=== PATIENT | male | born 1960 | race Caucasian/White ===

== ENCOUNTER 2016-04-16 22:03 | Inpatient (IN) | payer MEDICAID, OTHER ==
[~2016-04-16] VITALS: Ht 165.1 cm; Wt 81.6 kg
--- NOTE | 2016-04-16 22:24 | Emergency Room Report ---
History of Present Illness General Chief Complaint: Gastrointestinal Illness Source: Patient, Medical Record Present Illness HPI Is a 55-year-old male, fdc patient, with multiple medical problems. This included a craniotomy. He presents with two episodes of coffee ground emesis. Report per fdc note. Patient said he vomited yesterday. EMS said this occurred at 8 PM today. Patient has no symptoms. No diarrhea. No abdominal pain. No other complaint. Allergies: Coded Allergies: No Known Allergies (Unverified , 04/16/16) Patient History Past Medical History: see triage record, old chart reviewed Past Surgical History: other - Craniotomy Pertinent Family History: none Social History: Denies: smoking Immunizations: UTD Reviewed Nursing Documentation: PMH: Agreed, PSxH: Agreed Nursing Documentation-PMH Hx Cardiac Problems: No - Chronic back problem Hx Hypertension: Yes Hx COPD: Yes Hx Gastrointestinal Problems: Yes - gerd History Of Psychiatric Problem: Yes - schizo affective disorder Hx Neurological Problems: Yes - epilepsyanxiety Hx Cerebrovascular Accident: Yes Review of Systems Eye: Denies: blurred vision, eye pain ENT: Denies: ear pain, nose congestion, throat swelling Respiratory: Denies: cough, shortness of breath Cardiovascular: Denies: chest pain, palpitations Gastrointestinal: Reports: vomiting, Denies: abdominal pain, diarrhea, nausea Musculoskeletal: Denies: back pain, joint pain Skin: Denies: rash Neurological: Denies: headache, numbness Endocrine: Denies: increased thirst, increased urine Hematologic/Lymphatic: Denies: easy bruising All Other Systems: negative except mentioned in HPI Physical Exam Vital Signs Date Time Temp Pulse Resp B/P Pulse Ox O2 Delivery O2 Flow Rate FiO2 04/16/16 22:07 98.2 76 20 140/96 98 Room Air vitals unremarkable. [id number] EP Interpretation: reviewed, normal General Appearance: well appearing, no apparent distress, alert Head: normocephalic, atraumatic, other - craniotomy on right Eyes: bilateral eye EOMI, bilateral eye PERRL ENT: hearing grossly normal, normal pharynx Neck: full range of motion, supple, no meningismus Respiratory: chest non-tender, lungs clear, normal breath sounds Cardiovascular #1: regular rate, rhythm, no murmur Gastrointestinal: normal bowel sounds, non tender, no mass, no organomegaly, no bruit, non-distended Musculoskeletal: back normal, normal range of motion Neurologic: alert Psychiatric: mood/affect normal Skin: warm/dry Medical Decision Making Diagnostic Impression: Primary Impression: Upper GI bleeding Additional Impressions: UTI (urinary tract infection) Qualified Codes: N30.00 - Acute cystitis without hematuria Leukocytosis Qualified Codes: D72.829 - Elevated white blood cell count, unspecified Proteinuria ER Course Is a 55-year-old male presents with questionable coffee-ground emesis. Hemoglobin stable. Is a poor historian. He had a bowel movement here in his diaper and there was no blood no melena. He does have a leukocytosis. This may be secondary to Dr. gibbs/UTI. May be secondary to stress response from infection. We'll go ahead and cover with antibiotics. I discussed the case with Dr. Sheffield who will be admitting for Dr. Cash. Lab Results Impression labs with leukocytosis. Rhythm Strip Diag. Results EP Interpretation: yes Rate: 80 Rhythm: NSR, no PVC's, no ectopy Chest X-Ray Diagnostic Results EP Interpretation: Yes Findings: no consolidation, no effusion, no pneumothorax, no acute cardiopulmonary disease Number of Views: 1 Last Vital Signs Date Time Temp Pulse Resp B/P Pulse Ox O2 Delivery O2 Flow Rate FiO2 04/16/16 22:07 98.2 76 20 140/96 98 Room Air Status: improved Disposition: HOME, SELF-CARE Condition: Stable Referrals: ERNST CASH (PCP) PHIL JUSTIN M.D. Apr 16, 2016 22:24
[2016-04-16 22:30] LABS: MEAN CORPUSCULAR HEMOGLOBIN 32.8 PG (27.0-31.0); MEAN CORPUSCULAR HGB CONC 33.6 G/DL (32.0-36.0); MEAN CORPUSCULAR VOLUME 98 FL (80-99); MEAN PLATELET VOLUME 7.1 FL (6.5-10.1); PLATELET COUNT 240 K/UL (150-450); RED BLOOD COUNT 4.63 M/UL (4.70-6.10); RED CELL DISTRIBUTION WIDTH 11.8 % (11.6-14.8)
[2016-04-16] MEDS ORDERED: Pantoprazole Inj IVP ONE (22:30)
[2016-04-16] MEDS ORDERED: COZAAR50 MG ORAL (22:34)
[2016-04-16] MEDS ORDERED: CALCIUM 500 +1 EAC3 PO (22:34)
[2016-04-16] MEDS ORDERED: CALCIUM ACETAT667 MG PO (22:34)
[2016-04-16] MEDS ORDERED: DILANTIN100 MG ORAL (22:34)
[2016-04-16] MEDS ORDERED: DEPAKOTE250 MG PO ×2 (22:34)
[2016-04-16] MEDS ORDERED: CARAFATE1 G1 ORAL (22:34)
[2016-04-16] MEDS ORDERED: MILK OF MA400 MG/51 ORAL (22:34)
[2016-04-16] MEDS ORDERED: NORVASC10 MG ORAL (22:34)
[2016-04-16] MEDS ORDERED: SEROQUEL200 MG ORAL (22:34)
[2016-04-16] MEDS ORDERED: MULTIVITAMINS1 EAC2 ORAL (22:34)
[2016-04-16] MEDS ORDERED: DOCUSATE SODIU100 MG ORAL (22:34)
[2016-04-16 22:42] LABS: INR 1.2 (0.9-1.1); PROTHROMBIN TIME 12.7 SEC (9.30-11.50)
[2016-04-16 22:54] LABS: ALANINE AMINOTRANSFERASE 62 U/L (3-41); ALBUMIN/GLOBULIN RATIO 0.9 (1.0-2.7); ANION GAP 21 (5-15); ASPARTATE AMINO TRANSFERASE 61 U/L (5-40); CALCIUM 9.1 mg/dL (8.6-10.2); CARBON DIOXIDE 20 mEQ/L (20-30); CHLORIDE 95 mEQ/L (98-107); CREATININE 0.7 mg/dL (0.7-1.2); GLOMERULAR FILTRATION RATE > 60 mL/min (>60); HEMOLYSIS 146; LIPASE 29 U/L (< 60); POTASSIUM 4.7 mEQ/L (3.4-4.9); SODIUM 136 mEQ/L (135-145); TOTAL PROTEIN 7.8 g/dL (6.6-8.7)
[2016-04-16 22:56] VITALS: BP 121/77
[2016-04-16] MEDS ORDERED: Morphine Sulfate 2mg/ml Inj IVP PRN (23:30)
[2016-04-16] MEDS ORDERED: Nitroglycerin Subl 0.4mg tab (Bottle Of 25) SL PRN (23:30)
[2016-04-16] MEDS ORDERED: Mylanta II UD 30ml ORAL PRN (23:30)
[2016-04-16] MEDS ORDERED: Ketorolac 30mg Inj IV PRN (23:30)
[2016-04-16] MEDS ORDERED: Miralax 17gm pkt ORAL PRN (23:30)
[2016-04-16 23:32] LABS: APPEARANCE,URINE CLEAR; KETONES,URINE 1+ (NEGATIVE); LEUKOCYTE ESTERASE ,URINE NEGATIVE (NEGATIVE); NITRITE,URINE NEGATIVE (NEGATIVE); PH,URINE 5 (4.5-8.0); PROTEIN,URINE 2+ (NEGATIVE); UROBILINOGEN,URINE NORMAL MG/DL (0.0-1.0)
[2016-04-16 23:36] LABS: RBC,URINE 0-2 /HPF (0 - 0); WBC,URINE 0-2 /HPF (0 - 0)
[2016-04-16 23:37] LABS: BACTERIA,URINE MODERATE /HPF
[2016-04-16] MEDS ORDERED: cefTRIAXone 1 GM in NS 55 ML IVPB ONE (23:45)
[2016-04-17] VITALS (10 sets, daily range): BP systolic 100–108; BP diastolic 63–72
[2016-04-17] MEDS ORDERED: DULCOLAX10 MG RC (00:23)
[2016-04-17] MEDS ORDERED: LACTULOSE20 GM/301 ORAL (00:23)
[2016-04-17] MEDS: D5 1/2NS 1,000 ML IV SCH ×2 (00:39→14:12)
[2016-04-17 07:42] LABS: MEAN CORPUSCULAR HEMOGLOBIN 32.6 PG (27.0-31.0); MEAN CORPUSCULAR VOLUME 96 FL (80-99); MEAN PLATELET VOLUME 8.1 FL (6.5-10.1); PLATELET COUNT 216 K/UL (150-450); RED BLOOD COUNT 3.66 M/UL (4.70-6.10); RED CELL DISTRIBUTION WIDTH 11.7 % (11.6-14.8)
[2016-04-17 07:47] LABS: WHITE BLOOD COUNT 23.9 K/UL (4.8-10.8)
[2016-04-17 07:52] LABS: ALANINE AMINOTRANSFERASE 45 U/L (3-41); AMYLASE 52 U/L (10-110); ANION GAP 14 (5-15); ASPARTATE AMINO TRANSFERASE 35 U/L (5-40); CALCIUM 8.5 mg/dL (8.6-10.2); CARBON DIOXIDE 25 mEQ/L (20-30); CHLORIDE 98 mEQ/L (98-107); CREATININE 0.6 mg/dL (0.7-1.2); GLOMERULAR FILTRATION RATE > 60 mL/min (>60); HEMOLYSIS 5; LIPASE 15 U/L (< 60); POTASSIUM 3.6 mEQ/L (3.4-4.9); SODIUM 137 mEQ/L (135-145); TOTAL PROTEIN 6.5 g/dL (6.6-8.7)
[2016-04-17 08:07] LABS: INR 1.3 (0.9-1.1); PROTHROMBIN TIME 13.1 SEC (9.30-11.50)
[2016-04-17 08:36] LABS: BAND NEUTROPHILS % (MANUAL) 11 % (0-8); BASOPHILS % (MANUAL) 0 % (0-2); EOSINOPHILS % (MANUAL) 0 % (0-3); LYMPHOCYTES % (MANUAL) 12 % (20-45); NEUTROPHILS % (MANUAL) 69 % (45-75); PLATELET ESTIMATE ADEQUATE; PLATELET MORPHOLOGY NORMAL; TOTAL CELLS COUNTED 100
[2016-04-17 08:37] LABS: MACROCYTES 1+
[2016-04-17] MEDS ORDERED: QUEtiapine 200mg tab ORAL SCH (09:00)
[2016-04-17] MEDS: Sucralfate 1gm tab ORAL SCH ×3 (09:17→17:54)
[2016-04-17] MEDS: Pantoprazole Inj IV SCH (09:18)
--- NOTE | 2016-04-17 09:20 | Diagnostic Imaging Report ---
Clinical history: Acute chest pain. Technique: Portable AP chest radiograph was obtained. Comparison: None Findings: Lung volumes are low. Scattered linear and patchy densities may reflect mild changes of chronic lung disease and scarring. There is no pneumonia or significant pulmonary edema. There is no pleural effusion or pneumothorax. The cardiac and mediastinal silhouettes are normal in appearance. Degenerative changes are noted in the visualized spine and shoulders, otherwise not optimally evaluated. Atherosclerotic calcification of the aortic arch is noted. Impression: Low lung volumes with probable mild scattered changes of chronic lung disease.
[2016-04-17 10:15] LABS: BAND NEUTROPHILS % (MANUAL) 3 % (0-8); BASOPHILS % (MANUAL) 0 % (0-2); EOSINOPHILS % (MANUAL) 1 % (0-3); LYMPHOCYTES % (MANUAL) 17 % (20-45); MACROCYTES 1+; NEUTROPHILS % (MANUAL) 75 % (45-75); PLATELET ESTIMATE ADEQUATE; PLATELET MORPHOLOGY NORMAL; TOTAL CELLS COUNTED 100
--- NOTE | 2016-04-17 12:49 | History and Physical Report ---
DATE OF ADMISSION: 04/16/2016 TIME: At 7.00 a.m. CONSULTING DOCTOR: 1. Sherlyn Sheffield M.D. 2. Carlito Mcclain M.D. 3. Raymon Meyer M.D. 4. Renetta Cannon M.D. 5. Miguelangel Pino M.D. CHIEF COMPLAINT: Weakness, lethargy, upper GI bleeding, UTI, sepsis, and confusion. BRIEF HISTORY: This is a 55-year-old male from [facility] presented with above-mentioned diagnoses. Currently, confusion in bed in the ER awaiting admission. PAST MEDICAL HISTORY: Encephalopathy and hypertension. PAST SURGICAL HISTORY: Unknown. MEDICATIONS: Include Depakote, Norvasc, Dilantin, Seroquel, Carafate, Protonix, Tylenol, morphine, MiraLAX, Zofran, Restoril, Benadryl, nitroglycerin, and Toradol. ALLERGIES: Denies. SOCIAL HISTORY: The patient is unable to answer. REVIEW OF SYSTEMS: Unavailable. PHYSICAL EXAMINATION: GENERAL: Lethargic in bed, awake, and nonverbal. VITAL SIGNS: Temperature 98.0, pulse 93, respiration 19, blood pressure 104/72. CARDIOVASCULAR: No murmur. LUNGS: Poor air exchange. ABDOMEN: Positive bowel sounds. Nontender. Nondistended. EXTREMITIES: No cyanosis, clubbing, or edema. NEUROLOGIC: The patient moves all extremities and does not want follow commands. LABORATORY DATA: Show white count 19, otherwise CBC is normal. BMP shows glucose 133, chloride 95, AST is 61, and ALT 62. INR is 1.2. Urinalysis show 2+ protein, 1+ ketones, and 1+ occult blood, and moderate bacteria. ASSESSMENT: 1. Upper gastrointestinal bleed. 2. Urinary tract infection. 3. Sepsis. 4. Leukocytosis. 5. Encephalopathy. 6. Diabetes. 7. Hypertension. PLAN: Continue premedications. NPO, IV fluids, and antihypertensive disease. Blood pressure and blood sugar controlled. Dietary followup. Resume home medications. OT/PT, dietary evaluation, and CBC and BMP in the morning. Dr. Sheffield, Dr. Mcclain, Dr. Meyer, Dr. Cannon, and Dr. Pino to consult. Ady Kerr D.O. DR: BARRETT JOB#: [id number] CC:
[2016-04-17] MEDS: Phenytoin 50mg tab ORAL SCH ×2 (13:00→17:54)
--- NOTE | 2016-04-17 14:21 | Neurology Progress Note ---
Objective Physical Exam Last Vital Signs Date Time Temp Pulse Resp B/P Pulse Ox O2 Delivery O2 Flow Rate FiO2 04/17/16 12:02 98.0 91 20 103/68 95 Room Air Laboratory Tests Test 04/16/16 22:22 04/16/16 23:00 04/17/16 07:30 White Blood Count 19.0 K/UL (4.8-10.8) H 23.9 K/UL (4.8-10.8) *H Red Blood Count 4.63 M/UL (4.70-6.10) L 3.66 M/UL (4.70-6.10) L Hemoglobin 15.2 G/DL (14.2-18.0) 11.9 G/DL (14.2-18.0) L Hematocrit 45.2 % (42.0-52.0) 35.1 % (42.0-52.0) L Mean Corpuscular Volume 98 FL (80-99) 96 FL (80-99) Mean Corpuscular Hemoglobin 32.8 PG (27.0-31.0) H 32.6 PG (27.0-31.0) H Mean Corpuscular Hemoglobin Concent 33.6 G/DL (32.0-36.0) 34.0 G/DL (32.0-36.0) Red Cell Distribution Width 11.8 % (11.6-14.8) 11.7 % (11.6-14.8) Platelet Count 240 K/UL (150-450) 216 K/UL (150-450) Mean Platelet Volume 7.1 FL (6.5-10.1) 8.1 FL (6.5-10.1) Neutrophils (%) (Auto) % (45.0-75.0) % (45.0-75.0) Lymphocytes (%) (Auto) % (20.0-45.0) % (20.0-45.0) Monocytes (%) (Auto) % (1.0-10.0) % (1.0-10.0) Eosinophils (%) (Auto) % (0.0-3.0) % (0.0-3.0) Basophils (%) (Auto) % (0.0-2.0) % (0.0-2.0) Differential Total Cells Counted 100 100 Neutrophils % (Manual) 69 % (45-75) 75 % (45-75) Lymphocytes % (Manual) 12 % (20-45) L 17 % (20-45) L Monocytes % (Manual) 8 % (1-10) 4 % (1-10) Eosinophils % (Manual) 0 % (0-3) 1 % (0-3) Basophils % (Manual) 0 % (0-2) 0 % (0-2) Band Neutrophils 11 % (0-8) H 3 % (0-8) Platelet Estimate Adequate Adequate Platelet Morphology Normal Normal Macrocytosis 1+ 1+ Prothrombin Time 12.7 SEC (9.30-11.50) H 13.1 SEC (9.30-11.50) H Prothromb Time International Ratio 1.2 (0.9-1.1) H 1.3 (0.9-1.1) H Activated Partial Thromboplast Time 26 SEC (23-33) 32 SEC (23-33) Sodium Level 136 mEQ/L (135-145) 137 mEQ/L (135-145) Potassium Level 4.7 mEQ/L (3.4-4.9) 3.6 mEQ/L (3.4-4.9) Chloride Level 95 mEQ/L (98-107) L 98 mEQ/L (98-107) Carbon Dioxide Level 20 mEQ/L (20-30) 25 mEQ/L (20-30) Anion Gap 21 (5-15) H 14 (5-15) Blood Urea Nitrogen 12 mg/dL (7-23) 9 mg/dL (7-23) Creatinine 0.7 mg/dL (0.7-1.2) 0.6 mg/dL (0.7-1.2) L Estimat Glomerular Filtration Rate > 60 mL/min (>60) > 60 mL/min (>60) Glucose Level 133 mg/dL (74-106) H 114 mg/dL (74-106) H Calcium Level 9.1 mg/dL (8.6-10.2) 8.5 mg/dL (8.6-10.2) L Total Bilirubin 0.4 mg/dL (0.0-1.2) 0.4 mg/dL (0.0-1.2) Aspartate Amino Transf (AST/SGOT) 61 U/L (5-40) H 35 U/L (5-40) Alanine Aminotransferase (ALT/SGPT) 62 U/L (3-41) H 45 U/L (3-41) H Alkaline Phosphatase 117 U/L (40-129) 90 U/L (40-129) Total Protein 7.8 g/dL (6.6-8.7) 6.5 g/dL (6.6-8.7) L Albumin 3.7 g/dL (3.5-5.2) 3.3 g/dL (3.5-5.2) L Globulin 4.1 g/dL 3.2 g/dL Albumin/Globulin Ratio 0.9 (1.0-2.7) L 1.0 (1.0-2.7) Lipase 29 U/L (< 60) 15 U/L (< 60) Urine Color Yellow Urine Appearance Clear Urine pH 5 (4.5-8.0) Urine Specific [place] 1.020 (1.005-1.035) Urine Protein 2+ (NEGATIVE) H Urine Glucose (UA) Negative (NEGATIVE) Urine Ketones 1+ (NEGATIVE) H Urine Occult Blood 1+ (NEGATIVE) H Urine Nitrite Negative (NEGATIVE) Urine Bilirubin Negative (NEGATIVE) Urine Urobilinogen Normal MG/DL (0.0-1.0) Urine Leukocyte Esterase Negative (NEGATIVE) Urine RBC 0-2 /HPF (0 - 0) H Urine WBC 0-2 /HPF (0 - 0) Urine Squamous Epithelial Cells None /LPF (NONE/OCC) Urine Bacteria Moderate /HPF (NONE) H Amylase Level 52 U/L (10-110) Impression/Recommendations Problems: (1) s/p Large R Craniotomy with spastic hemiparesis (2) Seizure disorder, generalized convulsive, intractable Status: unchanged Recommendations #[id number] HARSHAL WORKMAN Apr 17, 2016 14:21
--- NOTE | 2016-04-17 15:39 | Consultation ---
History of Present Illness General Date patient seen: Apr 17, 2016 Chief Complaint: Gastrointestinal Illness Referring physician: Dr. Kerr Reason for Consultation: inpatient management Present Illness HPI 55-year-old male, with hx of CVA, bipolar, COPD, craniotomy, custodial resident presented with two episodes of coffee ground emesis. Patient can't give any history and all information is obtained from the nursing and EMs reports. Patient is admitted for evaluation of GI bleeding. Allergies: Coded Allergies: No Known Allergies (Unverified , 04/16/16) Medication History Scheduled Amlodipine Besylate (Norvasc), 10 MG ORAL DAILY, (Reported) Calcium Acetate (Calcium Acetate), 667 MG PO THREE TIMES A DAY, (Reported) Divalproex Sodium* (Depakote*), 1,000 MG PO BEDTIME, (Reported) Divalproex Sodium* (Depakote*), 500 MG PO DAILY, (Reported) Docusate Sodium* (Docusate Sodium*), 100 MG ORAL DAILY, (Reported) Lactulose (Lactulose*), 100 ML ORAL THREE TIMES A DAY, (Reported) Losartan Potassium* (Cozaar*), 50 MG ORAL TWICE A DAY, (Reported) Multivitamins* (Multivitamins*), 1 TAB ORAL DAILY, (Reported) Phenytoin Sodium Extended* (Dilantin*), 150 MG ORAL BID, (Reported) Quetiapine Fumarate* (Seroquel*), 250 MG ORAL TWICE A DAY, (Reported) Sucralfate* (Carafate*), 1 GM ORAL BID, (Reported) Scheduled PRN Bisacodyl (Dulcolax), 10 MG RC DAILY PRN for Constipation, (Reported) Magnesium Hydroxide* (Milk Of Magnesia*), 30 ML ORAL DAILY PRN for Constipation, (Reported) Miscellaneous Medications Calcium Carbonate/Vitamin D3 (Calcium 500 + D Tablet), 1 EACH PO, (Reported) Patient History Healthcare decision maker Resuscitation status Full Code Advanced Directive on File Past Medical/Surgical History Past Medical/Surgical History: (1) Seizure disorder, generalized convulsive, intractable (2) s/p Large R Craniotomy with spastic hemiparesis Review of Systems All Other Systems: negative except mentioned in HPI Physical Exam General Appearance: WD/WN Lines, tubes and drains: peripheral HEENT: normocephalic, atraumatic Neck: non-tender, normal alignment Respiratory/Chest: chest wall non-tender, lungs clear, normal breath sounds Breasts: no masses, no discharge Cardiovascular/Chest: normal peripheral pulses, normal rate, regular rhythm Abdomen: normal bowel sounds, non tender Genitourinary/Rectal: normal genital exam, normal rectal exam Extremities: normal range of motion, normal inspection Skin Exam: normal pigmentation Last 24 Hour Vital Signs Date Time Temp Pulse Resp B/P Pulse Ox O2 Delivery O2 Flow Rate FiO2 04/17/16 12:02 98.0 91 20 103/68 95 Room Air 04/17/16 10:04 98.2 89 20 102/63 95 Room Air 04/17/16 09:34 98.2 89 18 104/67 95 Room Air 04/17/16 09:15 89 18 104/67 95 Room Air 04/17/16 07:30 93 18 100/68 95 04/17/16 07:04 98.2 93 19 104/72 95 Room Air 04/17/16 06:05 98.6 94 19 106/70 94 Room Air 04/17/16 03:49 98.6 109 22 106/70 95 Room Air 04/17/16 01:29 98.6 115 19 108/65 95 Room Air 04/16/16 22:56 98.6 125 17 121/77 97 Room Air 04/16/16 22:07 98.2 76 20 140/96 98 Room Air Intake and Output 04/16/16 04/17/16 19:00 07:00 Intake Total 1430 ml Output Total 185 ml Balance 1245 ml IV Total 1430 ml Output Urine Total 185 ml Laboratory Tests Test 04/16/16 22:22 04/16/16 23:00 04/17/16 07:30 White Blood Count 19.0 K/UL (4.8-10.8) H 23.9 K/UL (4.8-10.8) *H Red Blood Count 4.63 M/UL (4.70-6.10) L 3.66 M/UL (4.70-6.10) L Hemoglobin 15.2 G/DL (14.2-18.0) 11.9 G/DL (14.2-18.0) L Hematocrit 45.2 % (42.0-52.0) 35.1 % (42.0-52.0) L Mean Corpuscular Volume 98 FL (80-99) 96 FL (80-99) Mean Corpuscular Hemoglobin 32.8 PG (27.0-31.0) H 32.6 PG (27.0-31.0) H Mean Corpuscular Hemoglobin Concent 33.6 G/DL (32.0-36.0) 34.0 G/DL (32.0-36.0) Red Cell Distribution Width 11.8 % (11.6-14.8) 11.7 % (11.6-14.8) Platelet Count 240 K/UL (150-450) 216 K/UL (150-450) Mean Platelet Volume 7.1 FL (6.5-10.1) 8.1 FL (6.5-10.1) Neutrophils (%) (Auto) % (45.0-75.0) % (45.0-75.0) Lymphocytes (%) (Auto) % (20.0-45.0) % (20.0-45.0) Monocytes (%) (Auto) % (1.0-10.0) % (1.0-10.0) Eosinophils (%) (Auto) % (0.0-3.0) % (0.0-3.0) Basophils (%) (Auto) % (0.0-2.0) % (0.0-2.0) Differential Total Cells Counted 100 100 Neutrophils % (Manual) 69 % (45-75) 75 % (45-75) Lymphocytes % (Manual) 12 % (20-45) L 17 % (20-45) L Monocytes % (Manual) 8 % (1-10) 4 % (1-10) Eosinophils % (Manual) 0 % (0-3) 1 % (0-3) Basophils % (Manual) 0 % (0-2) 0 % (0-2) Band Neutrophils 11 % (0-8) H 3 % (0-8) Platelet Estimate Adequate Adequate Platelet Morphology Normal Normal Macrocytosis 1+ 1+ Prothrombin Time 12.7 SEC (9.30-11.50) H 13.1 SEC (9.30-11.50) H Prothromb Time International Ratio 1.2 (0.9-1.1) H 1.3 (0.9-1.1) H Activated Partial Thromboplast Time 26 SEC (23-33) 32 SEC (23-33) Sodium Level 136 mEQ/L (135-145) 137 mEQ/L (135-145) Potassium Level 4.7 mEQ/L (3.4-4.9) 3.6 mEQ/L (3.4-4.9) Chloride Level 95 mEQ/L (98-107) L 98 mEQ/L (98-107) Carbon Dioxide Level 20 mEQ/L (20-30) 25 mEQ/L (20-30) Anion Gap 21 (5-15) H 14 (5-15) Blood Urea Nitrogen 12 mg/dL (7-23) 9 mg/dL (7-23) Creatinine 0.7 mg/dL (0.7-1.2) 0.6 mg/dL (0.7-1.2) L Estimat Glomerular Filtration Rate > 60 mL/min (>60) > 60 mL/min (>60) Glucose Level 133 mg/dL (74-106) H 114 mg/dL (74-106) H Calcium Level 9.1 mg/dL (8.6-10.2) 8.5 mg/dL (8.6-10.2) L Total Bilirubin 0.4 mg/dL (0.0-1.2) 0.4 mg/dL (0.0-1.2) Aspartate Amino Transf (AST/SGOT) 61 U/L (5-40) H 35 U/L (5-40) Alanine Aminotransferase (ALT/SGPT) 62 U/L (3-41) H 45 U/L (3-41) H Alkaline Phosphatase 117 U/L (40-129) 90 U/L (40-129) Total Protein 7.8 g/dL (6.6-8.7) 6.5 g/dL (6.6-8.7) L Albumin 3.7 g/dL (3.5-5.2) 3.3 g/dL (3.5-5.2) L Globulin 4.1 g/dL 3.2 g/dL Albumin/Globulin Ratio 0.9 (1.0-2.7) L 1.0 (1.0-2.7) Lipase 29 U/L (< 60) 15 U/L (< 60) Urine Color Yellow Urine Appearance Clear Urine pH 5 (4.5-8.0) Urine Specific [place] 1.020 (1.005-1.035) Urine Protein 2+ (NEGATIVE) H Urine Glucose (UA) Negative (NEGATIVE) Urine Ketones 1+ (NEGATIVE) H Urine Occult Blood 1+ (NEGATIVE) H Urine Nitrite Negative (NEGATIVE) Urine Bilirubin Negative (NEGATIVE) Urine Urobilinogen Normal MG/DL (0.0-1.0) Urine Leukocyte Esterase Negative (NEGATIVE) Urine RBC 0-2 /HPF (0 - 0) H Urine WBC 0-2 /HPF (0 - 0) Urine Squamous Epithelial Cells None /LPF (NONE/OCC) Urine Bacteria Moderate /HPF (NONE) H Amylase Level 52 U/L (10-110) Microbiology Date/Time Source Procedure Growth Status 04/16/16 23:00 Urine,Clean Catch Urine Culture - Preliminary NO GROWTH Resulted Height (Feet): 5 Height (Inches): 8.00 Weight (Pounds): 180 Medications Current Medications Medications (Trade) Dose Ordered Sig/Netta Route PRN Reason Start Time Stop Time Status Last Admin Dose Admin Acetaminophen (Tylenol) 650 mg Q4H PRN ORAL fever 04/16/16 23:30 05/16/16 23:29 Al Hydroxide/Mg Hydroxide (Mylanta II) 30 ml Q6H PRN ORAL dyspepsia 04/16/16 23:30 05/16/16 23:29 Amlodipine Besylate (Norvasc) 10 mg DAILY ORAL 04/17/16 09:00 05/17/16 08:59 Dextrose (Dextrose 50%) STAT PRN IV Hypoglycemia 04/16/16 23:30 05/16/16 23:29 Dextrose/Sodium Chloride (D5 0.45% NS) 1,000 ml @ 75 mls/hr [id number] IV 04/17/16 01:00 05/17/16 00:59 04/17/16 14:12 Diphenhydramine HCl (Benadryl) 25 mg Q6H PRN ORAL Itching/Pruritis 04/16/16 23:30 05/16/16 23:29 Divalproex Sodium (Depakote) 1,000 mg BEDTIME ORAL 04/17/16 21:00 05/17/16 20:59 Ketorolac Tromethamine (Toradol 30mg) 30 mg Q6H PRN IV moderate pian 4-6 04/16/16 23:30 04/21/16 23:29 Morphine Sulfate (Morphine Sulfate) 2 mg Q4H PRN IVP severe Pain (Pain Scale 7-10) 04/16/16 23:30 04/23/16 23:29 Nitroglycerin (Ntg) 0.4 mg Q5M X 3 DOSES PRN SL Prn Chest Pain 04/16/16 23:30 05/16/16 23:29 Ondansetron HCl (Zofran) 4 mg Q6H PRN IVP Nausea & Vomiting 04/16/16 23:30 05/16/16 23:29 Pantoprazole (Protonix) 40 mg DAILY IV 04/17/16 09:00 05/17/16 08:59 04/17/16 09:18 Phenytoin (Dilantin) 150 mg BID ORAL 04/17/16 09:00 05/17/16 08:59 04/17/16 13:00 Polyethylene Glycol (Miralax) 17 gm HSPRN PRN ORAL Constipation 04/16/16 23:30 05/16/16 23:29 Quetiapine Fumarate (SEROquel) 50 mg Q12HR ORAL 04/17/16 21:00 05/17/16 20:59 Quetiapine Fumarate (SEROquel) 50 mg TWICE A DAY PRN ORAL agitation 04/17/16 14:15 05/17/16 14:14 Sucralfate 1 gm 1 gm BID ORAL 04/17/16 09:00 05/17/16 08:59 04/17/16 09:22 Temazepam (Restoril) 15 mg HSPRN PRN ORAL Insomnia 04/16/16 23:30 04/23/16 23:29 Assessment/Plan Problem List: (1) Upper GI bleeding ICD Codes: K92.2 - Gastrointestinal hemorrhage, unspecified SNOMED: 17165303 (2) Leukocytosis ICD Codes: D72.829 - Elevated white blood cell count, unspecified SNOMED: 371002499, 193433102 Qualifiers: Qualified Codes: D72.829 - Elevated white blood cell count, unspecified (3) UTI (urinary tract infection) ICD Codes: N39.0 - Urinary tract infection, site not specified SNOMED: 00351855, 372005323 Qualifiers: Qualified Codes: N30.00 - Acute cystitis without hematuria (4) s/p Large R Craniotomy with spastic hemiparesis (5) Seizure disorder, generalized convulsive, intractable ICD Codes: 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
--- NOTE | 2016-04-17 15:58 | General Progress Note ---
Assessment/Plan Assessment/Plan GI CONSULT Dictated EGD in am Keron Yousif MD Subjective Allergies: Coded Allergies: No Known Allergies (Unverified , 04/16/16) Objective Last 24 Hour Vital Signs Date Time Temp Pulse Resp B/P Pulse Ox O2 Delivery O2 Flow Rate FiO2 04/17/16 12:02 98.0 91 20 103/68 95 Room Air 04/17/16 10:04 98.2 89 20 102/63 95 Room Air 04/17/16 09:34 98.2 89 18 104/67 95 Room Air 04/17/16 09:15 89 18 104/67 95 Room Air 04/17/16 07:30 93 18 100/68 95 04/17/16 07:04 98.2 93 19 104/72 95 Room Air 04/17/16 06:05 98.6 94 19 106/70 94 Room Air 04/17/16 03:49 98.6 109 22 106/70 95 Room Air 04/17/16 01:29 98.6 115 19 108/65 95 Room Air 04/16/16 22:56 98.6 125 17 121/77 97 Room Air 04/16/16 22:07 98.2 76 20 140/96 98 Room Air Intake and Output 04/16/16 04/17/16 19:00 07:00 Intake Total 1430 ml Output Total 185 ml Balance 1245 ml IV Total 1430 ml Output Urine Total 185 ml Laboratory Tests 04/16/16 22:22: White Blood Count 19.0H, Red Blood Count 4.63L, Hemoglobin 15.2, Hematocrit 45.2 , Mean Corpuscular Volume 98, Mean Corpuscular Hemoglobin 32.8H, Mean Corpuscular Hemoglobin Concent 33.6, Red Cell Distribution Width 11.8, Platelet Count 240, Mean Platelet Volume 7.1, Neutrophils (%) (Auto) , Lymphocytes (%) ( Auto) , Monocytes (%) (Auto) , Eosinophils (%) (Auto) , Basophils (%) (Auto) , Differential Total Cells Counted 100, Neutrophils % (Manual) 69, Lymphocytes % ( Manual) 12L, Monocytes % (Manual) 8, Eosinophils % (Manual) 0, Basophils % ( Manual) 0, Band Neutrophils 11H, Platelet Estimate Adequate, Platelet Morphology Normal, Macrocytosis 1+, Prothrombin Time 12.7H, Prothromb Time International Ratio 1.2H, Activated Partial Thromboplast Time 26, Sodium Level 136, Potassium Level 4.7, Chloride Level 95L, Carbon Dioxide Level 20, Anion Gap 21H, Blood Urea Nitrogen 12, Creatinine 0.7, Estimat Glomerular Filtration Rate > 60, Glucose Level 133H, Calcium Level 9.1, Total Bilirubin 0.4, Aspartate Amino Transf (AST/SGOT) 61H, Alanine Aminotransferase (ALT/SGPT) 62H, Alkaline Phosphatase 117, Total Protein 7.8, Albumin 3.7, Globulin 4.1, Albumin/ Globulin Ratio 0.9L, Lipase 29 04/16/16 23:00: Urine Color Yellow, Urine Appearance Clear, Urine pH 5, Urine Specific [place] 1.020, Urine Protein 2+H, Urine Glucose (UA) Negative, Urine Ketones 1+H, Urine Occult Blood 1+H, Urine Nitrite Negative, Urine Bilirubin Negative, Urine Urobilinogen Normal, Urine Leukocyte Esterase Negative, Urine RBC 0-2H, Urine WBC 0-2, Urine Squamous Epithelial Cells None, Urine Bacteria ModerateH 04/17/16 07:30: White Blood Count 23.9*H, Red Blood Count 3.66L, Hemoglobin 11.9L, Hematocrit 35.1L, Mean Corpuscular Volume 96, Mean Corpuscular Hemoglobin 32.6H, Mean Corpuscular Hemoglobin Concent 34.0, Red Cell Distribution Width 11.7, Platelet Count 216, Mean Platelet Volume 8.1, Neutrophils (%) (Auto) , Lymphocytes (%) ( Auto) , Monocytes (%) (Auto) , Eosinophils (%) (Auto) , Basophils (%) (Auto) , Differential Total Cells Counted 100, Neutrophils % (Manual) 75, Lymphocytes % ( Manual) 17L, Monocytes % (Manual) 4, Eosinophils % (Manual) 1, Basophils % ( Manual) 0, Band Neutrophils 3, Platelet Estimate Adequate, Platelet Morphology Normal, Macrocytosis 1+, Prothrombin Time 13.1H, Prothromb Time International Ratio 1.3H, Activated Partial Thromboplast Time 32, Sodium Level 137, Potassium Level 3.6, Chloride Level 98, Carbon Dioxide Level 25, Anion Gap 14, Blood Urea Nitrogen 9, Creatinine 0.6L, Estimat Glomerular Filtration Rate > 60, Glucose Level 114H, Calcium Level 8.5L, Total Bilirubin 0.4, Aspartate Amino Transf (AST /SGOT) 35, Alanine Aminotransferase (ALT/SGPT) 45H, Alkaline Phosphatase 90, Total Protein 6.5L, Albumin 3.3L, Globulin 3.2, Albumin/Globulin Ratio 1.0, Lipase 15, Amylase Level 52 Height (Feet): 5 Height (Inches): 8.00 Weight (Pounds): 180 KERON YOUSIF Apr 17, 2016 15:58
[2016-04-17 16:34] LABS: BILIRUBIN,DIRECT 0.1 mg/dL (0.1-0.3); TOTAL PROTEIN 6.5 g/dL (6.6-8.7)
[2016-04-17] MEDS: Vancomycin 1.5 GM in D5W 325 ML IVPB SCH (17:54)
[2016-04-17] MEDS ORDERED: NS 550ML IV ONE (20:34)
[2016-04-17] MEDS ORDERED: D5 1/2NS 1000ml IV ONE (20:34)
[2016-04-17] MEDS: Piperacillin/Tazobactam 3.375 GM in NS 110 ML IVPB SCH (20:42)
[2016-04-17] MEDS: Depakote 500mg tab ORAL SCH (20:43)
--- NOTE | 2016-04-17 22:19 | Consultation ---
DATE OF CONSULTATION: 04/17/2016 NEUROLOGICAL CONSULTATION CONSULTING PHYSICIAN: Miguelangel Pino M.D. REQUESTING PHYSICIAN: Ady Kerr D.O. HISTORY OF PRESENT ILLNESS: The patient is a 55 years old resident of a convalescent home, brought to this hospital for new onset of coffee-ground emesis and change in mental status. His vital signs on admission were stable, blood pressure 140/96, he was afebrile. His EKG normal sinus rhythm, no PVCs. Chest x-ray, no acute disease noted. Laboratory work was obtained revealing CBC study with WBC of 19.0, repeat study 23.9. Coagulation panel, INR 1.2 and PT of 12.7. Urinalysis, moderate bacteria and 1+ ketones. Chemistry panel revealed a glucose of 133 elevated. AST is 61, and ALT is 62, normal lipase and amylase. Following admission till present, the patient lethargic. PAST MEDICAL HISTORY: The patient is unable to provide with information, but apparently he had a history of chronic seizure disorder, history of chronic psychiatric disorder, and few years ago, he had a large right-sided craniotomy with left hemiparesis, reason for craniotomy not indicated. Chronic low back pain. MEDICATIONS: Treatment prior to admission included amlodipine, calcium, Depakote 1000 mg at bedtime and 500 mg daily, docusate, lactulose, losartan, magnesium, multivitamin, phenytoin 150 mg twice a day, Seroquel 250 mg twice a day, and Carafate. ALLERGIES: None reported. FAMILY HISTORY: Unavailable. REVIEW OF SYMPTOMS: Unable to obtain due to the patient's status. PHYSICAL EXAMINATION: GENERAL: The patient is a well-developed and well-nourished man, not in acute distress, found to be asleep. VITAL SIGNS: His vital signs are now stable. Blood pressure 103/60 and temperature 98. HEENT: Head, normocephalic, but there is a very large craniotomy defect, right temporoparietal region. NECK: Supple. No meningeal signs. MUSCULOSKELETAL: No deformities. Peripheral pulses, 1+ symmetric. MENTAL STATUS: The patient is arousable on vigorous stimulation, briefly opens eyes, mumbles quite to yes or no, but able to follow few simple commands. CRANIAL NERVE II: Pupils both responding to light and accommodation. Extraocular movements, horizontal nystagmus and lateral gaze. CRANIAL NERVE V: Normal corneal responses. CRANIAL NERVE VII: No facial asymmetry. CRANIAL NERVE VIII: Grossly normal hearing. CRANIAL NERVE IX THROUGH XII: Tongue is in midline. Symmetric palate elevation. MOTOR EXAMINATION: Spastic left upper and left lower extremity weakness 4/5. Able to move right arm and right leg spontaneously. Deep tendon reflexes depressed bilaterally. Plantar responses are flexor on the right, mute on the left. SENSORY EXAMINATION: No response to pin stimulation. IMPRESSION: 1. This is a 55 years old man with a new onset of obtundation, rule out a drug induced lethargy, rule out nonconvulsive seizure activity, rule out sepsis. 2. Status post right craniotomy with a large skull defect and spastic left hemiparesis. 3. Chronic seizure disorder. 4. Chronic psychiatric disorder. 5. Mild coagulopathy. 6. Abnormal liver enzymes. RECOMMENDATIONS: 1. Obtain EEG. 2. To rule out seizure activities. 3. In presence of abnormal liver function, use of Depakote should be very cautious with frequent measurements of liver function to detect any progression. 4. Check blood level of Depakote and Dilantin to adjust the dose appropriately. 5. Hold sedating medications and adjust antipsychotics . Thank you for allowing me to see this interesting patient in neurological consultation. Miguelangel Pino M.D. DR: MARIA DE JESUS JOB#: [id number] CC:
[2016-04-18] VITALS (10 sets, daily range): BP systolic 100–129; BP diastolic 61–79
--- NOTE | 2016-04-18 00:19 | Consultation ---
DATE OF CONSULTATION: 04/17/2016 GASTROLOGY CONSULTATION CHIEF COMPLAINT: I was asked to see this patient by Dr. Ady Kerr for evaluation of recurrent hematemesis. HISTORY OF PRESENT ILLNESS: The patient is a 55-year-old man from a assisted who comes into the hospital due to coffee-ground emesis. History of some periods of the patient's encephalopathy and poor history. The patient is noted a little weak and has also been suspected of having some degree of urinary tract infection and sepsis. The patient's other symptom is coffee-ground emesis description by paramedics. PAST MEDICAL HISTORY: Remarkable for history of encephalopathy and history of hypertension. MEDICATIONS: See chart for details. ALLERGIES: None. FAMILY HISTORY: Not available. SOCIAL HISTORY: The patient is from a assisted. Otherwise, he has no history. PHYSICAL EXAMINATION: GENERAL: Debilitated. Confused. Seen in his room. HEENT: Normocephalic and atraumatic. Sclerae anicteric. Oropharynx clear. NECK: Supple. CHEST: Clear to auscultation. CARDIOVASCULAR: Irregular rate. ABDOMEN: Soft with good bowel sounds. EXTREMITIES: Revealed no edema. LABORATORY DATA: As noted. ASSESSMENT: This patient has acute upper gastrointestinal bleeding and is admitted for the severe drop in hematocrit over 9 to 10 points. . The patient also has some degree of leukocytosis and is being evaluated for that matter. He was started on antibiotics given his infection. finding, the patient does have an elevated liver tests imaging studies tomorrow. There is no family available. endoscopy can be done with emergency physician consent protocol. RECOMMENDATIONS: Per above discussion and per orders written in the chart. Thank you for asking me to participate in the care of this patient. Keron Yousif M.D. DR: MAGGY JOB#: [id number] CC:
[2016-04-18 00:28] LABS: APPEARANCE,URINE CLEAR; KETONES,URINE NEGATIVE (NEGATIVE); LEUKOCYTE ESTERASE ,URINE 1+ (NEGATIVE); NITRITE,URINE NEGATIVE (NEGATIVE); PH,URINE 7 (4.5-8.0); PROTEIN,URINE NEGATIVE (NEGATIVE); UROBILINOGEN,URINE NORMAL MG/DL (0.0-1.0)
[2016-04-18 01:04] LABS: BACTERIA,URINE FEW /HPF; SQUAMOUS EPITHELIAL CELL,UR OCCASIONAL /LPF (NONE/OCC)
[2016-04-18] MEDS: D5 1/2NS 1,000 ML IV SCH ×2 (03:40→21:39)
[2016-04-18] MEDS: Piperacillin/Tazobactam 3.375 GM in NS 110 ML IVPB SCH ×3 (04:38→21:40)
[2016-04-18] MEDS: Vancomycin 1.5 GM in D5W 325 ML IVPB SCH ×2 (06:00→18:35)
[2016-04-18 08:12] LABS: BASOPHILS % (AUTO) 0.6 % (0.0-2.0); EOSINOPHILS % (AUTO) 4.4 % (0.0-3.0); LYMPHOCYTES % (AUTO) 32.9 % (20.0-45.0); MEAN CORPUSCULAR HGB CONC 34.3 G/DL (32.0-36.0); MEAN CORPUSCULAR VOLUME 96 FL (80-99); MEAN PLATELET VOLUME 8.5 FL (6.5-10.1); MONOCYTES % (AUTO) 8.8 % (1.0-10.0); NEUTROPHILS % (AUTO) 53.2 % (45.0-75.0); PLATELET COUNT 199 K/UL (150-450); RED BLOOD COUNT 3.83 M/UL (4.70-6.10); RED CELL DISTRIBUTION WIDTH 11.7 % (11.6-14.8); WHITE BLOOD COUNT 8.7 K/UL (4.8-10.8)
[2016-04-18 08:30] LABS: ANION GAP 15 (5-15); CALCIUM 8.7 mg/dL (8.6-10.2); CARBON DIOXIDE 26 mEQ/L (20-30); CHLORIDE 97 mEQ/L (98-107); CREATININE 0.6 mg/dL (0.7-1.2); GLOMERULAR FILTRATION RATE > 60 mL/min (>60); HEMOLYSIS 6; POTASSIUM 3.6 mEQ/L (3.4-4.9); SODIUM 138 mEQ/L (135-145)
--- NOTE | 2016-04-18 08:57 | Pre-Procedure Note/Attestation ---
Pre-Procedure Note/Attestation Complete Prior to Procedure Planned Procedure: not applicable Procedure Narrative: egd Indications for Procedure Pre-Operative Diagnosis: gib Attestation I attest that I discussed the nature of the procedure; its benefits; risks and complications; and alternatives (and the risks and benefits of such alternatives ), prior to the procedure, with the patient (or the patient's legal used equipment sales representative). I attest that, if there was a reasonable possibility of needing a blood transfusion, the patient (or the patient's legal used equipment sales representative) was given the [facility] standardized written summary, pursuant to the Remi Beverly Blood Safety Act ([place] Health and Safety Code # 1645, as amended). I attest that I re-evaluated the patient just prior to the surgery and that there has been no change in the patient's H&P, except as documented below: RESHMA CARROLL Apr 18, 2016 08:57
[2016-04-18] MEDS ORDERED: Propofol 10mg/ml 20ml IV ONE (09:00)
[2016-04-18] MEDS ORDERED: Lidocaine 1% MPF 10mg/ml 5ml ONE (09:00)
[2016-04-18] MEDS ORDERED: LR 1000ml ONE (09:00)
--- NOTE | 2016-04-18 09:01 | Anethesia Preoperative Eval ---
Anesthesia Pre-op PMH/ROS General Date of Evaluation: Apr 18, 2016 Time of Evaluation: 09:00 Anesthesiologist: tammy ASA Score: ASA 3 Mallampati Score Class I : Soft palate, uvula, fauces, pillars visible Class II: Soft palate, uvula, fauces visible Class III: Soft palate, base of uvula visible Class IV: Only hard plate visible Mallampati Classification: Class III Surgeon: kristofer Diagnosis: GI bleed Surgical Procedure: EGD Anesthesia History: none Family History: no anesthesia problems Allergies: Coded Allergies: No Known Allergies (Unverified , 04/16/16) Medications: see eMAR Past Medical History Cardiovascular: Reports: HTN Pulmonary: Denies: COPD, DAVID, asthma, other Neurologic/Psychiatric: Reports: other Endocrine: Reports: DM HEENT: Denies: WILTON (L), WILTON (R), cataract (L), cataract (R), glaucoma, other Hematology/Immune: Reports: anemia, other - GI bleed Musculoskeletal/Integumentary: Denies: DDD, DJD, OA, RA, edema, other PMH Narrative: 1. Upper gastrointestinal bleed. 2. Urinary tract infection. 3. Sepsis. 4. Leukocytosis. 5. Encephalopathy. 6. Diabetes. 7. Hypertension. Anesthesia Pre-op Phys. Exam Physician Exam Last Vital Signs Date Time Temp Pulse Resp B/P Pulse Ox O2 Delivery O2 Flow Rate FiO2 04/18/16 07:55 98.5 99 21 113/61 97 Room Air Constitutional: NAD Neurologic: CN 2-12 intact Cardiovascular: RRR Respiratory: CTA Gastrointestinal: S/NT/ND Airway Exam Mallampati Classification 3 Mallampati Score: Class III MO: limited ROM: limited Dentures: no lower, no upper Anesthesia Pre-op A/P Labs Hematology Test 04/18/16 06:50 White Blood Count 8.7 K/UL (4.8-10.8) # Red Blood Count 3.83 M/UL (4.70-6.10) L Hemoglobin 12.6 G/DL (14.2-18.0) L Hematocrit 36.9 % (42.0-52.0) L Mean Corpuscular Volume 96 FL (80-99) Mean Corpuscular Hemoglobin 33.0 PG (27.0-31.0) H Mean Corpuscular Hemoglobin Concent 34.3 G/DL (32.0-36.0) Red Cell Distribution Width 11.7 % (11.6-14.8) Platelet Count 199 K/UL (150-450) Mean Platelet Volume 8.5 FL (6.5-10.1) Neutrophils (%) (Auto) 53.2 % (45.0-75.0) Lymphocytes (%) (Auto) 32.9 % (20.0-45.0) Monocytes (%) (Auto) 8.8 % (1.0-10.0) Eosinophils (%) (Auto) 4.4 % (0.0-3.0) H Basophils (%) (Auto) 0.6 % (0.0-2.0) Chemistry Test 04/17/16 15:55 04/18/16 06:50 Total Bilirubin 0.3 mg/dL (0.0-1.2) Direct Bilirubin 0.1 mg/dL (0.1-0.3) Aspartate Amino Transf (AST/SGOT) 32 U/L (5-40) Alanine Aminotransferase (ALT/SGPT) 41 U/L (3-41) Alkaline Phosphatase 90 U/L (40-129) Ammonia 48 umol/L (16-60) Total Protein 6.5 g/dL (6.6-8.7) L Albumin 3.2 g/dL (3.5-5.2) L Sodium Level 138 mEQ/L (135-145) Potassium Level 3.6 mEQ/L (3.4-4.9) Chloride Level 97 mEQ/L (98-107) L Carbon Dioxide Level 26 mEQ/L (20-30) Anion Gap 15 (5-15) Blood Urea Nitrogen 5 mg/dL (7-23) L Creatinine 0.6 mg/dL (0.7-1.2) L Estimat Glomerular Filtration Rate > 60 mL/min (>60) Glucose Level 88 mg/dL (74-106) Calcium Level 8.7 mg/dL (8.6-10.2) Risk Assessment & Plan Plan: mac Pre-Antibiotics Drug: none TARRILLION,PRECIOUSGÓMEZ VILLATORO Apr 18, 2016 09:01
[2016-04-18] MEDS ORDERED: NS 550ML IV ONE (09:05)
--- NOTE | 2016-04-18 09:11 | Endoscopy Procedure Note ---
Endoscopy Procedure Note Indication for Procedure: gib Procedures Performed: EGD Operative Findings/Diagnosis: gastritis Specimen: yes Pt Tolerated Procedure Well: Yes Estimated Blood Loss: none Anesthesiologist: stacy Anesthesia: MAC Implant(s) used?: No 50 yrs or older w/o bx or poly: Not Applicable 10yrs. F/U not recommended: Not Applicable RESHMA CARROLL Apr 18, 2016 09:11
--- NOTE | 2016-04-18 09:32 | Immediate Post-Op Evaluation ---
Immediate Post-Op Evalulation Immediate Post-Op Evalulation Procedure: EGD Date of Evaluation: Apr 18, 2016 Time of Evaluation: 08:50 Blood Pressure Systolic: 114 Blood Pressure Diastolic: 64 Pulse Rate: 65 Respiratory Rate: 14 O2 Sat by Pulse Oximetry: 100 Temperature (Fahrenheit): 97.2 Nausea: No Vomiting: No Patient Status: awake, reacts, patent Hydration Status: adequate Drug: none PRECIOUS TEE CRNA Apr 18, 2016 09:32
--- NOTE | 2016-04-18 09:33 | 48 Hour Post Anesthesia Eval ---
Post Anesthesia Evaluation Procedure: EGD Date of Evaluation: Apr 18, 2016 Time of Evaluation: 09:33 Blood Pressure Systolic: 114 0: 65 Pulse Rate: 74 O2 Sat by Pulse Oximetry: 100 Airway: patent Nausea: No Vomiting: No Hydration Status: adequate Mental Status/LOC: patient returned to baseline Post-Anesthesia Complications: none Follow-up care needed: N/A PRECIOUS TEE CRNA Apr 18, 2016 09:33
[2016-04-18] MEDS: Sucralfate 1gm tab ORAL SCH ×2 (10:24→18:32)
[2016-04-18] MEDS: Phenytoin 50mg tab ORAL SCH ×2 (10:24→18:32)
[2016-04-18] MEDS: Pantoprazole Inj IV SCH (10:34)
--- NOTE | 2016-04-18 13:18 | General Progress Note ---
Assessment/Plan Problem List: (1) Diabetes ICD Codes: E11.9 - Type 2 diabetes mellitus without complications SNOMED: 61532933 (2) HTN (hypertension) ICD Codes: I10 - Essential (primary) hypertension SNOMED: 19037783 (3) UGIB (upper gastrointestinal bleed) ICD Codes: K92.2 - Gastrointestinal hemorrhage, unspecified SNOMED: 34959883 (4) UTI (urinary tract infection) ICD Codes: N39.0 - Urinary tract infection, site not specified SNOMED: 67603968, 351372839 Qualifiers: Qualified Codes: N30.00 - Acute cystitis without hematuria (5) Leukocytosis ICD Codes: D72.829 - Elevated white blood cell count, unspecified SNOMED: 824174751, 307554112 Qualifiers: Qualified Codes: D72.829 - Elevated white blood cell count, unspecified (6) Proteinuria ICD Codes: R80.9 - Proteinuria, unspecified SNOMED: 86289272, 083207975 Status: stable, progressing Assessment/Plan ot pt diet abx cbc bmp am Subjective Constitutional: Reports: weakness Allergies: Coded Allergies: No Known Allergies (Unverified , 04/16/16) All Systems: reviewed and negative except above Subjective lethargic in bed Objective Last 24 Hour Vital Signs Date Time Temp Pulse Resp B/P Pulse Ox O2 Delivery O2 Flow Rate FiO2 04/18/16 12:15 97.6 79 20 112/70 95 Room Air 04/18/16 10:24 71 126/78 04/18/16 09:40 97.8 78 16 129/74 98 Nasal Cannula 3.0 04/18/16 09:33 74 100 04/18/16 09:32 65 14 100 04/18/16 09:25 85 25 118/71 98 Nasal Cannula 3.0 04/18/16 09:20 82 18 127/79 98 Nasal Cannula 3.0 04/18/16 09:15 97.2 88 20 107/76 99 Nasal Cannula 3.0 04/18/16 07:55 98.5 99 21 113/61 97 Room Air 04/18/16 04:00 98.6 84 19 128/66 98 Room Air 04/18/16 00:00 98.8 81 18 123/71 95 Room Air 04/17/16 20:00 96.6 74 18 107/67 97 Room Air 04/17/16 16:00 97.5 91 16 105/64 95 Room Air Intake and Output 04/17/16 04/18/16 19:00 07:00 Intake Total 525 ml 157.5 ml Output Total 250 ml 350 ml Balance 275 ml -192.5 ml Intake Oral 0 ml IV Total 525 ml 157.5 ml Output Urine Total 250 ml 350 ml Laboratory Tests 04/17/16 15:55: Total Bilirubin 0.3, Direct Bilirubin 0.1, Aspartate Amino Transf (AST/SGOT) 32 , Alanine Aminotransferase (ALT/SGPT) 41, Alkaline Phosphatase 90, Ammonia 48, Total Protein 6.5L, Albumin 3.2L, Phenytoin (Dilantin) Level 16.5, Valproic Acid (Depakene) Level 18L 04/17/16 23:15: Urine Color Yellow, Urine Appearance Clear, Urine pH 7, Urine Specific [place] 1.005, Urine Protein Negative, Urine Glucose (UA) Negative, Urine Ketones Negative, Urine Occult Blood 5+H, Urine Nitrite Negative, Urine Bilirubin Negative, Urine Urobilinogen Normal, Urine Leukocyte Esterase 1+H, Urine RBC 2- 4H, Urine WBC 2-4, Urine Squamous Epithelial Cells Occasional, Urine Bacteria Few 04/18/16 06:50: White Blood Count 8.7#, Red Blood Count 3.83L, Hemoglobin 12.6L, Hematocrit 36.9L, Mean Corpuscular Volume 96, Mean Corpuscular Hemoglobin 33.0H, Mean Corpuscular Hemoglobin Concent 34.3, Red Cell Distribution Width 11.7, Platelet Count 199, Mean Platelet Volume 8.5, Neutrophils (%) (Auto) 53.2, Lymphocytes (% ) (Auto) 32.9, Monocytes (%) (Auto) 8.8, Eosinophils (%) (Auto) 4.4H, Basophils (%) (Auto) 0.6, Sodium Level 138, Potassium Level 3.6, Chloride Level 97L, Carbon Dioxide Level 26, Anion Gap 15, Blood Urea Nitrogen 5L, Creatinine 0.6L, Estimat Glomerular Filtration Rate > 60, Glucose Level 88, Calcium Level 8.7, Hepatitis A IgM Antibody [Pending], Hepatitis B Surface Antigen [Pending], Hepatitis B Core IgM Antibody [Pending], Hepatitis C Antibody [Pending] Height (Feet): 5 Height (Inches): 5.00 Weight (Pounds): 180 General Appearance: lethargic EENT: normal ENT inspection Neck: normal alignment Cardiovascular: normal peripheral pulses, normal rate, regular rhythm Respiratory/Chest: chest wall non-tender, lungs clear, normal breath sounds Abdomen: normal bowel sounds, non tender, soft Extremities: normal inspection Edema: no edema noted Arm (L), no edema noted Arm (R), no edema noted Leg (L), no edema noted Leg (R), no edema noted Pedal (L), no edema noted Pedal (R), no edema noted Generalized Neurologic: motor weakness Skin: normal pigmentation, warm/dry ERNST CASH Apr 18, 2016 13:18
--- NOTE | 2016-04-18 15:55 | Infectious Diseases Prog Note ---
Assessment/Plan Problems: (1) Leukocytosis Assessment & Plan: doubt sepsis, most likely stress related due to GI bleeding and dehydration , recommend to stop wide spectrum antibiotics, observe off antibiotics, await blood culture. (2) UTI (urinary tract infection) Assessment & Plan: with negative culture so far, recommend to narrow down his antibiotics regiment to ceftriaxon, pending culture, and if negative may stop antibiotics completely (3) Seizure disorder, generalized convulsive, intractable Assessment & Plan: stable, continue seizure meds, neurology is following (4) s/p Large R Craniotomy with spastic hemiparesis Assessment & Plan: stable , neurology is following (5) UGIB (upper gastrointestinal bleed) Assessment & Plan: S/P EGD, showed gastritis, continue PPI (6) Diabetes Assessment & Plan: recommend tight glycemic control to keep blood glucose between 80-120 Subjective Allergies: Coded Allergies: No Known Allergies (Unverified , 04/16/16) Objective Vital Signs Last 24 Hour Vital Signs Date Time Temp Pulse Resp B/P Pulse Ox O2 Delivery O2 Flow Rate FiO2 04/18/16 12:15 97.6 79 20 112/70 95 Room Air 04/18/16 10:24 71 126/78 04/18/16 09:40 97.8 78 16 129/74 98 Nasal Cannula 3.0 04/18/16 09:33 74 100 04/18/16 09:32 65 14 100 04/18/16 09:25 85 25 118/71 98 Nasal Cannula 3.0 04/18/16 09:20 82 18 127/79 98 Nasal Cannula 3.0 04/18/16 09:15 97.2 88 20 107/76 99 Nasal Cannula 3.0 04/18/16 07:55 98.5 99 21 113/61 97 Room Air 04/18/16 04:00 98.6 84 19 128/66 98 Room Air 04/18/16 00:00 98.8 81 18 123/71 95 Room Air 04/17/16 20:00 96.6 74 18 107/67 97 Room Air 04/17/16 16:00 97.5 91 16 105/64 95 Room Air Height (Feet): 5 Height (Inches): 5.00 Weight (Pounds): 180 Microbiology Date/Time Source Procedure Growth Status 04/16/16 23:00 Urine,Clean Catch Urine Culture - Preliminary NO GROWTH AFTER 24 HOURS Resulted Laboratory Tests Test 04/17/16 15:55 04/17/16 23:15 04/18/16 06:50 Total Bilirubin 0.3 mg/dL (0.0-1.2) Direct Bilirubin 0.1 mg/dL (0.1-0.3) Aspartate Amino Transf (AST/SGOT) 32 U/L (5-40) Alanine Aminotransferase (ALT/SGPT) 41 U/L (3-41) Alkaline Phosphatase 90 U/L (40-129) Ammonia 48 umol/L (16-60) Total Protein 6.5 g/dL (6.6-8.7) L Albumin 3.2 g/dL (3.5-5.2) L Phenytoin (Dilantin) Level 16.5 ug/mL (10-20) Valproic Acid (Depakene) Level 18 ug/mL (50-100) L Urine Color Yellow Urine Appearance Clear Urine pH 7 (4.5-8.0) Urine Specific [place] 1.005 (1.005-1.035) Urine Protein Negative (NEGATIVE) Urine Glucose (UA) Negative (NEGATIVE) Urine Ketones Negative (NEGATIVE) Urine Occult Blood 5+ (NEGATIVE) H Urine Nitrite Negative (NEGATIVE) Urine Bilirubin Negative (NEGATIVE) Urine Urobilinogen Normal MG/DL (0.0-1.0) Urine Leukocyte Esterase 1+ (NEGATIVE) H Urine RBC 2-4 /HPF (0 - 0) H Urine WBC 2-4 /HPF (0 - 0) Urine Squamous Epithelial Cells Occasional /LPF Urine Bacteria Few /HPF (NONE) White Blood Count 8.7 K/UL (4.8-10.8) # Red Blood Count 3.83 M/UL (4.70-6.10) L Hemoglobin 12.6 G/DL (14.2-18.0) L Hematocrit 36.9 % (42.0-52.0) L Mean Corpuscular Volume 96 FL (80-99) Mean Corpuscular Hemoglobin 33.0 PG (27.0-31.0) H Mean Corpuscular Hemoglobin Concent 34.3 G/DL (32.0-36.0) Red Cell Distribution Width 11.7 % (11.6-14.8) Platelet Count 199 K/UL (150-450) Mean Platelet Volume 8.5 FL (6.5-10.1) Neutrophils (%) (Auto) 53.2 % (45.0-75.0) Lymphocytes (%) (Auto) 32.9 % (20.0-45.0) Monocytes (%) (Auto) 8.8 % (1.0-10.0) Eosinophils (%) (Auto) 4.4 % (0.0-3.0) H Basophils (%) (Auto) 0.6 % (0.0-2.0) Sodium Level 138 mEQ/L (135-145) Potassium Level 3.6 mEQ/L (3.4-4.9) Chloride Level 97 mEQ/L (98-107) L Carbon Dioxide Level 26 mEQ/L (20-30) Anion Gap 15 (5-15) Blood Urea Nitrogen 5 mg/dL (7-23) L Creatinine 0.6 mg/dL (0.7-1.2) L Estimat Glomerular Filtration Rate > 60 mL/min (>60) Glucose Level 88 mg/dL (74-106) Calcium Level 8.7 mg/dL (8.6-10.2) Hepatitis A IgM Antibody Pending Hepatitis B Surface Antigen Pending Hepatitis B Core IgM Antibody Pending Hepatitis C Antibody Pending Current Medications Medications (Trade) Dose Ordered Sig/Netta Route PRN Reason Start Time Stop Time Status Last Admin Dose Admin Acetaminophen (Tylenol) 650 mg Q4H PRN ORAL fever 04/16/16 23:30 05/16/16 23:29 Al Hydroxide/Mg Hydroxide (Mylanta II) 30 ml Q6H PRN ORAL dyspepsia 04/16/16 23:30 05/16/16 23:29 Amlodipine Besylate (Norvasc) 10 mg DAILY ORAL 04/17/16 09:00 05/17/16 08:59 04/18/16 10:24 Dextrose (Dextrose 50%) STAT PRN IV Hypoglycemia 04/16/16 23:30 05/16/16 23:29 Dextrose/Sodium Chloride (D5 0.45% NS) 1,000 ml @ 75 mls/hr [id number] IV 04/17/16 01:00 05/17/16 00:59 04/17/16 14:12 Diphenhydramine HCl (Benadryl) 25 mg Q6H PRN ORAL Itching/Pruritis 04/16/16 23:30 05/16/16 23:29 Divalproex Sodium (Depakote) 1,000 mg BEDTIME ORAL 04/17/16 21:00 05/17/16 20:59 04/17/16 20:43 Ketorolac Tromethamine (Toradol 30mg) 30 mg Q6H PRN IV moderate pian 4-6 04/16/16 23:30 04/21/16 23:29 Morphine Sulfate (Morphine Sulfate) 2 mg Q4H PRN IVP severe Pain (Pain Scale 7-10) 04/16/16 23:30 04/23/16 23:29 Nitroglycerin (Ntg) 0.4 mg Q5M X 3 DOSES PRN SL Prn Chest Pain 04/16/16 23:30 05/16/16 23:29 Ondansetron HCl (Zofran) 4 mg Q6H PRN IVP Nausea & Vomiting 04/16/16 23:30 05/16/16 23:29 Pantoprazole (Protonix) 40 mg DAILY IV 04/17/16 09:00 05/17/16 08:59 04/18/16 10:34 Phenytoin (Dilantin) 150 mg BID ORAL 04/17/16 09:00 05/17/16 08:59 04/18/16 10:24 Piperacillin Sod/ Tazobactam Sod/ Sodium Chloride (Zosyn/Sodium Chloride) 110 ml @ 27.5 mls/hr Q8H IVPB 04/17/16 20:00 04/24/16 19:59 04/18/16 12:12 Polyethylene Glycol (Miralax) 17 gm HSPRN PRN ORAL Constipation 04/16/16 23:30 05/16/16 23:29 Quetiapine Fumarate (SEROquel) 50 mg TWICE A DAY PRN ORAL agitation 04/17/16 14:15 05/17/16 14:14 Quetiapine Fumarate 50 mg 50 mg Q12HR ORAL 04/17/16 21:00 05/17/16 20:59 04/18/16 10:23 Sucralfate 1 gm 1 gm BID ORAL 04/17/16 09:00 05/17/16 08:59 04/18/16 10:24 Temazepam (Restoril) 15 mg HSPRN PRN ORAL Insomnia 04/16/16 23:30 04/23/16 23:29 Vancomycin HCl 1 ea 1 ea DAILY PRN MISC Per rx protocol 04/17/16 15:45 05/17/16 15:44 Vancomycin HCl/ Dextrose (Vancomycin/D5W) 325 ml @ 162.5 mls/ hr Q12H IVPB 04/17/16 18:00 04/22/16 17:59 04/17/16 17:54 Raymon Meyer M.D. Apr 18, 2016 15:55
--- NOTE | 2016-04-18 17:22 | Pulmonology Progress Note ---
Assessment/Plan Problems: (1) Upper GI bleeding (2) Leukocytosis (3) UTI (urinary tract infection) (4) s/p Large R Craniotomy with spastic hemiparesis (5) Seizure disorder, generalized convulsive, intractable Assessment/Plan EGD done showing gastritis, biopsy deone check h/h prbc prn resume diet again check cultures Subjective ROS Limited/Unobtainable: Yes Allergies: Coded Allergies: No Known Allergies (Unverified , 04/16/16) Objective Last 24 Hour Vital Signs Date Time Temp Pulse Resp B/P Pulse Ox O2 Delivery O2 Flow Rate FiO2 04/18/16 15:56 97.3 80 20 112/73 96 Room Air 04/18/16 12:15 97.6 79 20 112/70 95 Room Air 04/18/16 10:24 71 126/78 04/18/16 09:40 97.8 78 16 129/74 98 Nasal Cannula 3.0 04/18/16 09:33 74 100 04/18/16 09:32 65 14 100 04/18/16 09:25 85 25 118/71 98 Nasal Cannula 3.0 04/18/16 09:20 82 18 127/79 98 Nasal Cannula 3.0 04/18/16 09:15 97.2 88 20 107/76 99 Nasal Cannula 3.0 04/18/16 07:55 98.5 99 21 113/61 97 Room Air 04/18/16 04:00 98.6 84 19 128/66 98 Room Air 04/18/16 00:00 98.8 81 18 123/71 95 Room Air 04/17/16 20:00 96.6 74 18 107/67 97 Room Air Intake and Output 04/17/16 04/18/16 19:00 07:00 Intake Total 525 ml 157.5 ml Output Total 250 ml 350 ml Balance 275 ml -192.5 ml Intake Oral 0 ml IV Total 525 ml 157.5 ml Output Urine Total 250 ml 350 ml Respiratory/Chest: chest wall non-tender, lungs clear Cardiovascular: normal peripheral pulses, normal rate Abdomen: normal bowel sounds, soft, non tender Genitourinary: normal external genitalia Extremities: no clubbing 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 Microbiology Date/Time Source Procedure Growth Status 04/16/16 23:00 Urine,Clean Catch Urine Culture - Preliminary NO GROWTH AFTER 24 HOURS Resulted Laboratory Tests 04/17/16 23:15: Urine Color Yellow, Urine Appearance Clear, Urine pH 7, Urine Specific [place] 1.005, Urine Protein Negative, Urine Glucose (UA) Negative, Urine Ketones Negative, Urine Occult Blood 5+H, Urine Nitrite Negative, Urine Bilirubin Negative, Urine Urobilinogen Normal, Urine Leukocyte Esterase 1+H, Urine RBC 2- 4H, Urine WBC 2-4, Urine Squamous Epithelial Cells Occasional, Urine Bacteria Few 04/18/16 06:50: White Blood Count 8.7#, Red Blood Count 3.83L, Hemoglobin 12.6L, Hematocrit 36.9L, Mean Corpuscular Volume 96, Mean Corpuscular Hemoglobin 33.0H, Mean Corpuscular Hemoglobin Concent 34.3, Red Cell Distribution Width 11.7, Platelet Count 199, Mean Platelet Volume 8.5, Neutrophils (%) (Auto) 53.2, Lymphocytes (% ) (Auto) 32.9, Monocytes (%) (Auto) 8.8, Eosinophils (%) (Auto) 4.4H, Basophils (%) (Auto) 0.6, Sodium Level 138, Potassium Level 3.6, Chloride Level 97L, Carbon Dioxide Level 26, Anion Gap 15, Blood Urea Nitrogen 5L, Creatinine 0.6L, Estimat Glomerular Filtration Rate > 60, Glucose Level 88, Calcium Level 8.7, Hepatitis A IgM Antibody [Pending], Hepatitis B Surface Antigen [Pending], Hepatitis B Core IgM Antibody [Pending], Hepatitis C Antibody [Pending] Current Medications Medications (Trade) Dose Ordered Sig/Netta Route PRN Reason Start Time Stop Time Status Last Admin Dose Admin Acetaminophen (Tylenol) 650 mg Q4H PRN ORAL fever 04/16/16 23:30 05/16/16 23:29 Al Hydroxide/Mg Hydroxide (Mylanta II) 30 ml Q6H PRN ORAL dyspepsia 04/16/16 23:30 05/16/16 23:29 Amlodipine Besylate (Norvasc) 10 mg DAILY ORAL 04/17/16 09:00 05/17/16 08:59 04/18/16 10:24 Dextrose (Dextrose 50%) STAT PRN IV Hypoglycemia 04/16/16 23:30 05/16/16 23:29 Dextrose/Sodium Chloride (D5 0.45% NS) 1,000 ml @ 75 mls/hr [id number] IV 04/17/16 01:00 05/17/16 00:59 04/17/16 14:12 Diphenhydramine HCl (Benadryl) 25 mg Q6H PRN ORAL Itching/Pruritis 04/16/16 23:30 05/16/16 23:29 Divalproex Sodium (Depakote) 1,000 mg BEDTIME ORAL 04/17/16 21:00 05/17/16 20:59 04/17/16 20:43 Ketorolac Tromethamine (Toradol 30mg) 30 mg Q6H PRN IV moderate pian 4-6 04/16/16 23:30 04/21/16 23:29 Morphine Sulfate (Morphine Sulfate) 2 mg Q4H PRN IVP severe Pain (Pain Scale 7-10) 04/16/16 23:30 04/23/16 23:29 Nitroglycerin (Ntg) 0.4 mg Q5M X 3 DOSES PRN SL Prn Chest Pain 04/16/16 23:30 05/16/16 23:29 Ondansetron HCl (Zofran) 4 mg Q6H PRN IVP Nausea & Vomiting 04/16/16 23:30 05/16/16 23:29 Pantoprazole (Protonix) 40 mg DAILY IV 04/17/16 09:00 05/17/16 08:59 04/18/16 10:34 Phenytoin (Dilantin) 150 mg BID ORAL 04/17/16 09:00 05/17/16 08:59 04/18/16 10:24 Piperacillin Sod/ Tazobactam Sod/ Sodium Chloride (Zosyn/Sodium Chloride) 110 ml @ 27.5 mls/hr Q8H IVPB 04/17/16 20:00 04/24/16 19:59 04/18/16 12:12 Polyethylene Glycol (Miralax) 17 gm HSPRN PRN ORAL Constipation 04/16/16 23:30 05/16/16 23:29 Quetiapine Fumarate (SEROquel) 50 mg TWICE A DAY PRN ORAL agitation 04/17/16 14:15 05/17/16 14:14 Quetiapine Fumarate 50 mg 50 mg Q12HR ORAL 04/17/16 21:00 3/14/17 20:59 04/18/16 10:23 Sucralfate 1 gm 1 gm BID ORAL 04/17/16 09:00 05/17/16 08:59 04/18/16 10:24 Temazepam (Restoril) 15 mg HSPRN PRN ORAL Insomnia 04/16/16 23:30 04/23/16 23:29 Vancomycin HCl 1 ea 1 ea DAILY PRN MISC Per rx protocol 04/17/16 15:45 05/17/16 15:44 Vancomycin HCl/ Dextrose (Vancomycin/D5W) 325 ml @ 162.5 mls/ hr Q12H IVPB 04/17/16 18:00 04/22/16 17:59 04/17/16 17:54 LAURA HINES Apr 18, 2016 17:22
--- NOTE | 2016-04-18 19:29 | Procedure Note ---
DATE OF PROCEDURE: 04/18/2016 SURGEON: Carlito Mcclain M.D. PROCEDURE: Upper endoscopy with biopsy. ANESTHESIA: Per Liliana KHALIL. INSTRUMENT: Olympus flexible upper endoscope. INDICATION: Upper GI bleeding. REASON FOR PROCEDURE: The procedure, risks, benefits, and possible consequences, including hemorrhage, aspiration, perforation and infection, and alternative treatments, were explained to the patient/legal guardian by Dr. Carlito Mcclain and the patient/legal guardian understood and accepted these risks. INSTRUMENT: After informed consent was obtained and the patient was adequately sedated, Olympus upper endoscope was advanced from advanced from mouth into the second portion of the duodenum and retroflexion was performed in the stomach. GE junction was found to be about 38 cm from the incisors. There was a small hiatal hernia. No evidence of any esophagitis or esophageal ulceration. No Jesusita-Begum tear. No esophageal varices. In the stomach, there was diffuse gastritis. Random biopsy from antrum of the stomach was obtained to rule out H. pylori infection. The rest of the upper endoscopic examination was within normal limits. The patient tolerated the procedure very well without complication. SUMMARY OF FINDINGS: 1. Gastritis. 2. Small hiatal hernia. RECOMMENDATIONS: Follow up biopsies and treat accordingly. Carlito Mcclain M.D. DR: Dick JOB#: [id number] CC:
[2016-04-18] MEDS: Depakote 500mg tab ORAL SCH (21:41)
[2016-04-19] VITALS: BP 107/56
[2016-04-19 04:00] VITALS: BP 111/60
[2016-04-19] MEDS: Piperacillin/Tazobactam 3.375 GM in NS 110 ML IVPB SCH ×2 (05:15→11:55)
[2016-04-19] MEDS: Vancomycin 1.5 GM in D5W 325 ML IVPB SCH ×2 (05:49→18:00)
[2016-04-19] MEDS: D5 1/2NS 1,000 ML IV SCH ×2 (06:20→22:15)
[2016-04-19 07:04] LABS: BASOPHILS % (AUTO) 1.3 % (0.0-2.0); EOSINOPHILS % (AUTO) 4.1 % (0.0-3.0); MEAN CORPUSCULAR HEMOGLOBIN 32.9 PG (27.0-31.0); MEAN CORPUSCULAR HGB CONC 33.3 G/DL (32.0-36.0); MEAN CORPUSCULAR VOLUME 99 FL (80-99); MEAN PLATELET VOLUME 8.1 FL (6.5-10.1); MONOCYTES % (AUTO) 10.8 % (1.0-10.0); NEUTROPHILS % (AUTO) 49.9 % (45.0-75.0); PLATELET COUNT 177 K/UL (150-450); RED BLOOD COUNT 3.53 M/UL (4.70-6.10); RED CELL DISTRIBUTION WIDTH 11.2 % (11.6-14.8); WHITE BLOOD COUNT 8.5 K/UL (4.8-10.8)
[2016-04-19 07:08] LABS: ANION GAP 12 (5-15); CALCIUM 8.5 mg/dL (8.6-10.2); CARBON DIOXIDE 25 mEQ/L (20-30); CHLORIDE 100 mEQ/L (98-107); CREATININE 0.6 mg/dL (0.7-1.2); GLOMERULAR FILTRATION RATE > 60 mL/min (>60); HEMOLYSIS 9; POTASSIUM 3.3 mEQ/L (3.4-4.9); SODIUM 137 mEQ/L (135-145)
[2016-04-19 08:15] VITALS: BP 116/74
[2016-04-19] MEDS: Sucralfate 1gm tab ORAL SCH ×2 (09:10→20:27)
[2016-04-19] MEDS: Pantoprazole Inj IV SCH (09:10)
[2016-04-19] MEDS: Phenytoin 50mg tab ORAL SCH ×2 (09:11→20:28)
--- NOTE | 2016-04-19 10:08 | GI Progress Note ---
Assessment/Plan Problems: (1) Gastritis ICD Codes: K29.70 - Gastritis, unspecified, without bleeding SNOMED: 6636687 (2) Upper GI bleeding ICD Codes: K92.2 - Gastrointestinal hemorrhage, unspecified SNOMED: 95937150 Status: stable Status Narrative Discussed with Dr. Mcclain. Assessment/Plan s/p EGD SUMMARY OF FINDINGS: 1. Gastritis. 2. Small hiatal hernia. ok for DC per GI standpoint cardiac diet, tolerating ppi dc carafate fu biopsies fu labs Subjective Gastrointestinal/Abdominal: Reports: no symptoms Objective Last 24 Hour Vital Signs Date Time Temp Pulse Resp B/P Pulse Ox O2 Delivery O2 Flow Rate FiO2 04/19/16 09:00 89 116/74 04/19/16 08:15 98.3 89 19 116/74 97 Room Air 04/19/16 04:00 97.9 78 20 111/60 97 Room Air 04/19/16 00:00 97.3 86 18 107/56 95 Room Air 04/18/16 19:00 97.3 86 20 100/63 96 Room Air 04/18/16 15:56 97.3 80 20 112/73 96 Room Air 04/18/16 12:15 97.6 79 20 112/70 95 Room Air 04/18/16 10:24 71 126/78 Intake and Output 04/18/16 04/19/16 19:00 07:00 Intake Total 380 ml 925.0 ml Output Total 250 ml 200 ml Balance 130 ml 725.0 ml IV Total 380 ml 925.0 ml Output Urine Total 250 ml 200 ml Laboratory Tests Test 04/19/16 06:10 White Blood Count 8.5 K/UL (4.8-10.8) Red Blood Count 3.53 M/UL (4.70-6.10) L Hemoglobin 11.6 G/DL (14.2-18.0) L Hematocrit 34.8 % (42.0-52.0) L Mean Corpuscular Volume 99 FL (80-99) Mean Corpuscular Hemoglobin 32.9 PG (27.0-31.0) H Mean Corpuscular Hemoglobin Concent 33.3 G/DL (32.0-36.0) Red Cell Distribution Width 11.2 % (11.6-14.8) L Platelet Count 177 K/UL (150-450) Mean Platelet Volume 8.1 FL (6.5-10.1) Neutrophils (%) (Auto) 49.9 % (45.0-75.0) Lymphocytes (%) (Auto) 34.0 % (20.0-45.0) Monocytes (%) (Auto) 10.8 % (1.0-10.0) H Eosinophils (%) (Auto) 4.1 % (0.0-3.0) H Basophils (%) (Auto) 1.3 % (0.0-2.0) Sodium Level 137 mEQ/L (135-145) Potassium Level 3.3 mEQ/L (3.4-4.9) L Chloride Level 100 mEQ/L (98-107) Carbon Dioxide Level 25 mEQ/L (20-30) Anion Gap 12 (5-15) Blood Urea Nitrogen 5 mg/dL (7-23) L Creatinine 0.6 mg/dL (0.7-1.2) L Estimat Glomerular Filtration Rate > 60 mL/min (>60) Glucose Level 96 mg/dL (74-106) Calcium Level 8.5 mg/dL (8.6-10.2) L Height (Feet): 5 Height (Inches): 5.00 Weight (Pounds): 180 General Appearance: no apparent distress, alert Cardiovascular: normal rate Respiratory/Chest: normal breath sounds, no respiratory distress Abdominal Exam: normal bowel sounds, non tender, soft Nicole Logan N.P. Apr 19, 2016 10:08
[2016-04-19 12:14] VITALS: BP 117/74
--- NOTE | 2016-04-19 12:57 | Diagnostic Imaging Report ---
Indication: Abdominal pain, abnormal liver function tests Technique: Florentino-scale and duplex images of the upper abdomen were obtained Comparison: Findings: . Gallbladder is contracted, contains stones. Wall thickness cannot be assessed. Sonographic Alanis's sign is negative. Common bile duct measures 5 mm in diameter. No intrahepatic biliary ductal dilatation. Liver demonstrates normal echogenicity, no focal abnormality. Portal vein and hepatic veins are patent.. Pancreas is obscured by bowel gas. Spleen is unremarkable. Left kidney measures 10.5 cm in length. Right kidney measures 11 cm length. Both kidneys demonstrate normal echogenicity. There is no hydronephrosis. No focal abnormality. . Abdominal aorta is partially obscured by bowel gas, visualized portions are non-aneurysmal. Impression: Contracted gallbladder, containing stones. Negative for dilated ducts Suboptimal visualization of the pancreas and distal aorta
--- NOTE | 2016-04-19 15:13 | General Progress Note ---
Assessment/Plan Problem List: (1) Diabetes ICD Codes: E11.9 - Type 2 diabetes mellitus without complications SNOMED: 58609030 (2) HTN (hypertension) ICD Codes: I10 - Essential (primary) hypertension SNOMED: 39797470 (3) UGIB (upper gastrointestinal bleed) ICD Codes: K92.2 - Gastrointestinal hemorrhage, unspecified SNOMED: 41219353 (4) UTI (urinary tract infection) ICD Codes: N39.0 - Urinary tract infection, site not specified SNOMED: 33406676, 610849926 Qualifiers: Qualified Codes: N30.00 - Acute cystitis without hematuria (5) Leukocytosis ICD Codes: D72.829 - Elevated white blood cell count, unspecified SNOMED: 828734167, 668788507 Qualifiers: Qualified Codes: D72.829 - Elevated white blood cell count, unspecified (6) Proteinuria ICD Codes: R80.9 - Proteinuria, unspecified SNOMED: 01056552, 371563173 Status: stable, progressing, tolerating diet Assessment/Plan ot pt diet abx cbc bmp am dc plan snf if clear by neph Subjective Constitutional: Reports: weakness Allergies: Coded Allergies: No Known Allergies (Unverified , 04/16/16) All Systems: reviewed and negative except above Subjective lethargic in bed Objective Last 24 Hour Vital Signs Date Time Temp Pulse Resp B/P Pulse Ox O2 Delivery O2 Flow Rate FiO2 04/19/16 12:14 97.9 85 19 117/74 97 Room Air 04/19/16 09:00 89 116/74 04/19/16 08:15 98.3 89 19 116/74 97 Room Air 04/19/16 04:00 97.9 78 20 111/60 97 Room Air 04/19/16 00:00 97.3 86 18 107/56 95 Room Air 04/18/16 19:00 97.3 86 20 100/63 96 Room Air 04/18/16 15:56 97.3 80 20 112/73 96 Room Air Intake and Output 04/18/16 04/19/16 19:00 07:00 Intake Total 380 ml 925.0 ml Output Total 250 ml 200 ml Balance 130 ml 725.0 ml IV Total 380 ml 925.0 ml Output Urine Total 250 ml 200 ml Laboratory Tests 04/19/16 06:10: White Blood Count 8.5, Red Blood Count 3.53L, Hemoglobin 11.6L, Hematocrit 34.8L , Mean Corpuscular Volume 99, Mean Corpuscular Hemoglobin 32.9H, Mean Corpuscular Hemoglobin Concent 33.3, Red Cell Distribution Width 11.2L, Platelet Count 177, Mean Platelet Volume 8.1, Neutrophils (%) (Auto) 49.9, Lymphocytes (%) (Auto) 34.0, Monocytes (%) (Auto) 10.8H, Eosinophils (%) (Auto) 4.1H, Basophils (%) (Auto) 1.3, Sodium Level 137, Potassium Level 3.3L, Chloride Level 100, Carbon Dioxide Level 25, Anion Gap 12, Blood Urea Nitrogen 5L, Creatinine 0.6L, Estimat Glomerular Filtration Rate > 60, Glucose Level 96, Calcium Level 8.5L Height (Feet): 5 Height (Inches): 5.00 Weight (Pounds): 180 General Appearance: lethargic EENT: normal ENT inspection Neck: normal alignment Cardiovascular: normal peripheral pulses, normal rate, regular rhythm Respiratory/Chest: chest wall non-tender, lungs clear, normal breath sounds Abdomen: normal bowel sounds, non tender, soft Extremities: normal inspection Edema: no edema noted Arm (L), no edema noted Arm (R), no edema noted Leg (L), no edema noted Leg (R), no edema noted Pedal (L), no edema noted Pedal (R), no edema noted Generalized Neurologic: motor weakness Skin: normal pigmentation, warm/dry ERNST CASH Apr 19, 2016 15:13
[2016-04-19 16:00] VITALS: BP 117/73
[2016-04-19] MEDS ORDERED: Tubing IV Secondary IV ONE ×2 (17:27)
[2016-04-19] MEDS ORDERED: D5 1/2NS 1000ml IV ONE (17:27)
[2016-04-19] MEDS ORDERED: NS 275ml ONE (17:27)
--- NOTE | 2016-04-19 17:30 | Pulmonology Progress Note ---
Assessment/Plan Problems: (1) Upper GI bleeding (2) Leukocytosis (3) UTI (urinary tract infection) (4) s/p Large R Craniotomy with spastic hemiparesis (5) Seizure disorder, generalized convulsive, intractable Assessment/Plan EGD done showing gastritis, biopsy deone check h/h prbc prn resume diet again check cultures Subjective ROS Limited/Unobtainable: Yes Constitutional: Reports: anorexia, fatigue Neurologic: Reports: confusion, seizures, syncope, weakness Allergies: Coded Allergies: No Known Allergies (Unverified , 04/16/16) Objective Last 24 Hour Vital Signs Date Time Temp Pulse Resp B/P Pulse Ox O2 Delivery O2 Flow Rate FiO2 04/19/16 16:00 97.9 95 18 117/73 Room Air 04/19/16 12:14 97.9 85 19 117/74 97 Room Air 04/19/16 09:00 89 116/74 04/19/16 08:15 98.3 89 19 116/74 97 Room Air 04/19/16 04:00 97.9 78 20 111/60 97 Room Air 04/19/16 00:00 97.3 86 18 107/56 95 Room Air 04/18/16 19:00 97.3 86 20 100/63 96 Room Air Intake and Output 04/18/16 04/19/16 19:00 07:00 Intake Total 380 ml 925.0 ml Output Total 250 ml 200 ml Balance 130 ml 725.0 ml IV Total 380 ml 925.0 ml Output Urine Total 250 ml 200 ml General Appearance: no acute distress HEENT: PERRL, other - s/p craniotomy Respiratory/Chest: chest wall non-tender, decreased breath sounds, accessory muscle use Cardiovascular: normal peripheral pulses, normal rate, regular rhythm, no JVD Abdomen: normal bowel sounds, soft, non tender, no organomegaly, non distended Genitourinary: normal external genitalia Extremities: no cyanosis Skin: rash, lesions Neurologic/Psychiatric: disoriented, unresponsiveness Microbiology Date/Time Source Procedure Growth Status 04/17/16 20:30 Blood Blood Culture - Preliminary NO GROWTH AFTER 24 HOURS Resulted 04/17/16 20:15 Blood Blood Culture - Preliminary NO GROWTH AFTER 24 HOURS Resulted 04/17/16 00:50 Nasal Nares MRSA Culture - Final NO METHICILLIN RESISTANT STAPH AUREUS... Complete 04/16/16 23:00 Urine,Clean Catch Urine Culture - Final NO GROWTH AFTER 48 HOURS Complete 04/17/16 00:50 Rectum VRE Culture - Final Enterococcus Faecium - Vre Complete Laboratory Tests 04/19/16 06:10: White Blood Count 8.5, Red Blood Count 3.53L, Hemoglobin 11.6L, Hematocrit 34.8L , Mean Corpuscular Volume 99, Mean Corpuscular Hemoglobin 32.9H, Mean Corpuscular Hemoglobin Concent 33.3, Red Cell Distribution Width 11.2L, Platelet Count 177, Mean Platelet Volume 8.1, Neutrophils (%) (Auto) 49.9, Lymphocytes (%) (Auto) 34.0, Monocytes (%) (Auto) 10.8H, Eosinophils (%) (Auto) 4.1H, Basophils (%) (Auto) 1.3, Sodium Level 137, Potassium Level 3.3L, Chloride Level 100, Carbon Dioxide Level 25, Anion Gap 12, Blood Urea Nitrogen 5L, Creatinine 0.6L, Estimat Glomerular Filtration Rate > 60, Glucose Level 96, Calcium Level 8.5L Current Medications Medications (Trade) Dose Ordered Sig/Netta Route PRN Reason Start Time Stop Time Status Last Admin Dose Admin Acetaminophen (Tylenol) 650 mg Q4H PRN ORAL fever 04/16/16 23:30 05/16/16 23:29 Al Hydroxide/Mg Hydroxide (Mylanta II) 30 ml Q6H PRN ORAL dyspepsia 04/16/16 23:30 05/16/16 23:29 Amlodipine Besylate (Norvasc) 10 mg DAILY ORAL 04/17/16 09:00 05/17/16 08:59 04/18/16 10:24 Dextrose (Dextrose 50%) STAT PRN IV Hypoglycemia 04/16/16 23:30 05/16/16 23:29 Dextrose/Sodium Chloride (D5 0.45% NS) 1,000 ml @ 75 mls/hr [id number] IV 04/17/16 01:00 05/17/16 00:59 04/18/16 21:39 Diphenhydramine HCl (Benadryl) 25 mg Q6H PRN ORAL Itching/Pruritis 04/16/16 23:30 05/16/16 23:29 Divalproex Sodium (Depakote) 1,000 mg BEDTIME ORAL 04/17/16 21:00 05/17/16 20:59 04/18/16 21:41 Ketorolac Tromethamine (Toradol 30mg) 30 mg Q6H PRN IV moderate pian 4-6 04/16/16 23:30 04/21/16 23:29 Morphine Sulfate (Morphine Sulfate) 2 mg Q4H PRN IVP severe Pain (Pain Scale 7-10) 04/16/16 23:30 04/23/16 23:29 Nitroglycerin (Ntg) 0.4 mg Q5M X 3 DOSES PRN SL Prn Chest Pain 04/16/16 23:30 05/16/16 23:29 Ondansetron HCl (Zofran) 4 mg Q6H PRN IVP Nausea & Vomiting 04/16/16 23:30 05/16/16 23:29 Pantoprazole (Protonix) 40 mg DAILY IV 04/17/16 09:00 05/17/16 08:59 04/19/16 09:10 Phenytoin 150 mg 150 mg BID ORAL 04/17/16 09:00 05/17/16 08:59 04/19/16 09:11 Piperacillin Sod/ Tazobactam Sod/ Sodium Chloride (Zosyn/Sodium Chloride) 110 ml @ 27.5 mls/hr Q8H IVPB 04/17/16 20:00 04/24/16 19:59 04/19/16 11:55 Polyethylene Glycol (Miralax) 17 gm HSPRN PRN ORAL Constipation 04/16/16 23:30 05/16/16 23:29 Quetiapine Fumarate (SEROquel) 50 mg TWICE A DAY PRN ORAL agitation 04/17/16 14:15 05/17/16 14:14 Quetiapine Fumarate 50 mg 50 mg Q12HR ORAL 04/17/16 21:00 05/17/16 20:59 04/19/16 09:10 Sucralfate (Carafate) 1 gm BID ORAL 04/19/16 18:00 05/19/16 17:59 Temazepam (Restoril) 15 mg HSPRN PRN ORAL Insomnia 04/16/16 23:30 04/23/16 23:29 Vancomycin HCl 1 ea 1 ea DAILY PRN MISC Per rx protocol 04/17/16 15:45 05/17/16 15:44 Vancomycin HCl/ Dextrose (Vancomycin/D5W) 325 ml @ 162.5 mls/ hr Q12H IVPB 04/17/16 18:00 04/22/16 17:59 04/19/16 05:49 LAURA HINES Apr 19, 2016 17:30
[2016-04-19 19:00] VITALS: BP 122/76
--- NOTE | 2016-04-19 21:33 | Infectious Diseases Prog Note ---
Assessment/Plan Problems: (1) Leukocytosis Assessment & Plan: doubt sepsis, most likely stress related due to GI bleeding and dehydration , will stop antibiotics, observe off antibiotics, await blood culture. (2) UTI (urinary tract infection) Assessment & Plan: with negative culture so far, recommend to stop his antibiotics since no growth on culture (3) Seizure disorder, generalized convulsive, intractable Assessment & Plan: stable, continue seizure meds, neurology is following (4) s/p Large R Craniotomy with spastic hemiparesis Assessment & Plan: stable , neurology is following (5) UGIB (upper gastrointestinal bleed) Assessment & Plan: S/P EGD, showed gastritis, continue PPI (6) Diabetes Assessment & Plan: recommend tight glycemic control to keep blood glucose between 80-120 Subjective Constitutional: Denies: anorexia, chills, drenching sweats, fatigue, fever, no symptoms, other HEENT: Denies: congestion, coryza, dysphagia, hearing change, no symptoms, other, visual change Respiratory: Denies: dry cough, no symptoms, other, productive cough, shortness of breath Breasts: Denies: discharge, no symptoms, other, swelling, tenderness Cardiovascular: Denies: chest pain, dyspnea on exertion, no symptoms, other, palpitations Gastrointestinal/Abdominal: Denies: bloating, blood in stool, constipation, diarrhea, nausea, no symptoms, other, vomiting Genitourinary: Denies: dysuria, frequency, hematuria, no symptoms, nocturia, other Neurologic: Denies: confusion, headache, no symptoms, numbness, other, weakness Psychiatric: Denies: anxiety, depression, no symptoms, other Skin: Denies: no symptoms, other, rash, ulcer Allergies: Coded Allergies: No Known Allergies (Unverified , 04/16/16) Objective Vital Signs Last 24 Hour Vital Signs Date Time Temp Pulse Resp B/P Pulse Ox O2 Delivery O2 Flow Rate FiO2 04/19/16 19:00 98.3 96 18 122/76 97 Room Air 04/19/16 16:00 97.9 95 18 117/73 Room Air 04/19/16 12:14 97.9 85 19 117/74 97 Room Air 04/19/16 09:00 89 116/74 04/19/16 08:15 98.3 89 19 116/74 97 Room Air 04/19/16 04:00 97.9 78 20 111/60 97 Room Air 04/19/16 00:00 97.3 86 18 107/56 95 Room Air Height (Feet): 5 Height (Inches): 5.00 Weight (Pounds): 180 General Appearance: WD/WN, no acute distress HEENT: normocephalic, atraumatic, anicteric, mucous membranes moist, PERRL Respiratory/Chest: chest wall non-tender, lungs clear, normal breath sounds, no respiratory distress, no accessory muscle use Cardiovascular: normal peripheral pulses, normal rate, regular rhythm, no gallop/murmur, no JVD Abdomen: normal bowel sounds, soft, non tender, no organomegaly, non distended , no mass, no scars Extremities: no cyanosis, no clubbing Skin: no rash Microbiology Date/Time Source Procedure Growth Status 04/17/16 20:30 Blood Blood Culture - Preliminary NO GROWTH AFTER 24 HOURS Resulted 04/17/16 20:15 Blood Blood Culture - Preliminary NO GROWTH AFTER 24 HOURS Resulted 04/17/16 00:50 Nasal Nares MRSA Culture - Final NO METHICILLIN RESISTANT STAPH AUREUS... Complete 04/16/16 23:00 Urine,Clean Catch Urine Culture - Final NO GROWTH AFTER 48 HOURS Complete 04/17/16 00:50 Rectum VRE Culture - Final Enterococcus Faecium - Vre Complete Laboratory Tests Test 04/19/16 06:10 04/19/16 17:25 White Blood Count 8.5 K/UL (4.8-10.8) Red Blood Count 3.53 M/UL (4.70-6.10) L Hemoglobin 11.6 G/DL (14.2-18.0) L Hematocrit 34.8 % (42.0-52.0) L Mean Corpuscular Volume 99 FL (80-99) Mean Corpuscular Hemoglobin 32.9 PG (27.0-31.0) H Mean Corpuscular Hemoglobin Concent 33.3 G/DL (32.0-36.0) Red Cell Distribution Width 11.2 % (11.6-14.8) L Platelet Count 177 K/UL (150-450) Mean Platelet Volume 8.1 FL (6.5-10.1) Neutrophils (%) (Auto) 49.9 % (45.0-75.0) Lymphocytes (%) (Auto) 34.0 % (20.0-45.0) Monocytes (%) (Auto) 10.8 % (1.0-10.0) H Eosinophils (%) (Auto) 4.1 % (0.0-3.0) H Basophils (%) (Auto) 1.3 % (0.0-2.0) Sodium Level 137 mEQ/L (135-145) Potassium Level 3.3 mEQ/L (3.4-4.9) L Chloride Level 100 mEQ/L (98-107) Carbon Dioxide Level 25 mEQ/L (20-30) Anion Gap 12 (5-15) Blood Urea Nitrogen 5 mg/dL (7-23) L Creatinine 0.6 mg/dL (0.7-1.2) L Estimat Glomerular Filtration Rate > 60 mL/min (>60) Glucose Level 96 mg/dL (74-106) Calcium Level 8.5 mg/dL (8.6-10.2) L Vancomycin Level Trough 17.8 ug/mL (5.0-12.0) H Current Medications Medications (Trade) Dose Ordered Sig/Netta Route PRN Reason Start Time Stop Time Status Last Admin Dose Admin Acetaminophen (Tylenol) 650 mg Q4H PRN ORAL fever 04/16/16 23:30 05/16/16 23:29 Al Hydroxide/Mg Hydroxide (Mylanta II) 30 ml Q6H PRN ORAL dyspepsia 04/16/16 23:30 05/16/16 23:29 Amlodipine Besylate (Norvasc) 10 mg DAILY ORAL 04/17/16 09:00 05/17/16 08:59 04/18/16 10:24 Dextrose (Dextrose 50%) STAT PRN IV Hypoglycemia 04/16/16 23:30 05/16/16 23:29 Dextrose/Sodium Chloride (D5 0.45% NS) 1,000 ml @ 75 mls/hr [id number] IV 04/17/16 01:00 05/17/16 00:59 04/18/16 21:39 Diphenhydramine HCl (Benadryl) 25 mg Q6H PRN ORAL Itching/Pruritis 04/16/16 23:30 05/16/16 23:29 Divalproex Sodium (Depakote) 1,000 mg BEDTIME ORAL 04/17/16 21:00 05/17/16 20:59 04/18/16 21:41 Ketorolac Tromethamine (Toradol 30mg) 30 mg Q6H PRN IV moderate pian 4-6 04/16/16 23:30 04/21/16 23:29 Morphine Sulfate (Morphine Sulfate) 2 mg Q4H PRN IVP severe Pain (Pain Scale 7-10) 04/16/16 23:30 04/23/16 23:29 Nitroglycerin (Ntg) 0.4 mg Q5M X 3 DOSES PRN SL Prn Chest Pain 04/16/16 23:30 05/16/16 23:29 Ondansetron HCl (Zofran) 4 mg Q6H PRN IVP Nausea & Vomiting 04/16/16 23:30 05/16/16 23:29 Pantoprazole (Protonix) 40 mg DAILY IV 04/17/16 09:00 05/17/16 08:59 04/19/16 09:10 Phenytoin 150 mg 150 mg BID ORAL 04/17/16 09:00 05/17/16 08:59 04/19/16 20:28 Piperacillin Sod/ Tazobactam Sod/ Sodium Chloride (Zosyn/Sodium Chloride) 110 ml @ 27.5 mls/hr Q8H IVPB 04/17/16 20:00 04/24/16 19:59 04/19/16 11:55 Polyethylene Glycol (Miralax) 17 gm HSPRN PRN ORAL Constipation 04/16/16 23:30 05/16/16 23:29 Quetiapine Fumarate (SEROquel) 50 mg TWICE A DAY PRN ORAL agitation 04/17/16 14:15 05/17/16 14:14 Quetiapine Fumarate 50 mg 50 mg Q12HR ORAL 04/17/16 21:00 05/17/16 20:59 04/19/16 09:10 Sucralfate 1 gm 1 gm BID ORAL 04/19/16 18:00 05/19/16 17:59 04/19/16 20:27 Temazepam (Restoril) 15 mg HSPRN PRN ORAL Insomnia 04/16/16 23:30 04/23/16 23:29 Vancomycin HCl 1 ea 1 ea DAILY PRN MISC Per rx protocol 04/17/16 15:45 05/17/16 15:44 Vancomycin HCl/ Dextrose (Vancomycin/D5W) 275 ml @ 183.708 mls/hr Q12HR@0600,1800 IVPB 04/20/16 06:00 04/25/16 05:59 Vancomycin HCl/ Dextrose (Vancomycin/D5W) 325 ml @ 162.5 mls/ hr Q12H IVPB 04/17/16 18:00 04/19/16 23:59 04/19/16 18:00 Raymon Meyer M.D. Apr 19, 2016 21:33
[2016-04-19] MEDS: Depakote 500mg tab ORAL SCH (22:16)
--- NOTE | 2016-04-19 22:47 | Nephrology Progress Note ---
Assessment/Plan Problem List: (1) Hypokalemia (2) UGIB (upper gastrointestinal bleed) (3) HTN (hypertension) (4) Diabetes (5) UTI (urinary tract infection) (6) Leukocytosis Plan replete k. monitor labs. renal function stable. will follow. thanks. Subjective Subjective 55 y/o m admitted with GIB and UTI. Objective Objective Last 24 Hour Vital Signs Date Time Temp Pulse Resp B/P Pulse Ox O2 Delivery O2 Flow Rate FiO2 04/19/16 19:00 98.3 96 18 122/76 97 Room Air 04/19/16 16:00 97.9 95 18 117/73 Room Air 04/19/16 12:14 97.9 85 19 117/74 97 Room Air 04/19/16 09:00 89 116/74 04/19/16 08:15 98.3 89 19 116/74 97 Room Air 04/19/16 04:00 97.9 78 20 111/60 97 Room Air 04/19/16 00:00 97.3 86 18 107/56 95 Room Air Intake and Output 04/18/16 04/19/16 19:00 07:00 Intake Total 380 ml 925.0 ml Output Total 250 ml 200 ml Balance 130 ml 725.0 ml IV Total 380 ml 925.0 ml Output Urine Total 250 ml 200 ml Laboratory Tests 04/19/16 06:10: White Blood Count 8.5, Red Blood Count 3.53L, Hemoglobin 11.6L, Hematocrit 34.8L , Mean Corpuscular Volume 99, Mean Corpuscular Hemoglobin 32.9H, Mean Corpuscular Hemoglobin Concent 33.3, Red Cell Distribution Width 11.2L, Platelet Count 177, Mean Platelet Volume 8.1, Neutrophils (%) (Auto) 49.9, Lymphocytes (%) (Auto) 34.0, Monocytes (%) (Auto) 10.8H, Eosinophils (%) (Auto) 4.1H, Basophils (%) (Auto) 1.3, Sodium Level 137, Potassium Level 3.3L, Chloride Level 100, Carbon Dioxide Level 25, Anion Gap 12, Blood Urea Nitrogen 5L, Creatinine 0.6L, Estimat Glomerular Filtration Rate > 60, Glucose Level 96, Calcium Level 8.5L 04/19/16 17:25: Vancomycin Level Trough 17.8H Height (Feet): 5 Height (Inches): 5.00 Weight (Pounds): 180 General Appearance: no apparent distress Cardiovascular: normal rate, regular rhythm Respiratory/Chest: lungs clear Abdomen: non tender, soft Extremities: non-pitting Neurologic: alert GALDINO DEVRIES Apr 19, 2016 22:47
[2016-04-20] VITALS: BP 139/82
[2016-04-20 04:00] VITALS: BP 114/79
[2016-04-20] MEDS ORDERED: Vancomycin 1250mg in D5W 275ml IVPB SCH (06:00)
[2016-04-20 07:45] LABS: BASOPHILS % (AUTO) 0.8 % (0.0-2.0); LYMPHOCYTES % (AUTO) 27.6 % (20.0-45.0); MEAN CORPUSCULAR HEMOGLOBIN 33.1 PG (27.0-31.0); MEAN CORPUSCULAR HGB CONC 33.8 G/DL (32.0-36.0); MEAN CORPUSCULAR VOLUME 98 FL (80-99); MEAN PLATELET VOLUME 7.4 FL (6.5-10.1); NEUTROPHILS % (AUTO) 57.7 % (45.0-75.0); PLATELET COUNT 224 K/UL (150-450); RED BLOOD COUNT 3.85 M/UL (4.70-6.10); RED CELL DISTRIBUTION WIDTH 11.4 % (11.6-14.8); WHITE BLOOD COUNT 12.6 K/UL (4.8-10.8)
[2016-04-20 07:59] LABS: ANION GAP 16 (5-15); CALCIUM 8.9 mg/dL (8.6-10.2); CARBON DIOXIDE 24 mEQ/L (20-30); CHLORIDE 100 mEQ/L (98-107); CREATININE 0.6 mg/dL (0.7-1.2); GLOMERULAR FILTRATION RATE > 60 mL/min (>60); HEMOLYSIS 5; POTASSIUM 3.3 mEQ/L (3.4-4.9); SODIUM 140 mEQ/L (135-145)
[2016-04-20 08:13] VITALS: BP 111/76
[2016-04-20] MEDS: D5 1/2NS 1,000 ML IV SCH (09:32)
[2016-04-20] MEDS: Sucralfate 1gm tab ORAL SCH ×2 (09:32→17:52)
[2016-04-20] MEDS: Phenytoin 50mg tab ORAL SCH ×2 (09:33→17:55)
[2016-04-20] MEDS: Pantoprazole Inj IV SCH (09:34)
--- NOTE | 2016-04-20 10:47 | Nephrology Progress Note ---
Assessment/Plan Problem List: (1) Leukocytosis (2) HTN (hypertension) (3) Diabetes (4) UGIB (upper gastrointestinal bleed) (5) Gastritis (6) Hypokalemia (7) UTI (urinary tract infection) Plan Replete K Monitor Lytes Monitor H/H GI f/u AM labs Subjective ROS Limited/Unobtainable: Yes Subjective In bed, watching TV Objective Objective Last 24 Hour Vital Signs Date Time Temp Pulse Resp B/P Pulse Ox O2 Delivery O2 Flow Rate FiO2 04/20/16 09:33 109 111/76 04/20/16 08:13 98.1 109 21 111/76 95 Room Air 04/20/16 04:00 97.9 108 16 114/79 97 Room Air 04/20/16 00:00 98.2 90 16 139/82 94 Room Air 04/19/16 19:00 98.3 96 18 122/76 97 Room Air 04/19/16 16:00 97.9 95 18 117/73 Room Air 04/19/16 12:14 97.9 85 19 117/74 97 Room Air Intake and Output 04/19/16 04/20/16 19:00 07:00 Intake Total 1690.0 ml 1172.5 ml Output Total 850 ml 2750 ml Balance 840.0 ml -1577.5 ml Intake Oral 960 ml 240 ml IV Total 730.0 ml 932.5 ml Output Urine Total 850 ml 2750 ml Laboratory Tests 04/19/16 17:25: Vancomycin Level Trough 17.8H 04/20/16 06:20: White Blood Count 12.6H, Red Blood Count 3.85L, Hemoglobin 12.8L, Hematocrit 37.8L, Mean Corpuscular Volume 98, Mean Corpuscular Hemoglobin 33.1H, Mean Corpuscular Hemoglobin Concent 33.8, Red Cell Distribution Width 11.4L, Platelet Count 224, Mean Platelet Volume 7.4, Neutrophils (%) (Auto) 57.7, Lymphocytes (%) (Auto) 27.6, Monocytes (%) (Auto) 11.0H, Eosinophils (%) (Auto) 3.0, Basophils (%) (Auto) 0.8, Sodium Level 140, Potassium Level 3.3L, Chloride Level 100, Carbon Dioxide Level 24, Anion Gap 16H, Blood Urea Nitrogen 6L, Creatinine 0.6L, Estimat Glomerular Filtration Rate > 60, Glucose Level 103, Calcium Level 8.9 Height (Feet): 5 Height (Inches): 5.00 Weight (Pounds): 180 General Appearance: no apparent distress, alert EENT: normal ENT inspection, TMs normal Neck: normal alignment, supple Cardiovascular: normal rate, regular rhythm, no JVD Respiratory/Chest: normal breath sounds, no respiratory distress Abdomen: soft, no organomegaly, no mass Extremities: non-tender, normal inspection Neurologic: alert, disoriented Diamond Naqvi N.P. Apr 20, 2016 10:46
--- NOTE | 2016-04-20 11:19 | GI Progress Note ---
Assessment/Plan Problems: (1) Gastritis ICD Codes: K29.70 - Gastritis, unspecified, without bleeding SNOMED: 3406259 (2) Upper GI bleeding ICD Codes: K92.2 - Gastrointestinal hemorrhage, unspecified SNOMED: 35760381 (3) Hepatitis C ICD Codes: B19.20 - Unspecified viral hepatitis C without hepatic coma SNOMED: 67800746 Status: stable Status Narrative Discussed with Dr. Mcclain. Assessment/Plan s/p EGD SUMMARY OF FINDINGS: 1. Gastritis. 2. Small hiatal hernia. ok for DC per GI standpoint cardiac diet, tolerating ppi fu biopsies fu labs Subjective Gastrointestinal/Abdominal: Reports: no symptoms Objective Last 24 Hour Vital Signs Date Time Temp Pulse Resp B/P Pulse Ox O2 Delivery O2 Flow Rate FiO2 04/20/16 09:33 109 111/76 04/20/16 08:13 98.1 109 21 111/76 95 Room Air 04/20/16 04:00 97.9 108 16 114/79 97 Room Air 04/20/16 00:00 98.2 90 16 139/82 94 Room Air 04/19/16 19:00 98.3 96 18 122/76 97 Room Air 04/19/16 16:00 97.9 95 18 117/73 Room Air 04/19/16 12:14 97.9 85 19 117/74 97 Room Air Intake and Output 04/19/16 04/20/16 19:00 07:00 Intake Total 1690.0 ml 1172.5 ml Output Total 850 ml 2750 ml Balance 840.0 ml -1577.5 ml Intake Oral 960 ml 240 ml IV Total 730.0 ml 932.5 ml Output Urine Total 850 ml 2750 ml Laboratory Tests Test 04/19/16 17:25 04/20/16 06:20 Vancomycin Level Trough 17.8 ug/mL (5.0-12.0) H White Blood Count 12.6 K/UL (4.8-10.8) H Red Blood Count 3.85 M/UL (4.70-6.10) L Hemoglobin 12.8 G/DL (14.2-18.0) L Hematocrit 37.8 % (42.0-52.0) L Mean Corpuscular Volume 98 FL (80-99) Mean Corpuscular Hemoglobin 33.1 PG (27.0-31.0) H Mean Corpuscular Hemoglobin Concent 33.8 G/DL (32.0-36.0) Red Cell Distribution Width 11.4 % (11.6-14.8) L Platelet Count 224 K/UL (150-450) Mean Platelet Volume 7.4 FL (6.5-10.1) Neutrophils (%) (Auto) 57.7 % (45.0-75.0) Lymphocytes (%) (Auto) 27.6 % (20.0-45.0) Monocytes (%) (Auto) 11.0 % (1.0-10.0) H Eosinophils (%) (Auto) 3.0 % (0.0-3.0) Basophils (%) (Auto) 0.8 % (0.0-2.0) Sodium Level 140 mEQ/L (135-145) Potassium Level 3.3 mEQ/L (3.4-4.9) L Chloride Level 100 mEQ/L (98-107) Carbon Dioxide Level 24 mEQ/L (20-30) Anion Gap 16 (5-15) H Blood Urea Nitrogen 6 mg/dL (7-23) L Creatinine 0.6 mg/dL (0.7-1.2) L Estimat Glomerular Filtration Rate > 60 mL/min (>60) Glucose Level 103 mg/dL (74-106) Calcium Level 8.9 mg/dL (8.6-10.2) Height (Feet): 5 Height (Inches): 5.00 Weight (Pounds): 180 General Appearance: no apparent distress, alert Cardiovascular: normal rate Respiratory/Chest: normal breath sounds, no respiratory distress Abdominal Exam: normal bowel sounds, non tender, soft Nicole Logan N.PSamir Apr 20, 2016 11:19
[2016-04-20 11:49] VITALS: BP 105/72
[2016-04-20 12:23] LABS: ANION GAP 16 (5-15); CALCIUM 8.6 mg/dL (8.6-10.2); CARBON DIOXIDE 24 mEQ/L (20-30); CHLORIDE 98 mEQ/L (98-107); CREATININE 0.5 mg/dL (0.7-1.2); GLOMERULAR FILTRATION RATE > 60 mL/min (>60); HEMOLYSIS 5; POTASSIUM 3.5 mEQ/L (3.4-4.9); SODIUM 138 mEQ/L (135-145)
--- NOTE | 2016-04-20 14:14 | General Progress Note ---
Assessment/Plan Problem List: (1) Diabetes ICD Codes: E11.9 - Type 2 diabetes mellitus without complications SNOMED: 79383357 (2) HTN (hypertension) ICD Codes: I10 - Essential (primary) hypertension SNOMED: 21979797 (3) UGIB (upper gastrointestinal bleed) ICD Codes: K92.2 - Gastrointestinal hemorrhage, unspecified SNOMED: 79082398 (4) UTI (urinary tract infection) ICD Codes: N39.0 - Urinary tract infection, site not specified SNOMED: 27617593, 326204905 Qualifiers: Qualified Codes: N30.00 - Acute cystitis without hematuria (5) Leukocytosis ICD Codes: D72.829 - Elevated white blood cell count, unspecified SNOMED: 248561326, 864968831 Qualifiers: Qualified Codes: D72.829 - Elevated white blood cell count, unspecified (6) Proteinuria ICD Codes: R80.9 - Proteinuria, unspecified SNOMED: 31288285, 314676977 Status: stable, progressing, tolerating diet Assessment/Plan ot pt diet abx cbc bmp am dc plan snf if clear by id Subjective Constitutional: Reports: weakness Allergies: Coded Allergies: No Known Allergies (Unverified , 04/16/16) All Systems: reviewed and negative except above Subjective lethargic in bed Objective Last 24 Hour Vital Signs Date Time Temp Pulse Resp B/P Pulse Ox O2 Delivery O2 Flow Rate FiO2 04/20/16 11:49 97.8 104 21 105/72 96 Room Air 04/20/16 09:33 109 111/76 04/20/16 08:13 98.1 109 21 111/76 95 Room Air 04/20/16 04:00 97.9 108 16 114/79 97 Room Air 04/20/16 00:00 98.2 90 16 139/82 94 Room Air 04/19/16 19:00 98.3 96 18 122/76 97 Room Air 04/19/16 16:00 97.9 95 18 117/73 Room Air Intake and Output 04/19/16 04/20/16 19:00 07:00 Intake Total 1690.0 ml 1172.5 ml Output Total 850 ml 2750 ml Balance 840.0 ml -1577.5 ml Intake Oral 960 ml 240 ml IV Total 730.0 ml 932.5 ml Output Urine Total 850 ml 2750 ml Laboratory Tests 04/19/16 17:25: Vancomycin Level Trough 17.8H 04/20/16 06:20: White Blood Count 12.6H, Red Blood Count 3.85L, Hemoglobin 12.8L, Hematocrit 37.8L, Mean Corpuscular Volume 98, Mean Corpuscular Hemoglobin 33.1H, Mean Corpuscular Hemoglobin Concent 33.8, Red Cell Distribution Width 11.4L, Platelet Count 224, Mean Platelet Volume 7.4, Neutrophils (%) (Auto) 57.7, Lymphocytes (%) (Auto) 27.6, Monocytes (%) (Auto) 11.0H, Eosinophils (%) (Auto) 3.0, Basophils (%) (Auto) 0.8, Sodium Level 140, Potassium Level 3.3L, Chloride Level 100, Carbon Dioxide Level 24, Anion Gap 16H, Blood Urea Nitrogen 6L, Creatinine 0.6L, Estimat Glomerular Filtration Rate > 60, Glucose Level 103, Calcium Level 8.9 04/20/16 11:50: Sodium Level 138, Potassium Level 3.5, Chloride Level 98, Carbon Dioxide Level 24, Anion Gap 16H, Blood Urea Nitrogen 4L, Creatinine 0.5L, Estimat Glomerular Filtration Rate > 60, Glucose Level 106, Calcium Level 8.6 Height (Feet): 5 Height (Inches): 5.00 Weight (Pounds): 180 General Appearance: lethargic EENT: normal ENT inspection Neck: normal alignment Cardiovascular: normal peripheral pulses, normal rate, regular rhythm Respiratory/Chest: chest wall non-tender, lungs clear Abdomen: normal bowel sounds, non tender, soft Extremities: normal inspection Edema: no edema noted Arm (L), no edema noted Arm (R), no edema noted Leg (L), no edema noted Leg (R), no edema noted Pedal (L), no edema noted Pedal (R), no edema noted Generalized Neurologic: motor weakness Skin: normal pigmentation, warm/dry ERNST CASH Apr 20, 2016 14:14
[2016-04-20 16:00] VITALS: BP 109/71
--- NOTE | 2016-04-20 16:55 | Infectious Diseases Prog Note ---
Assessment/Plan Problems: (1) Leukocytosis Assessment & Plan: doubt sepsis, most likely stress related due to GI bleeding and dehydration , observe off antibiotics, await blood culture. (2) UTI (urinary tract infection) Assessment & Plan: with negative culture so far, off antibiotics since no growth on culture (3) Seizure disorder, generalized convulsive, intractable Assessment & Plan: stable, continue seizure meds, neurology is following (4) s/p Large R Craniotomy with spastic hemiparesis Assessment & Plan: stable , neurology is following (5) UGIB (upper gastrointestinal bleed) Assessment & Plan: S/P EGD, showed gastritis, continue PPI (6) Diabetes Assessment & Plan: recommend tight glycemic control to keep blood glucose between 80-120 Subjective Constitutional: Denies: anorexia, chills, drenching sweats, fatigue, fever, no symptoms, other HEENT: Denies: congestion, coryza, dysphagia, hearing change, no symptoms, other, visual change Respiratory: Denies: dry cough, no symptoms, other, productive cough, shortness of breath Breasts: Denies: discharge, no symptoms, other, swelling, tenderness Cardiovascular: Denies: chest pain, dyspnea on exertion, no symptoms, other, palpitations Gastrointestinal/Abdominal: Denies: bloating, blood in stool, constipation, diarrhea, nausea, no symptoms, other, vomiting Genitourinary: Denies: dysuria, frequency, hematuria, no symptoms, nocturia, other Neurologic: Denies: confusion, headache, no symptoms, numbness, other, weakness Psychiatric: Denies: anxiety, depression, no symptoms, other Skin: Denies: no symptoms, other, rash, ulcer Endocrine: Denies: feels cold, feels warm, no symptoms, other Allergies: Coded Allergies: No Known Allergies (Unverified , 04/16/16) Objective Vital Signs Last 24 Hour Vital Signs Date Time Temp Pulse Resp B/P Pulse Ox O2 Delivery O2 Flow Rate FiO2 04/20/16 11:49 97.8 104 21 105/72 96 Room Air 04/20/16 09:33 109 111/76 04/20/16 08:13 98.1 109 21 111/76 95 Room Air 04/20/16 04:00 97.9 108 16 114/79 97 Room Air 04/20/16 00:00 98.2 90 16 139/82 94 Room Air 04/19/16 19:00 98.3 96 18 122/76 97 Room Air Height (Feet): 5 Height (Inches): 5.00 Weight (Pounds): 180 General Appearance: WD/WN, no acute distress HEENT: normocephalic, atraumatic, anicteric, mucous membranes moist Respiratory/Chest: chest wall non-tender, lungs clear, normal breath sounds, no respiratory distress, no accessory muscle use Cardiovascular: normal peripheral pulses, normal rate, regular rhythm, no gallop/murmur Abdomen: normal bowel sounds, soft, non tender, no organomegaly, non distended , no mass Extremities: no cyanosis, no clubbing Skin: no rash, no lesions Microbiology Date/Time Source Procedure Growth Status 04/17/16 20:30 Blood Blood Culture - Preliminary NO GROWTH AFTER 48 HOURS Resulted 04/17/16 20:15 Blood Blood Culture - Preliminary NO GROWTH AFTER 48 HOURS Resulted Laboratory Tests Test 04/19/16 17:25 04/20/16 06:20 04/20/16 11:50 Vancomycin Level Trough 17.8 ug/mL (5.0-12.0) H White Blood Count 12.6 K/UL (4.8-10.8) H Red Blood Count 3.85 M/UL (4.70-6.10) L Hemoglobin 12.8 G/DL (14.2-18.0) L Hematocrit 37.8 % (42.0-52.0) L Mean Corpuscular Volume 98 FL (80-99) Mean Corpuscular Hemoglobin 33.1 PG (27.0-31.0) H Mean Corpuscular Hemoglobin Concent 33.8 G/DL (32.0-36.0) Red Cell Distribution Width 11.4 % (11.6-14.8) L Platelet Count 224 K/UL (150-450) Mean Platelet Volume 7.4 FL (6.5-10.1) Neutrophils (%) (Auto) 57.7 % (45.0-75.0) Lymphocytes (%) (Auto) 27.6 % (20.0-45.0) Monocytes (%) (Auto) 11.0 % (1.0-10.0) H Eosinophils (%) (Auto) 3.0 % (0.0-3.0) Basophils (%) (Auto) 0.8 % (0.0-2.0) Sodium Level 140 mEQ/L (135-145) 138 mEQ/L (135-145) Potassium Level 3.3 mEQ/L (3.4-4.9) L 3.5 mEQ/L (3.4-4.9) Chloride Level 100 mEQ/L (98-107) 98 mEQ/L (98-107) Carbon Dioxide Level 24 mEQ/L (20-30) 24 mEQ/L (20-30) Anion Gap 16 (5-15) H 16 (5-15) H Blood Urea Nitrogen 6 mg/dL (7-23) L 4 mg/dL (7-23) L Creatinine 0.6 mg/dL (0.7-1.2) L 0.5 mg/dL (0.7-1.2) L Estimat Glomerular Filtration Rate > 60 mL/min (>60) > 60 mL/min (>60) Glucose Level 103 mg/dL (74-106) 106 mg/dL (74-106) Calcium Level 8.9 mg/dL (8.6-10.2) 8.6 mg/dL (8.6-10.2) Current Medications Medications (Trade) Dose Ordered Sig/Netta Route PRN Reason Start Time Stop Time Status Last Admin Dose Admin Acetaminophen (Tylenol) 650 mg Q4H PRN ORAL fever 04/16/16 23:30 05/16/16 23:29 Al Hydroxide/Mg Hydroxide (Mylanta II) 30 ml Q6H PRN ORAL dyspepsia 04/16/16 23:30 05/16/16 23:29 Amlodipine Besylate (Norvasc) 10 mg DAILY ORAL 04/17/16 09:00 05/17/16 08:59 04/20/16 09:33 Dextrose (Dextrose 50%) STAT PRN IV Hypoglycemia 04/16/16 23:30 05/16/16 23:29 Dextrose/Sodium Chloride (D5 0.45% NS) 1,000 ml @ 75 mls/hr [id number] IV 04/17/16 01:00 05/17/16 00:59 04/20/16 09:32 Diphenhydramine HCl (Benadryl) 25 mg Q6H PRN ORAL Itching/Pruritis 04/16/16 23:30 05/16/16 23:29 Divalproex Sodium (Depakote) 1,000 mg BEDTIME ORAL 04/17/16 21:00 05/17/16 20:59 04/19/16 22:16 Ketorolac Tromethamine (Toradol 30mg) 30 mg Q6H PRN IV moderate pian 4-6 04/16/16 23:30 04/21/16 23:29 Morphine Sulfate (Morphine Sulfate) 2 mg Q4H PRN IVP severe Pain (Pain Scale 7-10) 04/16/16 23:30 04/23/16 23:29 Nitroglycerin (Ntg) 0.4 mg Q5M X 3 DOSES PRN SL Prn Chest Pain 04/16/16 23:30 05/16/16 23:29 Ondansetron HCl (Zofran) 4 mg Q6H PRN IVP Nausea & Vomiting 04/16/16 23:30 05/16/16 23:29 Pantoprazole (Protonix) 40 mg DAILY IV 04/17/16 09:00 05/17/16 08:59 04/20/16 09:34 Phenytoin 150 mg 150 mg BID ORAL 04/17/16 09:00 05/17/16 08:59 04/20/16 09:33 Polyethylene Glycol (Miralax) 17 gm HSPRN PRN ORAL Constipation 04/16/16 23:30 05/16/16 23:29 Quetiapine Fumarate (SEROquel) 50 mg Q12HR ORAL 04/17/16 21:00 05/17/16 20:59 04/20/16 09:33 Quetiapine Fumarate (SEROquel) 50 mg TWICE A DAY PRN ORAL agitation 04/17/16 14:15 05/17/16 14:14 Sucralfate (Carafate) 1 gm BID ORAL 04/19/16 18:00 05/19/16 17:59 04/20/16 09:32 Temazepam (Restoril) 15 mg HSPRN PRN ORAL Insomnia 04/16/16 23:30 04/23/16 23:29 Raymon Meyer M.D. Apr 20, 2016 16:55
--- NOTE | 2016-04-20 17:55 | Pulmonology Progress Note ---
Assessment/Plan Problems: (1) Upper GI bleeding (2) Leukocytosis (3) UTI (urinary tract infection) (4) s/p Large R Craniotomy with spastic hemiparesis (5) Seizure disorder, generalized convulsive, intractable Assessment/Plan EGD done showing gastritis, biopsy deone check h/h prbc prn resume diet again check cultures Subjective ROS Limited/Unobtainable: Yes Constitutional: Reports: anorexia, fatigue Neurologic: Reports: confusion, seizures, syncope, weakness Allergies: Coded Allergies: No Known Allergies (Unverified , 04/16/16) Objective Last 24 Hour Vital Signs Date Time Temp Pulse Resp B/P Pulse Ox O2 Delivery O2 Flow Rate FiO2 04/20/16 11:49 97.8 104 21 105/72 96 Room Air 04/20/16 09:33 109 111/76 04/20/16 08:13 98.1 109 21 111/76 95 Room Air 04/20/16 04:00 97.9 108 16 114/79 97 Room Air 04/20/16 00:00 98.2 90 16 139/82 94 Room Air 04/19/16 19:00 98.3 96 18 122/76 97 Room Air Intake and Output 04/19/16 04/20/16 19:00 07:00 Intake Total 1690.0 ml 1247.5 ml Output Total 850 ml 2750 ml Balance 840.0 ml -1502.5 ml Intake Oral 960 ml 240 ml IV Total 730.0 ml 1007.5 ml Output Urine Total 850 ml 2750 ml General Appearance: no acute distress HEENT: PERRL, other - s/p craniotomy Respiratory/Chest: chest wall non-tender, decreased breath sounds, accessory muscle use Cardiovascular: normal peripheral pulses, normal rate, regular rhythm, no JVD Abdomen: normal bowel sounds, soft, non tender, no organomegaly, non distended Genitourinary: normal external genitalia Extremities: no cyanosis Neurologic/Psychiatric: disoriented, unresponsiveness Microbiology Date/Time Source Procedure Growth Status 04/17/16 20:30 Blood Blood Culture - Preliminary NO GROWTH AFTER 48 HOURS Resulted 04/17/16 20:15 Blood Blood Culture - Preliminary NO GROWTH AFTER 48 HOURS Resulted Laboratory Tests 04/20/16 06:20: White Blood Count 12.6H, Red Blood Count 3.85L, Hemoglobin 12.8L, Hematocrit 37.8L, Mean Corpuscular Volume 98, Mean Corpuscular Hemoglobin 33.1H, Mean Corpuscular Hemoglobin Concent 33.8, Red Cell Distribution Width 11.4L, Platelet Count 224, Mean Platelet Volume 7.4, Neutrophils (%) (Auto) 57.7, Lymphocytes (%) (Auto) 27.6, Monocytes (%) (Auto) 11.0H, Eosinophils (%) (Auto) 3.0, Basophils (%) (Auto) 0.8, Sodium Level 140, Potassium Level 3.3L, Chloride Level 100, Carbon Dioxide Level 24, Anion Gap 16H, Blood Urea Nitrogen 6L, Creatinine 0.6L, Estimat Glomerular Filtration Rate > 60, Glucose Level 103, Calcium Level 8.9 04/20/16 11:50: Sodium Level 138, Potassium Level 3.5, Chloride Level 98, Carbon Dioxide Level 24, Anion Gap 16H, Blood Urea Nitrogen 4L, Creatinine 0.5L, Estimat Glomerular Filtration Rate > 60, Glucose Level 106, Calcium Level 8.6 Current Medications Medications (Trade) Dose Ordered Sig/Netta Route PRN Reason Start Time Stop Time Status Last Admin Dose Admin Acetaminophen (Tylenol) 650 mg Q4H PRN ORAL fever 04/16/16 23:30 05/16/16 23:29 Al Hydroxide/Mg Hydroxide (Mylanta II) 30 ml Q6H PRN ORAL dyspepsia 04/16/16 23:30 05/16/16 23:29 Amlodipine Besylate (Norvasc) 10 mg DAILY ORAL 04/17/16 09:00 05/17/16 08:59 04/20/16 09:33 Dextrose (Dextrose 50%) STAT PRN IV Hypoglycemia 04/16/16 23:30 05/16/16 23:29 Dextrose/Sodium Chloride (D5 0.45% NS) 1,000 ml @ 75 mls/hr [id number] IV 04/17/16 01:00 05/17/16 00:59 04/20/16 09:32 Diphenhydramine HCl (Benadryl) 25 mg Q6H PRN ORAL Itching/Pruritis 04/16/16 23:30 05/16/16 23:29 Divalproex Sodium (Depakote) 1,000 mg BEDTIME ORAL 04/17/16 21:00 05/17/16 20:59 04/19/16 22:16 Ketorolac Tromethamine (Toradol 30mg) 30 mg Q6H PRN IV moderate pian 4-6 04/16/16 23:30 04/21/16 23:29 Morphine Sulfate (Morphine Sulfate) 2 mg Q4H PRN IVP severe Pain (Pain Scale 7-10) 04/16/16 23:30 04/23/16 23:29 Nitroglycerin (Ntg) 0.4 mg Q5M X 3 DOSES PRN SL Prn Chest Pain 04/16/16 23:30 05/16/16 23:29 Ondansetron HCl (Zofran) 4 mg Q6H PRN IVP Nausea & Vomiting 04/16/16 23:30 05/16/16 23:29 Pantoprazole (Protonix) 40 mg DAILY IV 04/17/16 09:00 05/17/16 08:59 04/20/16 09:34 Phenytoin 150 mg 150 mg BID ORAL 04/17/16 09:00 05/17/16 08:59 04/20/16 09:33 Polyethylene Glycol (Miralax) 17 gm HSPRN PRN ORAL Constipation 04/16/16 23:30 05/16/16 23:29 Quetiapine Fumarate (SEROquel) 50 mg Q12HR ORAL 04/17/16 21:00 05/17/16 20:59 04/20/16 09:33 Quetiapine Fumarate (SEROquel) 50 mg TWICE A DAY PRN ORAL agitation 04/17/16 14:15 05/17/16 14:14 Sucralfate (Carafate) 1 gm BID ORAL 04/19/16 18:00 05/19/16 17:59 04/20/16 09:32 Temazepam (Restoril) 15 mg HSPRN PRN ORAL Insomnia 04/16/16 23:30 04/23/16 23:29 LAURA HINES Apr 20, 2016 17:55
[2016-04-20] MEDS ORDERED: D5 1/2NS 1000ml IV ONE (18:31)
--- NOTE | 2016-04-21 19:14 | Discharge Summary ---
Discharge Summary Hospital Course Date of Admission Apr 16, 2016 at 23:47 Date of Discharge Apr 20, 2016 at 18:32 Admitting Diagnosis GI BLEED HPI Adam Khan is a 56 year old male who was admitted on Apr 16, 2016 at 23:47 for Gastrointestinal Bleed Hospital Course [id number] Discharge Discharge Disposition Patient was discharged to SNF/Subacute Facility(03) Discharge Diagnoses: Kiana Mckoy NP Apr 21, 2016 19:14
--- NOTE | 2016-04-22 03:00 | Discharge Summary 2 SIG ---
DATE OF ADMISSION: 04/16/2016 DATE OF DISCHARGE: 04/20/2016 CONSULTANTS: 1. Sherlyn Sheffield M.D. 2. Miguelangel Pino M.D. 3. Carlito Mcclain M.D. 4. Raymon Meyer M.D. 5. Gonzalez Guadalupe M.D. BRIEF HOSPITAL COURSE: The patient is a 56-year-old male from [facility], presented to ED due to weakness, lethargy, and coffee-ground emesis. On evaluation, WBC was elevated. CBC was normal. He was placed on NPO with IV fluids. Dr. Pino was consulted for new onset of obtundation. The patient has history of chronic seizure disorder and history of chronic psychiatric disorder and had a large right-sided craniotomy with left hemiparesis. He was given Depakote and phenytoin. On 04/18/2016, he underwent EGD with findings of gastritis and small hiatal hernia. Carafate was discontinued and the patient was given proton pump inhibitors. He was initially started on empiric antibiotics. Pending culture results. Urine culture did not isolate any growth. Blood culture did not isolate any growth. He was taken off antibiotic therapy and was eventually discharged back to longterm. FINAL DIAGNOSES: 1. Upper gastrointestinal bleed. 2. Acute metabolic encephalopathy. 3. Hypertension. 4. Urinary tract infection. 5. Proteinuria. 6. Seizure disorder. 7. Status post large right craniotomy with hemiparesis. 8. Gastritis. 9. Hiatal hernia. 10. Hypokalemia. Ady Kerr D.O. I have been assigned to dictate discharge summary on this account and I was not involved in the patient's management. Kiana Mckoy N.P. DR: Mary JOB#: [id number] CC:
--- NOTE | 2016-04-22 21:49 | Diagnostic Imaging Report ---
APPROVED REPORT CPT Code: 73208 Present Symptoms Comments: R/O DVT BILATERAL: Imaging reveals a patent deep venous system bilaterally. There is no evidence of thrombus within the femoral, popliteal or tibial segments. The greater saphenous veins are also within normal limits. Doppler indicates normal spontaneous flow within these segments.
--- NOTE | 2016-05-06 09:20 | Consultation ---
DATE OF CONSULTATION: 04/17/2016 CONSULTING PHYSICIAN: Nora Duggan M.D. TREATING ATTENDING PHYSICIAN: Ady Kerr D.O. HISTORY OF PRESENT ILLNESS: The patient is a 55-year-old male. The patient has a history of confusion and encephalopathy. The patient is from [facility], presents to the hospital for confusion. The patient has GI bleed, UTI, and sepsis. According to staff, patient . The patient is very confused and disorganized, does not know why he was brought to the hospital, is unable to recall his nursing facility name. He has poor insight, poor judgment, and poor impulse control and requires continuous hospitalization for stabilization of symptoms. PAST MEDICAL HISTORY: Includes a history of hypertension and encephalopathy. ALLERGIES: The patient has no known drug allergies. SUBSTANCE ABUSE HISTORY: The patient has no history of alcohol use or illicit substance use. PSYCHIATRIC HISTORY: The patient has a history of confusion and altered mental status. SOCIAL HISTORY: The patient is a 55-year-old male from [facility], financially sustained through Medicare. DIAGNOSES: AXIS I: Paranoid schizophrenia. AXIS II: Deferred. AXIS III: Per History and Physical. AXIS IV: Problem with social environment. MENTAL STATUS EXAMINATION: The patient is alert and oriented x2, person and place. Mood is depressed. Affect is blunted. Thought process is linear. The patient has poor attention and concentration, poor insight, judgment, and impulse control. This clinician assessed the patient. Provided the patient with reality orientation and supportive psychotherapy. Continue with medication management and behavioral management. This clinician has reviewed the patient's chart and discussed the treatment with nursing staff. Nora Duggan PsyD. : Katie JOB#: [id number] CC:
== END 2016-04-20 18:32 | DRG 253 ==
LOC: EDBD 22:03 → EMR 22:13 → 4E 23:47 → EDBD 23:47 → EDBEDREQ 04-17 08:59 → 4E 04-17 09:35
PROC: 0DB68ZX Excision of Stomach, Via Natural or Artificial Opening Endoscopic, Diagnostic (ICD-10-PCS; principal; 2016-04-18 09:07)
DX: K92.2 Gastrointestinal hemorrhage, unspecified (principal); G93.41 Metabolic encephalopathy; G40.419 Other generalized epilepsy and epileptic syndromes, intractable, without status epilepticus; I10 Essential (primary) hypertension; K29.70 Gastritis, unspecified, without bleeding; K44.9 Diaphragmatic hernia without obstruction or gangrene; N39.0 Urinary tract infection, site not specified; E11.9 Type 2 diabetes mellitus without complications; E87.6 Hypokalemia; G40.909 Epilepsy, unspecified, not intractable, without status epilepticus; F31.9 Bipolar disorder, unspecified; J44.9 Chronic obstructive pulmonary disease, unspecified; G81.14 Spastic hemiplegia affecting left nondominant side
CPT/HCPCS: 36415; 71010; 76700; 80048; 80053; 80076; 80164; 80185; 80202; 81001; 81003; 82140; 82150; 83690; 85007; 85025; 85610; 85730; 86705; 86709; 86803; 87040; 87081; 87086; 87340; 93970; 94003; 94150; 97803; J2405; J8499

== ENCOUNTER 2016-07-28 08:39 | Inpatient (IN) | payer OTHER ==
[~2016-07-28] VITALS: Ht 167.6 cm; Wt 71.7 kg
[~2016-07-28 08:39] MED LIST: CALCIUM 500 +1 EAC3 PO; CALCIUM ACETAT667 MG PO; CARAFATE1 G1 ORAL; COZAAR50 MG ORAL; DEPAKOTE250 MG PO; DILANTIN100 MG ORAL; DOCUSATE SODIU100 MG ORAL; DULCOLAX10 MG RC; LACTULOSE20 GM/301 ORAL; MILK OF MA400 MG/51 ORAL; MULTIVITAMINS1 EAC2 ORAL; NORVASC10 MG ORAL; SEROQUEL200 MG ORAL
[2016-07-28] MEDS ORDERED: CARAFATE1 G1 ORAL (08:48)
[2016-07-28] MEDS ORDERED: CALCIUM ACETAT667 M1 PO (08:48)
[2016-07-28] MEDS ORDERED: TYLENOL EXTRA500 MG ORAL (08:48)
[2016-07-28] MEDS ORDERED: ACETAMINOPHEN120 MG RECTAL (08:48)
[2016-07-28 09:29] VITALS: BP 105/68
[2016-07-28 09:35] LABS: APPEARANCE,URINE CLEAR; KETONES,URINE 1+ (NEGATIVE); LEUKOCYTE ESTERASE ,URINE 1+ (NEGATIVE); NITRITE,URINE NEGATIVE (NEGATIVE); PH,URINE 6 (4.5-8.0); PROTEIN,URINE 2+ (NEGATIVE); UROBILINOGEN,URINE 1 MG/DL (0.0-1.0)
[2016-07-28 09:37] LABS: MEAN CORPUSCULAR HEMOGLOBIN 31.8 PG (27.0-31.0); MEAN CORPUSCULAR VOLUME 96 FL (80-99); MEAN PLATELET VOLUME 8.7 FL (6.5-10.1); PLATELET COUNT 218 K/UL (150-450); RED BLOOD COUNT 4.39 M/UL (4.70-6.10); RED CELL DISTRIBUTION WIDTH 13.1 % (11.6-14.8)
[2016-07-28 09:38] LABS: WHITE BLOOD COUNT 23.3 K/UL (4.8-10.8)
--- NOTE | 2016-07-28 09:41 | Diagnostic Imaging Report ---
Indications: Cough Technique: Portable AP chest Findings: Comparison: 04/16/16 Hazy and patchy consolidative opacities have developed in the right lung base. Left lung remains clear. Heart size, pulmonary vasculature remain within normal limits. Suggestion of minimal right costophrenic angle blunting; left remains sharp. Aortic arch calcification again noted. IMPRESSION: Findings compatible with but nonspecific for developing right lower lobe pneumonia Questionable small right pleural effusion Aortosclerosis
[2016-07-28 09:46] LABS: BACTERIA,URINE FEW /HPF; MUCUS,URINE FEW /LPF (NONE/OCC); RBC,URINE 0-2 /HPF (0 - 0); SQUAMOUS EPITHELIAL CELL,UR OCCASIONAL /LPF (NONE/OCC)
[2016-07-28 09:47] LABS: ICTOTEST NEGATIVE; TROPONIN I < 0.30 ng/mL (<=0.30)
[2016-07-28 09:48] LABS: ALANINE AMINOTRANSFERASE 39 U/L (3-41); ALBUMIN/GLOBULIN RATIO 0.9 (1.0-2.7); ANION GAP 13 (5-15); ASPARTATE AMINO TRANSFERASE 42 U/L (5-40); CALCIUM 9.3 mg/dL (8.6-10.2); CARBON DIOXIDE 27 mEQ/L (20-30); CHLORIDE 99 mEQ/L (98-107); CREATININE 0.7 mg/dL (0.7-1.2); GLOMERULAR FILTRATION RATE > 60 mL/min (>60); HEMOLYSIS 78; POTASSIUM 4.2 mEQ/L (3.4-4.9); SODIUM 139 mEQ/L (135-145)
[2016-07-28] MEDS ORDERED: Cefepime 1gm vial ONE (09:56)
[2016-07-28 09:58] LABS: CKMB < 1.5 ng/mL (< 6.7)
[2016-07-28] MEDS ORDERED: Cefepime HCl 1 GM in NS 55 ML IV ONE (10:00)
[2016-07-28] MEDS ORDERED: Azithromycin 500 MG in NS 275 ML IV ONE (10:00)
[2016-07-28] MEDS ORDERED: NS 275 ML ONE (10:10)
[2016-07-28] MEDS ORDERED: Azithromycin Inj IV ONE (10:10)
[2016-07-28 11:08] LABS: BAND NEUTROPHILS % (MANUAL) 6 % (0-8); BASOPHILS % (MANUAL) 0 % (0-2); EOSINOPHILS % (MANUAL) 0 % (0-3); LYMPHOCYTES % (MANUAL) 21 % (20-45); NEUTROPHILS % (MANUAL) 66 % (45-75); PLATELET ESTIMATE ADEQUATE; PLATELET MORPHOLOGY NORMAL; TOTAL CELLS COUNTED 100
[2016-07-28 11:09] LABS: MACROCYTES 1+
--- NOTE | 2016-07-28 11:09 | Emergency Room Report ---
History of Present Illness General Chief Complaint: Vomiting Source: Medical Record, EMS Present Illness HPI 56-year-old male presents ED for evaluation of fever and vomiting. Started today. Patient resides in [facility]. Patient had fever a [facility]. Patient is afebrile here. Patient has extensive medical problems and is nonverbal at baseline. No signs of distress upon arrival. No chest pain or shortness of breath. No nausea or vomiting. No other aggravating relieving factors. 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 Review of Systems All Other Systems: negative except mentioned in HPI Physical Exam Vital Signs Date Time Temp Pulse Resp B/P Pulse Ox O2 Delivery O2 Flow Rate FiO2 07/28/16 08:22 98.4 97 16 105/70 96 Nasal Cannula 3.0 Sp02 EP Interpretation: reviewed, normal General Appearance: other - nonverbal Head: atraumatic Eyes: bilateral eye PERRL, bilateral eye normal inspection ENT: normal ENT inspection Neck: full range of motion Respiratory: crackles Cardiovascular #1: regular rate, rhythm, no edema Gastrointestinal: normal bowel sounds, non tender, soft, non-distended, no guarding, no rebound Rectal: deferred Genitourinary: no CVA tenderness Musculoskeletal: normal inspection Neurologic: other - nonverbal Psychiatric: other - nonverbal Skin: normal inspection Lymphatic: normal inspection Medical Decision Making Diagnostic Impression: Primary Impression: Pneumonia Qualified Codes: J18.1 - Lobar pneumonia, unspecified organism ER Course Hospital Course 56-year-old M presenting to ED with fever, vomiting, crackles on exam Differential diagnoses include: Pneumonia, CHF exacerbation, pneumothorax, fluid overload Clinical course Patient placed on stretcher. On cardiac rn. After initial history and physical, I ordered labs, IV fluids, EKG, chest x-ray, blood cultures, UA. Labs -leukocytosis noted, hemoglobin/hematocrit stable, electrolytes okay, lactate okay troponins negative CXR - RLL infiltrate EKG - NSR, no acute changes abx given. IVFs given. Case discussed with Dr. Kerr and he agreed to the patient to his service for further care and support I feel this is a highly complex case requiring extensive working including EKG/ Rhythm strip, Xray/CT/US, Blood/urine lab work, repeat exams while in ED, and administration of strong opiates/narcotics for pain control, admission to hospital or close patient follow up. Diagnosis - pneumonia Patient admitted to floor in serious condition Labs Test 07/28/16 09:05 White Blood Count 23.3 K/UL (4.8-10.8) Red Blood Count 4.39 M/UL (4.70-6.10) Hemoglobin 14.0 G/DL (14.2-18.0) Hematocrit 42.3 % (42.0-52.0) Mean Corpuscular Volume 96 FL (80-99) Mean Corpuscular Hemoglobin 31.8 PG (27.0-31.0) Mean Corpuscular Hemoglobin Concent 33.0 G/DL (32.0-36.0) Red Cell Distribution Width 13.1 % (11.6-14.8) Platelet Count 218 K/UL (150-450) Mean Platelet Volume 8.7 FL (6.5-10.1) Neutrophils (%) (Auto) % (45.0-75.0) Lymphocytes (%) (Auto) % (20.0-45.0) Monocytes (%) (Auto) % (1.0-10.0) Eosinophils (%) (Auto) % (0.0-3.0) Basophils (%) (Auto) % (0.0-2.0) Urine Color Yellow Urine Appearance Clear Urine pH 6 (4.5-8.0) Urine Specific [place] 1.015 (1.005-1.035) Urine Protein 2+ (NEGATIVE) Urine Glucose (UA) Negative (NEGATIVE) Urine Ketones 1+ (NEGATIVE) Urine Occult Blood Negative (NEGATIVE) Urine Nitrite Negative (NEGATIVE) Urine Bilirubin 1+ (NEGATIVE) Urine Ictotest Negative Urine Urobilinogen 1 MG/DL (0.0-1.0) Urine Leukocyte Esterase 1+ (NEGATIVE) Urine RBC 0-2 /HPF (0 - 0) Urine WBC 2-4 /HPF (0 - 0) Urine Squamous Epithelial Cells Occasional /LPF Urine Bacteria Few /HPF (NONE) Urine Mucus Few /LPF (NONE/OCC) Sodium Level 139 mEQ/L (135-145) Potassium Level 4.2 mEQ/L (3.4-4.9) Chloride Level 99 mEQ/L (98-107) Carbon Dioxide Level 27 mEQ/L (20-30) Anion Gap 13 (5-15) Blood Urea Nitrogen 19 mg/dL (7-23) Creatinine 0.7 mg/dL (0.7-1.2) Estimat Glomerular Filtration Rate > 60 mL/min (>60) Glucose Level 109 mg/dL (74-106) Lactic Acid Level 1.60 mmol/L (0.66-2.22) Calcium Level 9.3 mg/dL (8.6-10.2) Total Bilirubin 0.5 mg/dL (0.0-1.2) Aspartate Amino Transf (AST/SGOT) 42 U/L (5-40) Alanine Aminotransferase (ALT/SGPT) 39 U/L (3-41) Alkaline Phosphatase 83 U/L (40-129) Total Creatine Kinase 72 U/L (38-174) Creatine Kinase MB < 1.5 ng/mL (< 6.7) Creatine Kinase MB Relative Index Troponin I < 0.30 ng/mL (<=0.30) Pro-B-Type Natriuretic Peptide 931 pg/mL (0-125) Total Protein 8.0 g/dL (6.6-8.7) Albumin 3.8 g/dL (3.5-5.2) Globulin 4.2 g/dL Albumin/Globulin Ratio 0.9 (1.0-2.7) EKG Diagnostic Results Rate: normal Rhythm: NSR ST Segments: no acute changes ASA given to the pt in ED: No Rhythm Strip Diag. Results EP Interpretation: yes Rhythm: NSR, no PVC's, no ectopy Chest X-Ray Diagnostic Results EP Interpretation: No Findings: no pneumothorax, no acute cardiopulmonary disease, other - RLL pneumonia Number of Views: 1 Last Vital Signs Date Time Temp Pulse Resp B/P Pulse Ox O2 Delivery O2 Flow Rate FiO2 07/28/16 09:29 98.4 88 16 105/68 96 Nasal Cannula 3.0 Status: improved Disposition: ADMITTED INPATIENT Condition: Serious Referrals: [facility],REFERRING (PCP) ALEXYS ALONSO M.D. July 28, 2016 11:09
[2016-07-28] MEDS ORDERED: DuoNeb 0.5-3(2.5)mg/3ml neb HHN PRN (11:15)
[2016-07-28] MEDS ORDERED: Miralax 17gm pkt ORAL PRN (11:15)
[2016-07-28] MEDS ORDERED: Milk of Magnesia 30ml Ud ORAL PRN (11:15)
[2016-07-28] MEDS ORDERED: Promethazine/Codeine 5ml UD ORAL PRN (11:15)
[2016-07-28] MEDS ORDERED: Mylanta II UD 30ml ORAL PRN (11:15)
[2016-07-28] MEDS ORDERED: Nitroglycerin Subl 0.4mg tab (Bottle Of 25) SL PRN (11:15)
[2016-07-28 11:45] VITALS: BP 91/64
[2016-07-28 12:06] VITALS: BP 106/73
[2016-07-28 13:12] VITALS: BP 106/68
--- NOTE | 2016-07-28 13:56 | Infectious Diseases Prog Note ---
Assessment/Plan Problems: (1) HCAP (healthcare-associated pneumonia) Assessment & Plan: will send sputum culture and continue vancomycin , and cefepime, will add flagyl (2) Sepsis Assessment & Plan: due to pneumonia, will send blood culture and continue cefepime with vancomycin , with close monitor of trough level (3) Cough with sputum Assessment & Plan: due to pneumonia, rule out aspiration, recommend speech eval (4) Diabetes Assessment & Plan: recommend tight glycemic control to keep blood glucose between 80-120 Subjective Allergies: Coded Allergies: No Known Allergies (Unverified , 04/16/16) Objective Vital Signs Last 24 Hour Vital Signs Date Time Temp Pulse Resp B/P Pulse Ox O2 Delivery O2 Flow Rate FiO2 07/28/16 13:12 96.1 82 20 106/68 100 Nasal Cannula 2.0 07/28/16 12:19 98.4 87 16 106/73 96 Room Air 07/28/16 12:06 87 16 106/73 96 Nasal Cannula 3.0 07/28/16 11:45 98.4 83 16 91/64 96 Nasal Cannula 3.0 07/28/16 09:29 98.4 88 16 105/68 96 Nasal Cannula 3.0 07/28/16 08:22 98.4 97 16 105/70 96 Nasal Cannula 3.0 Height (Feet): 5 Height (Inches): 6.00 Weight (Pounds): 158 Laboratory Tests Test 07/28/16 09:05 White Blood Count 23.3 K/UL (4.8-10.8) *H Red Blood Count 4.39 M/UL (4.70-6.10) L Hemoglobin 14.0 G/DL (14.2-18.0) L Hematocrit 42.3 % (42.0-52.0) Mean Corpuscular Volume 96 FL (80-99) Mean Corpuscular Hemoglobin 31.8 PG (27.0-31.0) H Mean Corpuscular Hemoglobin Concent 33.0 G/DL (32.0-36.0) Red Cell Distribution Width 13.1 % (11.6-14.8) Platelet Count 218 K/UL (150-450) Mean Platelet Volume 8.7 FL (6.5-10.1) Neutrophils (%) (Auto) % (45.0-75.0) Lymphocytes (%) (Auto) % (20.0-45.0) Monocytes (%) (Auto) % (1.0-10.0) Eosinophils (%) (Auto) % (0.0-3.0) Basophils (%) (Auto) % (0.0-2.0) Differential Total Cells Counted 100 Neutrophils % (Manual) 66 % (45-75) Lymphocytes % (Manual) 21 % (20-45) Monocytes % (Manual) 7 % (1-10) Eosinophils % (Manual) 0 % (0-3) Basophils % (Manual) 0 % (0-2) Band Neutrophils 6 % (0-8) Platelet Estimate Adequate Platelet Morphology Normal Macrocytosis 1+ Urine Color Yellow Urine Appearance Clear Urine pH 6 (4.5-8.0) Urine Specific [place] 1.015 (1.005-1.035) Urine Protein 2+ (NEGATIVE) H Urine Glucose (UA) Negative (NEGATIVE) Urine Ketones 1+ (NEGATIVE) H Urine Occult Blood Negative (NEGATIVE) Urine Nitrite Negative (NEGATIVE) Urine Bilirubin 1+ (NEGATIVE) H Urine Ictotest Negative Urine Urobilinogen 1 MG/DL (0.0-1.0) H Urine Leukocyte Esterase 1+ (NEGATIVE) H Urine RBC 0-2 /HPF (0 - 0) H Urine WBC 2-4 /HPF (0 - 0) Urine Squamous Epithelial Cells Occasional /LPF Urine Bacteria Few /HPF (NONE) Urine Mucus Few /LPF (NONE/OCC) H Sodium Level 139 mEQ/L (135-145) Potassium Level 4.2 mEQ/L (3.4-4.9) Chloride Level 99 mEQ/L (98-107) Carbon Dioxide Level 27 mEQ/L (20-30) Anion Gap 13 (5-15) Blood Urea Nitrogen 19 mg/dL (7-23) Creatinine 0.7 mg/dL (0.7-1.2) Estimat Glomerular Filtration Rate > 60 mL/min (>60) Glucose Level 109 mg/dL (74-106) H Lactic Acid Level 1.60 mmol/L (0.66-2.22) Calcium Level 9.3 mg/dL (8.6-10.2) Total Bilirubin 0.5 mg/dL (0.0-1.2) Aspartate Amino Transf (AST/SGOT) 42 U/L (5-40) H Alanine Aminotransferase (ALT/SGPT) 39 U/L (3-41) Alkaline Phosphatase 83 U/L (40-129) Total Creatine Kinase 72 U/L (38-174) Creatine Kinase MB < 1.5 ng/mL (< 6.7) Creatine Kinase MB Relative Index Troponin I < 0.30 ng/mL (<=0.30) Pro-B-Type Natriuretic Peptide 931 pg/mL (0-125) H Total Protein 8.0 g/dL (6.6-8.7) Albumin 3.8 g/dL (3.5-5.2) Globulin 4.2 g/dL Albumin/Globulin Ratio 0.9 (1.0-2.7) L Current Medications Medications (Trade) Dose Ordered Sig/Netta Route PRN Reason Start Time Stop Time Status Last Admin Dose Admin Acetaminophen (Tylenol) 650 mg Q4H PRN ORAL fever 07/28/16 11:15 08/27/16 11:14 Al Hydroxide/Mg Hydroxide (Mylanta II) 30 ml Q6H PRN ORAL dyspepsia 07/28/16 11:15 08/27/16 11:14 Albuterol/ Ipratropium 3 ml 3 ml EVERY 4 HOURS PRN HHN Shortness of Breath 07/28/16 11:15 08/02/16 11:14 Amlodipine Besylate (Norvasc) 10 mg DAILY ORAL 07/29/16 09:00 08/28/16 08:59 Cefepime HCl/ Dextrose (Maxipime/D5W) 55 ml @ 110 mls/hr EVERY 12 HOURS IV 07/28/16 21:00 08/04/16 20:59 Divalproex Sodium (Depakote) 1,000 mg BEDTIME ORAL 07/28/16 21:00 08/27/16 20:59 Heparin Sodium (Porcine) (Heparin 5000 units/ml) 5,000 units EVERY 12 HOURS SUBQ 07/28/16 21:00 08/27/16 20:59 Magnesium Hydroxide (Mom) 30 ml DAILY PRN ORAL Constipation 07/28/16 11:15 08/27/16 11:14 Nitroglycerin (Ntg) 0.4 mg Q5M PRN SL Prn Chest Pain 07/28/16 11:15 08/27/16 11:14 Ondansetron HCl (Zofran) 4 mg Q6H PRN IVP Nausea & Vomiting 07/28/16 11:15 08/27/16 11:14 Phenytoin (Dilantin) 200 mg BID ORAL 07/28/16 18:00 08/27/16 17:59 Polyethylene Glycol (Miralax) 17 gm DAILYPRN PRN ORAL Constipation 07/28/16 11:15 08/27/16 11:14 Promethazine HCl/ Codeine (Phenergan with Codeine) 5 ml Q4H PRN ORAL For Cough 07/28/16 11:15 08/27/16 11:14 Quetiapine Fumarate (SEROquel) 250 mg TWICE A DAY ORAL 07/28/16 18:00 08/27/16 17:59 Sucralfate (Carafate) 1 gm BID ORAL 07/28/16 18:00 08/27/16 17:59 Temazepam (Restoril) 15 mg HSPRN PRN ORAL Insomnia 07/28/16 11:15 08/04/16 11:14 Vancomycin HCl 1.5 gm/Dextrose 325 ml @ 162.5 mls/ hr ONCE ONCE IVPB 07/28/16 14:30 07/28/16 16:29 Vancomycin HCl 1 ea 1 ea DAILY PRN MISC Per rx protocol 07/28/16 11:15 08/27/16 11:14 Vancomycin HCl/ Dextrose (Vancomycin/D5W) 275 ml @ 183.708 mls/hr Q12H IVPB 07/29/16 02:00 08/03/16 01:59 Raymon Meyer M.D. July 28, 2016 13:56
[2016-07-28] MEDS ORDERED: Vancomycin 1.5 GM in D5W 325 ML IVPB ONE (14:30)
[2016-07-28 16:42] VITALS: BP 106/71
--- NOTE | 2016-07-28 17:03 | GI Initial Consult Note ---
History of Present Illness General Date patient seen: July 28, 2016 Time patient seen: 16:48 Reason for Hospitalization: Vomiting Referring physician: ERNST CASH Reason for Consultation: VOMITING Present Illness HPI 56-year-old male presents ED for evaluation of fever and vomiting. Started today. Patient resides in halfway. Patient had fever a halfway. Patient is afebrile here. Patient has extensive medical problems and is nonverbal at baseline. No signs of distress upon arrival. No chest pain or shortness of breath. No nausea or vomiting. No other aggravating relieving factors. No other associated symptoms GI CONSULT: HPI as noted above. GI consulted for vomiting. Pt readmission to [facility] [place] s/p EGD 04/18/16 dx of gastritis with unremarkable biopsy presents today with leukocytosis and transaminitis. ROS limited, patient seen on floor NAD nonverbal with no active s/sx of N/V. Home Meds Reported Medications Acetaminophen* (TYLENOL*) 120 Mg Supp.rect, 120 MG RECTAL Q4H Y for Mild Pain/ Temp > 100.5, SUPP 07/28/16 Acetaminophen* (TYLENOL EXTRA STRENGTH*) 500 Mg Tablet, 325 MG ORAL Q6H Y for Mild Pain/Temp > 100.5, TAB 0 Refills 07/28/16 Calcium Acetate (CALCIUM ACETATE) 667 Mg Capsule, 667 MG PO THREE TIMES A DAY, CAP 07/28/16 Sucralfate* (CARAFATE*) 1 Gm Tablet, 1 GM ORAL BID, TAB 07/28/16 Bisacodyl (DULCOLAX) 10 Mg Supp.rect, 10 MG RC DAILY Y for Constipation, SUPP 04/17/16 Lactulose (LACTULOSE*) 20 Gm/30 Ml Solution, 100 ML ORAL THREE TIMES A DAY, ML 0 Refills 04/17/16 Quetiapine Fumarate* (SEROQUEL*) 200 Mg Tablet, 250 MG ORAL TWICE A DAY, TAB 04/16/16 Calcium Acetate (CALCIUM ACETATE) 667 Mg Tablet, 667 MG PO THREE TIMES A DAY, TAB 04/16/16 Amlodipine Besylate (Norvasc) 10 Mg Tablet, 10 MG ORAL DAILY, TAB Hold for systolic blood pressure below3 100 or heart rate below 60 04/16/16 Multivitamins* (MULTIVITAMINS*) 1 Each Tablet, 1 TAB ORAL DAILY, TAB 0 Refills 04/16/16 Magnesium Hydroxide* (MILK OF MAGNESIA*) 400 Mg/5 Ml Oral.susp, 30 ML ORAL DAILY Y for Constipation, ML 04/16/16 Docusate Sodium* (DOCUSATE SODIUM*) 100 Mg Capsule, 100 MG ORAL DAILY, CAP 04/16/16 Divalproex Sodium* (DEPAKOTE*) 250 Mg Tablet.dr, 500 MG PO DAILY, TAB 04/16/16 Phenytoin Sodium Extended* (DILANTIN*) 100 Mg Capsule, 200 MG ORAL BID, CAP 0 Refills 04/16/16 Divalproex Sodium* (DEPAKOTE*) 250 Mg Tablet.dr, 1000 MG PO BEDTIME, TAB 04/16/16 Losartan Potassium* (COZAAR*) 50 Mg Tablet, 50 MG ORAL TWICE A DAY, TAB 04/16/16 Sucralfate* (CARAFATE*) 1 Gm Tablet, 1 GM ORAL BID, TAB 04/16/16 Calcium Carbonate/Vitamin D3 (CALCIUM 500 + D TABLET) 1 Each Tablet, 1 EACH PO, TAB 04/16/16 Med list reviewed/reconciled: Yes Allergies: Coded Allergies: No Known Allergies (Unverified , 04/16/16) Patient History Limited by: medical condition History Provided By: Medical Record PMH Narrative Past Medical History: HTN, COPD, CVA/TIA, seizures Social History: Denies: alcohol use, drug use, smoking Immunizations: UTD Reviewed Nursing Documentation: PMH: Agreed, PSxH: Agreed Nursing Documentation-PMH Hx Cardiac Problems: No - Chronic back problem Hx Hypertension: Yes Hx COPD: Yes Hx Cancer: No Hx Neurological Problems: Yes - epilepsyanxiety Hx Cerebrovascular Accident: Yes Hx Epilepsy: Yes 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 Social History: Denies: alcohol use, drug use, other, smoking Review of Systems All Other Systems: limited Physical Exam Vital Signs Date Time Temp Pulse Resp B/P Pulse Ox O2 Delivery O2 Flow Rate FiO2 07/28/16 08:22 98.4 97 16 105/70 96 Nasal Cannula 3.0 Sp02 EP Interpretation: reviewed Labs Laboratory Tests Test 07/28/16 09:05 White Blood Count 23.3 K/UL (4.8-10.8) *H Red Blood Count 4.39 M/UL (4.70-6.10) L Hemoglobin 14.0 G/DL (14.2-18.0) L Hematocrit 42.3 % (42.0-52.0) Mean Corpuscular Volume 96 FL (80-99) Mean Corpuscular Hemoglobin 31.8 PG (27.0-31.0) H Mean Corpuscular Hemoglobin Concent 33.0 G/DL (32.0-36.0) Red Cell Distribution Width 13.1 % (11.6-14.8) Platelet Count 218 K/UL (150-450) Mean Platelet Volume 8.7 FL (6.5-10.1) Neutrophils (%) (Auto) % (45.0-75.0) Lymphocytes (%) (Auto) % (20.0-45.0) Monocytes (%) (Auto) % (1.0-10.0) Eosinophils (%) (Auto) % (0.0-3.0) Basophils (%) (Auto) % (0.0-2.0) Differential Total Cells Counted 100 Neutrophils % (Manual) 66 % (45-75) Lymphocytes % (Manual) 21 % (20-45) Monocytes % (Manual) 7 % (1-10) Eosinophils % (Manual) 0 % (0-3) Basophils % (Manual) 0 % (0-2) Band Neutrophils 6 % (0-8) Platelet Estimate Adequate Platelet Morphology Normal Macrocytosis 1+ Urine Color Yellow Urine Appearance Clear Urine pH 6 (4.5-8.0) Urine Specific [place] 1.015 (1.005-1.035) Urine Protein 2+ (NEGATIVE) H Urine Glucose (UA) Negative (NEGATIVE) Urine Ketones 1+ (NEGATIVE) H Urine Occult Blood Negative (NEGATIVE) Urine Nitrite Negative (NEGATIVE) Urine Bilirubin 1+ (NEGATIVE) H Urine Ictotest Negative Urine Urobilinogen 1 MG/DL (0.0-1.0) H Urine Leukocyte Esterase 1+ (NEGATIVE) H Urine RBC 0-2 /HPF (0 - 0) H Urine WBC 2-4 /HPF (0 - 0) Urine Squamous Epithelial Cells Occasional /LPF Urine Bacteria Few /HPF (NONE) Urine Mucus Few /LPF (NONE/OCC) H Sodium Level 139 mEQ/L (135-145) Potassium Level 4.2 mEQ/L (3.4-4.9) Chloride Level 99 mEQ/L (98-107) Carbon Dioxide Level 27 mEQ/L (20-30) Anion Gap 13 (5-15) Blood Urea Nitrogen 19 mg/dL (7-23) Creatinine 0.7 mg/dL (0.7-1.2) Estimat Glomerular Filtration Rate > 60 mL/min (>60) Glucose Level 109 mg/dL (74-106) H Lactic Acid Level 1.60 mmol/L (0.66-2.22) Calcium Level 9.3 mg/dL (8.6-10.2) Total Bilirubin 0.5 mg/dL (0.0-1.2) Aspartate Amino Transf (AST/SGOT) 42 U/L (5-40) H Alanine Aminotransferase (ALT/SGPT) 39 U/L (3-41) Alkaline Phosphatase 83 U/L (40-129) Total Creatine Kinase 72 U/L (38-174) Creatine Kinase MB < 1.5 ng/mL (< 6.7) Creatine Kinase MB Relative Index Troponin I < 0.30 ng/mL (<=0.30) Pro-B-Type Natriuretic Peptide 931 pg/mL (0-125) H Total Protein 8.0 g/dL (6.6-8.7) Albumin 3.8 g/dL (3.5-5.2) Globulin 4.2 g/dL Albumin/Globulin Ratio 0.9 (1.0-2.7) L General Appearance: no apparent distress, alert Head: other - sunken head 2/2 craniotomy EENT: normal ENT inspection Neck: supple Respiratory: normal breath sounds, no respiratory distress Cardiovascular: normal rate Gastrointestinal: normal inspection, non tender, soft Rectal: deferred Neurologic: alert, oriented x3, responsive Skin: normal color, no rash, warm/dry Lymphatic: normal inspection, no adenopathy Current Medications Current Medications Medications (Trade) Dose Ordered Sig/Netta Route PRN Reason Start Time Stop Time Status Last Admin Dose Admin Acetaminophen (Tylenol) 650 mg Q4H PRN ORAL fever 07/28/16 11:15 08/27/16 11:14 Al Hydroxide/Mg Hydroxide (Mylanta II) 30 ml Q6H PRN ORAL dyspepsia 07/28/16 11:15 08/27/16 11:14 Albuterol/ Ipratropium 3 ml 3 ml EVERY 4 HOURS PRN HHN Shortness of Breath 07/28/16 11:15 08/02/16 11:14 Amlodipine Besylate (Norvasc) 10 mg DAILY ORAL 07/29/16 09:00 08/28/16 08:59 Cefepime HCl/ Dextrose (Maxipime/D5W) 55 ml @ 110 mls/hr EVERY 12 HOURS IV 07/28/16 21:00 08/04/16 20:59 Dextrose/Sodium Chloride (D5 0.45% NS) 1,000 ml @ 75 mls/hr [id number] IV 07/28/16 16:15 08/27/16 16:14 Divalproex Sodium (Depakote) 1,000 mg BEDTIME ORAL 07/28/16 21:00 08/27/16 20:59 Heparin Sodium (Porcine) (Heparin 5000 units/ml) 5,000 units EVERY 12 HOURS SUBQ 07/28/16 21:00 08/27/16 20:59 Magnesium Hydroxide (Mom) 30 ml DAILY PRN ORAL Constipation 07/28/16 11:15 08/27/16 11:14 Metronidazole 100 ml @ 100 mls/hr Q8H IVPB 07/28/16 16:00 08/04/16 15:59 Nitroglycerin (Ntg) 0.4 mg Q5M PRN SL Prn Chest Pain 07/28/16 11:15 08/27/16 11:14 Ondansetron HCl (Zofran) 4 mg Q6H PRN IVP Nausea & Vomiting 07/28/16 11:15 08/27/16 11:14 Phenytoin (Dilantin) 200 mg BID ORAL 07/28/16 18:00 08/27/16 17:59 Polyethylene Glycol (Miralax) 17 gm DAILYPRN PRN ORAL Constipation 07/28/16 11:15 08/27/16 11:14 Promethazine HCl/ Codeine (Phenergan with Codeine) 5 ml Q4H PRN ORAL For Cough 07/28/16 11:15 08/27/16 11:14 Quetiapine Fumarate (SEROquel) 250 mg TWICE A DAY ORAL 07/28/16 18:00 08/27/16 17:59 Sucralfate (Carafate) 1 gm BID ORAL 07/28/16 18:00 08/27/16 17:59 Temazepam (Restoril) 15 mg HSPRN PRN ORAL Insomnia 07/28/16 11:15 08/04/16 11:14 Vancomycin HCl 1 ea 1 ea DAILY PRN MISC Per rx protocol 07/28/16 11:15 08/27/16 11:14 Vancomycin HCl 1 gm/Dextrose 275 ml @ 183.708 mls/hr Q12H IVPB 07/29/16 02:00 08/03/16 01:59 GI: Plan Problems: (1) Vomiting (2) Diabetes (3) Hepatitis C (4) Gastritis Plan s/p EGD 04/2016 SUMMARY OF FINDINGS: 1. Gastritis. 2. Small hiatal hernia. 3. Gastric biopsy unremarkable symptomatic treatment zofran prn dc carafate, start ppi CLD, adv as tolerated to [no salt mech chop soft] repeat LFTs abx fu labs Discussed with Dr. Mcclain. Thank you for referring this patient, we will follow. Nicole Logan N.P. July 28, 2016 17:03
[2016-07-28] MEDS: QUEtiapine 200mg tab ORAL SCH (17:37)
[2016-07-28] MEDS: Phenytoin 100mg cap ORAL SCH (17:38)
[2016-07-28] MEDS: D5 1/2NS 1,000 ML IV SCH (17:38)
[2016-07-28] MEDS ORDERED: Sucralfate 1gm tab ORAL SCH (18:00)
[2016-07-28] MEDS: metroNIDAZOLE 500mg 100 ML IVPB SCH ×2 (18:05→23:00)
[2016-07-28] MEDS: Pantoprazole Inj IVP SCH (18:06)
--- NOTE | 2016-07-28 19:46 | Consultation ---
DATE OF CONSULTATION: 07/28/2016 INFECTIOUS DISEASE CONSULTATION CONSULTING PHYSICIAN: Raymon eMyer M.D. REFERRING PHYSICIAN: Ady Kerr D.O. REASON FOR CONSULTATION: Fever, nausea, vomiting, and cough with pneumonia, recommendation for antibiotic treatment. HISTORY OF PRESENT ILLNESS: The patient is a 56-year-old male with past medical history of seizure, CVA, COPD, and hypertension who was sent from longterm for fever and vomiting. The patient had no sign of respiratory distress. In the emergency room, chest x-ray showed right lower lobe infiltrates compatible with pneumonia. His white count was elevated around 23,000. So, the patient was given antibiotics in the emergency room and I was consulted by the primary provider for antibiotic choice and further guidance. As of note, he is a poor historian with inability to provide good medical history. History was mainly obtained from the medical record. PAST MEDICAL HISTORY: Significant for hypertension, COPD, CVA, and seizures. SOCIAL HISTORY: The patient is a longterm resident. No recent drugs, tobacco, or alcohol. FAMILY HISTORY: Not contributory. MEDICATIONS: The patient received cefepime and azithromycin in the emergency room. For the rest of his medications, please refer to MAR. ALLERGIES: He has no known drug allergy. LABORATORY DATA: Labs showed white count of 23.3, hemoglobin of 14, and platelet count of 218,000. BUN of 19 and creatinine of 0.7. AST of 42, ALT of 39, and alkaline phosphatase of 83. Urinalysis showed +1 leukocyte esterase, WBC 2 to 4, and few mucus. IMAGING: Chest x-ray showed right lower lobe pneumonia with small right pleural effusion. PHYSICAL EXAMINATION: VITAL SIGNS: Temperature 96.1, pulse 82, respirations 20, blood pressure 106/68, and pulse oximetry 100% on 2 liters nasal cannula. GENERAL: A middle-aged male, up in bed, alert, demented, not in distress, does not follow commands. HEENT: He had right craniectomy. Pupils are reactive to light. Pale sclerae. Dry oral mucosa. No exudate. NECK: Supple. No lymphadenopathy. CARDIOVASCULAR: Regular rate and rhythm. No murmur. LUNGS: He had diminished breathing sounds on the right side with crackles at the bases. ABDOMEN: Soft, nontender, and nondistended. Positive bowel sounds. No hepatosplenomegaly. EXTREMITIES: No edema. No cyanosis. ASSESSMENT AND RECOMMENDATION: 1. Healthcare-acquired pneumonia. We will send sputum culture. Continue vancomycin and cefepime for now, and add Flagyl for possible aspiration to cover anaerobes. 2. Sepsis due to pneumonia. We will send blood culture. Continue cefepime with vancomycin with close monitor of trough level. 3. Cough with sputum due to pneumonia, rule out aspiration. Recommend speech evaluation. 4. Diabetes. Recommend tight glycemic control to keep blood glucose between 80 to 120. Raymon Meyer M.D. DR: GORDON JOB#: [id number] CC:
[2016-07-28] MEDS: Cefepime HCl 1 GM in D5W 55 ML IV SCH (20:25)
--- NOTE | 2016-07-28 20:47 | History and Physical Report ---
DATE OF ADMISSION: 07/28/2016 TIME: At 1 p.m. CONSULTANTS: 1. Dr. Garcia. 2. Sherlyn Sheffield M.D. 3. Carlito Mcclain M.D. 4. Renetta Cannon M.D. 5. Miguelangel Pino M.D. CHIEF COMPLAINT: Feer, nausea, vomiting, pneumonia, sepsis, and altered mental status. BRIEF HISTORY: This is a 56-year-old male from [facility] presented with above-mentioned diagnoses and being admitted to medical floor for further treatment. Currently, confused in bed, O2 NC, not talking much. PAST MEDICAL HISTORY: Hypertension, encephalopathy, and seizure. PAST SURGICAL HISTORY: Craniotomy. MEDICATIONS: Norvasc, Depakote, heparin, cefepime, Dilantin, Seroquel, Carafate, Tylenol, MiraLAX, Mylanta, nitroglycerin, Duo-Neb, Zofran, and . ALLERGIES: Denies. SOCIAL HISTORY: No smoking. No alcohol. No intravenous drug abuse. FAMILY HISTORY: Noncontributory. REVIEW OF SYSTEMS: Unavailable. The patient is lethargic in bed, nonverbal. PHYSICAL EXAMINATION: VITAL SIGNS: Temperature 98 degrees, pulse 87, respiratory rate 16, and blood pressure 106/73. CARDIOVASCULAR: No murmurs. LUNGS: Poor air exchange. ABDOMEN: Bowel sounds positive. Nontender and nondistended. EXTREMITIES: No cyanosis, clubbing, or edema. NEUROLOGIC: The patient moves all extremities, but slightly weak. LABORATORY DATA: White count 23, hemoglobin and hematocrit 14/42, and platelets 218,000. BMP shows glucose 109. AST 42. BNP is 931, otherwise normal. Urinalysis shows 1+ ketones, 2+ protein, and 1+ leukocyte esterase. ASSESSMENT: Fever, nausea, vomiting, urinary tract infection, pneumonia, sepsis, altered mental status, hypertension, encephalopathy, seizure, and status post craniotomy. PLAN: Continue pre-medications. O2 and pulmonary treatment. Blood pressure control. Seizure control. OT/PT. Dietary evaluation. CBC and BMP in the morning. Antibiotics per Infectious Diseases. Dr. Garcia, Dr. Sheffield, Dr. Mcclain, Dr. Cannon, and Dr. Pino to consult. Ady Kerr D.O. DR: ASHA JOB#: [id number] CC:
[2016-07-28] MEDS: Heparin 5000 units/ml inj SUBQ SCH (20:48)
--- NOTE | 2016-07-28 21:22 | Consultation ---
History of Present Illness General Date patient seen: July 28, 2016 Chief Complaint: Vomiting Referring physician: ERNST CASH Reason for Consultation: INpatinet management Present Illness HPI 56-year-old male with hx of CVA, COPD, Seizures presented to ED for evaluation of fever and vomiting for one today. Patient has extensive medical problems and is nonverbal at baseline. No signs of distress upon arrival. No chest pain or shortness of breath. No nausea or vomiting. Initial evaluation showed that pt has very high WBC. Allergies: Coded Allergies: No Known Allergies (Unverified , 04/16/16) Medication History Scheduled Amlodipine Besylate (Norvasc), 10 MG ORAL DAILY, (Reported) Calcium Acetate (Calcium Acetate), 667 MG PO THREE TIMES A DAY, (Reported) Calcium Acetate (Calcium Acetate), 667 MG PO THREE TIMES A DAY, (Reported) Divalproex Sodium* (Depakote*), 1,000 MG PO BEDTIME, (Reported) Divalproex Sodium* (Depakote*), 500 MG PO DAILY, (Reported) Docusate Sodium* (Docusate Sodium*), 100 MG ORAL DAILY, (Reported) Lactulose (Lactulose*), 100 ML ORAL THREE TIMES A DAY, (Reported) Losartan Potassium* (Cozaar*), 50 MG ORAL TWICE A DAY, (Reported) Multivitamins* (Multivitamins*), 1 TAB ORAL DAILY, (Reported) Phenytoin Sodium Extended* (Dilantin*), 200 MG ORAL BID, (Reported) Quetiapine Fumarate* (Seroquel*), 250 MG ORAL TWICE A DAY, (Reported) Sucralfate* (Carafate*), 1 GM ORAL BID, (Reported) Sucralfate* (Carafate*), 1 GM ORAL BID, (Reported) Scheduled PRN Acetaminophen* (Tylenol Extra Strength*), 325 MG ORAL Q6H PRN for Mild Pain/ Temp > 100.5, (Reported) Acetaminophen* (Tylenol*), 120 MG RECTAL Q4H PRN for Mild Pain/Temp > 100.5, ( Reported) Bisacodyl (Dulcolax), 10 MG RC DAILY PRN for Constipation, (Reported) Magnesium Hydroxide* (Milk Of Magnesia*), 30 ML ORAL DAILY PRN for Constipation, (Reported) Miscellaneous Medications Calcium Carbonate/Vitamin D3 (Calcium 500 + D Tablet), 1 EACH PO, (Reported) Patient History Healthcare decision maker Resuscitation status Full Code Advanced Directive on File Past Medical/Surgical History Past Medical/Surgical History: (1) Seizure (2) Hepatitis C (3) Diabetes (4) HTN (hypertension) Review of Systems Constitutional: Reports: no symptoms Eye: Reports: no symptoms All Other Systems: negative except mentioned in HPI Physical Exam General Appearance: WD/WN Lines, tubes and drains: peripheral HEENT: normocephalic, atraumatic Neck: non-tender, normal alignment Respiratory/Chest: chest wall non-tender, lungs clear Cardiovascular/Chest: normal peripheral pulses, normal rate Last 24 Hour Vital Signs Date Time Temp Pulse Resp B/P Pulse Ox O2 Delivery O2 Flow Rate FiO2 07/28/16 20:39 97.2 105 19 93 Room Air 07/28/16 16:42 98.4 80 20 106/71 95 Nasal Cannula 2.0 07/28/16 13:12 96.1 82 20 106/68 100 Nasal Cannula 2.0 07/28/16 12:19 98.4 87 16 106/73 96 Room Air 07/28/16 12:06 87 16 106/73 96 Nasal Cannula 3.0 07/28/16 11:45 98.4 83 16 91/64 96 Nasal Cannula 3.0 07/28/16 09:29 98.4 88 16 105/68 96 Nasal Cannula 3.0 07/28/16 08:22 98.4 97 16 105/70 96 Nasal Cannula 3.0 Laboratory Tests Test 07/28/16 09:05 White Blood Count 23.3 K/UL (4.8-10.8) *H Red Blood Count 4.39 M/UL (4.70-6.10) L Hemoglobin 14.0 G/DL (14.2-18.0) L Hematocrit 42.3 % (42.0-52.0) Mean Corpuscular Volume 96 FL (80-99) Mean Corpuscular Hemoglobin 31.8 PG (27.0-31.0) H Mean Corpuscular Hemoglobin Concent 33.0 G/DL (32.0-36.0) Red Cell Distribution Width 13.1 % (11.6-14.8) Platelet Count 218 K/UL (150-450) Mean Platelet Volume 8.7 FL (6.5-10.1) Neutrophils (%) (Auto) % (45.0-75.0) Lymphocytes (%) (Auto) % (20.0-45.0) Monocytes (%) (Auto) % (1.0-10.0) Eosinophils (%) (Auto) % (0.0-3.0) Basophils (%) (Auto) % (0.0-2.0) Differential Total Cells Counted 100 Neutrophils % (Manual) 66 % (45-75) Lymphocytes % (Manual) 21 % (20-45) Monocytes % (Manual) 7 % (1-10) Eosinophils % (Manual) 0 % (0-3) Basophils % (Manual) 0 % (0-2) Band Neutrophils 6 % (0-8) Platelet Estimate Adequate Platelet Morphology Normal Macrocytosis 1+ Urine Color Yellow Urine Appearance Clear Urine pH 6 (4.5-8.0) Urine Specific [place] 1.015 (1.005-1.035) Urine Protein 2+ (NEGATIVE) H Urine Glucose (UA) Negative (NEGATIVE) Urine Ketones 1+ (NEGATIVE) H Urine Occult Blood Negative (NEGATIVE) Urine Nitrite Negative (NEGATIVE) Urine Bilirubin 1+ (NEGATIVE) H Urine Ictotest Negative Urine Urobilinogen 1 MG/DL (0.0-1.0) H Urine Leukocyte Esterase 1+ (NEGATIVE) H Urine RBC 0-2 /HPF (0 - 0) H Urine WBC 2-4 /HPF (0 - 0) Urine Squamous Epithelial Cells Occasional /LPF Urine Bacteria Few /HPF (NONE) Urine Mucus Few /LPF (NONE/OCC) H Sodium Level 139 mEQ/L (135-145) Potassium Level 4.2 mEQ/L (3.4-4.9) Chloride Level 99 mEQ/L (98-107) Carbon Dioxide Level 27 mEQ/L (20-30) Anion Gap 13 (5-15) Blood Urea Nitrogen 19 mg/dL (7-23) Creatinine 0.7 mg/dL (0.7-1.2) Estimat Glomerular Filtration Rate > 60 mL/min (>60) Glucose Level 109 mg/dL (74-106) H Lactic Acid Level 1.60 mmol/L (0.66-2.22) Calcium Level 9.3 mg/dL (8.6-10.2) Total Bilirubin 0.5 mg/dL (0.0-1.2) Aspartate Amino Transf (AST/SGOT) 42 U/L (5-40) H Alanine Aminotransferase (ALT/SGPT) 39 U/L (3-41) Alkaline Phosphatase 83 U/L (40-129) Total Creatine Kinase 72 U/L (38-174) Creatine Kinase MB < 1.5 ng/mL (< 6.7) Creatine Kinase MB Relative Index Troponin I < 0.30 ng/mL (<=0.30) Pro-B-Type Natriuretic Peptide 931 pg/mL (0-125) H Total Protein 8.0 g/dL (6.6-8.7) Albumin 3.8 g/dL (3.5-5.2) Globulin 4.2 g/dL Albumin/Globulin Ratio 0.9 (1.0-2.7) L Height (Feet): 5 Height (Inches): 6.00 Weight (Pounds): 158 Medications Current Medications Medications (Trade) Dose Ordered Sig/Netta Route PRN Reason Start Time Stop Time Status Last Admin Dose Admin Acetaminophen (Tylenol) 650 mg Q4H PRN ORAL fever 07/28/16 11:15 08/27/16 11:14 Al Hydroxide/Mg Hydroxide (Mylanta II) 30 ml Q6H PRN ORAL dyspepsia 07/28/16 11:15 08/27/16 11:14 Albuterol/ Ipratropium 3 ml 3 ml EVERY 4 HOURS PRN HHN Shortness of Breath 07/28/16 11:15 08/02/16 11:14 Amlodipine Besylate (Norvasc) 10 mg DAILY ORAL 07/29/16 09:00 08/28/16 08:59 Cefepime HCl/ Dextrose (Maxipime/D5W) 55 ml @ 110 mls/hr EVERY 12 HOURS IV 07/28/16 21:00 08/04/16 20:59 07/28/16 20:25 Dextrose/Sodium Chloride (D5 0.45% NS) 1,000 ml @ 75 mls/hr [id number] IV 07/28/16 16:15 08/27/16 16:14 07/28/16 17:38 Divalproex Sodium (Depakote) 1,000 mg BEDTIME ORAL 07/28/16 21:00 08/27/16 20:59 07/28/16 20:47 Heparin Sodium (Porcine) (Heparin 5000 units/ml) 5,000 units EVERY 12 HOURS SUBQ 07/28/16 21:00 08/27/16 20:59 07/28/16 20:48 Magnesium Hydroxide (Mom) 30 ml DAILY PRN ORAL Constipation 07/28/16 11:15 08/27/16 11:14 Metronidazole 100 ml @ 100 mls/hr Q8H IVPB 07/28/16 16:00 08/04/16 15:59 07/28/16 18:05 Nitroglycerin (Ntg) 0.4 mg Q5M PRN SL Prn Chest Pain 07/28/16 11:15 08/27/16 11:14 Ondansetron HCl (Zofran) 4 mg Q6H PRN IVP Nausea & Vomiting 07/28/16 11:15 08/27/16 11:14 Pantoprazole (Protonix) 40 mg DAILY IVP 07/28/16 18:00 08/27/16 17:59 07/28/16 18:06 Phenytoin (Dilantin) 200 mg BID ORAL 07/28/16 18:00 08/27/16 17:59 07/28/16 17:38 Polyethylene Glycol (Miralax) 17 gm DAILYPRN PRN ORAL Constipation 07/28/16 11:15 08/27/16 11:14 Promethazine HCl/ Codeine (Phenergan with Codeine) 5 ml Q4H PRN ORAL For Cough 07/28/16 11:15 08/27/16 11:14 Quetiapine Fumarate (SEROquel) 250 mg TWICE A DAY ORAL 07/28/16 18:00 08/27/16 17:59 07/28/16 17:37 Temazepam (Restoril) 15 mg HSPRN PRN ORAL Insomnia 07/28/16 11:15 08/04/16 11:14 Vancomycin HCl 1 ea 1 ea DAILY PRN MISC Per rx protocol 07/28/16 11:15 08/27/16 11:14 Vancomycin HCl 1 gm/Dextrose 275 ml @ 183.708 mls/hr Q12H IVPB 07/29/16 02:00 08/03/16 01:59 Assessment/Plan Problem List: (1) Sepsis ICD Codes: A41.9 - Sepsis, unspecified organism SNOMED: 69906462 (2) Nausea & vomiting ICD Codes: R11.2 - Nausea with vomiting, unspecified SNOMED: 82990628 (3) Seizure ICD Codes: R56.9 - Unspecified convulsions SNOMED: 20560830 (4) HTN (hypertension) ICD Codes: I10 - Essential (primary) hypertension SNOMED: 63349854 Assessment/Plan panculture IV antibiotics IV fluids check cultures GI evaluation symptomatic treatment LAURA HINES July 28, 2016 21:22
[2016-07-29 00:15] VITALS: BP 109/64
[2016-07-29] MEDS: Vancomycin 1gm/D5W 275ml IVPB SCH ×4 (00:59→13:43)
[2016-07-29 04:00] VITALS: BP 101/71
[2016-07-29] MEDS: D5 1/2NS 1,000 ML IV SCH ×2 (04:21→18:55)
[2016-07-29 07:07] LABS: ANION GAP 11 (5-15); CALCIUM 8.5 mg/dL (8.6-10.2); CARBON DIOXIDE 26 mEQ/L (20-30); CHLORIDE 100 mEQ/L (98-107); CREATININE 0.5 mg/dL (0.7-1.2); GLOMERULAR FILTRATION RATE > 60 mL/min (>60); HEMOLYSIS 3; POTASSIUM 3.5 mEQ/L (3.4-4.9); SODIUM 137 mEQ/L (135-145)
[2016-07-29 07:15] LABS: BASOPHILS % (AUTO) 0.6 % (0.0-2.0); EOSINOPHILS % (AUTO) 2.4 % (0.0-3.0); LYMPHOCYTES % (AUTO) 32.3 % (20.0-45.0); MEAN CORPUSCULAR HEMOGLOBIN 32.1 PG (27.0-31.0); MEAN CORPUSCULAR HGB CONC 33.3 G/DL (32.0-36.0); MEAN CORPUSCULAR VOLUME 97 FL (80-99); MEAN PLATELET VOLUME 8.3 FL (6.5-10.1); MONOCYTES % (AUTO) 10.1 % (1.0-10.0); NEUTROPHILS % (AUTO) 54.5 % (45.0-75.0); PLATELET COUNT 161 K/UL (150-450); RED CELL DISTRIBUTION WIDTH 12.9 % (11.6-14.8); WHITE BLOOD COUNT 10.7 K/UL (4.8-10.8)
[2016-07-29 07:22] LABS: ANION GAP 14 (5-15); CALCIUM 8.3 mg/dL (8.6-10.2); CARBON DIOXIDE 25 mEQ/L (20-30); CHLORIDE 99 mEQ/L (98-107); CREATININE 0.4 mg/dL (0.7-1.2); GLOMERULAR FILTRATION RATE > 60 mL/min (>60); HEMOLYSIS 5; PHOSPHORUS 2.2 mg/dL (2.5-4.8); POTASSIUM 3.6 mEQ/L (3.4-4.9); SODIUM 138 mEQ/L (135-145)
[2016-07-29 08:00] VITALS: BP 99/68
[2016-07-29] MEDS: metroNIDAZOLE 500mg 100 ML IVPB SCH ×3 (08:03→22:59)
[2016-07-29] MEDS: Pantoprazole Inj IVP SCH (08:03)
[2016-07-29] MEDS: Phenytoin 100mg cap ORAL SCH ×2 (08:04→17:35)
[2016-07-29] MEDS: QUEtiapine 200mg tab ORAL SCH ×2 (08:04→17:34)
[2016-07-29] MEDS: Heparin 5000 units/ml inj SUBQ SCH ×2 (08:07→20:49)
[2016-07-29] MEDS: Cefepime HCl 1 GM in D5W 55 ML IV SCH ×2 (09:42→20:47)
[2016-07-29 12:00] VITALS: BP 105/68
--- NOTE | 2016-07-29 13:30 | GI Progress Note ---
Assessment/Plan Problems: (1) Hepatitis C ICD Codes: B19.20 - Unspecified viral hepatitis C without hepatic coma SNOMED: 85936540 (2) Vomiting ICD Codes: R11.10 - Vomiting, unspecified SNOMED: 178132293 (3) Gastritis ICD Codes: K29.70 - Gastritis, unspecified, without bleeding SNOMED: 1433444 (4) Diabetes ICD Codes: E11.9 - Type 2 diabetes mellitus without complications SNOMED: 13933139 (5) UGIB (upper gastrointestinal bleed) ICD Codes: K92.2 - Gastrointestinal hemorrhage, unspecified SNOMED: 04322273 Status: stable Status Narrative Discussed with Dr. Mcclain. Assessment/Plan s/p EGD 04/2016 SUMMARY OF FINDINGS: 1. Gastritis. 2. Small hiatal hernia. 3. Gastric biopsy unremarkable symptomatic treatment zofran prn cont ppi no salt diet repeat LFTs abx fu labs Subjective Gastrointestinal/Abdominal: Reports: no symptoms Objective Last 24 Hour Vital Signs Date Time Temp Pulse Resp B/P Pulse Ox O2 Delivery O2 Flow Rate FiO2 07/29/16 12:00 97.2 84 19 105/68 94 Room Air 07/29/16 08:00 97.7 95 20 99/68 96 Room Air 07/29/16 04:00 97.5 79 19 101/71 94 Room Air 07/29/16 00:15 97.8 93 19 109/64 94 Room Air 07/28/16 20:39 97.2 105 19 93 Room Air 07/28/16 16:42 98.4 80 20 106/71 95 Nasal Cannula 2.0 Intake and Output 07/28/16 07/29/16 19:00 07:00 Intake Total 360 ml 450 ml Output Total 160 ml Balance 360 ml 290 ml Intake Oral 360 ml IV Total 450 ml Output Urine Total 160 ml # Voids 1 Laboratory Tests Test 07/29/16 05:40 White Blood Count 10.7 K/UL (4.8-10.8) # Red Blood Count 3.50 M/UL (4.70-6.10) L Hemoglobin 11.2 G/DL (14.2-18.0) L Hematocrit 33.8 % (42.0-52.0) L Mean Corpuscular Volume 97 FL (80-99) Mean Corpuscular Hemoglobin 32.1 PG (27.0-31.0) H Mean Corpuscular Hemoglobin Concent 33.3 G/DL (32.0-36.0) Red Cell Distribution Width 12.9 % (11.6-14.8) Platelet Count 161 K/UL (150-450) Mean Platelet Volume 8.3 FL (6.5-10.1) Neutrophils (%) (Auto) 54.5 % (45.0-75.0) Lymphocytes (%) (Auto) 32.3 % (20.0-45.0) Monocytes (%) (Auto) 10.1 % (1.0-10.0) H Eosinophils (%) (Auto) 2.4 % (0.0-3.0) Basophils (%) (Auto) 0.6 % (0.0-2.0) Sodium Level 137 mEQ/L (135-145) Potassium Level 3.5 mEQ/L (3.4-4.9) Chloride Level 100 mEQ/L (98-107) Carbon Dioxide Level 26 mEQ/L (20-30) Anion Gap 11 (5-15) Blood Urea Nitrogen 10 mg/dL (7-23) Creatinine 0.5 mg/dL (0.7-1.2) L Estimat Glomerular Filtration Rate > 60 mL/min (>60) Glucose Level 100 mg/dL (74-106) Calcium Level 8.5 mg/dL (8.6-10.2) L Phosphorus Level 2.2 mg/dL (2.5-4.8) L Albumin 3.3 g/dL (3.5-5.2) L Height (Feet): 5 Height (Inches): 6.00 Weight (Pounds): 158 General Appearance: no apparent distress, alert, other - craniotomy Cardiovascular: normal rate Respiratory/Chest: normal breath sounds, no respiratory distress Abdominal Exam: normal bowel sounds, non tender, soft Nicole Logan NHedy July 29, 2016 13:29
--- NOTE | 2016-07-29 13:59 | General Progress Note ---
Assessment/Plan Problem List: (1) UTI (urinary tract infection) ICD Codes: N39.0 - Urinary tract infection, site not specified SNOMED: 32015899 (2) Fever ICD Codes: R50.9 - Fever, unspecified SNOMED: 217494517 (3) Nausea & vomiting ICD Codes: R11.2 - Nausea with vomiting, unspecified SNOMED: 28959867 (4) Seizure ICD Codes: R56.9 - Unspecified convulsions SNOMED: 38730616 (5) Sepsis ICD Codes: A41.9 - Sepsis, unspecified organism SNOMED: 39762835 (6) Pneumonia ICD Codes: J18.9 - Pneumonia, unspecified organism SNOMED: 024874724 Qualifiers: Qualified Codes: J18.1 - Lobar pneumonia, unspecified organism Status: stable, progressing, tolerating diet Assessment/Plan ot pt diet o2 pulm tx abx cbc bmp am Subjective Allergies: Coded Allergies: No Known Allergies (Unverified , 04/16/16) All Systems: reviewed and negative except above Subjective sleepy in bed Objective Last 24 Hour Vital Signs Date Time Temp Pulse Resp B/P Pulse Ox O2 Delivery O2 Flow Rate FiO2 07/29/16 12:00 97.2 84 19 105/68 94 Room Air 07/29/16 08:00 97.7 95 20 99/68 96 Room Air 07/29/16 04:00 97.5 79 19 101/71 94 Room Air 07/29/16 00:15 97.8 93 19 109/64 94 Room Air 07/28/16 20:39 97.2 105 19 93 Room Air 07/28/16 16:42 98.4 80 20 106/71 95 Nasal Cannula 2.0 Intake and Output 07/28/16 07/29/16 19:00 07:00 Intake Total 360 ml 450 ml Output Total 160 ml Balance 360 ml 290 ml Intake Oral 360 ml IV Total 450 ml Output Urine Total 160 ml # Voids 1 Laboratory Tests 07/29/16 05:40: White Blood Count 10.7#, Red Blood Count 3.50L, Hemoglobin 11.2L, Hematocrit 33.8L, Mean Corpuscular Volume 97, Mean Corpuscular Hemoglobin 32.1H, Mean Corpuscular Hemoglobin Concent 33.3, Red Cell Distribution Width 12.9, Platelet Count 161, Mean Platelet Volume 8.3, Neutrophils (%) (Auto) 54.5, Lymphocytes (% ) (Auto) 32.3, Monocytes (%) (Auto) 10.1H, Eosinophils (%) (Auto) 2.4, Basophils (%) (Auto) 0.6, Sodium Level 137, Potassium Level 3.5, Chloride Level 100, Carbon Dioxide Level 26, Anion Gap 11, Blood Urea Nitrogen 10, Creatinine 0.5L, Estimat Glomerular Filtration Rate > 60, Glucose Level 100, Calcium Level 8.5L, Phosphorus Level 2.2L, Albumin 3.3L Height (Feet): 5 Height (Inches): 6.00 Weight (Pounds): 158 General Appearance: lethargic EENT: normal ENT inspection Neck: normal alignment Cardiovascular: normal peripheral pulses, normal rate, regular rhythm Respiratory/Chest: chest wall non-tender, lungs clear, normal breath sounds Abdomen: normal bowel sounds, non tender, soft Extremities: normal inspection Edema: no edema noted Arm (L), no edema noted Arm (R), no edema noted Leg (L), no edema noted Leg (R), no edema noted Pedal (L), no edema noted Pedal (R), no edema noted Generalized Neurologic: motor weakness Skin: normal pigmentation, warm/dry ERNST CASH July 29, 2016 13:59
[2016-07-29] MEDS ORDERED: Sodium Phosphate 30 MM in NS 275 ML IVPB ONE (15:00)
[2016-07-29 16:00] VITALS: BP 102/67
--- NOTE | 2016-07-29 16:02 | Infectious Diseases Prog Note ---
Assessment/Plan Problems: (1) HCAP (healthcare-associated pneumonia) Assessment & Plan: await sputum culture and continue vancomycin , cefepime, and flagyl (2) Sepsis Assessment & Plan: due to pneumonia, await blood culture and continue cefepime with vancomycin , with close monitor of trough level (3) Cough with sputum Assessment & Plan: due to pneumonia, rule out aspiration, recommend speech eval (4) Diabetes Assessment & Plan: recommend tight glycemic control to keep blood glucose between 80-120 Subjective ROS Limited/Unobtainable: Yes Allergies: Coded Allergies: No Known Allergies (Unverified , 04/16/16) Subjective he was up in bed, comfortable, not in distress.afebrile. Objective Vital Signs Last 24 Hour Vital Signs Date Time Temp Pulse Resp B/P Pulse Ox O2 Delivery O2 Flow Rate FiO2 07/29/16 12:00 97.2 84 19 105/68 94 Room Air 07/29/16 08:00 97.7 95 20 99/68 96 Room Air 07/29/16 04:00 97.5 79 19 101/71 94 Room Air 07/29/16 00:15 97.8 93 19 109/64 94 Room Air 07/28/16 20:39 97.2 105 19 93 Room Air 07/28/16 16:42 98.4 80 20 106/71 95 Nasal Cannula 2.0 Height (Feet): 5 Height (Inches): 6.00 Weight (Pounds): 158 General Appearance: WD/WN, no acute distress HEENT: normocephalic, atraumatic, anicteric, mucous membranes moist Respiratory/Chest: chest wall non-tender, lungs clear, normal breath sounds, no respiratory distress, no accessory muscle use Cardiovascular: normal peripheral pulses, normal rate, regular rhythm, no gallop/murmur Abdomen: normal bowel sounds, soft, non tender, no organomegaly, non distended Extremities: no cyanosis, no clubbing Skin: no rash, no lesions Laboratory Tests Test 07/29/16 05:40 White Blood Count 10.7 K/UL (4.8-10.8) # Red Blood Count 3.50 M/UL (4.70-6.10) L Hemoglobin 11.2 G/DL (14.2-18.0) L Hematocrit 33.8 % (42.0-52.0) L Mean Corpuscular Volume 97 FL (80-99) Mean Corpuscular Hemoglobin 32.1 PG (27.0-31.0) H Mean Corpuscular Hemoglobin Concent 33.3 G/DL (32.0-36.0) Red Cell Distribution Width 12.9 % (11.6-14.8) Platelet Count 161 K/UL (150-450) Mean Platelet Volume 8.3 FL (6.5-10.1) Neutrophils (%) (Auto) 54.5 % (45.0-75.0) Lymphocytes (%) (Auto) 32.3 % (20.0-45.0) Monocytes (%) (Auto) 10.1 % (1.0-10.0) H Eosinophils (%) (Auto) 2.4 % (0.0-3.0) Basophils (%) (Auto) 0.6 % (0.0-2.0) Sodium Level 137 mEQ/L (135-145) Potassium Level 3.5 mEQ/L (3.4-4.9) Chloride Level 100 mEQ/L (98-107) Carbon Dioxide Level 26 mEQ/L (20-30) Anion Gap 11 (5-15) Blood Urea Nitrogen 10 mg/dL (7-23) Creatinine 0.5 mg/dL (0.7-1.2) L Estimat Glomerular Filtration Rate > 60 mL/min (>60) Glucose Level 100 mg/dL (74-106) Calcium Level 8.5 mg/dL (8.6-10.2) L Phosphorus Level 2.2 mg/dL (2.5-4.8) L Albumin 3.3 g/dL (3.5-5.2) L Current Medications Medications (Trade) Dose Ordered Sig/Netta Route PRN Reason Start Time Stop Time Status Last Admin Dose Admin Acetaminophen (Tylenol) 650 mg Q4H PRN ORAL fever 07/28/16 11:15 08/27/16 11:14 Al Hydroxide/Mg Hydroxide (Mylanta II) 30 ml Q6H PRN ORAL dyspepsia 07/28/16 11:15 08/27/16 11:14 Albuterol/ Ipratropium 3 ml 3 ml EVERY 4 HOURS PRN HHN Shortness of Breath 07/28/16 11:15 08/02/16 11:14 Amlodipine Besylate (Norvasc) 10 mg DAILY ORAL 07/29/16 09:00 08/28/16 08:59 Cefepime HCl/ Dextrose (Maxipime/D5W) 55 ml @ 110 mls/hr EVERY 12 HOURS IV 07/28/16 21:00 08/04/16 20:59 07/29/16 09:42 Dextrose/Sodium Chloride (D5 0.45% NS) 1,000 ml @ 75 mls/hr [id number] IV 07/28/16 16:15 08/27/16 16:14 07/29/16 04:21 Divalproex Sodium (Depakote) 1,000 mg BEDTIME ORAL 07/28/16 21:00 08/27/16 20:59 07/28/16 20:47 Heparin Sodium (Porcine) (Heparin 5000 units/ml) 5,000 units EVERY 12 HOURS SUBQ 07/28/16 21:00 08/27/16 20:59 07/29/16 08:07 Magnesium Hydroxide (Mom) 30 ml DAILY PRN ORAL Constipation 07/28/16 11:15 08/27/16 11:14 Metronidazole 100 ml @ 100 mls/hr Q8H IVPB 07/28/16 16:00 08/04/16 15:59 07/29/16 08:03 Nitroglycerin (Ntg) 0.4 mg Q5M PRN SL Prn Chest Pain 07/28/16 11:15 08/27/16 11:14 Ondansetron HCl (Zofran) 4 mg Q6H PRN IVP Nausea & Vomiting 07/28/16 11:15 08/27/16 11:14 Pantoprazole 40 mg 40 mg DAILY IVP 07/28/16 18:00 08/27/16 17:59 07/29/16 08:03 Phenytoin (Dilantin) 200 mg BID ORAL 07/28/16 18:00 08/27/16 17:59 07/29/16 08:04 Polyethylene Glycol (Miralax) 17 gm DAILYPRN PRN ORAL Constipation 07/28/16 11:15 08/27/16 11:14 Promethazine HCl/ Codeine (Phenergan with Codeine) 5 ml Q4H PRN ORAL For Cough 07/28/16 11:15 08/27/16 11:14 Quetiapine Fumarate (SEROquel) 250 mg TWICE A DAY ORAL 07/28/16 18:00 08/27/16 17:59 07/29/16 08:04 Sodium Phosphate/ Sodium Chloride (NaPO4/Sodium Chloride) 285 ml @ 47.5 mls/hr ONCE ONCE IVPB 07/29/16 15:00 07/29/16 20:59 07/29/16 15:04 Temazepam (Restoril) 15 mg HSPRN PRN ORAL Insomnia 07/28/16 11:15 08/04/16 11:14 Vancomycin HCl 1 ea 1 ea DAILY PRN MISC Per rx protocol 07/28/16 11:15 08/27/16 11:14 Vancomycin HCl 1 gm/Dextrose 275 ml @ 183.708 mls/hr Q12H IVPB 07/29/16 02:00 08/03/16 01:59 07/29/16 13:43 Raymon Meyer M.D. July 29, 2016 16:01
[2016-07-29] MEDS ORDERED: D5 1/2NS 1000ml IV ONE (17:37)
--- NOTE | 2016-07-29 19:02 | Cardiology Report ---
APPROVED REPORT EKG Measurement Heart [id number] CO [id number] [id number] Normal sinus rhythm Normal ECG
--- NOTE | 2016-07-29 19:24 | Pulmonology Progress Note ---
Assessment/Plan Problems: (1) HCAP (healthcare-associated pneumonia) (2) Sepsis (3) Nausea & vomiting (4) Seizure (5) HTN (hypertension) Assessment/Plan respiratory treatment chest pt check sputum check cultures wbc decreasing monitor BP Subjective ROS Limited/Unobtainable: No Constitutional: Reports: no symptoms Allergies: Coded Allergies: No Known Allergies (Unverified , 04/16/16) Objective Last 24 Hour Vital Signs Date Time Temp Pulse Resp B/P Pulse Ox O2 Delivery O2 Flow Rate FiO2 07/29/16 16:00 97.5 87 20 102/67 97 Room Air 07/29/16 12:00 97.2 84 19 105/68 94 Room Air 07/29/16 08:00 97.7 95 20 99/68 96 Room Air 07/29/16 04:00 97.5 79 19 101/71 94 Room Air 07/29/16 00:15 97.8 93 19 109/64 94 Room Air 07/28/16 20:39 97.2 105 19 93 Room Air Intake and Output 07/28/16 07/29/16 19:00 07:00 Intake Total 360 ml 450 ml Output Total 160 ml Balance 360 ml 290 ml Intake Oral 360 ml IV Total 450 ml Output Urine Total 160 ml # Voids 1 General Appearance: WD/WN HEENT: normocephalic Respiratory/Chest: chest wall non-tender, lungs clear Cardiovascular: normal peripheral pulses, normal rate Abdomen: soft, non tender Extremities: no cyanosis Laboratory Tests 07/29/16 05:40: White Blood Count 10.7#, Red Blood Count 3.50L, Hemoglobin 11.2L, Hematocrit 33.8L, Mean Corpuscular Volume 97, Mean Corpuscular Hemoglobin 32.1H, Mean Corpuscular Hemoglobin Concent 33.3, Red Cell Distribution Width 12.9, Platelet Count 161, Mean Platelet Volume 8.3, Neutrophils (%) (Auto) 54.5, Lymphocytes (% ) (Auto) 32.3, Monocytes (%) (Auto) 10.1H, Eosinophils (%) (Auto) 2.4, Basophils (%) (Auto) 0.6, Sodium Level 137, Potassium Level 3.5, Chloride Level 100, Carbon Dioxide Level 26, Anion Gap 11, Blood Urea Nitrogen 10, Creatinine 0.5L, Estimat Glomerular Filtration Rate > 60, Glucose Level 100, Calcium Level 8.5L, Phosphorus Level 2.2L, Albumin 3.3L Current Medications Medications (Trade) Dose Ordered Sig/Netta Route PRN Reason Start Time Stop Time Status Last Admin Dose Admin Acetaminophen (Tylenol) 650 mg Q4H PRN ORAL fever 07/28/16 11:15 08/27/16 11:14 Al Hydroxide/Mg Hydroxide (Mylanta II) 30 ml Q6H PRN ORAL dyspepsia 07/28/16 11:15 08/27/16 11:14 Albuterol/ Ipratropium 3 ml 3 ml EVERY 4 HOURS PRN HHN Shortness of Breath 07/28/16 11:15 08/02/16 11:14 Amlodipine Besylate (Norvasc) 10 mg DAILY ORAL 07/29/16 09:00 08/28/16 08:59 Cefepime HCl/ Dextrose (Maxipime/D5W) 55 ml @ 110 mls/hr EVERY 12 HOURS IV 07/28/16 21:00 08/04/16 20:59 07/29/16 09:42 Dextrose/Sodium Chloride (D5 0.45% NS) 1,000 ml @ 75 mls/hr [id number] IV 07/28/16 16:15 08/27/16 16:14 07/29/16 04:21 Divalproex Sodium (Depakote) 1,000 mg BEDTIME ORAL 07/28/16 21:00 08/27/16 20:59 07/28/16 20:47 Heparin Sodium (Porcine) (Heparin 5000 units/ml) 5,000 units EVERY 12 HOURS SUBQ 07/28/16 21:00 08/27/16 20:59 07/29/16 08:07 Magnesium Hydroxide (Mom) 30 ml DAILY PRN ORAL Constipation 07/28/16 11:15 08/27/16 11:14 Metronidazole 100 ml @ 100 mls/hr Q8H IVPB 07/28/16 16:00 08/04/16 15:59 07/29/16 16:31 Nitroglycerin (Ntg) 0.4 mg Q5M PRN SL Prn Chest Pain 07/28/16 11:15 08/27/16 11:14 Ondansetron HCl (Zofran) 4 mg Q6H PRN IVP Nausea & Vomiting 07/28/16 11:15 08/27/16 11:14 Pantoprazole 40 mg 40 mg DAILY IVP 07/28/16 18:00 08/27/16 17:59 07/29/16 08:03 Phenytoin (Dilantin) 200 mg BID ORAL 07/28/16 18:00 08/27/16 17:59 07/29/16 17:35 Polyethylene Glycol (Miralax) 17 gm DAILYPRN PRN ORAL Constipation 07/28/16 11:15 08/27/16 11:14 Promethazine HCl/ Codeine (Phenergan with Codeine) 5 ml Q4H PRN ORAL For Cough 07/28/16 11:15 08/27/16 11:14 Quetiapine Fumarate (SEROquel) 250 mg TWICE A DAY ORAL 07/28/16 18:00 08/27/16 17:59 07/29/16 17:34 Sodium Phosphate/ Sodium Chloride (NaPO4/Sodium Chloride) 285 ml @ 47.5 mls/hr ONCE ONCE IVPB 07/29/16 15:00 07/29/16 20:59 07/29/16 15:04 Temazepam (Restoril) 15 mg HSPRN PRN ORAL Insomnia 07/28/16 11:15 08/04/16 11:14 Vancomycin HCl 1 ea 1 ea DAILY PRN MISC Per rx protocol 07/28/16 11:15 08/27/16 11:14 Vancomycin HCl 1 gm/Dextrose 275 ml @ 183.708 mls/hr Q12H IVPB 07/29/16 02:00 08/03/16 01:59 07/29/16 13:43 LAURA HINES July 29, 2016 19:24
[2016-07-29 20:00] VITALS: BP 127/80
[2016-07-30] VITALS: BP 131/78
[2016-07-30] MEDS: Vancomycin 1gm/D5W 275ml IVPB SCH ×2 (01:07)
[2016-07-30 04:00] VITALS: BP 136/82
[2016-07-30] MEDS: D5 1/2NS 1,000 ML IV SCH (06:30)
[2016-07-30 07:17] LABS: BASOPHILS % (AUTO) 0.8 % (0.0-2.0); EOSINOPHILS % (AUTO) 5.5 % (0.0-3.0); LYMPHOCYTES % (AUTO) 32.7 % (20.0-45.0); MEAN CORPUSCULAR HEMOGLOBIN 32.1 PG (27.0-31.0); MEAN CORPUSCULAR HGB CONC 33.5 G/DL (32.0-36.0); MEAN CORPUSCULAR VOLUME 96 FL (80-99); MONOCYTES % (AUTO) 13.5 % (1.0-10.0); NEUTROPHILS % (AUTO) 47.6 % (45.0-75.0); PLATELET COUNT 171 K/UL (150-450); RED BLOOD COUNT 4.19 M/UL (4.70-6.10); WHITE BLOOD COUNT 5.7 K/UL (4.8-10.8)
[2016-07-30] MEDS: metroNIDAZOLE 500mg 100 ML IVPB SCH (07:28)
[2016-07-30 07:29] LABS: ANION GAP 12 (5-15); CALCIUM 8.8 mg/dL (8.6-10.2); CARBON DIOXIDE 29 mEQ/L (20-30); CHLORIDE 97 mEQ/L (98-107); CREATININE 0.5 mg/dL (0.7-1.2); GLOMERULAR FILTRATION RATE > 60 mL/min (>60); HEMOLYSIS 9; POTASSIUM 2.9 mEQ/L (3.4-4.9); SODIUM 138 mEQ/L (135-145)
--- NOTE | 2016-07-30 07:45 | General Progress Note ---
Assessment/Plan Problem List: (1) UTI (urinary tract infection) ICD Codes: N39.0 - Urinary tract infection, site not specified SNOMED: 39534714 (2) Fever ICD Codes: R50.9 - Fever, unspecified SNOMED: 137860596 (3) Nausea & vomiting ICD Codes: R11.2 - Nausea with vomiting, unspecified SNOMED: 89629528 (4) Seizure ICD Codes: R56.9 - Unspecified convulsions SNOMED: 00006057 (5) Sepsis ICD Codes: A41.9 - Sepsis, unspecified organism SNOMED: 33998545 (6) Pneumonia ICD Codes: J18.9 - Pneumonia, unspecified organism SNOMED: 090882606 Qualifiers: Qualified Codes: J18.1 - Lobar pneumonia, unspecified organism Status: stable, progressing, tolerating diet Assessment/Plan ot pt diet o2 pulm tx abx cbc bmp am dc plan Subjective Constitutional: Reports: weakness Allergies: Coded Allergies: No Known Allergies (Unverified , 04/16/16) All Systems: reviewed and negative except above Subjective sleepy in bed Objective Last 24 Hour Vital Signs Date Time Temp Pulse Resp B/P Pulse Ox O2 Delivery O2 Flow Rate FiO2 07/30/16 04:00 97.5 90 20 136/82 96 Room Air 2.0 07/30/16 00:00 97.5 88 16 131/78 96 Room Air 2.0 07/29/16 20:00 97.5 88 18 127/80 96 Room Air 2.0 07/29/16 16:00 97.5 87 20 102/67 97 Room Air 07/29/16 12:00 97.2 84 19 105/68 94 Room Air 07/29/16 08:00 97.7 95 20 99/68 96 Room Air Intake and Output 07/29/16 07/30/16 19:00 07:00 Intake Total 1237.500 ml 525 ml Output Total 800 ml Balance 437.500 ml 525 ml Intake Oral 340 ml IV Total 897.500 ml 525 ml Output Urine Total 800 ml # Voids 4 2 # Bowel Movements 1 Laboratory Tests 07/30/16 06:00: White Blood Count 5.7, Red Blood Count 4.19L, Hemoglobin 13.5L, Hematocrit 40.2L , Mean Corpuscular Volume 96, Mean Corpuscular Hemoglobin 32.1H, Mean Corpuscular Hemoglobin Concent 33.5, Red Cell Distribution Width 13.0, Platelet Count 171, Mean Platelet Volume 8.0, Neutrophils (%) (Auto) 47.6, Lymphocytes (% ) (Auto) 32.7, Monocytes (%) (Auto) 13.5H, Eosinophils (%) (Auto) 5.5H, Basophils (%) (Auto) 0.8, Sodium Level 138, Potassium Level 2.9L, Chloride Level 97L, Carbon Dioxide Level 29, Anion Gap 12, Blood Urea Nitrogen 3L, Creatinine 0.5L, Estimat Glomerular Filtration Rate > 60, Glucose Level 102, Calcium Level 8.8 Height (Feet): 5 Height (Inches): 6.00 Weight (Pounds): 158 General Appearance: lethargic, confused EENT: normal ENT inspection Neck: normal alignment Cardiovascular: normal peripheral pulses, normal rate, regular rhythm Respiratory/Chest: chest wall non-tender, lungs clear, normal breath sounds Abdomen: normal bowel sounds, non tender, soft Extremities: normal inspection Edema: no edema noted Arm (L), no edema noted Arm (R), no edema noted Leg (L), no edema noted Leg (R), no edema noted Pedal (L), no edema noted Pedal (R), no edema noted Generalized Neurologic: motor weakness Skin: normal pigmentation, warm/dry ERNST CASH July 30, 2016 07:45
[2016-07-30 08:19] VITALS: BP 139/86
[2016-07-30] MEDS: Cefepime HCl 1 GM in D5W 55 ML IV SCH (08:41)
[2016-07-30] MEDS: QUEtiapine 200mg tab ORAL SCH ×2 (08:42→17:13)
[2016-07-30] MEDS: Phenytoin 100mg cap ORAL SCH ×2 (08:42→17:14)
[2016-07-30] MEDS: Pantoprazole Inj IVP SCH (08:43)
[2016-07-30] MEDS: Heparin 5000 units/ml inj SUBQ SCH ×2 (08:43→21:10)
--- NOTE | 2016-07-30 11:45 | Consultation ---
DATE OF CONSULTATION: 07/28/2016 NOTE: "VERY POOR AUDIO QUALITY" PSYCHOTHERAPY CONSULTATION PROGRESS NOTE CONSULTING PHYSICIAN: Nora Duggan M.D. TREATING ATTENDING PHYSICIAN: Ady Kerr M.D HISTORY OF PRESENT ILLNESS: The patient is a 56-year-old male patient from [facility]. The patient has a history of paranoid schizophrenia and has been treated with psychotropic medications in the past with the patient for seizure disorder, generalized weakness, fever, nausea, vomiting, urinary tract infection, and altered mental status. The patient has depression altered mental status. The patient . Denies suicidal or homicidal thoughts of ideation. . PAST MEDICAL HISTORY: History of hypertension, encephalopathy, and seizures. ALLERGIES: No known drug allergies. SUBSTANCE ABUSE HISTORY: There is no indication of alcohol use, illicit substance use, or smoking cigarette. PSYCHIATRIC HISTORY: The patient has a history of paranoid schizophrenia. The patient has had multiple psychiatric hospitalizations and psychotropic medications. SOCIAL HISTORY: The patient is a 56-year-old male resident of [facility]. Financially sustained through Medicare and [employer]. MENTAL STATUS EXAMINATION: The patient is alert and oriented x1, to person and place. Mood is depressed. Affect is congruent. Thought process is disorganized. Thought content confused. The patient has poor attention and concentration. Poor insight, judgment, and impulse control. DIAGNOSES: [place] I Paranoid schizophrenia. [place] II Deferred. [place] III Per History and Physical. [place] IV Problems with social environment. PLAN: Continue medication management and behavioral management. This clinician has reviewed the patient's chart. Discussed the treatment with nursing staff. Nora Duggan PsyD. DR: Claudy JOB#: [id number] CC:
[2016-07-30 12:12] VITALS: BP 121/74
--- NOTE | 2016-07-30 14:25 | Infectious Diseases Prog Note ---
Assessment/Plan Problems: (1) HCAP (healthcare-associated pneumonia) Assessment & Plan: sputum culture was sent today, will stop vancomycin , and cefepime, switch to oral augmantin and doxycycline (2) Sepsis Assessment & Plan: due to pneumonia, await blood culture , continue antibiotics (3) Cough with sputum Assessment & Plan: due to pneumonia, rule out aspiration, recommend speech eval (4) Diabetes Assessment & Plan: recommend tight glycemic control to keep blood glucose between 80-120 Subjective ROS Limited/Unobtainable: Yes Allergies: Coded Allergies: No Known Allergies (Unverified , 04/16/16) Subjective he was comfortable, awake and alert, not in distress.afebrile. Objective Vital Signs Last 24 Hour Vital Signs Date Time Temp Pulse Resp B/P Pulse Ox O2 Delivery O2 Flow Rate FiO2 07/30/16 12:12 98.1 91 18 121/74 95 Room Air 07/30/16 08:42 89 139/86 07/30/16 08:19 98.0 89 20 139/86 95 Room Air 07/30/16 04:00 97.5 90 20 136/82 96 Room Air 2.0 07/30/16 00:00 97.5 88 16 131/78 96 Room Air 2.0 07/29/16 20:00 97.5 88 18 127/80 96 Room Air 2.0 07/29/16 16:00 97.5 87 20 102/67 97 Room Air Height (Feet): 5 Height (Inches): 6.00 Weight (Pounds): 158 General Appearance: WD/WN, no acute distress HEENT: normocephalic, atraumatic, anicteric, mucous membranes moist Respiratory/Chest: chest wall non-tender, lungs clear, normal breath sounds, no respiratory distress, no accessory muscle use Cardiovascular: normal peripheral pulses, normal rate, regular rhythm, no gallop/murmur Abdomen: normal bowel sounds, soft, non tender, no organomegaly, non distended , no mass Extremities: no cyanosis, no clubbing Skin: no rash, no lesions Microbiology Date/Time Source Procedure Growth Status 07/28/16 09:15 Blood Blood Culture - Preliminary NO GROWTH AFTER 48 HOURS Resulted 07/28/16 09:05 Blood Blood Culture - Preliminary NO GROWTH AFTER 48 HOURS Resulted 07/28/16 09:30 Nasal Nares MRSA Culture - Final NO METHICILLIN RESISTANT STAPH AUREUS... Complete Laboratory Tests Test 07/30/16 06:00 07/30/16 13:03 White Blood Count 5.7 K/UL (4.8-10.8) Red Blood Count 4.19 M/UL (4.70-6.10) L Hemoglobin 13.5 G/DL (14.2-18.0) L Hematocrit 40.2 % (42.0-52.0) L Mean Corpuscular Volume 96 FL (80-99) Mean Corpuscular Hemoglobin 32.1 PG (27.0-31.0) H Mean Corpuscular Hemoglobin Concent 33.5 G/DL (32.0-36.0) Red Cell Distribution Width 13.0 % (11.6-14.8) Platelet Count 171 K/UL (150-450) Mean Platelet Volume 8.0 FL (6.5-10.1) Neutrophils (%) (Auto) 47.6 % (45.0-75.0) Lymphocytes (%) (Auto) 32.7 % (20.0-45.0) Monocytes (%) (Auto) 13.5 % (1.0-10.0) H Eosinophils (%) (Auto) 5.5 % (0.0-3.0) H Basophils (%) (Auto) 0.8 % (0.0-2.0) Sodium Level 138 mEQ/L (135-145) Potassium Level 2.9 mEQ/L (3.4-4.9) L Chloride Level 97 mEQ/L (98-107) L Carbon Dioxide Level 29 mEQ/L (20-30) Anion Gap 12 (5-15) Blood Urea Nitrogen 3 mg/dL (7-23) L Creatinine 0.5 mg/dL (0.7-1.2) L Estimat Glomerular Filtration Rate > 60 mL/min (>60) Glucose Level 102 mg/dL (74-106) Calcium Level 8.8 mg/dL (8.6-10.2) Vancomycin Level Trough 12.2 ug/mL (5.0-12.0) H Current Medications Medications (Trade) Dose Ordered Sig/Netta Route PRN Reason Start Time Stop Time Status Last Admin Dose Admin Acetaminophen (Tylenol) 650 mg Q4H PRN ORAL fever 07/28/16 11:15 08/27/16 11:14 Al Hydroxide/Mg Hydroxide (Mylanta II) 30 ml Q6H PRN ORAL dyspepsia 07/28/16 11:15 08/27/16 11:14 Albuterol/ Ipratropium (DuoNeb 0.5-3(2.5)mg/3ml) 3 ml EVERY 4 HOURS PRN HHN Shortness of Breath 07/28/16 11:15 08/02/16 11:14 Amlodipine Besylate (Norvasc) 10 mg DAILY ORAL 07/29/16 09:00 08/28/16 08:59 07/30/16 08:42 Amoxicillin/ Clavulanate Potassium (Augmentin) 875 mg Q12H ORAL 07/30/16 14:00 08/06/16 13:59 Divalproex Sodium (Depakote) 1,000 mg BEDTIME ORAL 07/28/16 21:00 08/27/16 20:59 07/29/16 20:47 Doxycycline Monohydrate (Vibramycin) 100 mg Q12H ORAL 07/30/16 14:30 08/06/16 14:29 Heparin Sodium (Porcine) (Heparin 5000 units/ml) 5,000 units EVERY 12 HOURS SUBQ 07/28/16 21:00 08/27/16 20:59 07/30/16 08:43 Magnesium Hydroxide (Mom) 30 ml DAILY PRN ORAL Constipation 07/28/16 11:15 08/27/16 11:14 Nitroglycerin (Ntg) 0.4 mg Q5M PRN SL Prn Chest Pain 07/28/16 11:15 08/27/16 11:14 Ondansetron HCl (Zofran) 4 mg Q6H PRN IVP Nausea & Vomiting 07/28/16 11:15 08/27/16 11:14 Pantoprazole (Protonix) 40 mg DAILY IVP 07/28/16 18:00 08/27/16 17:59 07/30/16 08:43 Phenytoin (Dilantin) 200 mg BID ORAL 07/28/16 18:00 08/27/16 17:59 07/30/16 08:42 Polyethylene Glycol (Miralax) 17 gm DAILYPRN PRN ORAL Constipation 07/28/16 11:15 08/27/16 11:14 Promethazine HCl/ Codeine (Phenergan with Codeine) 5 ml Q4H PRN ORAL For Cough 07/28/16 11:15 08/27/16 11:14 Quetiapine Fumarate (SEROquel) 250 mg TWICE A DAY ORAL 07/28/16 18:00 08/27/16 17:59 07/30/16 08:42 Temazepam (Restoril) 15 mg HSPRN PRN ORAL Insomnia 07/28/16 11:15 08/04/16 11:14 Raymon Meyer M.D. July 30, 2016 14:25
--- NOTE | 2016-07-30 14:37 | Consultation ---
History of Present Illness General Date patient seen: July 30, 2016 Chief Complaint: Vomiting Referring physician: ERNST CASH Reason for Consultation: Hypokalemia Present Illness HPI CHIEF COMPLAINT: Feer, nausea, vomiting, pneumonia, sepsis, and altered mental status. The patient is a 56-year-old male with a PMHx significant for HTN, encephalopathy and seizure disorder, resident of [facility] who presented to the ED with fever, nausea, vomiting, altered mental status and sepsis, was then admitted for further evaluation. Consult was requested due to severe hypokalemia. k=2.9 Allergies: Coded Allergies: No Known Allergies (Unverified , 04/16/16) Medication History Scheduled Amlodipine Besylate (Norvasc), 10 MG ORAL DAILY, (Reported) Calcium Acetate (Calcium Acetate), 667 MG PO THREE TIMES A DAY, (Reported) Calcium Acetate (Calcium Acetate), 667 MG PO THREE TIMES A DAY, (Reported) Divalproex Sodium* (Depakote*), 1,000 MG PO BEDTIME, (Reported) Divalproex Sodium* (Depakote*), 500 MG PO DAILY, (Reported) Docusate Sodium* (Docusate Sodium*), 100 MG ORAL DAILY, (Reported) Lactulose (Lactulose*), 100 ML ORAL THREE TIMES A DAY, (Reported) Losartan Potassium* (Cozaar*), 50 MG ORAL TWICE A DAY, (Reported) Multivitamins* (Multivitamins*), 1 TAB ORAL DAILY, (Reported) Phenytoin Sodium Extended* (Dilantin*), 200 MG ORAL BID, (Reported) Quetiapine Fumarate* (Seroquel*), 250 MG ORAL TWICE A DAY, (Reported) Sucralfate* (Carafate*), 1 GM ORAL BID, (Reported) Sucralfate* (Carafate*), 1 GM ORAL BID, (Reported) Scheduled PRN Acetaminophen* (Tylenol Extra Strength*), 325 MG ORAL Q6H PRN for Mild Pain/ Temp > 100.5, (Reported) Acetaminophen* (Tylenol*), 120 MG RECTAL Q4H PRN for Mild Pain/Temp > 100.5, ( Reported) Bisacodyl (Dulcolax), 10 MG RC DAILY PRN for Constipation, (Reported) Magnesium Hydroxide* (Milk Of Magnesia*), 30 ML ORAL DAILY PRN for Constipation, (Reported) Miscellaneous Medications Calcium Carbonate/Vitamin D3 (Calcium 500 + D Tablet), 1 EACH PO, (Reported) Patient History Limited by: medical condition History Provided By: Medical Record Healthcare decision maker Resuscitation status Full Code Advanced Directive on File Past Medical/Surgical History Past Medical/Surgical History: (1) Seizure disorder, generalized convulsive, intractable (2) Diabetes (3) Hepatitis C (4) HTN (hypertension) (5) s/p Large R Craniotomy with spastic hemiparesis Social History Social History: (1) Non-smoker (2) No illicit drug use (3) Does not drink alcohol Review of Systems ROS Narrative Unobtainable Physical Exam General Appearance: no apparent distress Lines, tubes and drains: peripheral HEENT: atraumatic Neck: supple, normal inspection Respiratory/Chest: lungs clear, normal breath sounds, no respiratory distress Cardiovascular/Chest: normal rate, regular rhythm Abdomen: non tender, soft, no organomegaly Extremities: non-tender, no calf tenderness Last 24 Hour Vital Signs Date Time Temp Pulse Resp B/P Pulse Ox O2 Delivery O2 Flow Rate FiO2 07/30/16 12:12 98.1 91 18 121/74 95 Room Air 07/30/16 08:42 89 139/86 07/30/16 08:19 98.0 89 20 139/86 95 Room Air 07/30/16 04:00 97.5 90 20 136/82 96 Room Air 2.0 07/30/16 00:00 97.5 88 16 131/78 96 Room Air 2.0 07/29/16 20:00 97.5 88 18 127/80 96 Room Air 2.0 07/29/16 16:00 97.5 87 20 102/67 97 Room Air Intake and Output 07/29/16 07/30/16 19:00 07:00 Intake Total 1237.500 ml 525 ml Output Total 800 ml Balance 437.500 ml 525 ml Intake Oral 340 ml IV Total 897.500 ml 525 ml Output Urine Total 800 ml # Voids 4 2 # Bowel Movements 1 Laboratory Tests Test 07/30/16 06:00 07/30/16 13:03 White Blood Count 5.7 K/UL (4.8-10.8) Red Blood Count 4.19 M/UL (4.70-6.10) L Hemoglobin 13.5 G/DL (14.2-18.0) L Hematocrit 40.2 % (42.0-52.0) L Mean Corpuscular Volume 96 FL (80-99) Mean Corpuscular Hemoglobin 32.1 PG (27.0-31.0) H Mean Corpuscular Hemoglobin Concent 33.5 G/DL (32.0-36.0) Red Cell Distribution Width 13.0 % (11.6-14.8) Platelet Count 171 K/UL (150-450) Mean Platelet Volume 8.0 FL (6.5-10.1) Neutrophils (%) (Auto) 47.6 % (45.0-75.0) Lymphocytes (%) (Auto) 32.7 % (20.0-45.0) Monocytes (%) (Auto) 13.5 % (1.0-10.0) H Eosinophils (%) (Auto) 5.5 % (0.0-3.0) H Basophils (%) (Auto) 0.8 % (0.0-2.0) Sodium Level 138 mEQ/L (135-145) Potassium Level 2.9 mEQ/L (3.4-4.9) L Chloride Level 97 mEQ/L (98-107) L Carbon Dioxide Level 29 mEQ/L (20-30) Anion Gap 12 (5-15) Blood Urea Nitrogen 3 mg/dL (7-23) L Creatinine 0.5 mg/dL (0.7-1.2) L Estimat Glomerular Filtration Rate > 60 mL/min (>60) Glucose Level 102 mg/dL (74-106) Calcium Level 8.8 mg/dL (8.6-10.2) Vancomycin Level Trough 12.2 ug/mL (5.0-12.0) H Height (Feet): 5 Height (Inches): 6.00 Weight (Pounds): 158 Medications Current Medications Medications (Trade) Dose Ordered Sig/Netta Route PRN Reason Start Time Stop Time Status Last Admin Dose Admin Acetaminophen (Tylenol) 650 mg Q4H PRN ORAL fever 07/28/16 11:15 08/27/16 11:14 Al Hydroxide/Mg Hydroxide (Mylanta II) 30 ml Q6H PRN ORAL dyspepsia 07/28/16 11:15 08/27/16 11:14 Albuterol/ Ipratropium (DuoNeb 0.5-3(2.5)mg/3ml) 3 ml EVERY 4 HOURS PRN HHN Shortness of Breath 07/28/16 11:15 08/02/16 11:14 Amlodipine Besylate (Norvasc) 10 mg DAILY ORAL 07/29/16 09:00 08/28/16 08:59 07/30/16 08:42 Amoxicillin/ Clavulanate Potassium (Augmentin) 875 mg Q12H ORAL 07/30/16 14:00 08/06/16 13:59 Divalproex Sodium (Depakote) 1,000 mg BEDTIME ORAL 07/28/16 21:00 08/27/16 20:59 07/29/16 20:47 Doxycycline Monohydrate (Vibramycin) 100 mg Q12H ORAL 07/30/16 14:30 08/06/16 14:29 Heparin Sodium (Porcine) (Heparin 5000 units/ml) 5,000 units EVERY 12 HOURS SUBQ 07/28/16 21:00 08/27/16 20:59 07/30/16 08:43 Magnesium Hydroxide (Mom) 30 ml DAILY PRN ORAL Constipation 07/28/16 11:15 08/27/16 11:14 Nitroglycerin (Ntg) 0.4 mg Q5M PRN SL Prn Chest Pain 07/28/16 11:15 08/27/16 11:14 Ondansetron HCl (Zofran) 4 mg Q6H PRN IVP Nausea & Vomiting 07/28/16 11:15 08/27/16 11:14 Pantoprazole (Protonix) 40 mg DAILY IVP 07/28/16 18:00 08/27/16 17:59 07/30/16 08:43 Phenytoin (Dilantin) 200 mg BID ORAL 07/28/16 18:00 08/27/16 17:59 07/30/16 08:42 Polyethylene Glycol (Miralax) 17 gm DAILYPRN PRN ORAL Constipation 07/28/16 11:15 08/27/16 11:14 Promethazine HCl/ Codeine (Phenergan with Codeine) 5 ml Q4H PRN ORAL For Cough 07/28/16 11:15 08/27/16 11:14 Quetiapine Fumarate (SEROquel) 250 mg TWICE A DAY ORAL 07/28/16 18:00 08/27/16 17:59 07/30/16 08:42 Temazepam (Restoril) 15 mg HSPRN PRN ORAL Insomnia 07/28/16 11:15 08/04/16 11:14 Assessment/Plan Problem List: (1) Hypokalemia ICD Codes: E87.6 - Hypokalemia SNOMED: 10144129 (2) Sepsis ICD Codes: A41.9 - Sepsis, unspecified organism SNOMED: 28996167 (3) Gastritis ICD Codes: K29.70 - Gastritis, unspecified, without bleeding SNOMED: 8776438 (4) Fever ICD Codes: R50.9 - Fever, unspecified SNOMED: 741677805 (5) Nausea & vomiting ICD Codes: R11.2 - Nausea with vomiting, unspecified SNOMED: 95570584 (6) HTN (hypertension) ICD Codes: I10 - Essential (primary) hypertension SNOMED: 67264030 (7) Seizure disorder, generalized convulsive, intractable ICD Codes: G40.319 - Generalized idiopathic epilepsy and epileptic syndromes, intractable, without status epilepticus SNOMED: 48399938 (8) s/p Large R Craniotomy with spastic hemiparesis Assessment/Plan Replace K Monitor lytes, correct PRN GI following Psych following ABX per ID Monitor Temp - VSS DVT prophylaxis with heparin Continue PT/OT AM labs GALDINO DEVRIES July 30, 2016 14:37
[2016-07-30] MEDS: Augmentin 875mg Tab ORAL SCH (15:06)
[2016-07-30 16:27] VITALS: BP 126/76
--- NOTE | 2016-07-30 19:07 | Pulmonology Progress Note ---
Assessment/Plan Problems: (1) HCAP (healthcare-associated pneumonia) (2) Sepsis (3) Nausea & vomiting (4) Seizure (5) HTN (hypertension) Assessment/Plan respiratory treatment chest pt check sputum check cultures wbc decreasing, normal now monitor BP Subjective ROS Limited/Unobtainable: No Constitutional: Reports: no symptoms Allergies: Coded Allergies: No Known Allergies (Unverified , 04/16/16) Objective Last 24 Hour Vital Signs Date Time Temp Pulse Resp B/P Pulse Ox O2 Delivery O2 Flow Rate FiO2 07/30/16 16:27 97.5 90 18 126/76 99 Room Air 07/30/16 12:12 98.1 91 18 121/74 95 Room Air 07/30/16 08:42 89 139/86 07/30/16 08:19 98.0 89 20 139/86 95 Room Air 07/30/16 04:00 97.5 90 20 136/82 96 Room Air 2.0 07/30/16 00:00 97.5 88 16 131/78 96 Room Air 2.0 07/29/16 20:00 97.5 88 18 127/80 96 Room Air 2.0 Intake and Output 07/29/16 07/30/16 19:00 07:00 Intake Total 1237.500 ml 525 ml Output Total 800 ml Balance 437.500 ml 525 ml Intake Oral 340 ml IV Total 897.500 ml 525 ml Output Urine Total 800 ml # Voids 4 2 # Bowel Movements 1 General Appearance: WD/WN HEENT: normocephalic, atraumatic Respiratory/Chest: chest wall non-tender, lungs clear Cardiovascular: normal peripheral pulses, normal rate, regular rhythm Abdomen: normal bowel sounds Genitourinary: normal external genitalia Extremities: no cyanosis Microbiology Date/Time Source Procedure Growth Status 07/28/16 09:15 Blood Blood Culture - Preliminary NO GROWTH AFTER 48 HOURS Resulted 07/28/16 09:05 Blood Blood Culture - Preliminary NO GROWTH AFTER 48 HOURS Resulted 07/28/16 09:30 Nasal Nares MRSA Culture - Final NO METHICILLIN RESISTANT STAPH AUREUS... Complete Laboratory Tests 07/30/16 06:00: White Blood Count 5.7, Red Blood Count 4.19L, Hemoglobin 13.5L, Hematocrit 40.2L , Mean Corpuscular Volume 96, Mean Corpuscular Hemoglobin 32.1H, Mean Corpuscular Hemoglobin Concent 33.5, Red Cell Distribution Width 13.0, Platelet Count 171, Mean Platelet Volume 8.0, Neutrophils (%) (Auto) 47.6, Lymphocytes (% ) (Auto) 32.7, Monocytes (%) (Auto) 13.5H, Eosinophils (%) (Auto) 5.5H, Basophils (%) (Auto) 0.8, Sodium Level 138, Potassium Level 2.9L, Chloride Level 97L, Carbon Dioxide Level 29, Anion Gap 12, Blood Urea Nitrogen 3L, Creatinine 0.5L, Estimat Glomerular Filtration Rate > 60, Glucose Level 102, Calcium Level 8.8 07/30/16 13:03: Vancomycin Level Trough 12.2H Current Medications Medications (Trade) Dose Ordered Sig/Netta Route PRN Reason Start Time Stop Time Status Last Admin Dose Admin Acetaminophen (Tylenol) 650 mg Q4H PRN ORAL fever 07/28/16 11:15 08/27/16 11:14 Al Hydroxide/Mg Hydroxide (Mylanta II) 30 ml Q6H PRN ORAL dyspepsia 07/28/16 11:15 08/27/16 11:14 Albuterol/ Ipratropium (DuoNeb 0.5-3(2.5)mg/3ml) 3 ml EVERY 4 HOURS PRN HHN Shortness of Breath 07/28/16 11:15 08/02/16 11:14 Amlodipine Besylate (Norvasc) 10 mg DAILY ORAL 07/29/16 09:00 08/28/16 08:59 07/30/16 08:42 Amoxicillin/ Clavulanate Potassium (Augmentin) 875 mg Q12H ORAL 07/30/16 14:00 08/06/16 13:59 07/30/16 15:06 Divalproex Sodium (Depakote) 1,000 mg BEDTIME ORAL 07/28/16 21:00 08/27/16 20:59 07/29/16 20:47 Doxycycline Monohydrate (Vibramycin) 100 mg Q12H ORAL 07/30/16 14:30 08/06/16 14:29 07/30/16 15:06 Heparin Sodium (Porcine) (Heparin 5000 units/ml) 5,000 units EVERY 12 HOURS SUBQ 07/28/16 21:00 08/27/16 20:59 07/30/16 08:43 Magnesium Hydroxide (Mom) 30 ml DAILY PRN ORAL Constipation 07/28/16 11:15 08/27/16 11:14 Nitroglycerin (Ntg) 0.4 mg Q5M PRN SL Prn Chest Pain 07/28/16 11:15 08/27/16 11:14 Ondansetron HCl (Zofran) 4 mg Q6H PRN IVP Nausea & Vomiting 07/28/16 11:15 08/27/16 11:14 Pantoprazole (Protonix) 40 mg DAILY IVP 07/28/16 18:00 08/27/16 17:59 07/30/16 08:43 Phenytoin (Dilantin) 200 mg BID ORAL 07/28/16 18:00 08/27/16 17:59 07/30/16 17:14 Polyethylene Glycol (Miralax) 17 gm DAILYPRN PRN ORAL Constipation 07/28/16 11:15 08/27/16 11:14 Potassium Chloride (K-Dur) 40 meq Q12H ORAL 07/30/16 21:00 07/31/16 09:01 Promethazine HCl/ Codeine (Phenergan with Codeine) 5 ml Q4H PRN ORAL For Cough 07/28/16 11:15 08/27/16 11:14 Quetiapine Fumarate (SEROquel) 250 mg TWICE A DAY ORAL 07/28/16 18:00 08/27/16 17:59 07/30/16 17:13 Temazepam (Restoril) 15 mg HSPRN PRN ORAL Insomnia 07/28/16 11:15 08/04/16 11:14 LAURA HINES July 30, 2016 19:07
[2016-07-30 20:00] VITALS: BP 134/83
--- NOTE | 2016-07-30 22:26 | General Progress Note ---
Assessment/Plan Assessment/Plan Assessment (1) Hepatitis C ICD Codes: B19.20 - Unspecified viral hepatitis C without hepatic coma SNOMED: 90188122 (2) Vomiting ICD Codes: R11.10 - Vomiting, unspecified SNOMED: 959647972 (3) Gastritis ICD Codes: K29.70 - Gastritis, unspecified, without bleeding SNOMED: 4732119 (4) Diabetes ICD Codes: E11.9 - Type 2 diabetes mellitus without complications SNOMED: 08319965 (5) UGIB (upper gastrointestinal bleed) ICD Codes: K92.2 - Gastrointestinal hemorrhage, unspecified SNOMED: 85047986 Status: stable Assessment/Plan s/p EGD 04/2016 SUMMARY OF FINDINGS: 1. Gastritis. 2. Small hiatal hernia. 3. Gastric biopsy unremarkable symptomatic treatment zofran prn cont ppi no salt diet repeat LFTs abx fu labs Subjective Allergies: Coded Allergies: No Known Allergies (Unverified , 04/16/16) Subjective minimally interactive no complaints Objective Last 24 Hour Vital Signs Date Time Temp Pulse Resp B/P Pulse Ox O2 Delivery O2 Flow Rate FiO2 07/30/16 20:00 98.1 92 18 134/83 Room Air 07/30/16 16:27 97.5 90 18 126/76 99 Room Air 07/30/16 12:12 98.1 91 18 121/74 95 Room Air 07/30/16 08:42 89 139/86 07/30/16 08:19 98.0 89 20 139/86 95 Room Air 07/30/16 04:00 97.5 90 20 136/82 96 Room Air 2.0 07/30/16 00:00 97.5 88 16 131/78 96 Room Air 2.0 Intake and Output 07/29/16 07/30/16 19:00 07:00 Intake Total 1237.500 ml 525 ml Output Total 800 ml Balance 437.500 ml 525 ml Intake Oral 340 ml IV Total 897.500 ml 525 ml Output Urine Total 800 ml # Voids 4 2 # Bowel Movements 1 Laboratory Tests 07/30/16 06:00: White Blood Count 5.7, Red Blood Count 4.19L, Hemoglobin 13.5L, Hematocrit 40.2L , Mean Corpuscular Volume 96, Mean Corpuscular Hemoglobin 32.1H, Mean Corpuscular Hemoglobin Concent 33.5, Red Cell Distribution Width 13.0, Platelet Count 171, Mean Platelet Volume 8.0, Neutrophils (%) (Auto) 47.6, Lymphocytes (% ) (Auto) 32.7, Monocytes (%) (Auto) 13.5H, Eosinophils (%) (Auto) 5.5H, Basophils (%) (Auto) 0.8, Sodium Level 138, Potassium Level 2.9L, Chloride Level 97L, Carbon Dioxide Level 29, Anion Gap 12, Blood Urea Nitrogen 3L, Creatinine 0.5L, Estimat Glomerular Filtration Rate > 60, Glucose Level 102, Calcium Level 8.8 07/30/16 13:03: Vancomycin Level Trough 12.2H Height (Feet): 5 Height (Inches): 6.00 Weight (Pounds): 158 Objective (R) crainial deformity supple CTA RRR THIEN Comer July 30, 2016 22:26
[2016-07-31] VITALS: BP 130/88
[2016-07-31] MEDS: Augmentin 875mg Tab ORAL SCH ×2 (03:07→12:57)
[2016-07-31 04:00] VITALS: BP 143/96
[2016-07-31 07:40] LABS: BASOPHILS % (AUTO) 0.8 % (0.0-2.0); EOSINOPHILS % (AUTO) 3.2 % (0.0-3.0); LYMPHOCYTES % (AUTO) 33.2 % (20.0-45.0); MEAN CORPUSCULAR HEMOGLOBIN 33.2 PG (27.0-31.0); MEAN CORPUSCULAR HGB CONC 34.6 G/DL (32.0-36.0); MEAN CORPUSCULAR VOLUME 96 FL (80-99); MONOCYTES % (AUTO) 12.5 % (1.0-10.0); NEUTROPHILS % (AUTO) 50.4 % (45.0-75.0); PLATELET COUNT 193 K/UL (150-450); RED BLOOD COUNT 4.18 M/UL (4.70-6.10); WHITE BLOOD COUNT 7.4 K/UL (4.8-10.8)
[2016-07-31 07:46] LABS: ANION GAP 15 (5-15); CALCIUM 9.3 mg/dL (8.6-10.2); CARBON DIOXIDE 26 mEQ/L (20-30); CHLORIDE 101 mEQ/L (98-107); CREATININE 0.5 mg/dL (0.7-1.2); GLOMERULAR FILTRATION RATE > 60 mL/min (>60); HEMOLYSIS 2; POTASSIUM 4.1 mEQ/L (3.4-4.9); SODIUM 142 mEQ/L (135-145)
--- NOTE | 2016-07-31 08:00 | General Progress Note ---
Assessment/Plan Problem List: (1) UTI (urinary tract infection) ICD Codes: N39.0 - Urinary tract infection, site not specified SNOMED: 08669590 (2) Fever ICD Codes: R50.9 - Fever, unspecified SNOMED: 681437661 (3) Nausea & vomiting ICD Codes: R11.2 - Nausea with vomiting, unspecified SNOMED: 22961325 (4) Seizure ICD Codes: R56.9 - Unspecified convulsions SNOMED: 37881619 (5) Sepsis ICD Codes: A41.9 - Sepsis, unspecified organism SNOMED: 04407475 (6) Pneumonia ICD Codes: J18.9 - Pneumonia, unspecified organism SNOMED: 436392444 Qualifiers: Qualified Codes: J18.1 - Lobar pneumonia, unspecified organism Status: stable, progressing, tolerating diet Assessment/Plan ot pt diet o2 pulm tx abx dc plan Subjective Constitutional: Reports: weakness Allergies: Coded Allergies: No Known Allergies (Unverified , 04/16/16) All Systems: reviewed and negative except above Subjective sleepy in bed Objective Last 24 Hour Vital Signs Date Time Temp Pulse Resp B/P Pulse Ox O2 Delivery O2 Flow Rate FiO2 07/31/16 04:00 97.3 93 20 143/96 93 Room Air 07/31/16 00:00 97.2 98 18 130/88 94 Room Air 07/30/16 20:00 98.1 92 18 134/83 Room Air 07/30/16 16:27 97.5 90 18 126/76 99 Room Air 07/30/16 12:12 98.1 91 18 121/74 95 Room Air 07/30/16 08:42 89 139/86 07/30/16 08:19 98.0 89 20 139/86 95 Room Air Intake and Output 07/30/16 07/31/16 19:00 07:00 Intake Total 1080 ml Output Total 400 ml Balance 680 ml Intake Oral 720 ml IV Total 360 ml Output Urine Total 400 ml # Voids 3 3 # Bowel Movements 2 2 Laboratory Tests 07/30/16 13:03: Vancomycin Level Trough 12.2H 07/31/16 05:50: White Blood Count 7.4, Red Blood Count 4.18L, Hemoglobin 13.9L, Hematocrit 40.2L , Mean Corpuscular Volume 96, Mean Corpuscular Hemoglobin 33.2H, Mean Corpuscular Hemoglobin Concent 34.6, Red Cell Distribution Width 13.0, Platelet Count 193, Mean Platelet Volume 8.0, Neutrophils (%) (Auto) 50.4, Lymphocytes (% ) (Auto) 33.2, Monocytes (%) (Auto) 12.5H, Eosinophils (%) (Auto) 3.2H, Basophils (%) (Auto) 0.8, Sodium Level 142, Potassium Level 4.1, Chloride Level 101, Carbon Dioxide Level 26, Anion Gap 15, Blood Urea Nitrogen 3L, Creatinine 0.5L, Estimat Glomerular Filtration Rate > 60, Glucose Level 106, Calcium Level 9.3 Height (Feet): 5 Height (Inches): 6.00 Weight (Pounds): 158 General Appearance: lethargic, confused EENT: normal ENT inspection Neck: normal alignment Cardiovascular: normal peripheral pulses, normal rate, regular rhythm Respiratory/Chest: chest wall non-tender, lungs clear, normal breath sounds Abdomen: normal bowel sounds, non tender, soft Extremities: normal inspection Edema: no edema noted Arm (L), no edema noted Arm (R), no edema noted Leg (L), no edema noted Leg (R), no edema noted Pedal (L), no edema noted Pedal (R), no edema noted Generalized Neurologic: motor weakness Skin: normal pigmentation, warm/dry ERNST CASH July 31, 2016 08:00
[2016-07-31 08:10] VITALS: BP 130/78
[2016-07-31] MEDS: QUEtiapine 200mg tab ORAL SCH (08:26)
[2016-07-31] MEDS: Pantoprazole Inj IVP SCH ×2 (08:27→08:36)
[2016-07-31] MEDS: Phenytoin 100mg cap ORAL SCH (08:27)
[2016-07-31] MEDS: Heparin 5000 units/ml inj SUBQ SCH (08:30)
[2016-07-31] MEDS ORDERED: MYLANTA30 M1 PO (09:41)
[2016-07-31] MEDS ORDERED: AUGMENTIN 875-1 EAC1 ORAL (09:41)
[2016-07-31] MEDS ORDERED: VIBRAMYCIN100 MG ORAL (09:42)
[2016-07-31] MEDS ORDERED: DUONEB 0.5-3(2.53 ML HHN (09:44)
[2016-07-31] MEDS ORDERED: NITROGLYCERIN0.4 MG SL (09:48)
[2016-07-31] MEDS ORDERED: ZOFRAN ODT4 MG ORAL (09:49)
[2016-07-31] MEDS ORDERED: PROTONIX40 MG ORAL (09:49)
[2016-07-31] MEDS ORDERED: MIRALAX17 G2 ORAL (09:50)
[2016-07-31] MEDS ORDERED: RESTORIL15 MG ORAL (09:52)
[2016-07-31] MEDS ORDERED: PROMETH-CODEIN 65 ML PO (09:52)
[2016-07-31] MEDS ORDERED: HEPARIN SO5000 UNIT2 SUBQ (10:16)
[2016-07-31 12:11] VITALS: BP 128/72
[2016-07-31 13:12] VITALS: BP 107/61
--- NOTE | 2016-07-31 14:48 | General Progress Note ---
Assessment/Plan Assessment/Plan Assessment (1) Hepatitis C ICD Codes: B19.20 - Unspecified viral hepatitis C without hepatic coma SNOMED: 10566618 (2) Vomiting ICD Codes: R11.10 - Vomiting, unspecified SNOMED: 295542458 (3) Gastritis ICD Codes: K29.70 - Gastritis, unspecified, without bleeding SNOMED: 4216906 (4) Diabetes ICD Codes: E11.9 - Type 2 diabetes mellitus without complications SNOMED: 73732081 (5) UGIB (upper gastrointestinal bleed) ICD Codes: K92.2 - Gastrointestinal hemorrhage, unspecified SNOMED: 76016817 Status: stable Assessment/Plan s/p EGD 04/2016 SUMMARY OF FINDINGS: 1. Gastritis. 2. Small hiatal hernia. 3. Gastric biopsy unremarkable symptomatic treatment zofran prn cont ppi no salt diet repeat LFTs abx fu labs Subjective Allergies: Coded Allergies: No Known Allergies (Unverified , 04/16/16) Subjective minimally interactive no complaints Objective Last 24 Hour Vital Signs Date Time Temp Pulse Resp B/P Pulse Ox O2 Delivery O2 Flow Rate FiO2 07/31/16 13:12 98.1 91 18 107/61 98 Room Air 07/31/16 12:11 98.4 96 20 128/72 98 Room Air 07/31/16 08:26 93 130/78 07/31/16 08:10 98.4 93 20 130/78 97 Room Air 07/31/16 04:00 97.3 93 20 143/96 93 Room Air 07/31/16 00:00 97.2 98 18 130/88 94 Room Air 07/30/16 20:00 98.1 92 18 134/83 Room Air 07/30/16 16:27 97.5 90 18 126/76 99 Room Air Intake and Output 07/30/16 07/31/16 19:00 07:00 Intake Total 1080 ml Output Total 400 ml Balance 680 ml Intake Oral 720 ml IV Total 360 ml Output Urine Total 400 ml # Voids 3 3 # Bowel Movements 2 2 Laboratory Tests 07/31/16 05:50: White Blood Count 7.4, Red Blood Count 4.18L, Hemoglobin 13.9L, Hematocrit 40.2L , Mean Corpuscular Volume 96, Mean Corpuscular Hemoglobin 33.2H, Mean Corpuscular Hemoglobin Concent 34.6, Red Cell Distribution Width 13.0, Platelet Count 193, Mean Platelet Volume 8.0, Neutrophils (%) (Auto) 50.4, Lymphocytes (% ) (Auto) 33.2, Monocytes (%) (Auto) 12.5H, Eosinophils (%) (Auto) 3.2H, Basophils (%) (Auto) 0.8, Sodium Level 142, Potassium Level 4.1, Chloride Level 101, Carbon Dioxide Level 26, Anion Gap 15, Blood Urea Nitrogen 3L, Creatinine 0.5L, Estimat Glomerular Filtration Rate > 60, Glucose Level 106, Calcium Level 9.3 Height (Feet): 5 Height (Inches): 6.00 Weight (Pounds): 158 Objective (R) crainial deformity supple CTA DENEENR THIEN Comer July 31, 2016 14:48
--- NOTE | 2016-07-31 18:56 | Pulmonology Progress Note ---
Assessment/Plan Problems: (1) HCAP (healthcare-associated pneumonia) (2) Sepsis (3) Nausea & vomiting (4) Seizure (5) HTN (hypertension) Assessment/Plan respiratory treatment chest pt check sputum check cultures wbc decreasing, normal now monitor BP Subjective Allergies: Coded Allergies: No Known Allergies (Unverified , 04/16/16) Objective Last 24 Hour Vital Signs Date Time Temp Pulse Resp B/P Pulse Ox O2 Delivery O2 Flow Rate FiO2 07/31/16 13:12 98.1 91 18 107/61 98 Room Air 07/31/16 12:11 98.4 96 20 128/72 98 Room Air 07/31/16 08:26 93 130/78 07/31/16 08:10 98.4 93 20 130/78 97 Room Air 07/31/16 04:00 97.3 93 20 143/96 93 Room Air 07/31/16 00:00 97.2 98 18 130/88 94 Room Air 07/30/16 20:00 98.1 92 18 134/83 Room Air Intake and Output 07/30/16 07/31/16 18:59 06:59 Intake Total 1080 ml Output Total 400 ml Balance 680 ml Intake Oral 720 ml IV Total 360 ml Output Urine Total 400 ml # Voids 3 3 # Bowel Movements 2 2 Microbiology Date/Time Source Procedure Growth Status 07/30/16 11:00 Sputum Gram Stain - Final Resulted 07/30/16 11:00 Sputum Sputum Culture - Preliminary NORMAL UPPER RESPIRATORY ALVIN PRESENT Resulted Laboratory Tests 07/31/16 05:50: White Blood Count 7.4, Red Blood Count 4.18L, Hemoglobin 13.9L, Hematocrit 40.2L , Mean Corpuscular Volume 96, Mean Corpuscular Hemoglobin 33.2H, Mean Corpuscular Hemoglobin Concent 34.6, Red Cell Distribution Width 13.0, Platelet Count 193, Mean Platelet Volume 8.0, Neutrophils (%) (Auto) 50.4, Lymphocytes (% ) (Auto) 33.2, Monocytes (%) (Auto) 12.5H, Eosinophils (%) (Auto) 3.2H, Basophils (%) (Auto) 0.8, Sodium Level 142, Potassium Level 4.1, Chloride Level 101, Carbon Dioxide Level 26, Anion Gap 15, Blood Urea Nitrogen 3L, Creatinine 0.5L, Estimat Glomerular Filtration Rate > 60, Glucose Level 106, Calcium Level 9.3 LAURA HINES July 31, 2016 18:56
== END 2016-07-31 15:40 | DRG 720 ==
LOC: EDBD 08:39 → EMR 09:52 → 4W 10:18 → EDBEDREQ 11:10
DX: A41.9 Sepsis, unspecified organism (principal); G40.319 Generalized idiopathic epilepsy and epileptic syndromes, intractable, without status epilepticus; J90 Pleural effusion, not elsewhere classified; G81.10 Spastic hemiplegia affecting unspecified side; E87.6 Hypokalemia; K29.70 Gastritis, unspecified, without bleeding; I10 Essential (primary) hypertension; K44.9 Diaphragmatic hernia without obstruction or gangrene; J44.9 Chronic obstructive pulmonary disease, unspecified; J18.9 Pneumonia, unspecified organism; F20.0 Paranoid schizophrenia; F32.89 Other specified depressive episodes; E11.9 Type 2 diabetes mellitus without complications; N39.0 Urinary tract infection, site not specified; B19.20 Unspecified viral hepatitis C without hepatic coma
CPT/HCPCS: 36415; 71010; 80048; 80053; 80069; 80202; 81003; 82550; 82553; 83605; 83880; 84484; 85007; 85025; 87040; 87070; 87081; 87205; 93005; 97803; J2405; J8499

== ENCOUNTER 2018-07-07 20:05 | Inpatient (IN) | payer OTHER ==
[~2018-07-07] VITALS: Ht 167.6 cm; Wt 83.5 kg
[~2018-07-07 20:05] MED LIST changes: +ACETAMINOPHEN120 MG RECTAL; +AUGMENTIN 875-1 EAC1 ORAL; +CALCIUM ACETAT667 M1 PO; +DUONEB 0.5-3(2.53 ML HHN; +HEPARIN SO5000 UNIT2 SUBQ; +MIRALAX17 G2 ORAL; +MYLANTA30 M1 PO; +NITROGLYCERIN0.4 MG SL; +PROMETH-CODEIN 65 ML PO; +PROTONIX40 MG ORAL; +RESTORIL15 MG ORAL; +TYLENOL EXTRA500 MG ORAL; +VIBRAMYCIN100 MG ORAL; +ZOFRAN ODT4 MG ORAL
[2018-07-07] MEDS ORDERED: DiphenhydrAMINE 50mg/ml Inj IVP ONE (20:15)
[2018-07-07] MEDS ORDERED: Metoclopramide 10mg/2ml Inj IVP ONE (20:15)
--- NOTE | 2018-07-07 20:18 | Emergency Room Report ---
History of Present Illness General Chief Complaint: Vomiting Source: Patient Present Illness HPI Patient is sent in for 3 days of vomiting. The patient's denies any abdominal pain at this time. He's had a stroke and therefore his comprehension is might be somewhat limited. Apparently he has a fever. No further history available except from old chart. H/O seizures H/O CVA with L hemiparesis Last admitted 07/2016 - d/c dx: 1. Sepsis. 2. Pneumonia. 3. Healthcare-associated pneumonia. 4. Intractable nausea and vomiting, resolved. 5. Hypertension. 6. Seizure disorder. 7. Hepatitis C. 8. Gastritis. Allergies: Coded Allergies: No Known Allergies (Unverified , 04/16/16) Patient History Limited by: medical condition Past Medical History: see triage record, old chart reviewed Past Surgical History: other - Craniotomy right Social History: Denies: smoking [facility] Nursing Documentation: PMH: Agreed; PSxH: Agreed Nursing Documentation-PMH Past Medical History: No History, Except For Hx Cardiac Problems: Yes - CVA- LEFT SIDED Hx Hypertension: Yes Hx COPD: Yes Hx Cancer: No Hx Gastrointestinal Problems: Yes - GASTRITIS Hx Neurological Problems: Yes Hx Cerebrovascular Accident: Yes Hx Epilepsy: Yes 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 Review of Systems All Other Systems: limited Physical Exam Vital Signs Date Time Temp Pulse Resp B/P (MAP) Pulse Ox O2 Delivery O2 Flow Rate FiO2 07/07/18 20:04 103.1 126 22 93 Room Air Sp02 EP Interpretation: reviewed, abnormal - Interpreted as low by me General Appearance: no apparent distress, Chronically Ill Head: other - r skull deformity Eyes: bilateral eye normal inspection, bilateral eye PERRL, bilateral eye other - Left visual field cut ENT: moist mucus membranes Neck: supple Respiratory: decreased breath sounds, rhonchi Cardiovascular #1: tachycardia, edema - L hand leg Cardiovascular #2: 2+ radial (R), 2+ femoral (R), 2+ femoral (L) Gastrointestinal: normal inspection, non tender, no mass, non-distended, decreased bowel sounds, overweight Musculoskeletal: back normal, other - Atrophy and placidity left Neurologic: alert, motor weakness - L hemiparesis, sensory deficit - L sided, other - L field cut Psychiatric: depressed affect - Perseveration Skin: normal inspection, warm/dry Procedures Central Line Central Line : Consent: Emergent Central Line Lumen: triple Maximal Sterile Barrier Tech: yes cap, yes mask, yes sterile gown, yes sterile gloves, yes large sterile sheet, yes hand hygiene, yes chlorhexidine prep Central Line Postion: internal jugular (R) Anesthesia: Lidocaine cc's of anesthesia: 1 Complications: none Central Line Post Position: sutured, good blood return Attempts: One Patient Tolerated: Well Complications: None Progress Estimated blood loss 6 cc. CVP inserted under ultrasound guidance. Medical Decision Making Diagnostic Impression: Primary Impression: Sepsis Qualified Codes: A41.9 - Sepsis, unspecified organism Additional Impressions: Vomiting Qualified Codes: R11.10 - Vomiting, unspecified s/p Large R Craniotomy with spastic hemiparesis ER Course Patient presents with abdominal pain vomiting and fever. Differential includes sepsis, pneumonia, bowel obstruction, urinary tract infection. aspiration amongst others. Evaluation will be with EKG, chest x-ray abdominal film and labs. Patient is febrile. The patient will be treated with IV hydration and Tylenol. Most likely he will need antibiotics however we need to try to ascertain the source. EKG with ST. CXR no infiltrate, abd regionalized gas. Elevated WBC. Elevated initial lactic acid. UA clear. Dilantin and valproic acid low. Antibiotics ordered to cover: lungs and abdomen. Patient with ronchi. CXR repeat for CVP as no IV access. Sats 96%. Consider aspiration pneumonia not evident on first x-ray. As giving fluids, concern over possible respiratory deterioration, however stable at this point. Sepsis re-evaluation: good capillary fill, antibiotics ordered, BP stable, still tachycardia (prior to fluid bolus). Needs tele or higher. Signed out to Dr. Nunn for review of CT abdomen. Laboratory Tests Test 07/07/18 21:20 07/07/18 23:05 07/07/18 23:50 White Blood Count 14.6 K/UL (4.8-10.8) H Red Blood Count 4.91 M/UL (4.70-6.10) Hemoglobin 15.3 G/DL (14.2-18.0) Hematocrit 44.1 % (42.0-52.0) Mean Corpuscular Volume 90 FL (80-99) Mean Corpuscular Hemoglobin 31.1 PG (27.0-31.0) H Mean Corpuscular Hemoglobin Concent 34.6 G/DL (32.0-36.0) Red Cell Distribution Width 12.4 % (11.6-14.8) Platelet Count 273 K/UL (150-450) Mean Platelet Volume 6.7 FL (6.5-10.1) Neutrophils (%) (Auto) 80.3 % (45.0-75.0) H Lymphocytes (%) (Auto) 15.7 % (20.0-45.0) L Monocytes (%) (Auto) 3.5 % (1.0-10.0) Eosinophils (%) (Auto) 0.1 % (0.0-3.0) Basophils (%) (Auto) 0.4 % (0.0-2.0) Prothrombin Time 11.3 SEC (9.30-11.50) Prothrombin Time INR 1.1 (0.9-1.1) PTT 25 SEC (23-33) Sodium Level 138 MMOL/L (136-145) Potassium Level 4.1 MMOL/L (3.5-5.1) Chloride Level 101 MMOL/L (98-107) Carbon Dioxide Level 26 MMOL/L (21-32) Anion Gap 11 mmol/L (5-15) Blood Urea Nitrogen 12 mg/dL (7-18) Creatinine 0.8 MG/DL (0.55-1.30) Estimate Glomerular Filtration Rate > 60 mL/min (>60) Glucose Level 144 MG/DL (74-106) H Lactic Acid Level 2.60 mmol/L (0.4-2.0) H 2.20 mmol/L (0.66-2.22) Calcium Level 9.3 MG/DL (8.5-10.1) Total Bilirubin 0.2 MG/DL (0.2-1.0) Aspartate Amino Transferase (AST) 33 U/L (15-37) Alanine Aminotransferase (ALT) 58 U/L (12-78) Alkaline Phosphatase 119 U/L (46-116) H Total Creatine Kinase 49 U/L (26-308) Troponin I 0.010 ng/mL (0.000-0.056) Total Protein 9.0 G/DL (6.4-8.2) H Albumin 3.9 G/DL (3.4-5.0) Globulin 5.1 g/dL Albumin/Globulin Ratio 0.8 (1.0-2.7) L Lipase 196 U/L (73-393) Phenytoin (Dilantin) Level 1.4 ug/mL (10-20) L Valproic Acid Level 22 MCG/ML (50-100) L Urine Color Pale yellow Urine Appearance Clear Urine pH 7 (4.5-8.0) Urine Specific [place] 1.010 (1.005-1.035) Urine Protein 1+ (NEGATIVE) H Urine Glucose (UA) Negative (NEGATIVE) Urine Ketones Negative (NEGATIVE) Urine Blood 1+ (NEGATIVE) H Urine Nitrite Negative (NEGATIVE) Urine Bilirubin Negative (NEGATIVE) Urine Urobilinogen Normal MG/DL (0.0-1.0) Urine Leukocyte Esterase Negative (NEGATIVE) Urine RBC 2-4 /HPF (0 - 0) H Urine WBC 0-2 /HPF (0 - 0) Urine Squamous Epithelial Cells Occasional /LPF Urine Bacteria None /HPF (NONE) EKG Diagnostic Results Rate: tachycardiac Rhythm: NSR ST Segments: no acute changes Rhythm Strip Diag. Results EP Interpretation: yes Rhythm: no PVC's, no ectopy, other - ST Chest X-Ray Diagnostic Results Chest X-Ray Diagnostic Results #1: Chest X-Ray Ordered: Yes # of Views/Limited/Complete: 1 View Indication: Other EP Interpretation: Yes Interpretation: no consolidation, no effusion, no pneumothorax Impression: Other Electronically Signed by: Electronically signed by Rod Srevin MD Chest X-Ray Diagnostic Results #2: Chest X-Ray Ordered: Yes # of Views/Limited/Complete: 1 View Indication: Other EP Interpretation: Yes Interpretation: no consolidation, no effusion, no pneumothorax, other - CVP in SVC Impression: Other Electronically Signed by: Electronically signed by Rod Servin MD Other X-Ray Diagnostic Results Other X-Ray Diagnostic Results : X-Ray ordered: Abdomen # of Views/Limited Vs Complete: 2 View Indication: Other Interpretation: nonspecific bowel gas, other - regionalized gas, stabilized fx pelvis, no free air Impression: Other Electronically Signed by: Electronically signed by Rod Servin MD CT/MRI/US Diagnostic Results CT/MRI/US Diagnostic Results : Imaging Test Ordered: CT abd/pelvis Impression no inflammatory process. Gall stones Last Vital Signs Date Time Temp Pulse Resp B/P (MAP) Pulse Ox O2 Delivery O2 Flow Rate FiO2 5/5/19 01:09 Room Air 07/08/18 00:01 99.4 121 24 132/89 95 Status: improved Disposition: ADMITTED INPATIENT Condition: Serious Rod Servin MD July 07, 2018 20:18
[2018-07-07] MEDS ORDERED: CATAPRES0.1 MG ORAL (20:19)
[2018-07-07 20:20] VITALS: BP 177/101
--- NOTE | 2018-07-07 20:20 | NUR ---
ED Nurse Note: Patient Arrives BIBA from [facility] with complaints of vomitting x 3 days. Patient is also febrile.
[2018-07-07] MEDS: Sodium Chloride 550 ML IV SCH ×2 (20:29→23:59)
[2018-07-07] MEDS ORDERED: Acetaminophen 650 MG SUPP RECTAL ONE (20:30)
[2018-07-07] MEDS ORDERED: Isovue-300 100ml vial INJ PRN (21:00)
--- NOTE | 2018-07-07 21:00 | NUR ---
ED Nurse Note: Patient had no palpable veins, verified by charge nurse as well. ERMD informed and decided toplace central line.
[2018-07-07] MEDS ORDERED: Piperacillin/Tazobactam 3.375 GM in NS 110 ML IVPB ONE (21:15)
[2018-07-07 21:37] LABS: BASOPHILS % (AUTO) 0.4 % (0.0-2.0); EOSINOPHILS % (AUTO) 0.1 % (0.0-3.0); HEMATOCRIT 44.1 % (42.0-52.0); HEMOGLOBIN 15.3 G/DL (14.2-18.0); LYMPHOCYTES % (AUTO) 15.7 % (20.0-45.0); MEAN CORPUSCULAR VOLUME 90 FL (80-99); MONOCYTES % (AUTO) 3.5 % (1.0-10.0); NEUTROPHILS % (AUTO) 80.3 % (45.0-75.0); PLATELET COUNT 273 K/UL (150-450); RED BLOOD COUNT 4.91 M/UL (4.70-6.10); RED CELL DISTRIBUTION WIDTH 12.4 % (11.6-14.8); WHITE BLOOD COUNT 14.6 K/UL (4.8-10.8)
[2018-07-07 21:49] LABS: INR 1.1 (0.9-1.1)
[2018-07-07 21:52] LABS: ANION GAP 11 mmol/L (5-15); BLOOD UREA NITROGEN 12 mg/dL (7-18); CALCIUM 9.3 MG/DL (8.5-10.1); CARBON DIOXIDE 26 MMOL/L (21-32); CHLORIDE 101 MMOL/L (98-107); CREATININE 0.8 MG/DL (0.55-1.30); POTASSIUM 4.1 MMOL/L (3.5-5.1); SODIUM 138 MMOL/L (136-145)
[2018-07-07 21:56] LABS: ALANINE AMINOTRANSFERASE 58 U/L (12-78); ALBUMIN 3.9 G/DL (3.4-5.0); ALBUMIN/GLOBULIN RATIO 0.8 (1.0-2.7); ALKALINE PHOSPHATASE 119 U/L (46-116); ASPARTATE AMINO TRANSFERASE 33 U/L (15-37); BILIRUBIN,TOTAL 0.2 MG/DL (0.2-1.0); CREATINE KINASE 49 U/L (26-308)
--- NOTE | 2018-07-07 22:00 | NUR ---
ED Nurse Note: Patient had central line placed at right jugular by VALDEMAR. INsertion procedure practives document filled out to completion. ERMd ok'd fluids prior xray confirmation of placement.
[2018-07-07 22:20] VITALS: BP 144/103
--- NOTE | 2018-07-07 23:50 | NUR ---
ED Nurse Note: PEr ERMD patient will go up once CT result has been read. CAlled and gave Teo IKM report. Swabs done, rinary catheter inserted. belongings sheet signed off by two nurses.
[2018-07-08] VITALS (7 sets, daily range): BP systolic 111–152; BP diastolic 55–94
--- NOTE | 2018-07-08 00:02 | NUR ---
ED Nurse Note: Patient transported to floor without incident by RN and skin care technician.
[2018-07-08 00:20] LABS: APPEARANCE,URINE CLEAR; BILIRUBIN, URINE NEGATIVE (NEGATIVE); COLOR,URINE PALE YELLOW; GLUCOSE, URINE (UA) NEGATIVE (NEGATIVE); KETONES,URINE NEGATIVE (NEGATIVE); LEUKOCYTE ESTERASE ,URINE NEGATIVE (NEGATIVE); NITRITE,URINE NEGATIVE (NEGATIVE); PH,URINE 7 (4.5-8.0); PROTEIN,URINE 1+ (NEGATIVE); UROBILINOGEN,URINE NORMAL MG/DL (0.0-1.0)
--- NOTE | 2018-07-08 00:30 | NUR ---
NURSE NOTES: Pt transferred to the unit via gurney. A/O x2. ST with HR of 120s noted. On room air with no signs of sob, ronchi on exhale noted. F/C intact and draining well. Skin intact. Belonging checked with ER nurse. informaticist applied. V/S BP 127/94, HR of 122, R 20, SaO2 93%, T 98.2. Bed in the lowest position. Side rails padded and up x3. Call light within reach. Will continue to monitor.
--- NOTE | 2018-07-08 00:45 | NUR ---
NURSE NOTES: Left a message to regarding admitting orders. Awaiting for call back.
--- NOTE | 2018-07-08 01:00 | NUR ---
NURSE NOTES: Observed pt sleeping on the bed. No signs of distress noted. ST with HR of 110s on media monitor. will continue to monitor.
--- NOTE | 2018-07-08 01:30 | NUR ---
NURSE NOTES: Paged again and still awaiting for call back.
--- NOTE | 2018-07-08 02:00 | NUR ---
NURSE NOTES: Left a message to Dr. Evangelista's cell phone and awaiting for call back.
--- NOTE | 2018-07-08 02:30 | NUR ---
NURSE NOTES: Left a message to regarding admitting orders and awaiting for call back.
--- NOTE | 2018-07-08 03:00 | NUR ---
NURSE NOTES: Left a message to 's cell phone again and still waiting for call back.
--- NOTE | 2018-07-08 03:14 | NUR ---
NURSE NOTES: Observed pt sleeping on the bed. Pt appears to be calm and comfortable. Will continue to monitor.
[2018-07-08] MEDS: Sodium Chloride 550 ML IV SCH (03:35)
--- NOTE | 2018-07-08 04:00 | NUR ---
NURSE NOTES: Notified regarding admitting orders and new order received.
--- NOTE | 2018-07-08 04:10 | NUR ---
NURSE NOTES: called back and new order received and carried out.
--- NOTE | 2018-07-08 04:11 | NUR ---
NURSE NOTES: IV fluid order from MIRANDA Bermudez at 70c/hr, changed to D5 1/2NS at 60cc/hr per 's order.
[2018-07-08] MEDS ORDERED: Acetaminophen 500mg (ES) tab ORAL PRN (04:30)
[2018-07-08] MEDS ORDERED: Milk of Magnesia 30ml Ud ORAL PRN (04:30)
[2018-07-08] MEDS ORDERED: Miralax 17gm pkt ORAL PRN (04:30)
[2018-07-08] MEDS ORDERED: Albuterol/Ipratropium 3ml neb HHN PRN (04:30)
[2018-07-08] MEDS: D5 1/2NS 1,000 ML IV SCH ×2 (04:53→20:30)
[2018-07-08 05:29] LABS: BASOPHILS % (AUTO) 0.5 % (0.0-2.0); HEMATOCRIT 39.4 % (42.0-52.0); HEMOGLOBIN 13.6 G/DL (14.2-18.0); LYMPHOCYTES % (AUTO) 30.2 % (20.0-45.0); MEAN CORPUSCULAR VOLUME 93 FL (80-99); MONOCYTES % (AUTO) 10.2 % (1.0-10.0); PLATELET COUNT 239 K/UL (150-450); RED BLOOD COUNT 4.24 M/UL (4.70-6.10)
[2018-07-08 06:26] LABS: ANION GAP 11 mmol/L (5-15); BLOOD UREA NITROGEN 12 mg/dL (7-18); CALCIUM 8.6 MG/DL (8.5-10.1); CARBON DIOXIDE 25 MMOL/L (21-32); CHLORIDE 103 MMOL/L (98-107); CREATININE 0.7 MG/DL (0.55-1.30); POTASSIUM 3.8 MMOL/L (3.5-5.1); SODIUM 139 MMOL/L (136-145)
--- NOTE | 2018-07-08 07:29 | NUR ---
HAND-OFF: Report given to JULIO Ma.
--- NOTE | 2018-07-08 07:30 | NUR ---
NURSE NOTES: received patient report from sherrie rn. patient is on bed awake. comfortable. not in acute distress. sr on th emonitor. no reports of acute events last night. will follow plan of care.
[2018-07-08] MEDS: QUEtiapine 200mg tab ORAL SCH ×2 (08:33→17:24)
[2018-07-08] MEDS: Phenytoin 100mg cap ORAL SCH ×2 (08:34→17:24)
[2018-07-08] MEDS: Heparin 5000 units/ml inj SUBQ SCH ×2 (08:41→20:27)
--- NOTE | 2018-07-08 11:37 | NUR ---
NURSE NOTES: attempted to call anisha bonilla [phone] regarding patient flu & PNA shot and last BM but unable to speak with the nurse.
--- NOTE | 2018-07-08 15:18 | NUR ---
CASE MANAGEMENT: REVIEW 58Y/M BIBA FROM [facility] CC: VOMITING X3 DAYS SI: SEPSIS . VOMITING . SEPSIS T 103.1 HR 126 RR 22 BP 177/101 SAT 93% ROOM AIR WBC 14.6 IS: NS IVF BOLUS X1 BENADRYL IV X1 REGLAN IV X1 PEPCID IV X1 TYLENOL RECTAL X1 PATIENT ADMITTED TO STEP DOWN UNIT 07/07/2018 DCP: PATIENT IS FROM [facility]
--- NOTE | 2018-07-08 16:00 | Consultation ---
DATE OF CONSULTATION: 07/08/2018 GASTROENTEROLOGY CONSULTATION CHIEF COMPLAINT: Abdominal pain, nausea, and vomiting. HISTORY OF PRESENT ILLNESS: The patient is a 58 years old male with multiple medical problems. He is a very poor historian. He has history of chronic seizure disorder, admitted to the hospital with complaint of nausea, vomiting, and abdominal pain. The patient had a CT of the abdomen and pelvis done in the ER, which showed no evidence of acute process, gallstones no obvious cholecystitis. PAST MEDICAL HISTORY: 1. History of seizure disorder. 2. Gallstones. 3. Gastritis. 4. Hiatal hernia. 5. Hypertension. 6. Diabetes. 7. Positive hepatitis C serologies. ALLERGIES: No known drug allergies. MEDICATIONS: Please see medication reconciliation list. SOCIAL HISTORY: Currently lives in a snf. No recent history of tobacco, alcohol, or illicit drug abuse. FAMILY HISTORY: Noncontributory. REVIEW OF SYSTEMS: Limited. PHYSICAL EXAMINATION: VITAL SIGNS: Temperature 98.1 degrees, pulse 99, respirations 21, and blood pressure is 152/91. HEENT: Normocephalic and atraumatic. Sclerae anicteric. NECK: Supple. No evidence of lymphadenopathy. CARDIOVASCULAR: Regular rhythm. Plus S1 and S2. No obvious murmur. LUNGS: Clear to auscultation bilaterally. ABDOMEN: Bowel sounds are present. Abdomen is soft and nontender. No rebound. No guarding. No peritoneal sign. EXTREMITIES: No cyanosis. No clubbing. No edema. LABORATORY DATA: White count is 14, hemoglobin 13, and platelet count is 239,000. Chem-7 grossly normal. ASSESSMENT AND PLAN: This is a 58 years old male with abdominal pain, nausea, and vomiting. Differential diagnosis would be cholecystitis given the patient had elevated white count, gallstones, and abdominal pain. Although, CT did not show pericholecystic fluid or any obvious abnormal liver function tests on the blood test. Plan to start him on some diet, order abdominal ultrasound. Antibiotics has been ordered by the primary team. The patient also still needs to be seen by surgeon. We are going to add PPI daily. We will repeat the labs for tomorrow including amylase, lipase, and liver function test. I want to thank, Dr. Ady Kerr for this kind referral. Carlitomitali Mcclain M.D. DR: Makenna JOB#: [id number] CC:
--- NOTE | 2018-07-08 16:04 | NUR ---
NURSE NOTES: left a message to dr adams regarding patients HR of 141 in the morning, that patients HR right now on the 100s but asymptomatic. awaits callback and new order as of this time.
--- NOTE | 2018-07-08 16:15 | History and Physical Report ---
DATE OF ADMISSION: 07/07/2018 TIME SEEN: On 07/08/2018, at 8 a.m. CONSULTANTS: 1. Carlito Mcclain M.D. 2. Sherlyn Sheffield M.D. 3. Edgardo Tatum M.D. 4. Wild Butler M.D. CHIEF COMPLAINT: Abdominal pain, nausea, vomiting, and cholelithiasis. BRIEF HISTORY: This is a 58-year-old male from [facility], who presented with two days of increased abdominal pain, nausea, vomiting. He came to [place] [facility] and diagnosed with cholelithiasis, abdominal pain, nausea, vomiting, and admitted to [facility] for further care. Currently, calm in bed, slight general pain, no complaint. REVIEW OF SYSTEMS: No chest pain. Slight shortness of breath. Slight nausea, vomiting. No diarrhea. PAST MEDICAL HISTORY: Includes asthma, diabetes, hypertension, seizure. PAST SURGICAL HISTORY: None. MEDICATIONS: Include , chlorhexidine, amlodipine, Vibramycin, Protonix, Dilantin, Seroquel, Catapres, albuterol, and temazepam. ALLERGIES: Denies. SOCIAL HISTORY: Positive smoking. Positive alcohol. No intravenous drug abuse. FAMILY HISTORY: Noncontributory. PHYSICAL EXAMINATION: GENERAL: Calm in bed, oriented x2, in no acute distress. VITAL SIGNS: Temperature is 98 degrees, pulse 99, respirations 21, and blood pressure 152/91. CARDIOVASCULAR: No murmur. LUNGS: Poor air exchange. ABDOMEN: Bowel sounds distant. Soft. No guarding. No rigidity. Slightly tender. No rebound. EXTREMITIES: Show no cyanosis or edema. NEUROLOGIC: The patient moves all extremities, slightly weak. LABORATORY AND DIAGNOSTIC DATA: Labs at this time show white count is 14, hemoglobin and hematocrit 13/39, otherwise CBC . BMP shows glucose 117. Lactic acid 2.6 and now 2.2. Troponin 0.01. INR is 1.1, PTT is 25. Urine-tox, phenytoin 1.4, valproic 22. Urinalysis, 1+ blood. ASSESSMENT: 1. Abdominal pain, nausea, vomiting. 2. Cholelithiasis. 3. Lactic acidosis, which has improved. 4. Asthma. 5. Diabetes. 6. Hypertension. 7. Seizure. 8. Psych history. PLAN: 1. Continue previous medications. 2. Pain control. 3. NPO and IV fluids. 4. Antibiotics per Infectious Disease. 5. Blood pressure, blood sugar, and seizure control. 6. PT and dietary evaluation. 7. CBC and BMP in the morning. 8. Psych evaluation, Dr. Ledbetter to continue. Ady Kerr D.O. DR: ALETHEA JOB#: [id number] CC:
--- NOTE | 2018-07-08 17:23 | Cardiac Electrophysiology PN ---
Subjective Subjective [id number] Objective Last 24 Hour Vital Signs Date Time Temp Pulse Resp B/P (MAP) Pulse Ox O2 Delivery O2 Flow Rate FiO2 07/08/18 16:00 Room Air 07/08/18 16:00 97.7 98 21 111/68 (82) 94 07/08/18 15:26 99 07/08/18 12:00 110 07/08/18 12:00 Room Air 07/08/18 12:00 98.1 100 20 116/55 (75) 93 07/08/18 08:39 99 152/91 07/08/18 08:00 Room Air 07/08/18 08:00 98.1 99 21 152/91 (111) 93 07/08/18 07:58 101 07/08/18 04:00 109 07/08/18 04:00 99.0 107 22 130/89 (103) 94 07/08/18 04:00 Room Air 07/08/18 01:09 Room Air 07/08/18 01:04 115 07/08/18 00:30 98.2 122 22 127/94 (105) 94 07/08/18 00:01 99.4 121 24 132/89 95 Room Air 07/08/18 00:00 99.4 121 24 132/89 95 Room Air 07/07/18 22:20 99.4 130 22 144/103 96 Room Air 07/07/18 22:00 99.4 07/07/18 20:20 101.6 129 20 177/101 93 Room Air 07/07/18 20:20 129 20 Room Air 07/07/18 20:04 103.1 126 22 93 Room Air Intake and Output 07/07/18 07/08/18 19:00 07:00 Intake Total 0 ml Output Total 350 ml Balance -350 ml Intake Oral 0 ml Output Urine Total 350 ml Laboratory Tests Test 07/07/18 21:20 07/07/18 23:05 07/07/18 23:50 07/08/18 04:50 White Blood Count 14.6 K/UL (4.8-10.8) H 14.0 K/UL (4.8-10.8) H Red Blood Count 4.91 M/UL (4.70-6.10) 4.24 M/UL (4.70-6.10) L Hemoglobin 15.3 G/DL (14.2-18.0) 13.6 G/DL (14.2-18.0) L Hematocrit 44.1 % (42.0-52.0) 39.4 % (42.0-52.0) L Mean Corpuscular Volume 90 FL (80-99) 93 FL (80-99) Mean Corpuscular Hemoglobin 31.1 PG (27.0-31.0) H 32.0 PG (27.0-31.0) H Mean Corpuscular Hemoglobin Concent 34.6 G/DL (32.0-36.0) 34.5 G/DL (32.0-36.0) Red Cell Distribution Width 12.4 % (11.6-14.8) 13.0 % (11.6-14.8) Platelet Count 273 K/UL (150-450) 239 K/UL (150-450) Mean Platelet Volume 6.7 FL (6.5-10.1) 7.9 FL (6.5-10.1) Neutrophils (%) (Auto) 80.3 % (45.0-75.0) H 59.0 % (45.0-75.0) Lymphocytes (%) (Auto) 15.7 % (20.0-45.0) L 30.2 % (20.0-45.0) Monocytes (%) (Auto) 3.5 % (1.0-10.0) 10.2 % (1.0-10.0) H Eosinophils (%) (Auto) 0.1 % (0.0-3.0) 0.0 % (0.0-3.0) Basophils (%) (Auto) 0.4 % (0.0-2.0) 0.5 % (0.0-2.0) Prothrombin Time 11.3 SEC (9.30-11.50) Prothromb Time International Ratio 1.1 (0.9-1.1) Activated Partial Thromboplast Time 25 SEC (23-33) Sodium Level 138 MMOL/L (136-145) 139 MMOL/L (136-145) Potassium Level 4.1 MMOL/L (3.5-5.1) 3.8 MMOL/L (3.5-5.1) Chloride Level 101 MMOL/L (98-107) 103 MMOL/L (98-107) Carbon Dioxide Level 26 MMOL/L (21-32) 25 MMOL/L (21-32) Anion Gap 11 mmol/L (5-15) 11 mmol/L (5-15) Blood Urea Nitrogen 12 mg/dL (7-18) 12 mg/dL (7-18) Creatinine 0.8 MG/DL (0.55-1.30) 0.7 MG/DL (0.55-1.30) Estimat Glomerular Filtration Rate > 60 mL/min (>60) > 60 mL/min (>60) Glucose Level 144 MG/DL (74-106) H 117 MG/DL (74-106) H Lactic Acid Level 2.60 mmol/L (0.4-2.0) H 2.20 mmol/L (0.66-2.22) Calcium Level 9.3 MG/DL (8.5-10.1) 8.6 MG/DL (8.5-10.1) Total Bilirubin 0.2 MG/DL (0.2-1.0) Aspartate Amino Transf (AST/SGOT) 33 U/L (15-37) Alanine Aminotransferase (ALT/SGPT) 58 U/L (12-78) Alkaline Phosphatase 119 U/L (46-116) H Total Creatine Kinase 49 U/L (26-308) Troponin I 0.010 ng/mL (0.000-0.056) Total Protein 9.0 G/DL (6.4-8.2) H Albumin 3.9 G/DL (3.4-5.0) Globulin 5.1 g/dL Albumin/Globulin Ratio 0.8 (1.0-2.7) L Lipase 196 U/L (73-393) Phenytoin (Dilantin) Level 1.4 ug/mL (10-20) L Valproic Acid (Depakene) Level 22 MCG/ML (50-100) L Urine Color Pale yellow Urine Appearance Clear Urine pH 7 (4.5-8.0) Urine Specific [place] 1.010 (1.005-1.035) Urine Protein 1+ (NEGATIVE) H Urine Glucose (UA) Negative (NEGATIVE) Urine Ketones Negative (NEGATIVE) Urine Blood 1+ (NEGATIVE) H Urine Nitrite Negative (NEGATIVE) Urine Bilirubin Negative (NEGATIVE) Urine Urobilinogen Normal MG/DL (0.0-1.0) Urine Leukocyte Esterase Negative (NEGATIVE) Urine RBC 2-4 /HPF (0 - 0) H Urine WBC 0-2 /HPF (0 - 0) Urine Squamous Epithelial Cells Occasional /LPF Urine Bacteria None /HPF (NONE) Karel Honeycutt MD July 08, 2018 17:23
--- NOTE | 2018-07-08 19:05 | NUR ---
HAND-OFF: Report given to sherrie lópez.
--- NOTE | 2018-07-08 19:09 | NUR ---
NURSE NOTES: Report received from JULIO Ma. Observed pt sleeping on the bed, arousable by voice, denies any pain at this time. ST with HR of 102 noted. On room air with no signs of distress. Abdomen round, soft, and non-tender. Central line at R IJ central line, running D5 1/2NS at 60cc/hr. Bed in the lowest position. Side rails padded and up x3. Call light within reach. Will continue to monitor.
[2018-07-08] MEDS ORDERED: DEPAKOTE500 MG PO (20:23)
[2018-07-08] MEDS: Dyna-Hex 2% Top Sol 2oz TOPIC SCH (20:25)
[2018-07-08] MEDS ORDERED: SEROQUEL100 MG ORAL (20:26)
[2018-07-08] MEDS: Metoprolol 25mg tab ORAL SCH (20:27)
[2018-07-08] MEDS ORDERED: SENNA8.6 M2 PO (20:32)
[2018-07-08] MEDS ORDERED: LACTULOSE20 GM/301 ORAL (20:32)
[2018-07-08] MEDS ORDERED: COLACE100 MG ORAL (20:32)
[2018-07-08] MEDS ORDERED: MULTIVITAMINS1 EAC2 ORAL (20:32)
[2018-07-08] MEDS ORDERED: FLEET ENEMA133 ML RECTAL (20:42)
[2018-07-08] MEDS ORDERED: ACETAMINOPHEN325 M1 ORAL (20:42)
[2018-07-08] MEDS ORDERED: DULCOLAX10 MG RC (20:42)
--- NOTE | 2018-07-08 22:31 | NUR ---
NURSE NOTES: Pt appears to be anxious, trying to spit, and refused to have bed bath. SR with lunchroom monitor. No acute distress noted at this time.
--- NOTE | 2018-07-08 23:53 | Diagnostic Imaging Report ---
EXAM: XR Chest, 1 View CLINICAL HISTORY: ABD PAIN TECHNIQUE: Frontal view of the chest. COMPARISON: No relevant prior studies available. FINDINGS: Lungs: Reduced lung volumes and accentuation of markings. No confluent consolidation or confluent edema. Pleural space: Unremarkable. No pneumothorax. Heart: Large cardiomediastinal silhouette. Mediastinum: See above. Bones/joints: No acute fracture. Other findings: Patient is rotated. IMPRESSION: Reduced lung volumes and accentuation of markings. No confluent consolidation or confluent edema.
--- NOTE | 2018-07-08 23:53 | Diagnostic Imaging Report ---
EXAM: XR Abdomen, 1 View CLINICAL HISTORY: ABD PAIN TECHNIQUE: Frontal supine view of the abdomen/pelvis. COMPARISON: No relevant prior studies available. FINDINGS: Gastrointestinal tract: Nonspecific bowel gas pattern. Organs: Radiodensities in the right upper quadrant, query cholelithiasis Bones/joints: Fixation hardware related to the left pelvis. Old pelvic fractures. IMPRESSION: Nonspecific bowel gas pattern.
--- NOTE | 2018-07-08 23:53 | Diagnostic Imaging Report ---
EXAM: XR Chest, 1 View CLINICAL HISTORY: LINE TECHNIQUE: Frontal view of the chest. COMPARISON: No relevant prior studies available. FINDINGS: Lungs: Accentuation of the pulmonary markings. Presumed area of scar or atelectasis in the right lung base rather than air under the diaphragm. Pleural space: No pneumothorax Heart: Large cardiac mediastinal silhouette. Mediastinum: See above. Bones/joints: No acute fracture. Tubes, lines and devices: Right IJ central line in the SVC. IMPRESSION: Right IJ central line in the SVC. No pneumothorax. Presumed area of scar or atelectasis in the right lung base rather than air under the diaphragm. Recommend further evaluation with CT is there is clinical concern for pneumoperitoneum.
--- NOTE | 2018-07-08 23:54 | Diagnostic Imaging Report ---
EXAM: CT Abdomen and Pelvis With Intravenous Contrast CLINICAL HISTORY: ABD PAIN TECHNIQUE: Axial computed tomography images of the abdomen and pelvis with intravenous contrast. CTDI 17.49 DLP 877.14 One or more of the following dose reduction techniques were used: automated exposure control, adjustment of the mA and/or kV according to patient size, use of iterative reconstruction technique. COMPARISON: No relevant prior studies available. FINDINGS: Lung bases: Unremarkable. No mass. No consolidation. ABDOMEN: Liver: Unremarkable. No mass. Gallbladder and bile ducts: Cholelithiasis. No ductal dilation. Pancreas: Unremarkable. No mass. No ductal dilation. Spleen: Unremarkable. No splenomegaly. Adrenals: Unremarkable. No mass. Kidneys and ureters: Small parenchymal cyst at the posterior aspect of the left kidney. No obstructive uropathy. Stomach and bowel: Unremarkable. No obstruction. No mucosal thickening. PELVIS: Appendix: No findings to suggest acute appendicitis. Bladder: Unremarkable. No mass. Reproductive: Unremarkable as visualized. ABDOMEN and PELVIS: Intraperitoneal space: Unremarkable. No free air. No significant fluid collection. Bones/joints: Old fractures involving the right and left pubic rami. Status post remote open reduction and internal fixation of a prior left ileum fracture also. No suspicious lytic or sclerotic lesions of bone. Degenerative spine changes. No dislocation. Soft tissues: Small fat-containing left inguinal hernia. Vasculature: Unremarkable. No abdominal aortic aneurysm. Lymph nodes: Unremarkable. No enlarged lymph nodes. IMPRESSION: No acute or inflammatory disease or bowel obstruction. Cholelithiasis.
--- NOTE | 2018-07-09 | NUR ---
NURSE NOTES: Pt refused to take V/S, explained about risks and still refused. SR with desk monitor noted. No acute distress noted at this time. Pt appears to be agitated and anxious. Will continue to monitor.
--- NOTE | 2018-07-09 03:43 | NUR ---
NURSE NOTES: Pt refused to take v/s and cleaned. Pt appears to be agitated and tried to punch and spit on RN.
--- NOTE | 2018-07-09 03:50 | NUR ---
NURSE NOTES: Pt refused to draw blood, explained risks and benefits, and still refused. Will continue to monitor.
--- NOTE | 2018-07-09 04:10 | NUR ---
NURSE NOTES: Pt refused to do EKG said, "I do not like you. You are an idiot. I want you to get out of that door right now. GO!." Pt tried to spit on RN. Will continue to monitor.
--- NOTE | 2018-07-09 05:00 | Consultation ---
DATE OF CONSULTATION: 07/08/2018 CARDIOLOGY CONSULTATION CONSULTING PHYSICIAN: Karel Honeycutt M.D. REFERRING PHYSICIAN: Ady Kerr D.O. REASON FOR CONSULTATION: Tachycardia. HISTORY OF PRESENT ILLNESS: The patient is a 58-year-old gentleman with history of seizure disorder, diabetes, hepatitis C, gastritis, and gallstones who is a very poor historian, was admitted to the hospital for nausea, vomiting, abdominal pain. CT of the abdomen and pelvis in the ER showed no evidence of acute process. No evidence of cholecystitis. The patient, however became tachycardic heart rate going up to 140s and a Cardiology consultation was obtained for further evaluation. Based on the patient in sinus rhythm in the 80s, however, during that time the patient with sinus tachycardia rate of 140s. REVIEW OF SYSTEMS: Negative other than what was mentioned in history of present illness. PAST MEDICAL HISTORY: As mentioned above. FAMILY HISTORY: Noncontributory. SOCIAL HISTORY: He is a custodial resident. Does not smoke or drink alcohol. PHYSICAL EXAMINATION: VITAL SIGNS: Blood pressure of , pulse 98, respiratory rate 21, temperature 97.1. HEAD AND NECK: Shows no JVD. LUNGS: Coarse rhonchi. CARDIOVASCULAR: Regular S1 and S2 with no gallop or murmur. ABDOMEN: Soft EXTREMITIES: A 1+ pitting edema. LABORATORY AND DIAGNOSTIC DATA: His labs show white count of 14, hematocrit 13.7, hematocrit 39.5, and platelet count 239. Sodium 139, potassium 3.8, BUN of 12, creatinine 0.7, and glucose of 117. Troponin is negative. ASSESSMENT AND PLAN: 1. Tachycardia due to sinus tachycardia secondary to anxiety and sepsis. I will discontinue amlodipine and put the patient on metoprolol 25 mg b.i.d. I will follow the patient clinically. We will also get an EKG and echocardiogram. 2. Abdominal pain and vomiting. CT did not show any acute abdominal process. Abdominal ultrasound is pending. Further evaluation by Dr. Mcclain and the patient is on antibiotic per ID. 3. Hepatitis C. 4. Diabetes. 5. Hiatal hernia. 6. Seizure disorder. Thank you very much, Dr. Kerr, for allowing me to participate in the care of this patient. Please do not hesitate to contact me for any questions regarding my evaluation. Sincerely, Karel Honeycutt M.D. DR: Leatha JOB#: [id number] CC:
--- NOTE | 2018-07-09 05:01 | NUR ---
NURSE NOTES: Left a message to regarding pt's non-compliance and gram positive cocci from blood culture. Awaiting call back.
--- NOTE | 2018-07-09 06:32 | NUR ---
NURSE NOTES: Notified regarding pt non-compliance and no new order received. Will continue to monitor. Addendum: 07/09/18 at 0634 by Fran Shelley RN per 's request.
--- NOTE | 2018-07-09 06:41 | NUR ---
NURSE NOTES: Notified regarding Gram positive cocci from blood culture and Vancomycin IV pharm dose ordered and will be carried out.
--- NOTE | 2018-07-09 07:20 | NUR ---
HAND-OFF: Report given to JULIO Shelton.
--- NOTE | 2018-07-09 07:21 | NUR ---
NURSE NOTES: Received patient from JULIO Bond. Patient VS stable at this time with no sign of acute distress. Patient refused blood draw, ECG, and vital signs this morning. Will follow up to see if the patient will consent to labs and ECG this morning. Patient also has an order for ultrasound of the abdomen for which he is NPO at this time. Will follow up with fire management technician. Patient denies pain at this time. Patient is alert and oriented to place, person, and time. Patient confused and combative at times. Patient pleasant and friendly at this time. Patient on room air with stable saturation on the oxygen monitor. Patient skin intact. Patient has a right internal jugular triple lumen catheter that is asymptomatic, patent, and running D5 1/2 NS at 60mL/hr at this time. Patient bed in low position with bed alarm on and call light in reach at this time.
[2018-07-09 08:00] VITALS: BP 130/74
[2018-07-09] MEDS: QUEtiapine 200mg tab ORAL SCH ×2 (08:34→18:20)
[2018-07-09] MEDS: Metoprolol 25mg tab ORAL SCH ×2 (08:34→20:57)
[2018-07-09] MEDS: Phenytoin 100mg cap ORAL SCH ×2 (08:34→18:20)
[2018-07-09] MEDS: Heparin 5000 units/ml inj SUBQ SCH ×2 (08:35→20:58)
--- NOTE | 2018-07-09 09:01 | General Progress Note ---
Assessment/Plan Assessment/Plan: 1. History of seizure disorder. 2. Gallstones. 3. Gastritis. 4. Hiatal hernia. 5. Hypertension. 6. Diabetes. 7. Positive hepatitis C serologies fu abd US fu surg Hep C RNA ordered, >>> needs out patient fu repeat labs in am CT reviewed Subjective ROS Limited/Unobtainable: Yes Allergies: Coded Allergies: No Known Allergies (Unverified , 04/16/16) Subjective Right sided abd pain Objective Last 24 Hour Vital Signs Date Time Temp Pulse Resp B/P (MAP) Pulse Ox O2 Delivery O2 Flow Rate FiO2 07/09/18 08:34 86 130/74 07/09/18 08:00 87 07/09/18 08:00 Room Air 07/09/18 04:00 Room Air 07/09/18 04:00 88 07/09/18 04:00 79 07/09/18 01:54 83 16 Room Air 21 07/09/18 00:00 Room Air 07/09/18 00:00 88 07/09/18 00:00 80 07/08/18 20:27 95 140/89 07/08/18 20:00 98.4 95 16 140/89 (106) 94 07/08/18 20:00 91 07/08/18 20:00 Room Air 07/08/18 16:00 Room Air 07/08/18 16:00 97.7 98 21 111/68 (82) 94 07/08/18 15:26 99 07/08/18 12:00 110 07/08/18 12:00 Room Air 07/08/18 12:00 98.1 100 20 116/55 (75) 93 Intake and Output 07/08/18 07/09/18 19:00 07:00 Intake Total 850 ml 660 ml Output Total 400 ml 550 ml Balance 450 ml 110 ml Intake Oral 250 ml IV Total 600 ml 660 ml Output Urine Total 400 ml 550 ml Height (Feet): 5 Height (Inches): 6.00 Weight (Pounds): 179 General Appearance: alert EENT: normal ENT inspection Neck: supple Cardiovascular: normal rate Respiratory/Chest: decreased breath sounds Abdomen: normal bowel sounds, soft, tender Extremities: non-tender Carlito Mcclain MD July 09, 2018 09:01
[2018-07-09] MEDS: Vancomycin 750mg/NS 275ml IVPB SCH ×4 (09:09→21:47)
[2018-07-09] MEDS ORDERED: NS 275ml ONE (09:45)
[2018-07-09] MEDS ORDERED: D5 1/2NS 1000ml IV ONE (09:45)
--- NOTE | 2018-07-09 10:12 | NUR ---
SOFTWARE SUPPORT ENGINEERDYE WEIGHER SI:SEPSIS . ABDOMINAL PAIN W/ VOMITING VS: BP 13/74,P 86, RR 16 PATIENT IS REFUSING TO HAVE VITALS TAKEN IS:VANCOMYCIN 275ml IVPB HEPARIN SUBQ PROTONIX 40mg VIBRAMYCIN 100mg DILANTIN 200mg SEROQUEL 250mg LOPRESSOR 25mg SDU STATUS
--- NOTE | 2018-07-09 10:26 | NUR ---
NURSE NOTES: Patient refused vital signs at 0800. Patient refused to cooperate for 2D echocardiogram, stating that the gel was too cold. Patient then attempted to remove central line. Patient was then told that he must not remove central line because he will hurt himself if he does so. He expressed understanding. He agreed to leave the central internal jugular triple lumen catheter alone at this time, but the IV insertion site was already exposed. Dressing has been replaced using aseptic technique at this time. Patient's vital signs taken at this time. ECG also done at this time. Patient seems to be compliant at this time but is known to be combative and uncooperative. Will monitor. Dr Cannon and Dr Honeycutt and Dr Kerr are all aware that the patient is uncooperative.
--- NOTE | 2018-07-09 11:06 | NUR ---
*-* NO INSURANCE INFORMATION IN THE BAR UNABLE TO SEND CLINICALS *-*
--- NOTE | 2018-07-09 11:33 | Consultation ---
History of Present Illness General Date patient seen: July 09, 2018 Chief Complaint: Vomiting Present Illness HPI 58 year old male with hx of seizures, CVA with L hemiparesis, Hypertension. Hepatitis C. Gastritis [facility] resident brought in for CC of 3 days of vomiting. The patient's denies any abdominal pain at this time. Apparently he has a fever. He was tachycardic and admitted to [facility]. Currently, the tachycardia has resolved and pt looks very comfortable. Allergies: Coded Allergies: No Known Allergies (Unverified , 04/16/16) Medication History Scheduled Amlodipine Besylate (Norvasc), 10 MG ORAL DAILY, (Reported) Divalproex Sodium (Depakote), 500 MG PO QHS, (Reported) Docusate Sodium* (Colace*), 100 MG ORAL DAILY, (Reported) Lactulose (Lactulose*), 30 ML ORAL BID, (Reported) Multivitamins* (Multivitamins*), 1 TAB ORAL DAILY, (Reported) Phenytoin Sodium Extended* (Dilantin*), 100 MG ORAL QHS, (Reported) Quetiapine Fumarate* (Seroquel*), 100 MG ORAL TWICE A DAY, (Reported) Sennosides (Senna), 17.2 MG PO QHS, (Reported) Scheduled PRN Acetaminophen* (Tylenol Extra Strength*), 325 MG ORAL Q6H PRN for Mild Pain/ Temp > 100.5, (Reported) Acetaminophen* (Acetaminophen 325MG Tablet*), 650 MG ORAL Q4H PRN for Mild Pain/ Temp > 100.5, (Reported) Al Hydroxide/mg Hydroxide (Mag-Al Liquid), 30 ML PO Q6HR PRN for gastric discomfort, (Reported) Bisacodyl (Dulcolax), 10 MG RC DAILY PRN for Constipation, (Reported) Clonidine Hcl* (Catapres*), 0.1 MG ORAL EVERY 6 HOURS PRN for SBP >160, ( Reported) Ipratropium/Albuterol Sulfate (DuoNeb 0.5-3(2.5)mg/3ml), 3 ML HHN Q4HR PRN for Shortness of Breath, (Reported) Magnesium Hydroxide* (Milk Of Magnesia*), 30 ML ORAL DAILY PRN for Constipation, (Reported) Na Phos,M-B/Na Phos,Di-Ba* (Fleet Enema*), 133 ML RECTAL QOD PRN for Constipation, (Reported) Nitroglycerin (Nitroglycerin), 0.4 MG SL [id number] x 3 doses PRN for chest pain, (Reported) Discontinued Medications Amoxicillin/Potassium Clav 875-125* (Augmentin 875-125 Tablet*), 1 TAB ORAL Q12HR, (Reported) Discontinued Reason: Therapy completed Divalproex Sodium* (Depakote*), 1,000 MG PO BEDTIME, (Reported) Discontinued Reason: Medication dose changed Doxycycline Hyclate* (Vibramycin*), 100 MG ORAL EVERY 12 HOURS, (Reported) Discontinued Reason: Therapy completed Heparin Sod (Porcine) (Heparin Sodium*), 5,000 UNITS SUBQ EVERY 12 HOURS, ( Reported) Discontinued Reason: Pt stopped taking med Ondansetron Odt* (Zofran Odt*), 4 MG ORAL Q6H PRN for Nausea & Vomiting, ( Reported) Discontinued Reason: Pt stopped taking med Pantoprazole* (Protonix*), 40 MG ORAL DAILY, (Reported) Discontinued Reason: Pt stopped taking med Polyethylene Glycol 3350* (Miralax*), 17 GM ORAL DAILY PRN for Constipation, ( Reported) Discontinued Reason: Pt stopped taking med Promethazine HCl/Codeine (Prometh-Codein 6.25-10 mg/5 ml), 5 ML PO Q4HR PRN for For Cough, (Reported) Discontinued Reason: Pt stopped taking med Quetiapine Fumarate* (Seroquel*), 250 MG ORAL TWICE A DAY, (Reported) Discontinued Reason: Medication dose changed Temazepam* (Restoril*), 15 MG ORAL BEDTIME PRN for Insomnia, (Reported) Discontinued Reason: Pt stopped taking med Patient History Healthcare decision maker Resuscitation status Advanced Directive on File No Past Medical/Surgical History Past Medical/Surgical History: (1) s/p Large R Craniotomy with spastic hemiparesis (2) HTN (hypertension) (3) Seizure (4) Hepatitis C Review of Systems All Other Systems: negative except mentioned in HPI Physical Exam General Appearance: WD/WN Lines, tubes and drains: peripheral HEENT: normocephalic, atraumatic, anicteric Neck: non-tender, normal alignment Respiratory/Chest: chest wall non-tender, lungs clear Breasts: no masses Cardiovascular/Chest: normal peripheral pulses Abdomen: normal bowel sounds, soft Genitourinary/Rectal: normal genital exam Extremities: normal range of motion Skin Exam: normal pigmentation Neurologic: casing tester II-XII grossly normal Last 24 Hour Vital Signs Date Time Temp Pulse Resp B/P (MAP) Pulse Ox O2 Delivery O2 Flow Rate FiO2 07/09/18 08:34 86 130/74 07/09/18 08:28 86 16 Room Air 21 07/09/18 08:00 97.9 87 20 130/74 (92) 93 07/09/18 08:00 90 07/09/18 08:00 Room Air 07/09/18 04:00 Room Air 07/09/18 04:00 88 07/09/18 04:00 79 07/09/18 01:54 83 16 Room Air 21 07/09/18 00:00 Room Air 07/09/18 00:00 88 07/09/18 00:00 80 07/08/18 20:27 95 140/89 07/08/18 20:00 98.4 95 16 140/89 (106) 94 07/08/18 20:00 91 07/08/18 20:00 Room Air 07/08/18 16:00 Room Air 07/08/18 16:00 97.7 98 21 111/68 (82) 94 07/08/18 15:26 99 07/08/18 12:00 110 07/08/18 12:00 Room Air 07/08/18 12:00 98.1 100 20 116/55 (75) 93 Intake and Output 07/08/18 07/09/18 19:00 07:00 Intake Total 850 ml 720 ml Output Total 400 ml 550 ml Balance 450 ml 170 ml Intake Oral 250 ml IV Total 600 ml 720 ml Output Urine Total 400 ml 550 ml Height (Feet): 5 Height (Inches): 6.00 Weight (Pounds): 179 Medications Current Medications Medications (Trade) Dose Ordered Sig/Netta Route PRN Reason Start Time Stop Time Status Last Admin Dose Admin Acetaminophen (Tylenol) 325 mg Q6H PRN ORAL Mild Pain/Temp > 100.5 07/08/18 04:30 08/07/18 04:29 Al Hydroxide/Mg Hydroxide (Mylanta) 30 ml Q6HR PRN ORAL gastric discomfort 07/08/18 04:30 08/07/18 04:29 Albuterol/ Ipratropium (Albuterol/ Ipratropium) 3 ml Q4HR PRN HHN For Cough 07/08/18 04:30 07/13/18 04:29 Chlorhexidine Gluconate (Shaniqua-Hex 2%) 1 applic DAILY@2000 TOPIC 07/08/18 20:00 08/07/18 19:59 07/08/18 20:25 Clonidine HCl (Catapres Tab) 0.1 mg PRN PRN ORAL For High Blood Pressure 07/08/18 06:30 08/07/18 05:59 Dextrose/Sodium Chloride 1,000 ml @ 60 mls/hr [id number] IV 07/08/18 04:30 08/07/18 04:29 07/08/18 20:30 Divalproex Sodium (Depakote) 1,000 mg BEDTIME ORAL 07/08/18 21:00 08/07/18 20:59 07/08/18 20:26 Doxycycline Monohydrate (Vibramycin) 100 mg EVERY 12 HOURS ORAL 07/08/18 09:00 07/15/18 08:59 07/09/18 08:34 Heparin Sodium (Porcine) (Heparin 5000 units/ml) 5,000 units EVERY 12 HOURS SUBQ 07/08/18 09:00 08/07/18 08:59 07/09/18 08:35 Iopamidol (Isovue-300 100ml) 100 ml NOW PRN INJ Radiology Procedure 07/07/18 21:00 Magnesium Hydroxide (Mom) 30 ml DAILY PRN ORAL Constipation 07/08/18 04:30 08/07/18 04:29 Metoprolol Tartrate (Lopressor) 25 mg Q12HR ORAL 07/08/18 21:00 08/07/18 20:59 07/09/18 08:34 Ondansetron HCl (Zofran ODT) 4 mg Q6H PRN ORAL Nausea & Vomiting 07/08/18 04:15 08/07/18 04:14 Pantoprazole (Protonix) 40 mg DAILY ORAL 07/09/18 09:00 08/08/18 08:59 07/09/18 08:35 Phenytoin (Dilantin) 200 mg BID ORAL 07/08/18 09:00 08/07/18 08:59 07/09/18 08:34 Polyethylene Glycol (Miralax) 17 gm DAILY PRN ORAL Constipation 07/08/18 04:30 08/07/18 04:29 Quetiapine Fumarate (SEROquel) 250 mg TWICE A DAY ORAL 07/08/18 09:00 08/07/18 08:59 07/09/18 08:34 Temazepam (Restoril) 15 mg BEDTIME PRN ORAL Insomnia 07/08/18 04:30 07/15/18 04:29 Vancomycin HCl (Vanco rx to dose) 1 ea DAILY PRN MISC Per rx protocol 07/09/18 06:45 08/08/18 06:44 Vancomycin HCl 750 mg/Sodium Chloride 275 ml @ 183.333 mls/hr Q12HR IVPB 07/09/18 09:00 07/14/18 08:59 07/09/18 09:09 Assessment/Plan Problem List: (1) Intractable nausea and vomiting ICD Codes: R11.2 - Nausea with vomiting, unspecified SNOMED: 940583217 (2) HTN (hypertension) ICD Codes: I10 - Essential (primary) hypertension SNOMED: 26835294 (3) Seizure ICD Codes: R56.9 - Unspecified convulsions SNOMED: 54714515 (4) Hepatitis C ICD Codes: B19.20 - Unspecified viral hepatitis C without hepatic coma SNOMED: 54094619 (5) Gastritis ICD Codes: K29.70 - Gastritis, unspecified, without bleeding SNOMED: 6666263 (6) s/p Large R Craniotomy with spastic hemiparesis Assessment/Plan: NPO IV fluids GI evaluation ID evaluation for BC positive dvt prophylaxis. Sherlyn Sheffield MD July 09, 2018 11:33
--- NOTE | 2018-07-09 11:45 | Cardiac Electrophysiology PN ---
Assessment/Plan Assessment/Plan 1. Tachycardia due to sinus tachycardia secondary to anxiety and sepsis. Now on metoprolol 25 mg bid. Reorder echocardiogram. 2. Abdominal pain and vomiting. CT did not show any acute abdominal process. Abdominal ultrasound is being done per Dr. Mcclain . 3. Hepatitis C. 4. Diabetes. 5. Hiatal hernia. 6. Seizure disorder. JACOB RN Subjective Subjective Refused 2D Echo. NPO for Abd US.No CP or SOB Objective Last 24 Hour Vital Signs Date Time Temp Pulse Resp B/P (MAP) Pulse Ox O2 Delivery O2 Flow Rate FiO2 07/09/18 08:34 86 130/74 07/09/18 08:28 86 16 Room Air 21 07/09/18 08:00 97.9 87 20 130/74 (92) 93 07/09/18 08:00 90 07/09/18 08:00 Room Air 07/09/18 04:00 Room Air 07/09/18 04:00 88 07/09/18 04:00 79 07/09/18 01:54 83 16 Room Air 07/09/18 00:00 Room Air 07/09/18 00:00 88 07/09/18 00:00 80 07/08/18 20:27 95 140/89 07/08/18 20:00 98.4 95 16 140/89 (106) 94 07/08/18 20:00 91 07/08/18 20:00 Room Air 07/08/18 16:00 Room Air 07/08/18 16:00 97.7 98 21 111/68 (82) 94 07/08/18 15:26 99 07/08/18 12:00 110 07/08/18 12:00 Room Air 07/08/18 12:00 98.1 100 20 116/55 (75) 93 Intake and Output 07/08/18 07/09/18 19:00 07:00 Intake Total 850 ml 720 ml Output Total 400 ml 550 ml Balance 450 ml 170 ml Intake Oral 250 ml IV Total 600 ml 720 ml Output Urine Total 400 ml 550 ml Laboratory Tests Test 07/09/18 10:40 White Blood Count Pending Red Blood Count Pending Hemoglobin Pending Hematocrit Pending Mean Corpuscular Volume Pending Mean Corpuscular Hemoglobin Pending Mean Corpuscular Hemoglobin Concent Pending Red Cell Distribution Width Pending Platelet Count Pending Mean Platelet Volume Pending Neutrophils (%) (Auto) Pending Lymphocytes (%) (Auto) Pending Monocytes (%) (Auto) Pending Eosinophils (%) (Auto) Pending Basophils (%) (Auto) Pending Sodium Level Pending Potassium Level Pending Chloride Level Pending Carbon Dioxide Level Pending Blood Urea Nitrogen Pending Creatinine Pending Estimat Glomerular Filtration Rate Pending Glucose Level Pending Hemoglobin A1c Pending Calcium Level Pending Magnesium Level Pending Total Bilirubin Pending Aspartate Amino Transf (AST/SGOT) Pending Alanine Aminotransferase (ALT/SGPT) Pending Alkaline Phosphatase Pending Total Protein Pending Albumin Pending Globulin Pending Triglycerides Level Pending Cholesterol Level Pending LDL Cholesterol Pending HDL Cholesterol Pending Cholesterol/HDL Ratio Pending Amylase Level Pending Lipase Pending Microbiology Date/Time Source Procedure Growth Status 07/07/18 21:20 Blood Blood Culture - Preliminary NO GROWTH AFTER 24 HOURS Resulted 07/07/18 20:25 Blood Blood Culture - Preliminary Gram Positive Cocci Resulted Objective HEAD AND NECK: No JVD. LUNGS: Coarse rhonchi. CARDIOVASCULAR: Regular S1 and S2 with no gallop or murmur. ABDOMEN: Soft EXTREMITIES: 1+ pitting edema. Karel Honeycutt MD July 09, 2018 11:45
[2018-07-09 11:48] LABS: BASOPHILS % (AUTO) 0.9 % (0.0-2.0); EOSINOPHILS % (AUTO) 3.7 % (0.0-3.0); HEMATOCRIT 36.3 % (42.0-52.0); HEMOGLOBIN 12.3 G/DL (14.2-18.0); LYMPHOCYTES % (AUTO) 46.7 % (20.0-45.0); MEAN CORPUSCULAR VOLUME 91 FL (80-99); MONOCYTES % (AUTO) 8.1 % (1.0-10.0); NEUTROPHILS % (AUTO) 40.6 % (45.0-75.0); PLATELET COUNT 153 K/UL (150-450); RED BLOOD COUNT 3.98 M/UL (4.70-6.10); RED CELL DISTRIBUTION WIDTH 12.1 % (11.6-14.8); WHITE BLOOD COUNT 6.8 K/UL (4.8-10.8)
[2018-07-09 12:00] VITALS: BP 125/72
[2018-07-09 12:28] LABS: ALANINE AMINOTRANSFERASE 39 U/L (12-78); ALBUMIN 3.1 G/DL (3.4-5.0); ALBUMIN/GLOBULIN RATIO 0.8 (1.0-2.7); ALKALINE PHOSPHATASE 85 U/L (46-116); ANION GAP 8 mmol/L (5-15); ASPARTATE AMINO TRANSFERASE 26 U/L (15-37); BILIRUBIN,TOTAL 0.3 MG/DL (0.2-1.0); BLOOD UREA NITROGEN 8 mg/dL (7-18); CALCIUM 8.5 MG/DL (8.5-10.1); CARBON DIOXIDE 28 MMOL/L (21-32); CHLORIDE 103 MMOL/L (98-107); CHOLESTEROL 149 MG/DL (< 200); CREATININE 0.7 MG/DL (0.55-1.30); HDL CHOLESTEROL 32 MG/DL (40-60); POTASSIUM 3.5 MMOL/L (3.5-5.1); SODIUM 139 MMOL/L (136-145); TRIGLYCERIDES 132 MG/DL (30-150)
--- NOTE | 2018-07-09 12:51 | Diagnostic Imaging Report ---
Indication:Abdominal pain Technique: Grayscale and duplex Doppler imaging of the abdomen performed. Comparison: None Findings: The liver is echogenic. Multiple gallstones demonstrated.. The demonstrated part of the pancreas, aorta and IVC show no abnormalities. Questionable cyst in the left kidney demonstrated. The spleen is normal in size. There is no biliary ductal dilatation identified. Doppler evaluation of the main portal vein shows patency. There is no ascites. No hydronephrosis seen. Impression: Cholelithiasis Fatty liver
--- NOTE | 2018-07-09 13:25 | NUR ---
PT Note Attempted to see patient for eval/tx but patient adamantly refused. "I don't want any physical therapy. I don't want to see you ever." Charge nurse was notified. Will attempt again in AM.
--- NOTE | 2018-07-09 13:46 | General Progress Note ---
Assessment/Plan Problem List: (1) Cholelithiases ICD Codes: K80.20 - Calculus of gallbladder without cholecystitis without obstruction SNOMED: 805649592 (2) Asthma ICD Codes: J45.909 - Unspecified asthma, uncomplicated SNOMED: 755319816 (3) Seizure ICD Codes: R56.9 - Unspecified convulsions SNOMED: 82741291 (4) Diabetes ICD Codes: E11.9 - Type 2 diabetes mellitus without complications SNOMED: 39142606 (5) Intractable nausea and vomiting ICD Codes: R11.2 - Nausea with vomiting, unspecified SNOMED: 831645312 (6) HTN (hypertension) ICD Codes: I10 - Essential (primary) hypertension SNOMED: 27223870 Status: stable, progressing Assessment/Plan: pt diet bp bs seizure pain control cbc bmp am Subjective Constitutional: Reports: weakness Allergies: Coded Allergies: No Known Allergies (Unverified , 04/16/16) All Systems: reviewed and negative except above Subjective sl weak Objective Last 24 Hour Vital Signs Date Time Temp Pulse Resp B/P (MAP) Pulse Ox O2 Delivery O2 Flow Rate FiO2 07/09/18 12:00 97.5 80 18 125/72 (89) 95 07/09/18 12:00 Room Air 07/09/18 08:34 86 130/74 07/09/18 08:28 86 16 Room Air 07/09/18 08:00 97.9 87 20 130/74 (92) 93 07/09/18 08:00 90 07/09/18 08:00 Room Air 07/09/18 04:00 Room Air 07/09/18 04:00 88 07/09/18 04:00 79 07/09/18 01:54 83 16 Room Air 21 07/09/18 00:00 Room Air 07/09/18 00:00 88 07/09/18 00:00 80 07/08/18 20:27 95 140/89 07/08/18 20:00 98.4 95 16 140/89 (106) 94 07/08/18 20:00 91 07/08/18 20:00 Room Air 07/08/18 16:00 Room Air 07/08/18 16:00 97.7 98 21 111/68 (82) 94 07/08/18 15:26 99 Intake and Output 07/08/18 07/09/18 19:00 07:00 Intake Total 850 ml 720 ml Output Total 400 ml 550 ml Balance 450 ml 170 ml Intake Oral 250 ml IV Total 600 ml 720 ml Output Urine Total 400 ml 550 ml Laboratory Tests 07/09/18 10:40: White Blood Count 6.8#, Red Blood Count 3.98L, Hemoglobin 12.3L, Hematocrit 36.3L, Mean Corpuscular Volume 91, Mean Corpuscular Hemoglobin 30.9, Mean Corpuscular Hemoglobin Concent 34.0, Red Cell Distribution Width 12.1, Platelet Count 153, Mean Platelet Volume 6.6, Neutrophils (%) (Auto) 40.6L, Lymphocytes ( %) (Auto) 46.7H, Monocytes (%) (Auto) 8.1, Eosinophils (%) (Auto) 3.7H, Basophils (%) (Auto) 0.9, Sodium Level 139, Potassium Level 3.5, Chloride Level 103, Carbon Dioxide Level 28, Anion Gap 8, Blood Urea Nitrogen 8, Creatinine 0.7 , Estimat Glomerular Filtration Rate > 60, Glucose Level 100, Hemoglobin A1c 6.2H, Calcium Level 8.5, Magnesium Level 1.7L, Total Bilirubin 0.3, Aspartate Amino Transf (AST/SGOT) 26, Alanine Aminotransferase (ALT/SGPT) 39, Alkaline Phosphatase 85, Total Protein 7.2, Albumin 3.1L, Globulin 4.1, Albumin/Globulin Ratio 0.8L, Triglycerides Level 132, Cholesterol Level 149, LDL Cholesterol 95, HDL Cholesterol 32L, Cholesterol/HDL Ratio 4.7H, Amylase Level 58, Lipase 145 Height (Feet): 5 Height (Inches): 6.00 Weight (Pounds): 179 General Appearance: lethargic EENT: normal ENT inspection Neck: normal alignment Cardiovascular: normal peripheral pulses, normal rate, regular rhythm Respiratory/Chest: chest wall non-tender, lungs clear, normal breath sounds Abdomen: normal bowel sounds, non tender, soft Extremities: normal inspection Edema: no edema noted Arm (L), no edema noted Arm (R), no edema noted Leg (L), no edema noted Leg (R), no edema noted Pedal (L), no edema noted Pedal (R), no edema noted Generalized Neurologic: motor weakness Skin: normal pigmentation, warm/dry Ady KerrLola DO July 09, 2018 13:46
[2018-07-09] MEDS: D5 1/2NS 1,000 ML IV SCH (14:08)
--- NOTE | 2018-07-09 14:16 | NUR ---
SWALLOW/SPEECH THERAPY NOTE: REFERRED FOR SWALLOW EVAL BY DR CASH WHO IS THE PRIMARY MD, SEE SWALLOW EVAL REPORT. DYSPHAGIA RISK FACTORS FOR THIS 58 Y.O. RIGHT HANDED MALE: ACUTE ABDOMINAL PAIN (RELATED TO CHOLELITHIASIS GALL STONES) AND VOMITTING 3 DAYS NOT NOW, POOR INTAKE PRIOR TO ADMIT, LUNGS ARE CLEAR FROM INFILTRATES BUT SCAR OR ATELECTASIS RIGHT LOWER BASE. H/O MILD-MODERATE OROPHARYNGEAL DYSPHAGIA, GERD ON MEDS, R CVA WITH AUDIO VIDEO REPAIRER AND DYSARTHRIA/DYSPHONIA, CRANIOTOMY (PER PT 1986? RELIABLE),SZ D/O, HEPATIC ENCEPHALOPATHY,PSYCH ISSUES (SEROQUEL FOR AFFECTIVE SCHIZOPHRENIA, BIPOLAR, ANXIETY), HEP C,PROTEIN-CALORIE MALNUTRITION, R LL PNA 07/2016, HTN, COPD,H/O TRACH AND PEG ? WHEN. SMOKING 1 PPD ? ALCHOL, POSSIBLE DIABETES IN CHART. POLST NOT IN CHART BUT SEEN BY ST AT [facility] [place] HAD MILD-MOD OROPHARYNGEAL DYSPHAGIA AND REQUIRED MOD BARIUM SWALLOW STUDY (NOT COMPLETED PRIOR TO D/C WAS TO HAVE OP F/UP ? IF THIS HAPPENED). PLACED ON PUREED AND NECTAR THICK LIQUIDS WITH POSTED ASP/REFLUX PREC FOR QUALITY OF LIFE AT THAT TIME. AT SNF ON A [facility] SOFT CHOPPED DIET AND THIN LIQUIDS. NO RD ASSESSMENT NOW BUT LEFT MESSAGE WITH RD HORACE ABOUT HIGH SHLOMO SUP, SHLOMO COUNT, AND DIET TYPE. PER RN, WANTS PT OFF CURRENT CCHO-LOW DIET AND CHANGED TO [facility] LIKE AT SNF. PER RN NO PROBLEMS WITH CRUSHED MEDS (HE SAID IT WAS DIFFICULT FOR HIM.HE DID TAKE A SMALL PILL W/O DIFFICULTY SINCE THAT ONE COULD NOT BE CRUSHED). ALERT BUT DYSARTHRIC/DYSPHONIC (IMPRECISE ARTICULATION AND VOICE IS SOFT), NEEDS REPETITION TO BE UNDERSTOOD MOST OF THE TIME AT SHORT PHRASE LEVEL. EXPRESSES BASIC NEEDS. ORIENTD TO YEAR. INITIAL IMPRESSIONS: S/S OF AT LEAST A MILD-MODERATE OROPHARYNGEAL DYSPHAGIA WITH MILD/MOD INCREASED IN ORAL PREP AND OROPHARYNGEAL TRANSIT TIMES. SLOWER MILD 12 SECONDS) WITH CHEWING (MASTICATED SOLIDS 1/2 CRACKER) BUT NO ORAL RESIDUE GROSSLY FUNCTIONAL SWALLOW (FAIR HYOLARYNGEAL EXCURSION) AND NO OVERT ASP AND HAS ADEQUATE DENTITION MISSING SOME LOWER MOLARS MOSTLY. CHEWS UNNECESSARILY (MILD INCRASE IN ORAL PREP) FOR THE PUREED TSP BUT NO ORAL RESIDUE/OVERT ASPIRATION. THIN LIQUID SEQUENTIAL SIPS VIA STRAW (3 OZ [place] SWALLOW PROTOCOL) WAS WITHIN FUNCTIONAL LIMITS W/O OVERT ASPIRATION. HAS SILENT ASP RISK GIVEN CVA HISTORY. RECOMMENDATIONS: COMPLETED MOD BARIUM SWALLOW STUDY TO FURTHER ASSESS SWALLOW, DETERMINE SILENT ASP RISK AND ATTEMPT TRIAL TX TECHNIQUES. CONTINUE WITH PO FOR QUALITY OF LIFE PURPOSES AND PER PT REQUEST. UPGRADE TO [facility] SOFT GROUND AND THIN LIQUIDS (DISLIKES NECTAR THICK LIQUIDS) WITH POSTED ASP/REFLUX PREC AND 1 TO 1 FEEDING OR ASSIST. DYSPHAGIA MANAGEMENT AND TX AND COG-COM EVAL/TX EDUCATED/TRAINED STAFF IN POST ASP/REFLUX PREC LEFT MESSAGE WITH RD REGARDING HIGH SHLOMO SUP, SHLOMO COUNT, AND DIET TYPE. D/W MD WHO AGREES WITH RECOMMENDATIONS.
--- NOTE | 2018-07-09 15:10 | Consultation ---
History of Present Illness General Date patient seen: July 09, 2018 Chief Complaint: Vomiting Present Illness HPI 58 y/o M with hx of seizure disorder, asthma, HTN, CVA with L hemiparesis, MDD , cholelithiasis, hiatal hernia, Hypertension. Hepatitis C, Gastritis intermediate resident presented to ED on 07/07 with 3 days of nausea, vomiting, fever and abd pain . CT abd/p did not showed any acute proecss. Upon admission he was found to be tachycardic. Denied chest pain, SOB, diarrhea upon admission Allergies: Coded Allergies: No Known Allergies (Unverified , 04/16/16) Medication History Scheduled Amlodipine Besylate (Norvasc), 10 MG ORAL DAILY, (Reported) Divalproex Sodium (Depakote), 500 MG PO QHS, (Reported) Docusate Sodium* (Colace*), 100 MG ORAL DAILY, (Reported) Lactulose (Lactulose*), 30 ML ORAL BID, (Reported) Multivitamins* (Multivitamins*), 1 TAB ORAL DAILY, (Reported) Phenytoin Sodium Extended* (Dilantin*), 100 MG ORAL QHS, (Reported) Quetiapine Fumarate* (Seroquel*), 100 MG ORAL TWICE A DAY, (Reported) Sennosides (Senna), 17.2 MG PO QHS, (Reported) Scheduled PRN Acetaminophen* (Tylenol Extra Strength*), 325 MG ORAL Q6H PRN for Mild Pain/ Temp > 100.5, (Reported) Acetaminophen* (Acetaminophen 325MG Tablet*), 650 MG ORAL Q4H PRN for Mild Pain/ Temp > 100.5, (Reported) Al Hydroxide/mg Hydroxide (Mag-Al Liquid), 30 ML PO Q6HR PRN for gastric discomfort, (Reported) Bisacodyl (Dulcolax), 10 MG RC DAILY PRN for Constipation, (Reported) Clonidine Hcl* (Catapres*), 0.1 MG ORAL EVERY 6 HOURS PRN for SBP >160, ( Reported) Ipratropium/Albuterol Sulfate (DuoNeb 0.5-3(2.5)mg/3ml), 3 ML HHN Q4HR PRN for Shortness of Breath, (Reported) Magnesium Hydroxide* (Milk Of Magnesia*), 30 ML ORAL DAILY PRN for Constipation, (Reported) Na Phos,M-B/Na Phos,Di-Ba* (Fleet Enema*), 133 ML RECTAL QOD PRN for Constipation, (Reported) Nitroglycerin (Nitroglycerin), 0.4 MG SL [id number] x 3 doses PRN for chest pain, (Reported) Discontinued Medications Amoxicillin/Potassium Clav 875-125* (Augmentin 875-125 Tablet*), 1 TAB ORAL Q12HR, (Reported) Discontinued Reason: Therapy completed Divalproex Sodium* (Depakote*), 1,000 MG PO BEDTIME, (Reported) Discontinued Reason: Medication dose changed Doxycycline Hyclate* (Vibramycin*), 100 MG ORAL EVERY 12 HOURS, (Reported) Discontinued Reason: Therapy completed Heparin Sod (Porcine) (Heparin Sodium*), 5,000 UNITS SUBQ EVERY 12 HOURS, ( Reported) Discontinued Reason: Pt stopped taking med Ondansetron Odt* (Zofran Odt*), 4 MG ORAL Q6H PRN for Nausea & Vomiting, ( Reported) Discontinued Reason: Pt stopped taking med Pantoprazole* (Protonix*), 40 MG ORAL DAILY, (Reported) Discontinued Reason: Pt stopped taking med Polyethylene Glycol 3350* (Miralax*), 17 GM ORAL DAILY PRN for Constipation, ( Reported) Discontinued Reason: Pt stopped taking med Promethazine HCl/Codeine (Prometh-Codein 6.25-10 mg/5 ml), 5 ML PO Q4HR PRN for For Cough, (Reported) Discontinued Reason: Pt stopped taking med Quetiapine Fumarate* (Seroquel*), 250 MG ORAL TWICE A DAY, (Reported) Discontinued Reason: Medication dose changed Temazepam* (Restoril*), 15 MG ORAL BEDTIME PRN for Insomnia, (Reported) Discontinued Reason: Pt stopped taking med Patient History Healthcare decision maker Resuscitation status Advanced Directive on File No Patient History Narrative Pmhx: as above Shx: He is a intermediate resident. Positive smoking. Positive alcohol. No intravenous drug abuse. Fhx: non contributory Review of Systems All Other Systems: negative except mentioned in HPI Physical Exam Physical Exam Narrative GENERAL: Calm in bed, oriented x2, in no acute distress. CARDIOVASCULAR: No murmur. LUNGS: Poor air exchange. ABDOMEN: Bowel sounds distant. Soft. No guarding. No rigidity. Slightly tender. No rebound. EXTREMITIES: Show no cyanosis or edema. NEUROLOGIC: The patient moves all extremities, slightly weak. Last 24 Hour Vital Signs Date Time Temp Pulse Resp B/P (MAP) Pulse Ox O2 Delivery O2 Flow Rate FiO2 07/09/18 12:00 97.5 80 18 125/72 (89) 95 07/09/18 12:00 73 07/09/18 12:00 Room Air 07/09/18 08:34 86 130/74 07/09/18 08:28 86 16 Room Air 21 07/09/18 08:00 97.9 87 20 130/74 (92) 93 07/09/18 08:00 90 07/09/18 08:00 Room Air 07/09/18 04:00 Room Air 07/09/18 04:00 88 07/09/18 04:00 79 07/09/18 01:54 83 16 Room Air 07/09/18 00:00 Room Air 07/09/18 00:00 88 07/09/18 00:00 80 07/08/18 20:27 95 140/89 07/08/18 20:00 98.4 95 16 140/89 (106) 94 07/08/18 20:00 91 07/08/18 20:00 Room Air 07/08/18 16:00 Room Air 07/08/18 16:00 97.7 98 21 111/68 (82) 94 07/08/18 15:26 99 Intake and Output 07/08/18 07/09/18 19:00 07:00 Intake Total 850 ml 720 ml Output Total 400 ml 550 ml Balance 450 ml 170 ml Intake Oral 250 ml IV Total 600 ml 720 ml Output Urine Total 400 ml 550 ml Laboratory Tests Test 07/09/18 10:40 White Blood Count 6.8 K/UL (4.8-10.8) # Red Blood Count 3.98 M/UL (4.70-6.10) L Hemoglobin 12.3 G/DL (14.2-18.0) L Hematocrit 36.3 % (42.0-52.0) L Mean Corpuscular Volume 91 FL (80-99) Mean Corpuscular Hemoglobin 30.9 PG (27.0-31.0) Mean Corpuscular Hemoglobin Concent 34.0 G/DL (32.0-36.0) Red Cell Distribution Width 12.1 % (11.6-14.8) Platelet Count 153 K/UL (150-450) Mean Platelet Volume 6.6 FL (6.5-10.1) Neutrophils (%) (Auto) 40.6 % (45.0-75.0) L Lymphocytes (%) (Auto) 46.7 % (20.0-45.0) H Monocytes (%) (Auto) 8.1 % (1.0-10.0) Eosinophils (%) (Auto) 3.7 % (0.0-3.0) H Basophils (%) (Auto) 0.9 % (0.0-2.0) Sodium Level 139 MMOL/L (136-145) Potassium Level 3.5 MMOL/L (3.5-5.1) Chloride Level 103 MMOL/L (98-107) Carbon Dioxide Level 28 MMOL/L (21-32) Anion Gap 8 mmol/L (5-15) Blood Urea Nitrogen 8 mg/dL (7-18) Creatinine 0.7 MG/DL (0.55-1.30) Estimat Glomerular Filtration Rate > 60 mL/min (>60) Glucose Level 100 MG/DL (74-106) Hemoglobin A1c 6.2 % (4.3-6.0) H Calcium Level 8.5 MG/DL (8.5-10.1) Magnesium Level 1.7 MG/DL (1.8-2.4) L Total Bilirubin 0.3 MG/DL (0.2-1.0) Aspartate Amino Transf (AST/SGOT) 26 U/L (15-37) Alanine Aminotransferase (ALT/SGPT) 39 U/L (12-78) Alkaline Phosphatase 85 U/L (46-116) Total Protein 7.2 G/DL (6.4-8.2) Albumin 3.1 G/DL (3.4-5.0) L Globulin 4.1 g/dL Albumin/Globulin Ratio 0.8 (1.0-2.7) L Triglycerides Level 132 MG/DL (30-150) Cholesterol Level 149 MG/DL (< 200) LDL Cholesterol 95 mg/dL (<100) HDL Cholesterol 32 MG/DL (40-60) L Cholesterol/HDL Ratio 4.7 (3.3-4.4) H Amylase Level 58 U/L (25-115) Lipase 145 U/L (73-393) Height (Feet): 5 Height (Inches): 6.00 Weight (Pounds): 179 Medications Current Medications Medications (Trade) Dose Ordered Sig/Netta Route PRN Reason Start Time Stop Time Status Last Admin Dose Admin Acetaminophen (Tylenol) 325 mg Q6H PRN ORAL Mild Pain/Temp > 100.5 07/08/18 04:30 08/07/18 04:29 Al Hydroxide/Mg Hydroxide (Mylanta) 30 ml Q6HR PRN ORAL gastric discomfort 07/08/18 04:30 08/07/18 04:29 Albuterol/ Ipratropium (Albuterol/ Ipratropium) 3 ml Q4HR PRN HHN For Cough 07/08/18 04:30 07/13/18 04:29 Chlorhexidine Gluconate (Shaniqua-Hex 2%) 1 applic DAILY@2000 TOPIC 07/08/18 20:00 08/07/18 19:59 07/08/18 20:25 Clonidine HCl (Catapres Tab) 0.1 mg PRN PRN ORAL For High Blood Pressure 07/08/18 06:30 08/07/18 05:59 Dextrose/Sodium Chloride 1,000 ml @ 60 mls/hr [id number] IV 07/08/18 04:30 08/07/18 04:29 07/09/18 14:08 Divalproex Sodium (Depakote) 1,000 mg BEDTIME ORAL 07/08/18 21:00 08/07/18 20:59 07/08/18 20:26 Doxycycline Monohydrate (Vibramycin) 100 mg EVERY 12 HOURS ORAL 07/08/18 09:00 07/15/18 08:59 07/09/18 08:34 Heparin Sodium (Porcine) (Heparin 5000 units/ml) 5,000 units EVERY 12 HOURS SUBQ 07/08/18 09:00 08/07/18 08:59 07/09/18 08:35 Iopamidol (Isovue-300 100ml) 100 ml NOW PRN INJ Radiology Procedure 07/07/18 21:00 Magnesium Hydroxide (Mom) 30 ml DAILY PRN ORAL Constipation 07/08/18 04:30 08/07/18 04:29 Metoprolol Tartrate (Lopressor) 25 mg Q12HR ORAL 07/08/18 21:00 08/07/18 20:59 07/09/18 08:34 Ondansetron HCl (Zofran ODT) 4 mg Q6H PRN ORAL Nausea & Vomiting 07/08/18 04:15 08/07/18 04:14 Pantoprazole (Protonix) 40 mg DAILY ORAL 07/09/18 09:00 08/08/18 08:59 07/09/18 08:35 Phenytoin (Dilantin) 200 mg BID ORAL 07/08/18 09:00 08/07/18 08:59 07/09/18 08:34 Polyethylene Glycol (Miralax) 17 gm DAILY PRN ORAL Constipation 07/08/18 04:30 08/07/18 04:29 Quetiapine Fumarate (SEROquel) 250 mg TWICE A DAY ORAL 07/08/18 09:00 08/07/18 08:59 07/09/18 08:34 Temazepam (Restoril) 15 mg BEDTIME PRN ORAL Insomnia 07/08/18 04:30 07/15/18 04:29 Vancomycin HCl (Vanco rx to dose) 1 ea DAILY PRN MISC Per rx protocol 07/09/18 06:45 08/08/18 06:44 Vancomycin HCl 750 mg/Sodium Chloride 275 ml @ 183.333 mls/hr Q12HR IVPB 07/09/18 09:00 07/14/18 08:59 07/09/18 09:09 Assessment/Plan Assessment/Plan: Abx: Doxycycline 07/08- IV Vancomycin 07/09- Levaquin x 1 07/07 Zosyn x1 07/07 Assessment: Sepsis -07/09 CXR: Accentuation of the pulmonary markings. Presumed area of scar or atelectasis in the right lung base rather than air under the diaphragm. -07/07 CXR: Reduced lung volumes and accentuation of markings. No confluent consolidation or confluent edema. u.a neg Gram positive bacteremia- r/o endocarditis (R IJ placed around the same time Bcx were collected) -07/07 05/07 GPC clusters Nausea/vomiting/Abd pain -Abd US: Cholelithiasis. Fatty liver -CT abd/p w/ No acute or inflammatory disease or bowel obstruction. Cholelithiasis. Fever, improving Leukocytosis, SP Lactic acidosis, SP seizure disorder asthma HTN CVA with L hemiparesis MDD cholelithiasis hiatal hernia Hypertension Hepatitis C Gastritis intermediate resident Plan: -Continue empiric IV Vancomycin #1 for Gram positive bacteremia -D/c empiric Doxycycline #2 -Bcx x2 -f/u echo -f/u cx -Monitor CBC/CMP, temperatures -GI, cards f/u -aspiration precautions Thank you for this consultation. Will continue to follow along with you. Discussed with JULIO. Santa Treviño M.D. July 09, 2018 15:10
[2018-07-09 16:00] VITALS: BP 118/74
--- NOTE | 2018-07-09 18:44 | Cardiology Report ---
APPROVED REPORT EXAM: Two-dimensional and M-mode echocardiogram with Doppler and color Doppler. INDICATION Supraventricular Tachycardia M-Mode DIMENSIONS IVSd1.2 (0.7-1.1cm)Left Atrium (MM)4.0 (1.6-4.0cm) LVDd3.1 (3.5-5.6cm)Aortic Root3.6 (2.0-3.7cm) PWd1.2 (0.7-1.1cm)Aortic Cusp Exc.1.7 (1.5-2.0cm) LVDs1.8 (2.5-4.0cm) PWs1.1 cm Technically difficult and limited study due to poor acoustic windows and combative patient. Study quality precludes accurate assessment of regional wall motion. Normal left ventricular chamber size, systolic function and wall motion to extent visualized. Left ventricular ejection fraction estimated to be 55 %. Mild left ventricular hypertrophy. Anterior Echo-free space, may be due to pericardial fat or effusion. All other cardiac chamber sizes are within normal limits. Focal aortic valve sclerosis with adequate cusp excursion. Thickened mitral valve leaflets with normal excursion. Mild mitral annulus and aortic root calcification. Pulmonic valve not visualized. Normal tricuspid valve structure. IVC is normal in size with physiological collapse. A color flow and spectral Doppler study was performed and revealed: No aortic insufficiency. Peak aortic valve gradient of 14 mmHg and a mean of 7 mmHg. Aortic valve area 1.5 cm2 calculated by continuity equation. Trace mitral regurgitation. Mitral diastolic velocities suggest mild left ventricular diastolic dysfunction (Grade I). Trace tricuspid regurgitation. Tricuspid systolic velocities suggests peak right ventricular systolic pressure of 15 mmHg.
--- NOTE | 2018-07-09 19:30 | NUR ---
HAND-OFF: Report given to JULIO Neves. Patient VS stable at this time with no sign of acute distress. Patient has order for med-surg transfer. Endorsed to follow up.
--- NOTE | 2018-07-09 19:40 | NUR ---
NURSE NOTES: Received Pt from JULIO Shelton. Pt is resting on the bed and awake and confused. Still noted resisting care. Rt. IJ TLC area dressing is clean and dry and patent. On Tele monitor with SR and HR: 93's. Denied pain at this time. On Amaya cath and patent and drainage well. Noted Mg level is 1.[address] Sheffield and new order received. Changed position. Placed fall and seizure precaution. Pt will transfer to MED-SURG and awaiting room. Will continue to care plan.
[2018-07-09] MEDS: Dyna-Hex 2% Top Sol 2oz TOPIC SCH (19:54)
[2018-07-09 20:00] VITALS: BP 120/75
--- NOTE | 2018-07-09 21:39 | Consultation ---
History of Present Illness General Chief Complaint: Vomiting Reason for Consultation: abdominal pain Present Illness HPI This is a 58 year old male with past history of seizure disorder, asthma, HTN, CVA with L hemiparesis, MDD, cholelithiasis, hiatal hernia, hypertension, hepatitis C, and gastritis who is a alf resident presented to [facility] ED with complaints of 3 days of nausea, vomiting, fever and abdominal pain. On admission leukocytosis and CT with cholelithiasis. surgery called to evaluate. Allergies: Coded Allergies: No Known Allergies (Unverified , 04/16/16) Medication History Scheduled Amlodipine Besylate (Norvasc), 10 MG ORAL DAILY, (Reported) Divalproex Sodium (Depakote), 500 MG PO QHS, (Reported) Docusate Sodium* (Colace*), 100 MG ORAL DAILY, (Reported) Lactulose (Lactulose*), 30 ML ORAL BID, (Reported) Multivitamins* (Multivitamins*), 1 TAB ORAL DAILY, (Reported) Phenytoin Sodium Extended* (Dilantin*), 100 MG ORAL QHS, (Reported) Quetiapine Fumarate* (Seroquel*), 100 MG ORAL TWICE A DAY, (Reported) Sennosides (Senna), 17.2 MG PO QHS, (Reported) Scheduled PRN Acetaminophen* (Tylenol Extra Strength*), 325 MG ORAL Q6H PRN for Mild Pain/ Temp > 100.5, (Reported) Acetaminophen* (Acetaminophen 325MG Tablet*), 650 MG ORAL Q4H PRN for Mild Pain/ Temp > 100.5, (Reported) Al Hydroxide/mg Hydroxide (Mag-Al Liquid), 30 ML PO Q6HR PRN for gastric discomfort, (Reported) Bisacodyl (Dulcolax), 10 MG RC DAILY PRN for Constipation, (Reported) Clonidine Hcl* (Catapres*), 0.1 MG ORAL EVERY 6 HOURS PRN for SBP >160, ( Reported) Ipratropium/Albuterol Sulfate (DuoNeb 0.5-3(2.5)mg/3ml), 3 ML HHN Q4HR PRN for Shortness of Breath, (Reported) Magnesium Hydroxide* (Milk Of Magnesia*), 30 ML ORAL DAILY PRN for Constipation, (Reported) Na Phos,M-B/Na Phos,Di-Ba* (Fleet Enema*), 133 ML RECTAL QOD PRN for Constipation, (Reported) Nitroglycerin (Nitroglycerin), 0.4 MG SL [id number] x 3 doses PRN for chest pain, (Reported) Discontinued Medications Amoxicillin/Potassium Clav 875-125* (Augmentin 875-125 Tablet*), 1 TAB ORAL Q12HR, (Reported) Discontinued Reason: Therapy completed Divalproex Sodium* (Depakote*), 1,000 MG PO BEDTIME, (Reported) Discontinued Reason: Medication dose changed Doxycycline Hyclate* (Vibramycin*), 100 MG ORAL EVERY 12 HOURS, (Reported) Discontinued Reason: Therapy completed Heparin Sod (Porcine) (Heparin Sodium*), 5,000 UNITS SUBQ EVERY 12 HOURS, ( Reported) Discontinued Reason: Pt stopped taking med Ondansetron Odt* (Zofran Odt*), 4 MG ORAL Q6H PRN for Nausea & Vomiting, ( Reported) Discontinued Reason: Pt stopped taking med Pantoprazole* (Protonix*), 40 MG ORAL DAILY, (Reported) Discontinued Reason: Pt stopped taking med Polyethylene Glycol 3350* (Miralax*), 17 GM ORAL DAILY PRN for Constipation, ( Reported) Discontinued Reason: Pt stopped taking med Promethazine HCl/Codeine (Prometh-Codein 6.25-10 mg/5 ml), 5 ML PO Q4HR PRN for For Cough, (Reported) Discontinued Reason: Pt stopped taking med Quetiapine Fumarate* (Seroquel*), 250 MG ORAL TWICE A DAY, (Reported) Discontinued Reason: Medication dose changed Temazepam* (Restoril*), 15 MG ORAL BEDTIME PRN for Insomnia, (Reported) Discontinued Reason: Pt stopped taking med Patient History History Provided By: Patient, Medical Record, PMD Healthcare decision maker Resuscitation status Advanced Directive on File No Past Medical/Surgical History Past Medical/Surgical History: (1) Intractable nausea and vomiting (2) Cholelithiases (3) Diabetes (4) Seizure (5) Asthma (6) [id number] (7) Upper GI bleeding (8) Nosocomial pneumonia (9) Diabetes (10) HCAP (healthcare-associated pneumonia) (11) Gastritis (12) Hepatitis C (13) Seizure (14) UTI (urinary tract infection) (15) HTN (hypertension) (16) s/p Large R Craniotomy with spastic hemiparesis (17) Hypokalemia (18) Sepsis (19) Tachycardia Review of Systems All Other Systems: negative except mentioned in HPI Physical Exam General Appearance: no apparent distress Lines, tubes and drains: central line HEENT: mucous membranes moist Neck: normal inspection Respiratory/Chest: no respiratory distress, no accessory muscle use Cardiovascular/Chest: regular rhythm, tachycardia Abdomen: normal bowel sounds, soft, no organomegaly, no mass, tender Extremities: normal inspection Skin Exam: warm/dry Neurologic: alert Last 24 Hour Vital Signs Date Time Temp Pulse Resp B/P (MAP) Pulse Ox O2 Delivery O2 Flow Rate FiO2 07/09/18 20:57 92 120/75 07/09/18 20:00 97.0 93 20 120/75 (90) 95 07/09/18 20:00 93 07/09/18 19:45 95 16 Room Air 21 07/09/18 16:00 86 07/09/18 16:00 Room Air 07/09/18 16:00 97.9 86 20 118/74 (89) 93 07/09/18 12:00 97.5 80 18 125/72 (89) 95 07/09/18 12:00 73 07/09/18 12:00 Room Air 07/09/18 08:34 86 130/74 07/09/18 08:28 86 16 Room Air 21 07/09/18 08:00 97.9 87 20 130/74 (92) 93 07/09/18 08:00 90 07/09/18 08:00 Room Air 07/09/18 04:00 Room Air 07/09/18 04:00 88 07/09/18 04:00 79 07/09/18 01:54 83 16 Room Air 21 07/09/18 00:00 Room Air 07/09/18 00:00 88 07/09/18 00:00 80 Intake and Output 07/08/18 07/09/18 19:00 07:00 Intake Total 850 ml 720 ml Output Total 400 ml 550 ml Balance 450 ml 170 ml Intake Oral 250 ml IV Total 600 ml 720 ml Output Urine Total 400 ml 550 ml Laboratory Tests Test 07/09/18 10:40 White Blood Count 6.8 K/UL (4.8-10.8) # Red Blood Count 3.98 M/UL (4.70-6.10) L Hemoglobin 12.3 G/DL (14.2-18.0) L Hematocrit 36.3 % (42.0-52.0) L Mean Corpuscular Volume 91 FL (80-99) Mean Corpuscular Hemoglobin 30.9 PG (27.0-31.0) Mean Corpuscular Hemoglobin Concent 34.0 G/DL (32.0-36.0) Red Cell Distribution Width 12.1 % (11.6-14.8) Platelet Count 153 K/UL (150-450) Mean Platelet Volume 6.6 FL (6.5-10.1) Neutrophils (%) (Auto) 40.6 % (45.0-75.0) L Lymphocytes (%) (Auto) 46.7 % (20.0-45.0) H Monocytes (%) (Auto) 8.1 % (1.0-10.0) Eosinophils (%) (Auto) 3.7 % (0.0-3.0) H Basophils (%) (Auto) 0.9 % (0.0-2.0) Sodium Level 139 MMOL/L (136-145) Potassium Level 3.5 MMOL/L (3.5-5.1) Chloride Level 103 MMOL/L (98-107) Carbon Dioxide Level 28 MMOL/L (21-32) Anion Gap 8 mmol/L (5-15) Blood Urea Nitrogen 8 mg/dL (7-18) Creatinine 0.7 MG/DL (0.55-1.30) Estimat Glomerular Filtration Rate > 60 mL/min (>60) Glucose Level 100 MG/DL (74-106) Hemoglobin A1c 6.2 % (4.3-6.0) H Calcium Level 8.5 MG/DL (8.5-10.1) Magnesium Level 1.7 MG/DL (1.8-2.4) L Total Bilirubin 0.3 MG/DL (0.2-1.0) Aspartate Amino Transf (AST/SGOT) 26 U/L (15-37) Alanine Aminotransferase (ALT/SGPT) 39 U/L (12-78) Alkaline Phosphatase 85 U/L (46-116) Total Protein 7.2 G/DL (6.4-8.2) Albumin 3.1 G/DL (3.4-5.0) L Globulin 4.1 g/dL Albumin/Globulin Ratio 0.8 (1.0-2.7) L Triglycerides Level 132 MG/DL (30-150) Cholesterol Level 149 MG/DL (< 200) LDL Cholesterol 95 mg/dL (<100) HDL Cholesterol 32 MG/DL (40-60) L Cholesterol/HDL Ratio 4.7 (3.3-4.4) H Amylase Level 58 U/L (25-115) Lipase 145 U/L (73-393) Height (Feet): 5 Height (Inches): 6.00 Weight (Pounds): 179 Medications Current Medications Medications (Trade) Dose Ordered Sig/Netta Route PRN Reason Start Time Stop Time Status Last Admin Dose Admin Acetaminophen (Tylenol) 325 mg Q6H PRN ORAL Mild Pain/Temp > 100.5 07/08/18 04:30 08/07/18 04:29 Al Hydroxide/Mg Hydroxide (Mylanta) 30 ml Q6HR PRN ORAL gastric discomfort 07/08/18 04:30 08/07/18 04:29 Albuterol/ Ipratropium (Albuterol/ Ipratropium) 3 ml Q4HR PRN HHN For Cough 07/08/18 04:30 07/13/18 04:29 Chlorhexidine Gluconate (Shaniqua-Hex 2%) 1 applic DAILY@2000 TOPIC 07/08/18 20:00 08/07/18 19:59 07/09/18 19:54 Clonidine HCl (Catapres Tab) 0.1 mg PRN PRN ORAL For High Blood Pressure 07/08/18 06:30 08/07/18 05:59 Dextrose/Sodium Chloride 1,000 ml @ 60 mls/hr [id number] IV 07/08/18 04:30 08/07/18 04:29 07/09/18 14:08 Divalproex Sodium (Depakote) 1,000 mg BEDTIME ORAL 07/08/18 21:00 08/07/18 20:59 07/09/18 20:57 Heparin Sodium (Porcine) (Heparin 5000 units/ml) 5,000 units EVERY 12 HOURS SUBQ 07/08/18 09:00 08/07/18 08:59 07/09/18 20:58 Iopamidol (Isovue-300 100ml) 100 ml NOW PRN INJ Radiology Procedure 07/07/18 21:00 Magnesium Hydroxide (Mom) 30 ml DAILY PRN ORAL Constipation 07/08/18 04:30 08/07/18 04:29 Magnesium Sulfate 100 ml @ 100 mls/hr Q1H IVPB 07/09/18 19:45 07/09/18 21:44 07/09/18 20:56 Metoprolol Tartrate (Lopressor) 25 mg Q12HR ORAL 07/08/18 21:00 08/07/18 20:59 07/09/18 20:57 Ondansetron HCl (Zofran ODT) 4 mg Q6H PRN ORAL Nausea & Vomiting 07/08/18 04:15 08/07/18 04:14 Pantoprazole (Protonix) 40 mg DAILY ORAL 07/09/18 09:00 08/08/18 08:59 07/09/18 08:35 Phenytoin (Dilantin) 200 mg BID ORAL 07/08/18 09:00 08/07/18 08:59 07/09/18 18:20 Polyethylene Glycol (Miralax) 17 gm DAILY PRN ORAL Constipation 07/08/18 04:30 08/07/18 04:29 Quetiapine Fumarate (SEROquel) 250 mg TWICE A DAY ORAL 07/08/18 09:00 08/07/18 08:59 07/09/18 18:20 Temazepam (Restoril) 15 mg BEDTIME PRN ORAL Insomnia 07/08/18 04:30 07/15/18 04:29 Vancomycin HCl (Vanco rx to dose) 1 ea DAILY PRN MISC Per rx protocol 07/09/18 06:45 08/08/18 06:44 Vancomycin HCl 750 mg/Sodium Chloride 275 ml @ 183.333 mls/hr Q12HR IVPB 07/09/18 09:00 07/14/18 08:59 07/09/18 09:09 Assessment/Plan Problem List: (1) Intractable nausea and vomiting ICD Codes: R11.2 - Nausea with vomiting, unspecified SNOMED: 477945706 (2) Cholelithiases ICD Codes: K80.20 - Calculus of gallbladder without cholecystitis without obstruction SNOMED: 629289422 (3) Diabetes ICD Codes: E11.9 - Type 2 diabetes mellitus without complications SNOMED: 74573520 (4) Seizure ICD Codes: R56.9 - Unspecified convulsions SNOMED: 78867828 (5) Asthma ICD Codes: J45.909 - Unspecified asthma, uncomplicated SNOMED: 167355019 (6) [id number] (7) Upper GI bleeding ICD Codes: K92.2 - Gastrointestinal hemorrhage, unspecified SNOMED: 81550088 (8) Nosocomial pneumonia ICD Codes: J18.9 - Pneumonia, unspecified organism SNOMED: 159951334 (9) Diabetes ICD Codes: E11.9 - Type 2 diabetes mellitus without complications SNOMED: 46638611 (10) HCAP (healthcare-associated pneumonia) ICD Codes: J18.9 - Pneumonia, unspecified organism SNOMED: 902446100 (11) Gastritis ICD Codes: K29.70 - Gastritis, unspecified, without bleeding SNOMED: 9644230 (12) Hepatitis C ICD Codes: B19.20 - Unspecified viral hepatitis C without hepatic coma SNOMED: 35954112 (13) Seizure ICD Codes: R56.9 - Unspecified convulsions SNOMED: 26443010 (14) UTI (urinary tract infection) ICD Codes: N39.0 - Urinary tract infection, site not specified SNOMED: 89402978 (15) HTN (hypertension) ICD Codes: I10 - Essential (primary) hypertension SNOMED: 09172349 (16) s/p Large R Craniotomy with spastic hemiparesis (17) Hypokalemia ICD Codes: E87.6 - Hypokalemia SNOMED: 65854873 (18) Sepsis ICD Codes: A41.9 - Sepsis, unspecified organism SNOMED: 54783018 Qualifiers: Qualified Codes: A41.9 - Sepsis, unspecified organism (19) Tachycardia ICD Codes: R00.0 - Tachycardia, unspecified SNOMED: 9378223 (20) Abdominal pain Assessment & Plan: 58 year old male with abdominal pain, nausea, emesis. afebrile, HD stable, leukocytosis resolving, labs okay lft's okay, t bili okay, amylase/lipase okay CT with no acute process and cholelithiasis US with cholelithiasis -Abd US: Cholelithiasis. Fatty liver -CT a/p: No acute or inflammatory disease or bowel obstruction. Cholelithiasis. -no acute surgical intervention planned -okay for diet -PPI -abx as per ID -appreciate GI input -will follow with recs thank you ICD Codes: R10.9 - Unspecified abdominal pain SNOMED: 44985171 Edgardo Tatum July 09, 2018 21:39
[2018-07-10] VITALS: BP 120/72
[2018-07-10 04:00] VITALS: BP 124/74
[2018-07-10 05:38] LABS: BASOPHILS % (AUTO) 0.9 % (0.0-2.0); EOSINOPHILS % (AUTO) 6.6 % (0.0-3.0); HEMATOCRIT 37.1 % (42.0-52.0); HEMOGLOBIN 12.6 G/DL (14.2-18.0); LYMPHOCYTES % (AUTO) 46.3 % (20.0-45.0); MEAN CORPUSCULAR VOLUME 92 FL (80-99); MONOCYTES % (AUTO) 11.7 % (1.0-10.0); NEUTROPHILS % (AUTO) 34.5 % (45.0-75.0); PLATELET COUNT 172 K/UL (150-450); RED BLOOD COUNT 4.04 M/UL (4.70-6.10); RED CELL DISTRIBUTION WIDTH 12.3 % (11.6-14.8); WHITE BLOOD COUNT 6.5 K/UL (4.8-10.8)
[2018-07-10] MEDS: D5 1/2NS 1,000 ML IV SCH ×2 (05:39→06:39)
[2018-07-10 05:48] LABS: PHOSPHORUS 3.1 MG/DL (2.5-4.9)
[2018-07-10 05:59] LABS: ALANINE AMINOTRANSFERASE 36 U/L (12-78); ALBUMIN/GLOBULIN RATIO 0.8 (1.0-2.7); ALKALINE PHOSPHATASE 81 U/L (46-116); ANION GAP 7 mmol/L (5-15); ASPARTATE AMINO TRANSFERASE 23 U/L (15-37); BILIRUBIN,TOTAL 0.3 MG/DL (0.2-1.0); BLOOD UREA NITROGEN 5 mg/dL (7-18); CARBON DIOXIDE 28 MMOL/L (21-32); CHLORIDE 106 MMOL/L (98-107); CREATININE 0.6 MG/DL (0.55-1.30); POTASSIUM 3.4 MMOL/L (3.5-5.1); SODIUM 141 MMOL/L (136-145)
--- NOTE | 2018-07-10 06:10 | NUR ---
TRANSFER TO FLOOR: Patient transferred to [facility]UR[facility] room 418-2. Report given to JULIO Werner. Belongings and medications given to JULIO Werner. Pt is awake and alert and confused. No sign of acute distress noted.
--- NOTE | 2018-07-10 06:33 | NUR ---
NURSE NOTES: RECEIVED PATIENT FROM KYARA, GOT REPORT FROM JULIO AYALA. PATIENT IN BED, AWAKE. TRIPLE LINE CENTRAL LINE IN PLACE. NO S/S DISTRESS OR COMPLAINT OF PAIN AT THIS TIME. REVIEWED PATIENT BELONGINGS, HAT ONLY. BED IN LOWEST POSITION, CALL LIGHT WITHIN REACH, BED ALARM ON. WILL CONTINUE TO MONITOR. RECEIVED CALL FROM GALDINO WATKINS, PATIENT IS POSITIVE FOR MRSA NARES. CALLED AND LEFT MESSAGE FOR DR. BARBA, AWAITING RESPONSE. CHARGE NURSE AWARE.
--- NOTE | 2018-07-10 07:24 | NUR ---
HAND-OFF: Report given to KOSTA Muñoz RN.
--- NOTE | 2018-07-10 07:30 | NUR ---
NURSE NOTES: RN received pt in stable condition, sleeping in bed. Bed in low, locked position, call light within reach. Will continue plan of care.
[2018-07-10 08:00] VITALS: BP 137/72
[2018-07-10] MEDS: QUEtiapine 200mg tab ORAL SCH ×2 (08:42→17:39)
[2018-07-10] MEDS: Metoprolol 25mg tab ORAL SCH ×2 (08:43→20:42)
[2018-07-10] MEDS: Heparin 5000 units/ml inj SUBQ SCH ×3 (08:47→20:58)
[2018-07-10] MEDS ORDERED: Milk of Magnesia 30ml Ud ORAL PRN ×2 (09:00→12:00)
[2018-07-10] MEDS ORDERED: Phenytoin 100mg cap ORAL SCH (09:00)
[2018-07-10] MEDS ORDERED: Miralax 17gm pkt ORAL PRN ×2 (09:00→12:00)
[2018-07-10] MEDS ORDERED: Albuterol/Ipratropium 3ml neb HHN PRN (09:00)
[2018-07-10] MEDS: Vancomycin 750 MG in NS 275 ML IVPB SCH ×2 (09:03→20:56)
--- NOTE | 2018-07-10 09:40 | NUR ---
PT EVALUATION NOTE Patient seen for PT evaluation. Per nursing staff at SNF patient was wheelchair bound, transferred to wheelchair with boogie lift. Patient currently requires dependent assist of 2 people for bed mobility. Skilled inpatient PT intervention not indicated as patient is at baseline level of function. Patient discharged from PT, Salma KIM notified.
--- NOTE | 2018-07-10 10:14 | GI Progress Note ---
Assessment/Plan Problems: (1) Hepatitis C ICD Codes: B19.20 - Unspecified viral hepatitis C without hepatic coma SNOMED: 13652556 (2) Gastritis ICD Codes: K29.70 - Gastritis, unspecified, without bleeding SNOMED: 8626582 (3) Diabetes ICD Codes: E11.9 - Type 2 diabetes mellitus without complications SNOMED: 95175896 (4) Intractable nausea and vomiting ICD Codes: R11.2 - Nausea with vomiting, unspecified SNOMED: 989860937 (5) Abdominal pain ICD Codes: R10.9 - Unspecified abdominal pain SNOMED: 30635850 Status: stable Status Narrative Discussed with Dr. Mcclain Assessment/Plan 1. History of seizure disorder. 2. Gallstones. 3. Gastritis. 4. Hiatal hernia. 5. Hypertension. 6. Diabetes. 7. Positive hepatitis C serologies Abdominal ultrasound reviewed, noted with fatty liver and presence of cholelithiasis. ADA/Cardiac diet Hep C RNA ordered, >>> needs out patient fu for treatment repeat labs in am CT reviewed The patient was seen and examined at bedside and all new and available data was reviewed in the patients chart. I agree with the above findings, impression and plan. (Patient seen earlier today. Signature stamp does not reflect patient encounter time.). - Carlito Mcclain MD Subjective Gastrointestinal/Abdominal: Reports: no symptoms Objective Last 24 Hour Vital Signs Date Time Temp Pulse Resp B/P (MAP) Pulse Ox O2 Delivery O2 Flow Rate FiO2 07/10/18 08:43 89 137/72 07/10/18 08:28 91 16 Room Air 21 07/10/18 08:00 97.5 89 16 137/72 (93) 95 07/10/18 04:00 Room Air 07/10/18 04:00 97.5 75 20 124/74 (91) 96 07/10/18 04:00 77 07/10/18 00:00 97.3 81 20 120/72 (88) 95 07/10/18 00:00 74 07/10/18 00:00 Room Air 07/09/18 20:57 92 120/75 07/09/18 20:00 97.0 93 20 120/75 (90) 95 07/09/18 20:00 93 07/09/18 20:00 Room Air 5/6/19 19:45 95 16 Room Air 21 07/09/18 16:00 86 07/09/18 16:00 Room Air 07/09/18 16:00 97.9 86 20 118/74 (89) 93 07/09/18 12:00 97.5 80 18 125/72 (89) 95 07/09/18 12:00 73 07/09/18 12:00 Room Air Intake and Output 07/09/18 07/10/18 19:00 07:00 Intake Total 995.000 ml 1475.000 ml Output Total 1900 ml 1850 ml Balance -905.000 ml -375.000 ml Intake Oral 400 ml IV Total 995.000 ml 1075.000 ml Output Urine Total 1900 ml 1850 ml Laboratory Tests Test 07/09/18 10:40 07/10/18 03:45 White Blood Count 6.8 K/UL (4.8-10.8) # 6.5 K/UL (4.8-10.8) Red Blood Count 3.98 M/UL (4.70-6.10) L 4.04 M/UL (4.70-6.10) L Hemoglobin 12.3 G/DL (14.2-18.0) L 12.6 G/DL (14.2-18.0) L Hematocrit 36.3 % (42.0-52.0) L 37.1 % (42.0-52.0) L Mean Corpuscular Volume 91 FL (80-99) 92 FL (80-99) Mean Corpuscular Hemoglobin 30.9 PG (27.0-31.0) 31.3 PG (27.0-31.0) H Mean Corpuscular Hemoglobin Concent 34.0 G/DL (32.0-36.0) 34.1 G/DL (32.0-36.0) Red Cell Distribution Width 12.1 % (11.6-14.8) 12.3 % (11.6-14.8) Platelet Count 153 K/UL (150-450) 172 K/UL (150-450) Mean Platelet Volume 6.6 FL (6.5-10.1) 8.1 FL (6.5-10.1) Neutrophils (%) (Auto) 40.6 % (45.0-75.0) L 34.5 % (45.0-75.0) L Lymphocytes (%) (Auto) 46.7 % (20.0-45.0) H 46.3 % (20.0-45.0) H Monocytes (%) (Auto) 8.1 % (1.0-10.0) 11.7 % (1.0-10.0) H Eosinophils (%) (Auto) 3.7 % (0.0-3.0) H 6.6 % (0.0-3.0) H Basophils (%) (Auto) 0.9 % (0.0-2.0) 0.9 % (0.0-2.0) Sodium Level 139 MMOL/L (136-145) 141 MMOL/L (136-145) Potassium Level 3.5 MMOL/L (3.5-5.1) 3.4 MMOL/L (3.5-5.1) L Chloride Level 103 MMOL/L (98-107) 106 MMOL/L (98-107) Carbon Dioxide Level 28 MMOL/L (21-32) 28 MMOL/L (21-32) Anion Gap 8 mmol/L (5-15) 7 mmol/L (5-15) Blood Urea Nitrogen 8 mg/dL (7-18) 5 mg/dL (7-18) L Creatinine 0.7 MG/DL (0.55-1.30) 0.6 MG/DL (0.55-1.30) Estimat Glomerular Filtration Rate > 60 mL/min (>60) > 60 mL/min (>60) Glucose Level 100 MG/DL (74-106) 98 MG/DL (74-106) Hemoglobin A1c 6.2 % (4.3-6.0) H Calcium Level 8.5 MG/DL (8.5-10.1) 8.0 MG/DL (8.5-10.1) L Magnesium Level 1.7 MG/DL (1.8-2.4) L 2.2 MG/DL (1.8-2.4) Total Bilirubin 0.3 MG/DL (0.2-1.0) 0.3 MG/DL (0.2-1.0) Aspartate Amino Transf (AST/SGOT) 26 U/L (15-37) 23 U/L (15-37) Alanine Aminotransferase (ALT/SGPT) 39 U/L (12-78) 36 U/L (12-78) Alkaline Phosphatase 85 U/L (46-116) 81 U/L (46-116) Total Protein 7.2 G/DL (6.4-8.2) 6.9 G/DL (6.4-8.2) Albumin 3.1 G/DL (3.4-5.0) L 3.0 G/DL (3.4-5.0) L Globulin 4.1 g/dL 3.9 g/dL Albumin/Globulin Ratio 0.8 (1.0-2.7) L 0.8 (1.0-2.7) L Triglycerides Level 132 MG/DL (30-150) Cholesterol Level 149 MG/DL (< 200) LDL Cholesterol 95 mg/dL (<100) HDL Cholesterol 32 MG/DL (40-60) L Cholesterol/HDL Ratio 4.7 (3.3-4.4) H Amylase Level 58 U/L (25-115) Lipase 145 U/L (73-393) Erythrocyte Sedimentation Rate 19 MM/HR (0-20) Phosphorus Level 3.1 MG/DL (2.5-4.9) C-Reactive Protein, Quantitative 2.2 mg/dL (0.00-0.90) H Hepatitis C Antibody Pending Hepatitis C RNA (PCR) IUs/ml Pending Hepatitis C RNA (PCR) log IUs/ml Pending Height (Feet): 5 Height (Inches): 6.00 Weight (Pounds): 179 General Appearance: WD/WN, no apparent distress, alert Cardiovascular: normal rate Respiratory/Chest: normal breath sounds, no respiratory distress Abdominal Exam: normal bowel sounds, non tender, soft Extremities: normal range of motion, non-tender Jevon Logan NP July 10, 2018 10:14
--- NOTE | 2018-07-10 10:31 | Cardiac Electrophysiology PN ---
Assessment/Plan Assessment/Plan 1. Sinus tachycardia secondary to anxiety and sepsis. Better on metoprolol 25 mg bid. Echo Nl EF 2. Abdominal pain and vomiting. CT did not show any acute abdominal process. Abdominal ultrasound is being done per Dr. Mcclain. 3. Hepatitis C. 4. Diabetes. 5. Hiatal hernia. 6. Seizure disorder. DW RN Subjective Subjective Had 2D Echo EF 55%.No CP or SOB Objective Last 24 Hour Vital Signs Date Time Temp Pulse Resp B/P (MAP) Pulse Ox O2 Delivery O2 Flow Rate FiO2 07/10/18 08:43 89 137/72 07/10/18 08:28 91 16 Room Air 21 07/10/18 08:00 97.5 89 16 137/72 (93) 95 07/10/18 04:00 Room Air 07/10/18 04:00 97.5 75 20 124/74 (91) 96 07/10/18 04:00 77 07/10/18 00:00 97.3 81 20 120/72 (88) 95 07/10/18 00:00 74 07/10/18 00:00 Room Air 07/09/18 20:57 92 120/75 07/09/18 20:00 97.0 93 20 120/75 (90) 95 07/09/18 20:00 93 07/09/18 20:00 Room Air 07/09/18 19:45 95 16 Room Air 21 07/09/18 16:00 86 07/09/18 16:00 Room Air 07/09/18 16:00 97.9 86 20 118/74 (89) 93 07/09/18 12:00 97.5 80 18 125/72 (89) 95 07/09/18 12:00 73 07/09/18 12:00 Room Air Intake and Output 07/09/18 07/10/18 19:00 07:00 Intake Total 995.000 ml 1475.000 ml Output Total 1900 ml 1850 ml Balance -905.000 ml -375.000 ml Intake Oral 400 ml IV Total 995.000 ml 1075.000 ml Output Urine Total 1900 ml 1850 ml Laboratory Tests Test 07/09/18 10:40 07/10/18 03:45 White Blood Count 6.8 K/UL (4.8-10.8) # 6.5 K/UL (4.8-10.8) Red Blood Count 3.98 M/UL (4.70-6.10) L 4.04 M/UL (4.70-6.10) L Hemoglobin 12.3 G/DL (14.2-18.0) L 12.6 G/DL (14.2-18.0) L Hematocrit 36.3 % (42.0-52.0) L 37.1 % (42.0-52.0) L Mean Corpuscular Volume 91 FL (80-99) 92 FL (80-99) Mean Corpuscular Hemoglobin 30.9 PG (27.0-31.0) 31.3 PG (27.0-31.0) H Mean Corpuscular Hemoglobin Concent 34.0 G/DL (32.0-36.0) 34.1 G/DL (32.0-36.0) Red Cell Distribution Width 12.1 % (11.6-14.8) 12.3 % (11.6-14.8) Platelet Count 153 K/UL (150-450) 172 K/UL (150-450) Mean Platelet Volume 6.6 FL (6.5-10.1) 8.1 FL (6.5-10.1) Neutrophils (%) (Auto) 40.6 % (45.0-75.0) L 34.5 % (45.0-75.0) L Lymphocytes (%) (Auto) 46.7 % (20.0-45.0) H 46.3 % (20.0-45.0) H Monocytes (%) (Auto) 8.1 % (1.0-10.0) 11.7 % (1.0-10.0) H Eosinophils (%) (Auto) 3.7 % (0.0-3.0) H 6.6 % (0.0-3.0) H Basophils (%) (Auto) 0.9 % (0.0-2.0) 0.9 % (0.0-2.0) Sodium Level 139 MMOL/L (136-145) 141 MMOL/L (136-145) Potassium Level 3.5 MMOL/L (3.5-5.1) 3.4 MMOL/L (3.5-5.1) L Chloride Level 103 MMOL/L (98-107) 106 MMOL/L (98-107) Carbon Dioxide Level 28 MMOL/L (21-32) 28 MMOL/L (21-32) Anion Gap 8 mmol/L (5-15) 7 mmol/L (5-15) Blood Urea Nitrogen 8 mg/dL (7-18) 5 mg/dL (7-18) L Creatinine 0.7 MG/DL (0.55-1.30) 0.6 MG/DL (0.55-1.30) Estimat Glomerular Filtration Rate > 60 mL/min (>60) > 60 mL/min (>60) Glucose Level 100 MG/DL (74-106) 98 MG/DL (74-106) Hemoglobin A1c 6.2 % (4.3-6.0) H Calcium Level 8.5 MG/DL (8.5-10.1) 8.0 MG/DL (8.5-10.1) L Magnesium Level 1.7 MG/DL (1.8-2.4) L 2.2 MG/DL (1.8-2.4) Total Bilirubin 0.3 MG/DL (0.2-1.0) 0.3 MG/DL (0.2-1.0) Aspartate Amino Transf (AST/SGOT) 26 U/L (15-37) 23 U/L (15-37) Alanine Aminotransferase (ALT/SGPT) 39 U/L (12-78) 36 U/L (12-78) Alkaline Phosphatase 85 U/L (46-116) 81 U/L (46-116) Total Protein 7.2 G/DL (6.4-8.2) 6.9 G/DL (6.4-8.2) Albumin 3.1 G/DL (3.4-5.0) L 3.0 G/DL (3.4-5.0) L Globulin 4.1 g/dL 3.9 g/dL Albumin/Globulin Ratio 0.8 (1.0-2.7) L 0.8 (1.0-2.7) L Triglycerides Level 132 MG/DL (30-150) Cholesterol Level 149 MG/DL (< 200) LDL Cholesterol 95 mg/dL (<100) HDL Cholesterol 32 MG/DL (40-60) L Cholesterol/HDL Ratio 4.7 (3.3-4.4) H Amylase Level 58 U/L (25-115) Lipase 145 U/L (73-393) Erythrocyte Sedimentation Rate 19 MM/HR (0-20) Phosphorus Level 3.1 MG/DL (2.5-4.9) C-Reactive Protein, Quantitative 2.2 mg/dL (0.00-0.90) H Hepatitis C Antibody Pending Hepatitis C RNA (PCR) IUs/ml Pending Hepatitis C RNA (PCR) log IUs/ml Pending Microbiology Date/Time Source Procedure Growth Status 07/07/18 21:20 Blood Blood Culture - Preliminary Staphylococcus Sp Coag Neg Resulted 07/07/18 20:25 Blood Blood Culture - Preliminary Staphylococcus Sp Coag Neg Resulted 07/07/18 23:20 Nasal Nares MRSA Culture - Final Staphylococcus Aureus - Mrsa Complete Objective HEAD AND NECK: No JVD. LUNGS: Coarse rhonchi. CARDIOVASCULAR: Regular S1 and S2 with no gallop or murmur. ABDOMEN: Soft EXTREMITIES: 1+ pitting edema. Karel Honeycutt MD July 10, 2018 10:31
--- NOTE | 2018-07-10 11:03 | NUR ---
NURSE NOTES: Pt cleaned and repositioned. Medications administered as ordered. Pt was combative, attempted to hit RN said the words "slut" and "bitch", attempted to spit on charge nurse. No wounds noted on pt. Amaya draining to gravity, bag off the floor and secured. Pt now resting comfortably in bed. Will continue to monitor.
--- NOTE | 2018-07-10 11:13 | Cardiology Report ---
APPROVED REPORT EKG Measurement Heart [id number] Normal sinus rhythm Increased R/S ratio in V1, consider early transition or posterior infarct Abnormal ECG
--- NOTE | 2018-07-10 11:38 | Surgery Progress Note ---
Surgery Progress Note Subjective Additional Comments labs improved. comfortable. no complaints. abd exam benign Objective Last 24 Hour Vital Signs Date Time Temp Pulse Resp B/P (MAP) Pulse Ox O2 Delivery O2 Flow Rate FiO2 07/10/18 08:43 89 137/72 07/10/18 08:28 91 16 Room Air 21 07/10/18 08:00 Room Air 07/10/18 08:00 97.5 89 16 137/72 (93) 95 07/10/18 04:00 Room Air 07/10/18 04:00 97.5 75 20 124/74 (91) 96 07/10/18 04:00 77 07/10/18 00:00 97.3 81 20 120/72 (88) 95 07/10/18 00:00 74 07/10/18 00:00 Room Air 07/09/18 20:57 92 120/75 07/09/18 20:00 97.0 93 20 120/75 (90) 95 07/09/18 20:00 93 07/09/18 20:00 Room Air 07/09/18 19:45 95 16 Room Air 21 07/09/18 16:00 86 07/09/18 16:00 Room Air 07/09/18 16:00 97.9 86 20 118/74 (89) 93 07/09/18 12:00 97.5 80 18 125/72 (89) 95 07/09/18 12:00 73 07/09/18 12:00 Room Air I&O Intake and Output 07/09/18 07/10/18 19:00 07:00 Intake Total 995.000 ml 1475.000 ml Output Total 1900 ml 1850 ml Balance -905.000 ml -375.000 ml Intake Oral 400 ml IV Total 995.000 ml 1075.000 ml Output Urine Total 1900 ml 1850 ml Cardiovascular: RSR Respiratory: clear Abdomen: soft, flat, non-tender, present bowel sounds, non-distended Extremities: no cyanosis Laboratory Tests Test 07/10/18 03:45 White Blood Count 6.5 K/UL (4.8-10.8) Red Blood Count 4.04 M/UL (4.70-6.10) L Hemoglobin 12.6 G/DL (14.2-18.0) L Hematocrit 37.1 % (42.0-52.0) L Mean Corpuscular Volume 92 FL (80-99) Mean Corpuscular Hemoglobin 31.3 PG (27.0-31.0) H Mean Corpuscular Hemoglobin Concent 34.1 G/DL (32.0-36.0) Red Cell Distribution Width 12.3 % (11.6-14.8) Platelet Count 172 K/UL (150-450) Mean Platelet Volume 8.1 FL (6.5-10.1) Neutrophils (%) (Auto) 34.5 % (45.0-75.0) L Lymphocytes (%) (Auto) 46.3 % (20.0-45.0) H Monocytes (%) (Auto) 11.7 % (1.0-10.0) H Eosinophils (%) (Auto) 6.6 % (0.0-3.0) H Basophils (%) (Auto) 0.9 % (0.0-2.0) Erythrocyte Sedimentation Rate 19 MM/HR (0-20) Sodium Level 141 MMOL/L (136-145) Potassium Level 3.4 MMOL/L (3.5-5.1) L Chloride Level 106 MMOL/L (98-107) Carbon Dioxide Level 28 MMOL/L (21-32) Anion Gap 7 mmol/L (5-15) Blood Urea Nitrogen 5 mg/dL (7-18) L Creatinine 0.6 MG/DL (0.55-1.30) Estimat Glomerular Filtration Rate > 60 mL/min (>60) Glucose Level 98 MG/DL (74-106) Calcium Level 8.0 MG/DL (8.5-10.1) L Phosphorus Level 3.1 MG/DL (2.5-4.9) Magnesium Level 2.2 MG/DL (1.8-2.4) Total Bilirubin 0.3 MG/DL (0.2-1.0) Aspartate Amino Transf (AST/SGOT) 23 U/L (15-37) Alanine Aminotransferase (ALT/SGPT) 36 U/L (12-78) Alkaline Phosphatase 81 U/L (46-116) C-Reactive Protein, Quantitative 2.2 mg/dL (0.00-0.90) H Total Protein 6.9 G/DL (6.4-8.2) Albumin 3.0 G/DL (3.4-5.0) L Globulin 3.9 g/dL Albumin/Globulin Ratio 0.8 (1.0-2.7) L Hepatitis C Antibody Pending Hepatitis C RNA (PCR) IUs/ml Pending Hepatitis C RNA (PCR) log IUs/ml Pending Plan Problems: (1) Intractable nausea and vomiting (2) Cholelithiases (3) Diabetes (4) Seizure (5) Asthma (6) [id number] (7) Upper GI bleeding (8) Nosocomial pneumonia (9) Diabetes (10) HCAP (healthcare-associated pneumonia) (11) Gastritis (12) Hepatitis C (13) Seizure (14) UTI (urinary tract infection) (15) HTN (hypertension) (16) s/p Large R Craniotomy with spastic hemiparesis (17) Hypokalemia (18) Sepsis (19) Tachycardia (20) Abdominal pain Assessment & Plan: 58 year old male with abdominal pain, nausea, emesis. afebrile, HD stable, leukocytosis resolving, labs okay lft's okay, t bili okay, amylase/lipase okay CT with no acute process and cholelithiasis US with cholelithiasis -Abd US: Cholelithiasis. Fatty liver -CT a/p: No acute or inflammatory disease or bowel obstruction. Cholelithiasis. -no acute surgical intervention planned -okay for diet -PPI -abx as per ID -appreciate GI input -will follow with recs thank you Edgardo Tatum July 10, 2018 11:38
[2018-07-10 12:09] VITALS: BP 112/67
--- NOTE | 2018-07-10 12:48 | NUR ---
SWALLOW/SPEECH THERAPY NOTE: SWALLOW STATUS: ALERT AND DYSARTHRIC AND DYSPHONIC,NEEDS CUES TO OPEN MOUTH MORE AND SPEAKING LOUDER WITH EXAGGERATED SOUNDS. SLIGHT LEFT LABIAL ASYMMETRY AT REST (BUT NO ORAL LEAKAGE) PO TRIALS OF LUNCH (MECH SOFT GROUND AND THIN LIQUIDS). 10 SEC TO CHEW MECH SOFT GROUND TSP AND NEEDS 2 SWALLOWS, HAS FAIR HYOLARYNGEAL EXCURSION, NO ORAL RESIDUE, NEEDS 2 SWALLOWS (? PHARYNGEAL RESIDUE) BUT W/O OVERT ASP. NO OVERT S/S OF ASPIRATION WITH THIN LIQUIDS VIA STRAW SEQUENTIAL SIPS (PATIENT REQUESTS THIN LIQUID WASHES AFTER THE SOLID BOLUSES ? PHARYNGEAL RESIDUE CLEARANCE). GOALS MET FOR INTAKE 75% AND FOR STAFF (JULIO RAMIREZ AND GHAZALA SINGH) TRAINED IN POSTED ASP PRECAUTIONS. PLAN: CONTINUE WITH PLAN OF CARE IN SWALLOW EVAL REPORT. MOD BARIUM SWALLOW STUDY AND SPEECH EVAL (WHEN ORDER SIGNED).
[2018-07-10] MEDS: Docusate 100mg cap ORAL SCH ×2 (13:06→17:39)
--- NOTE | 2018-07-10 13:34 | Pulmonology Progress Note ---
Assessment/Plan Problems: (1) Intractable nausea and vomiting (2) HTN (hypertension) (3) Seizure (4) Hepatitis C (5) Gastritis (6) s/p Large R Craniotomy with spastic hemiparesis Assessment/Plan advance diet IV fluids monitro BP GI evaluation appreciated ID evaluation for BC positive dvt prophylaxis. Subjective ROS Limited/Unobtainable: No Constitutional: Reports: no symptoms HEENT: Repors: no symptoms Respiratory: Reports: no symptoms Allergies: Coded Allergies: No Known Allergies (Unverified , 04/16/16) Objective Last 24 Hour Vital Signs Date Time Temp Pulse Resp B/P (MAP) Pulse Ox O2 Delivery O2 Flow Rate FiO2 07/10/18 12:09 98.0 82 20 112/67 (82) 95 07/10/18 12:00 Room Air 07/10/18 08:43 89 137/72 07/10/18 08:28 91 16 Room Air 07/10/18 08:00 Room Air 07/10/18 08:00 97.5 89 16 137/72 (93) 95 07/10/18 04:00 Room Air 07/10/18 04:00 97.5 75 20 124/74 (91) 96 07/10/18 04:00 77 07/10/18 00:00 97.3 81 20 120/72 (88) 95 07/10/18 00:00 74 07/10/18 00:00 Room Air 07/09/18 20:57 92 120/75 07/09/18 20:00 97.0 93 20 120/75 (90) 95 07/09/18 20:00 93 07/09/18 20:00 Room Air 07/09/18 19:45 95 16 Room Air 21 07/09/18 16:00 86 07/09/18 16:00 Room Air 07/09/18 16:00 97.9 86 20 118/74 (89) 93 Intake and Output 07/09/18 07/10/18 19:00 07:00 Intake Total 995.000 ml 1475.000 ml Output Total 1900 ml 1850 ml Balance -905.000 ml -375.000 ml Intake Oral 400 ml IV Total 995.000 ml 1075.000 ml Output Urine Total 1900 ml 1850 ml General Appearance: WD/WN HEENT: normocephalic, atraumatic Respiratory/Chest: chest wall non-tender, lungs clear Cardiovascular: normal peripheral pulses, normal rate Abdomen: normal bowel sounds, no organomegaly Genitourinary: normal external genitalia Microbiology Date/Time Source Procedure Growth Status 07/07/18 21:20 Blood Blood Culture - Preliminary Staphylococcus Sp Coag Neg Resulted 07/07/18 20:25 Blood Blood Culture - Preliminary Staphylococcus Sp Coag Neg Resulted 07/07/18 23:20 Nasal Nares MRSA Culture - Final Staphylococcus Aureus - Mrsa Complete 07/07/18 23:20 Rectum VRE Culture - Final NO VANCOMYCIN RESISTANT ENTEROCOCCUS ... Complete Laboratory Tests 07/10/18 03:45: White Blood Count 6.5, Red Blood Count 4.04L, Hemoglobin 12.6L, Hematocrit 37.1L , Mean Corpuscular Volume 92, Mean Corpuscular Hemoglobin 31.3H, Mean Corpuscular Hemoglobin Concent 34.1, Red Cell Distribution Width 12.3, Platelet Count 172, Mean Platelet Volume 8.1, Neutrophils (%) (Auto) 34.5L, Lymphocytes ( %) (Auto) 46.3H, Monocytes (%) (Auto) 11.7H, Eosinophils (%) (Auto) 6.6H, Basophils (%) (Auto) 0.9, Erythrocyte Sedimentation Rate 19, Sodium Level 141, Potassium Level 3.4L, Chloride Level 106, Carbon Dioxide Level 28, Anion Gap 7, Blood Urea Nitrogen 5L, Creatinine 0.6, Estimat Glomerular Filtration Rate > 60 , Glucose Level 98, Calcium Level 8.0L, Phosphorus Level 3.1, Magnesium Level 2.2, Total Bilirubin 0.3, Aspartate Amino Transf (AST/SGOT) 23, Alanine Aminotransferase (ALT/SGPT) 36, Alkaline Phosphatase 81, C-Reactive Protein, Quantitative 2.2H, Total Protein 6.9, Albumin 3.0L, Globulin 3.9, Albumin/ Globulin Ratio 0.8L, Hepatitis C Antibody [Pending], Hepatitis C RNA (PCR) IUs/ ml [Pending], Hepatitis C RNA (PCR) log IUs/ml [Pending] Current Medications Medications (Trade) Dose Ordered Sig/Netta Route PRN Reason Start Time Stop Time Status Last Admin Dose Admin Acetaminophen (Tylenol) 325 mg Q6H PRN ORAL Mild Pain/Temp > 100.5 07/10/18 09:45 08/07/18 04:29 Al Hydroxide/Mg Hydroxide (Mylanta) 30 ml Q6HR PRN ORAL gastric discomfort 07/10/18 06:00 08/07/18 05:59 Albuterol/ Ipratropium (Albuterol/ Ipratropium) 3 ml Q4HR PRN HHN For Cough 07/10/18 09:00 07/13/18 04:29 Chlorhexidine Gluconate (Shaniqua-Hex 2%) 1 applic DAILY@2000 TOPIC 07/10/18 20:00 08/07/18 19:59 Dextrose/Sodium Chloride 1,000 ml @ 60 mls/hr [id number] IV 07/10/18 06:15 08/07/18 04:29 07/10/18 06:39 Divalproex Sodium (Depakote) 1,000 mg BEDTIME ORAL 07/10/18 21:00 08/07/18 20:59 Docusate Sodium (Colace) 100 mg THREE TIMES A DAY ORAL 07/10/18 13:00 08/09/18 12:59 07/10/18 13:06 Heparin Sodium (Porcine) (Heparin 5000 units/ml) 5,000 units EVERY 12 HOURS SUBQ 07/10/18 09:00 08/07/18 08:59 07/10/18 08:47 Magnesium Hydroxide (Mom) 30 ml DAILYPRN PRN ORAL Constipation 07/10/18 12:00 08/09/18 08:59 Metoprolol Tartrate (Lopressor) 25 mg Q12HR ORAL 07/10/18 09:00 08/07/18 20:59 07/10/18 08:43 Ondansetron HCl (Zofran ODT) 4 mg Q6H PRN ORAL Nausea & Vomiting 07/10/18 06:00 08/07/18 05:59 Pantoprazole (Protonix) 40 mg DAILY ORAL 07/10/18 09:00 08/08/18 08:59 07/10/18 08:43 Phenytoin (Dilantin) 200 mg Q12HR ORAL 07/10/18 21:00 08/09/18 08:59 Polyethylene Glycol (Miralax) 17 gm BEDTIME ORAL 07/10/18 21:00 08/09/18 20:59 Polyethylene Glycol (Miralax) 17 gm DAILY PRN ORAL Constipation 07/10/18 12:00 08/07/18 04:29 Quetiapine Fumarate (SEROquel) 250 mg TWICE A DAY ORAL 07/10/18 09:00 08/07/18 08:59 07/10/18 08:42 Temazepam (Restoril) 15 mg BEDTIME PRN ORAL Insomnia 07/10/18 21:00 07/15/18 04:29 Vancomycin HCl (Vanco rx to dose) 1 ea DAILY PRN MISC Per rx protocol 07/10/18 09:00 08/08/18 06:44 Vancomycin HCl 750 mg/Sodium Chloride 275 ml @ 183.333 mls/hr Q12HR IVPB 07/10/18 09:00 07/14/18 08:59 07/10/18 09:03 Sherlyn Sheffield MD July 10, 2018 13:34
--- NOTE | 2018-07-10 14:07 | NUR ---
LOG [employer] SPLITTER SI:GASTRITIS . CHOLELITHIASIS VS: BP112/67, P 91, T 97.5, RR 20, SpO2 95 RBC 4.04, H&H 12.6/37.1, K 3.4, BUN 5 IS;VANCOMYCIN HCI 275mL IVPB DILANTIN 200mg HEPARIN SUBQ LOPRESSOR 25mG PROTONIX 40mg SEROQUEL 250mg D5/NS x1L IV MED/SURG STATUS
--- NOTE | 2018-07-10 14:22 | Infectious Diseases Prog Note ---
Assessment/Plan Assessment/Plan Abx: Doxycycline 07/08- IV Vancomycin 07/09- Levaquin x 1 07/07 Zosyn x1 07/07 Assessment: Sepsis -07/09 CXR: Accentuation of the pulmonary markings. Presumed area of scar or atelectasis in the right lung base rather than air under the diaphragm. -07/07 CXR: Reduced lung volumes and accentuation of markings. No confluent consolidation or confluent edema. u.a neg Gram positive bacteremia- r/o endocarditis (R IJ placed around the same time Bcx were collected)- likely true bacteremia given sepsis upn admission and no obvious other source of infection- r/o hardware infection ( L ileum ORIF) -07/07/ CONS; 07/09 Bcx p -2d Echo: no obvious vegetation Nausea/vomiting/Abd pain -Abd US: Cholelithiasis. Fatty liver -CT abd/p w/ No acute or inflammatory disease or bowel obstruction. Cholelithiasis. Status post remote open reduction and internal fixation of a prior left ileum fracture also. Fever, improving Leukocytosis, SP Lactic acidosis, SP seizure disorder asthma HTN CVA with L hemiparesis MDD cholelithiasis hiatal hernia Hypertension Hepatitis C Gastritis senior care resident Plan: -Continue empiric IV Vancomycin #2 for Gram positive bacteremia -07/09 SP Doxycycline #2 -07/07 SP LEvaquin x1, Zosyn x1 -f/u repeat Bcx x2 -WBC scan -f/u cx -Monitor CBC/CMP, temperatures -GI, cards f/u -aspiration precautions Thank you for this consultation. Will continue to follow along with you. Discussed with RN. Subjective Allergies: Coded Allergies: No Known Allergies (Unverified , 04/16/16) Subjective afebrile >48hrs repeat bx p no leukocytosis Objective Vital Signs Last 24 Hour Vital Signs Date Time Temp Pulse Resp B/P (MAP) Pulse Ox O2 Delivery O2 Flow Rate FiO2 07/10/18 12:09 98.0 82 20 112/67 (82) 95 07/10/18 12:00 Room Air 07/10/18 08:43 89 137/72 07/10/18 08:28 91 16 Room Air 21 07/10/18 08:00 Room Air 07/10/18 08:00 97.5 89 16 137/72 (93) 95 07/10/18 04:00 Room Air 07/10/18 04:00 97.5 75 20 124/74 (91) 96 07/10/18 04:00 77 07/10/18 00:00 97.3 81 20 120/72 (88) 95 07/10/18 00:00 74 07/10/18 00:00 Room Air 07/09/18 20:57 92 120/75 07/09/18 20:00 97.0 93 20 120/75 (90) 95 07/09/18 20:00 93 07/09/18 20:00 Room Air 07/09/18 19:45 95 16 Room Air 21 07/09/18 16:00 86 07/09/18 16:00 Room Air 07/09/18 16:00 97.9 86 20 118/74 (89) 93 Height (Feet): 5 Height (Inches): 6.00 Weight (Pounds): 179 Objective GENERAL: Calm in bed, oriented x2, in no acute distress. CARDIOVASCULAR: No murmur. LUNGS: Poor air exchange. ABDOMEN: Bowel sounds distant. Soft. No guarding. No rigidity. Slightly tender. No rebound. EXTREMITIES: Show no cyanosis or edema. NEUROLOGIC: The patient moves all extremities, slightly weak. Microbiology Date/Time Source Procedure Growth Status 07/07/18 21:20 Blood Blood Culture - Preliminary Staphylococcus Sp Coag Neg Resulted 07/07/18 20:25 Blood Blood Culture - Preliminary Staphylococcus Sp Coag Neg Resulted 07/07/18 23:20 Nasal Nares MRSA Culture - Final Staphylococcus Aureus - Mrsa Complete 07/07/18 23:20 Rectum VRE Culture - Final NO VANCOMYCIN RESISTANT ENTEROCOCCUS ... Complete Laboratory Tests Test 07/10/18 03:45 White Blood Count 6.5 K/UL (4.8-10.8) Red Blood Count 4.04 M/UL (4.70-6.10) L Hemoglobin 12.6 G/DL (14.2-18.0) L Hematocrit 37.1 % (42.0-52.0) L Mean Corpuscular Volume 92 FL (80-99) Mean Corpuscular Hemoglobin 31.3 PG (27.0-31.0) H Mean Corpuscular Hemoglobin Concent 34.1 G/DL (32.0-36.0) Red Cell Distribution Width 12.3 % (11.6-14.8) Platelet Count 172 K/UL (150-450) Mean Platelet Volume 8.1 FL (6.5-10.1) Neutrophils (%) (Auto) 34.5 % (45.0-75.0) L Lymphocytes (%) (Auto) 46.3 % (20.0-45.0) H Monocytes (%) (Auto) 11.7 % (1.0-10.0) H Eosinophils (%) (Auto) 6.6 % (0.0-3.0) H Basophils (%) (Auto) 0.9 % (0.0-2.0) Erythrocyte Sedimentation Rate 19 MM/HR (0-20) Sodium Level 141 MMOL/L (136-145) Potassium Level 3.4 MMOL/L (3.5-5.1) L Chloride Level 106 MMOL/L (98-107) Carbon Dioxide Level 28 MMOL/L (21-32) Anion Gap 7 mmol/L (5-15) Blood Urea Nitrogen 5 mg/dL (7-18) L Creatinine 0.6 MG/DL (0.55-1.30) Estimat Glomerular Filtration Rate > 60 mL/min (>60) Glucose Level 98 MG/DL (74-106) Calcium Level 8.0 MG/DL (8.5-10.1) L Phosphorus Level 3.1 MG/DL (2.5-4.9) Magnesium Level 2.2 MG/DL (1.8-2.4) Total Bilirubin 0.3 MG/DL (0.2-1.0) Aspartate Amino Transf (AST/SGOT) 23 U/L (15-37) Alanine Aminotransferase (ALT/SGPT) 36 U/L (12-78) Alkaline Phosphatase 81 U/L (46-116) C-Reactive Protein, Quantitative 2.2 mg/dL (0.00-0.90) H Total Protein 6.9 G/DL (6.4-8.2) Albumin 3.0 G/DL (3.4-5.0) L Globulin 3.9 g/dL Albumin/Globulin Ratio 0.8 (1.0-2.7) L Hepatitis C Antibody Pending Hepatitis C RNA (PCR) IUs/ml Pending Hepatitis C RNA (PCR) log IUs/ml Pending Current Medications Medications (Trade) Dose Ordered Sig/Netta Route PRN Reason Start Time Stop Time Status Last Admin Dose Admin Acetaminophen (Tylenol) 325 mg Q6H PRN ORAL Mild Pain/Temp > 100.5 07/10/18 09:45 08/07/18 04:29 Al Hydroxide/Mg Hydroxide (Mylanta) 30 ml Q6HR PRN ORAL gastric discomfort 07/10/18 06:00 08/07/18 05:59 Albuterol/ Ipratropium (Albuterol/ Ipratropium) 3 ml Q4HR PRN HHN For Cough 07/10/18 09:00 07/13/18 04:29 Chlorhexidine Gluconate (Shaniqua-Hex 2%) 1 applic DAILY@2000 TOPIC 07/10/18 20:00 08/07/18 19:59 Dextrose/Sodium Chloride 1,000 ml @ 60 mls/hr [id number] IV 07/10/18 06:15 08/07/18 04:29 07/10/18 06:39 Divalproex Sodium (Depakote) 1,000 mg BEDTIME ORAL 07/10/18 21:00 08/07/18 20:59 Docusate Sodium (Colace) 100 mg THREE TIMES A DAY ORAL 07/10/18 13:00 08/09/18 12:59 07/10/18 13:06 Heparin Sodium (Porcine) (Heparin 5000 units/ml) 5,000 units EVERY 12 HOURS SUBQ 07/10/18 09:00 08/07/18 08:59 07/10/18 08:47 Magnesium Hydroxide (Mom) 30 ml DAILYPRN PRN ORAL Constipation 07/10/18 12:00 08/09/18 08:59 Metoprolol Tartrate (Lopressor) 25 mg Q12HR ORAL 07/10/18 09:00 08/07/18 20:59 07/10/18 08:43 Ondansetron HCl (Zofran ODT) 4 mg Q6H PRN ORAL Nausea & Vomiting 07/10/18 06:00 08/07/18 05:59 Pantoprazole (Protonix) 40 mg DAILY ORAL 07/10/18 09:00 08/08/18 08:59 07/10/18 08:43 Phenytoin (Dilantin) 200 mg Q12HR ORAL 07/10/18 21:00 08/09/18 08:59 Polyethylene Glycol (Miralax) 17 gm BEDTIME ORAL 07/10/18 21:00 08/09/18 20:59 Polyethylene Glycol (Miralax) 17 gm DAILY PRN ORAL Constipation 07/10/18 12:00 08/07/18 04:29 Quetiapine Fumarate (SEROquel) 250 mg TWICE A DAY ORAL 07/10/18 09:00 08/07/18 08:59 07/10/18 08:42 Temazepam (Restoril) 15 mg BEDTIME PRN ORAL Insomnia 07/10/18 21:00 07/15/18 04:29 Vancomycin HCl (Vanco rx to dose) 1 ea DAILY PRN MISC Per rx protocol 07/10/18 09:00 08/08/18 06:44 Vancomycin HCl 750 mg/Sodium Chloride 275 ml @ 183.333 mls/hr Q12HR IVPB 07/10/18 09:00 07/14/18 08:59 07/10/18 09:03 Santa Treviño M.D. July 10, 2018 14:22
[2018-07-10] MEDS ORDERED: Heparin 1000 units/ml 1ml Vial INJ SCH (14:30)
--- NOTE | 2018-07-10 14:48 | NUR ---
*-* INSURANCE *-* ALL CLINICALS AND REVIEWS HAVE BEEN FAXED TO: [facility]W [facility]..THIS ADMISSION WILL BE HANDLED BY : LURDES: LIZBETH P- [phone] F- [phone]....REVIEW/CLINICAL
--- NOTE | 2018-07-10 14:59 | General Progress Note ---
Assessment/Plan Problem List: (1) Cholelithiases ICD Codes: K80.20 - Calculus of gallbladder without cholecystitis without obstruction SNOMED: 694466224 (2) Asthma ICD Codes: J45.909 - Unspecified asthma, uncomplicated SNOMED: 462640390 (3) Seizure ICD Codes: R56.9 - Unspecified convulsions SNOMED: 35329324 (4) Diabetes ICD Codes: E11.9 - Type 2 diabetes mellitus without complications SNOMED: 89897504 (5) Intractable nausea and vomiting ICD Codes: R11.2 - Nausea with vomiting, unspecified SNOMED: 721338873 (6) HTN (hypertension) ICD Codes: I10 - Essential (primary) hypertension SNOMED: 66044557 Status: stable, progressing Assessment/Plan: pt diet bp bs seizure pain control cbc bmp am dc plan Subjective Constitutional: Reports: weakness Allergies: Coded Allergies: No Known Allergies (Unverified , 04/16/16) All Systems: reviewed and negative except above Subjective sleepy calm Objective Last 24 Hour Vital Signs Date Time Temp Pulse Resp B/P (MAP) Pulse Ox O2 Delivery O2 Flow Rate FiO2 07/10/18 12:09 98.0 82 20 112/67 (82) 95 07/10/18 12:00 Room Air 07/10/18 08:43 89 137/72 07/10/18 08:28 91 16 Room Air 21 07/10/18 08:00 Room Air 07/10/18 08:00 97.5 89 16 137/72 (93) 95 07/10/18 04:00 Room Air 07/10/18 04:00 97.5 75 20 124/74 (91) 96 07/10/18 04:00 77 07/10/18 00:00 97.3 81 20 120/72 (88) 95 07/10/18 00:00 74 07/10/18 00:00 Room Air 07/09/18 20:57 92 120/75 07/09/18 20:00 97.0 93 20 120/75 (90) 95 07/09/18 20:00 93 07/09/18 20:00 Room Air 07/09/18 19:45 95 16 Room Air 21 07/09/18 16:00 86 07/09/18 16:00 Room Air 07/09/18 16:00 97.9 86 20 118/74 (89) 93 Intake and Output 07/09/18 07/10/18 19:00 07:00 Intake Total 995.000 ml 1475.000 ml Output Total 1900 ml 1850 ml Balance -905.000 ml -375.000 ml Intake Oral 400 ml IV Total 995.000 ml 1075.000 ml Output Urine Total 1900 ml 1850 ml Laboratory Tests 07/10/18 03:45: White Blood Count 6.5, Red Blood Count 4.04L, Hemoglobin 12.6L, Hematocrit 37.1L , Mean Corpuscular Volume 92, Mean Corpuscular Hemoglobin 31.3H, Mean Corpuscular Hemoglobin Concent 34.1, Red Cell Distribution Width 12.3, Platelet Count 172, Mean Platelet Volume 8.1, Neutrophils (%) (Auto) 34.5L, Lymphocytes ( %) (Auto) 46.3H, Monocytes (%) (Auto) 11.7H, Eosinophils (%) (Auto) 6.6H, Basophils (%) (Auto) 0.9, Erythrocyte Sedimentation Rate 19, Sodium Level 141, Potassium Level 3.4L, Chloride Level 106, Carbon Dioxide Level 28, Anion Gap 7, Blood Urea Nitrogen 5L, Creatinine 0.6, Estimat Glomerular Filtration Rate > 60 , Glucose Level 98, Calcium Level 8.0L, Phosphorus Level 3.1, Magnesium Level 2.2, Total Bilirubin 0.3, Aspartate Amino Transf (AST/SGOT) 23, Alanine Aminotransferase (ALT/SGPT) 36, Alkaline Phosphatase 81, C-Reactive Protein, Quantitative 2.2H, Total Protein 6.9, Albumin 3.0L, Globulin 3.9, Albumin/ Globulin Ratio 0.8L, Hepatitis C Antibody [Pending], Hepatitis C RNA (PCR) IUs/ ml [Pending], Hepatitis C RNA (PCR) log IUs/ml [Pending] Height (Feet): 5 Height (Inches): 6.00 Weight (Pounds): 179 General Appearance: lethargic EENT: normal ENT inspection Neck: normal alignment Cardiovascular: normal peripheral pulses, normal rate, regular rhythm Respiratory/Chest: chest wall non-tender, lungs clear, normal breath sounds Abdomen: normal bowel sounds, non tender, soft Extremities: normal inspection Edema: no edema noted Arm (L), no edema noted Arm (R), no edema noted Leg (L), no edema noted Leg (R), no edema noted Pedal (L), no edema noted Pedal (R), no edema noted Generalized Neurologic: motor weakness Skin: normal pigmentation, warm/dry Ady Kerr DO July 10, 2018 14:59
--- NOTE | 2018-07-10 15:32 | NUR ---
NURSE NOTES: Radiology informed RN that they were concerned regarding pt's noted combative behavior for NM Indium scan ordered. Also, per pharmacy, this procedure will not be able to be performed until Monday. RN held order for Heparin, 1 dose ordered for scan. Dr. Treviño made aware.
[2018-07-10 16:00] VITALS: BP 118/72
--- NOTE | 2018-07-10 19:02 | NUR ---
HAND-OFF: Report given to JULIO Mercedes.
[2018-07-10 20:00] VITALS: BP 134/84
--- NOTE | 2018-07-10 20:00 | NUR ---
NURSE NOTES: Received report from JULIO Phillips. Patient on room air, no signs of distress or labored breathing. Right internal jugular triple lumen intact, 2 lumens patent, and infusing IV fluids. Denies pain. Bed in lowest position with call light in reach. Will continue with plan of care.
[2018-07-10] MEDS: Dyna-Hex 2% Top Sol 2oz TOPIC SCH (20:41)
[2018-07-10] MEDS: Miralax 17gm pkt ORAL SCH (20:42)
[2018-07-10] MEDS: Phenytoin 100mg cap ORAL SCH (20:42)
[2018-07-10] MEDS ORDERED: Isovue-300 100ml vial INJ PRN (21:00)
[2018-07-11] VITALS: BP 140/98
[2018-07-11] MEDS: D5 1/2NS 1,000 ML IV SCH ×2 (00:21→17:46)
[2018-07-11 04:00] VITALS: BP 138/88
[2018-07-11 06:39] LABS: ANION GAP 6 mmol/L (5-15); BLOOD UREA NITROGEN 8 mg/dL (7-18); CALCIUM 8.5 MG/DL (8.5-10.1); CARBON DIOXIDE 29 MMOL/L (21-32); CHLORIDE 110 MMOL/L (98-107); CREATININE 0.7 MG/DL (0.55-1.30); POTASSIUM 3.9 MMOL/L (3.5-5.1); SODIUM 145 MMOL/L (136-145)
[2018-07-11 06:59] LABS: BASOPHILS % (AUTO) 1.1 % (0.0-2.0); EOSINOPHILS % (AUTO) 7.5 % (0.0-3.0); HEMATOCRIT 37.8 % (42.0-52.0); HEMOGLOBIN 12.9 G/DL (14.2-18.0); LYMPHOCYTES % (AUTO) 45.7 % (20.0-45.0); MEAN CORPUSCULAR VOLUME 92 FL (80-99); MONOCYTES % (AUTO) 10.7 % (1.0-10.0); PLATELET COUNT 176 K/UL (150-450); RED CELL DISTRIBUTION WIDTH 12.4 % (11.6-14.8); WHITE BLOOD COUNT 6.2 K/UL (4.8-10.8)
--- NOTE | 2018-07-11 07:42 | NUR ---
HAND-OFF: Report given to JULIO Blake.
[2018-07-11 08:00] VITALS: BP 125/82
[2018-07-11] MEDS: Phenytoin 100mg cap ORAL SCH ×2 (08:53→20:34)
[2018-07-11] MEDS: Vancomycin 1gm in D5W 275ml IVPB SCH ×2 (08:53→20:35)
[2018-07-11] MEDS: Metoprolol 25mg tab ORAL SCH ×2 (08:53→20:33)
[2018-07-11] MEDS: Docusate 100mg cap ORAL SCH ×3 (08:54→17:46)
[2018-07-11] MEDS: QUEtiapine 200mg tab ORAL SCH ×2 (08:54→17:46)
[2018-07-11] MEDS: Heparin 5000 units/ml inj SUBQ SCH ×2 (08:59→20:35)
--- NOTE | 2018-07-11 09:16 | NUR ---
RADIOLOGY DEPT., CHEST X-RAY DONE.-P.DYE
--- NOTE | 2018-07-11 11:28 | NUR ---
*-* INSURANCE *-* ALL CLINICALS HAVE BEEN FAXED TO: [facility] [place] NCM: LIZBETH P- [phone] F- [phone]....REVIEW/CLINICAL
--- NOTE | 2018-07-11 11:41 | GI Progress Note ---
Assessment/Plan Problems: (1) Hepatitis C ICD Codes: B19.20 - Unspecified viral hepatitis C without hepatic coma SNOMED: 00517685 (2) Gastritis ICD Codes: K29.70 - Gastritis, unspecified, without bleeding SNOMED: 5445932 (3) Diabetes ICD Codes: E11.9 - Type 2 diabetes mellitus without complications SNOMED: 48030545 (4) Intractable nausea and vomiting ICD Codes: R11.2 - Nausea with vomiting, unspecified SNOMED: 163843964 (5) Abdominal pain ICD Codes: R10.9 - Unspecified abdominal pain SNOMED: 97660550 Status: stable Status Narrative Discussed with Dr. Mcclain. Assessment/Plan 1. History of seizure disorder. 2. Gallstones. 3. Gastritis. 4. Hiatal hernia. 5. Hypertension. 6. Diabetes. 7. Positive hepatitis C serologies Abdominal ultrasound reviewed, noted with fatty liver and presence of cholelithiasis. ADA/Cardiac diet Hep C RNA ordered, >>> needs out patient fu for treatment repeat labs in am CT reviewed dc planning The patient was seen and examined at bedside and all new and available data was reviewed in the patients chart. I agree with the above findings, impression and plan. (Patient seen earlier today. Signature stamp does not reflect patient encounter time.). - Carlito Mcclain MD Subjective Gastrointestinal/Abdominal: Reports: no symptoms Objective Last 24 Hour Vital Signs Date Time Temp Pulse Resp B/P (MAP) Pulse Ox O2 Delivery O2 Flow Rate FiO2 07/11/18 08:53 111 125/82 07/11/18 08:14 94 16 Room Air 21 07/11/18 08:00 98.3 111 20 125/82 (96) 95 07/11/18 04:00 98.7 78 18 138/88 (105) 96 07/11/18 00:00 98.8 85 17 140/98 (112) 95 07/11/18 00:00 Room Air 07/10/18 20:42 80 140/98 07/10/18 20:23 95 20 Room Air 21 07/10/18 20:00 99.0 80 19 134/84 (101) 95 07/10/18 20:00 Room Air 07/10/18 16:00 Room Air 07/10/18 16:00 97.4 81 20 118/72 (87) 97 07/10/18 12:09 98.0 82 20 112/67 (82) 95 07/10/18 12:00 Room Air Intake and Output 07/10/18 07/11/18 18:59 06:59 Intake Total 930 ml Output Total 1850 ml 2500 ml Balance -920 ml -2500 ml Intake Oral 930 ml Output Urine Total 1850 ml 2500 ml # Voids 2 Laboratory Tests Test 07/10/18 20:15 07/11/18 06:00 Vancomycin Level Trough 10.1 ug/mL (5.0-12.0) White Blood Count 6.2 K/UL (4.8-10.8) Red Blood Count 4.10 M/UL (4.70-6.10) L Hemoglobin 12.9 G/DL (14.2-18.0) L Hematocrit 37.8 % (42.0-52.0) L Mean Corpuscular Volume 92 FL (80-99) Mean Corpuscular Hemoglobin 31.4 PG (27.0-31.0) H Mean Corpuscular Hemoglobin Concent 34.1 G/DL (32.0-36.0) Red Cell Distribution Width 12.4 % (11.6-14.8) Platelet Count 176 K/UL (150-450) Mean Platelet Volume 7.5 FL (6.5-10.1) Neutrophils (%) (Auto) 35.0 % (45.0-75.0) L Lymphocytes (%) (Auto) 45.7 % (20.0-45.0) H Monocytes (%) (Auto) 10.7 % (1.0-10.0) H Eosinophils (%) (Auto) 7.5 % (0.0-3.0) H Basophils (%) (Auto) 1.1 % (0.0-2.0) Sodium Level 145 MMOL/L (136-145) Potassium Level 3.9 MMOL/L (3.5-5.1) Chloride Level 110 MMOL/L (98-107) H Carbon Dioxide Level 29 MMOL/L (21-32) Anion Gap 6 mmol/L (5-15) Blood Urea Nitrogen 8 mg/dL (7-18) Creatinine 0.7 MG/DL (0.55-1.30) Estimat Glomerular Filtration Rate > 60 mL/min (>60) Glucose Level 99 MG/DL (74-106) Calcium Level 8.5 MG/DL (8.5-10.1) Height (Feet): 5 Height (Inches): 6.00 Weight (Pounds): 184 General Appearance: WD/WN, no apparent distress, alert Cardiovascular: normal rate Respiratory/Chest: normal breath sounds, no respiratory distress Abdominal Exam: normal bowel sounds, non tender, soft Extremities: normal range of motion, non-tender Jevon Logan NP July 11, 2018 11:41
[2018-07-11 12:00] VITALS: BP 143/86
--- NOTE | 2018-07-11 12:01 | Cardiac Electrophysiology PN ---
Assessment/Plan Assessment/Plan 1. Sinus tachycardia secondary to anxiety and sepsis. On metoprolol 25 mg bid. Echo Nl EF 2. Abdominal pain and vomiting. CT did not show any acute abdominal process. FU per Dr. Thomas. 3. Hepatitis C. 4. Diabetes. 5. Hiatal hernia. 6. Seizure disorder. 7. Gastritis DW RN Subjective Subjective Echo EF 55%.No CP or SOB. Off tele Objective Last 24 Hour Vital Signs Date Time Temp Pulse Resp B/P (MAP) Pulse Ox O2 Delivery O2 Flow Rate FiO2 07/11/18 09:00 Room Air 07/11/18 08:53 111 125/82 07/11/18 08:14 94 16 Room Air 21 07/11/18 08:00 98.3 111 20 125/82 (96) 95 07/11/18 04:00 98.7 78 18 138/88 (105) 96 07/11/18 00:00 98.8 85 17 140/98 (112) 95 07/11/18 00:00 Room Air 07/10/18 20:42 80 140/98 07/10/18 20:23 95 20 Room Air 21 07/10/18 20:00 99.0 80 19 134/84 (101) 95 07/10/18 20:00 Room Air 07/10/18 16:00 Room Air 07/10/18 16:00 97.4 81 20 118/72 (87) 97 07/10/18 12:09 98.0 82 20 112/67 (82) 95 07/10/18 12:00 Room Air Intake and Output 07/10/18 07/11/18 18:59 06:59 Intake Total 930 ml Output Total 1850 ml 2500 ml Balance -920 ml -2500 ml Intake Oral 930 ml Output Urine Total 1850 ml 2500 ml # Voids 2 Laboratory Tests Test 07/10/18 20:15 07/11/18 06:00 Vancomycin Level Trough 10.1 ug/mL (5.0-12.0) White Blood Count 6.2 K/UL (4.8-10.8) Red Blood Count 4.10 M/UL (4.70-6.10) L Hemoglobin 12.9 G/DL (14.2-18.0) L Hematocrit 37.8 % (42.0-52.0) L Mean Corpuscular Volume 92 FL (80-99) Mean Corpuscular Hemoglobin 31.4 PG (27.0-31.0) H Mean Corpuscular Hemoglobin Concent 34.1 G/DL (32.0-36.0) Red Cell Distribution Width 12.4 % (11.6-14.8) Platelet Count 176 K/UL (150-450) Mean Platelet Volume 7.5 FL (6.5-10.1) Neutrophils (%) (Auto) 35.0 % (45.0-75.0) L Lymphocytes (%) (Auto) 45.7 % (20.0-45.0) H Monocytes (%) (Auto) 10.7 % (1.0-10.0) H Eosinophils (%) (Auto) 7.5 % (0.0-3.0) H Basophils (%) (Auto) 1.1 % (0.0-2.0) Sodium Level 145 MMOL/L (136-145) Potassium Level 3.9 MMOL/L (3.5-5.1) Chloride Level 110 MMOL/L (98-107) H Carbon Dioxide Level 29 MMOL/L (21-32) Anion Gap 6 mmol/L (5-15) Blood Urea Nitrogen 8 mg/dL (7-18) Creatinine 0.7 MG/DL (0.55-1.30) Estimat Glomerular Filtration Rate > 60 mL/min (>60) Glucose Level 99 MG/DL (74-106) Calcium Level 8.5 MG/DL (8.5-10.1) Objective HEAD AND NECK: No JVD.S/P craniotomy LUNGS: Coarse rhonchi. CARDIOVASCULAR: Regular S1 and S2 with no gallop or murmur. ABDOMEN: Soft EXTREMITIES: 1+ pitting edema. Karel Honeycutt MD July 11, 2018 12:01
--- NOTE | 2018-07-11 12:21 | Diagnostic Imaging Report ---
Indication: Shortness of breath Technique: XRAY Chest 1v Comparison: 07/07/2018 Findings: Heart is mildly enlarged. Vascular calcifications noted in the aorta. Mild central pulmonary vascular prominence is noted. No evidence of alveolar edema. There is streaky bibasilar airspace opacities. A right transjugular central line is noted. No pneumothorax. Some chronic rib fractures are noted. No acute osseous abnormality appreciated. Impression: Cardiomegaly with mild central pulmonary vascular congestion/interstitial edema. Streaky bibasilar opacities thought to be related to subsegmental atelectasis. Central line in place.
--- NOTE | 2018-07-11 13:08 | Pulmonology Progress Note ---
Assessment/Plan Problems: (1) Intractable nausea and vomiting (2) HTN (hypertension) (3) Seizure (4) Hepatitis C (5) Gastritis (6) s/p Large R Craniotomy with spastic hemiparesis Assessment/Plan advance diet IV fluids monitro BP GI evaluation appreciated ID evaluation and f/u dvt prophylaxis. Subjective ROS Limited/Unobtainable: No Constitutional: Reports: no symptoms Respiratory: Reports: no symptoms Allergies: Coded Allergies: No Known Allergies (Unverified , 04/16/16) Objective Last 24 Hour Vital Signs Date Time Temp Pulse Resp B/P (MAP) Pulse Ox O2 Delivery O2 Flow Rate FiO2 07/11/18 09:00 Room Air 07/11/18 08:53 111 125/82 07/11/18 08:14 94 16 Room Air 21 07/11/18 08:00 98.3 111 20 125/82 (96) 95 07/11/18 04:00 98.7 78 18 138/88 (105) 96 07/11/18 00:00 98.8 85 17 140/98 (112) 95 07/11/18 00:00 Room Air 07/10/18 20:42 80 140/98 07/10/18 20:23 95 20 Room Air 21 07/10/18 20:00 99.0 80 19 134/84 (101) 95 07/10/18 20:00 Room Air 07/10/18 16:00 Room Air 07/10/18 16:00 97.4 81 20 118/72 (87) 97 Intake and Output 07/10/18 07/11/18 19:00 07:00 Intake Total 930 ml Output Total 1400 ml 2500 ml Balance -470 ml -2500 ml Intake Oral 930 ml Output Urine Total 1400 ml 2500 ml # Voids 2 General Appearance: WD/WN HEENT: normocephalic, anicteric Respiratory/Chest: chest wall non-tender, lungs clear, chest wall tender Cardiovascular: normal rate, regular rhythm Abdomen: normal bowel sounds, no organomegaly Genitourinary: normal external genitalia Skin: no rash, no ulcers Laboratory Tests 07/10/18 20:15: Vancomycin Level Trough 10.1 07/11/18 06:00: White Blood Count 6.2, Red Blood Count 4.10L, Hemoglobin 12.9L, Hematocrit 37.8L , Mean Corpuscular Volume 92, Mean Corpuscular Hemoglobin 31.4H, Mean Corpuscular Hemoglobin Concent 34.1, Red Cell Distribution Width 12.4, Platelet Count 176, Mean Platelet Volume 7.5, Neutrophils (%) (Auto) 35.0L, Lymphocytes ( %) (Auto) 45.7H, Monocytes (%) (Auto) 10.7H, Eosinophils (%) (Auto) 7.5H, Basophils (%) (Auto) 1.1, Sodium Level 145, Potassium Level 3.9, Chloride Level 110H, Carbon Dioxide Level 29, Anion Gap 6, Blood Urea Nitrogen 8, Creatinine 0.7, Estimat Glomerular Filtration Rate > 60, Glucose Level 99, Calcium Level 8.5 Current Medications Medications (Trade) Dose Ordered Sig/Netta Route PRN Reason Start Time Stop Time Status Last Admin Dose Admin Acetaminophen (Tylenol) 325 mg Q6H PRN ORAL Mild Pain/Temp > 100.5 07/10/18 09:45 08/07/18 04:29 Al Hydroxide/Mg Hydroxide (Mylanta) 30 ml Q6HR PRN ORAL gastric discomfort 07/10/18 06:00 08/07/18 05:59 Albuterol/ Ipratropium (Albuterol/ Ipratropium) 3 ml Q4HR PRN HHN For Cough 07/10/18 09:00 07/13/18 04:29 Chlorhexidine Gluconate (Shaniqua-Hex 2%) 1 applic DAILY@2000 TOPIC 07/10/18 20:00 08/07/18 19:59 07/10/18 20:41 Dextrose/Sodium Chloride 1,000 ml @ 60 mls/hr [id number] IV 07/10/18 06:15 08/07/18 04:29 07/11/18 00:21 Divalproex Sodium (Depakote) 1,000 mg BEDTIME ORAL 07/10/18 21:00 08/07/18 20:59 07/10/18 20:41 Docusate Sodium (Colace) 100 mg THREE TIMES A DAY ORAL 07/10/18 13:00 08/09/18 12:59 07/11/18 08:54 Heparin Sodium (Porcine) (Heparin 5000 units/ml) 5,000 units EVERY 12 HOURS SUBQ 07/10/18 09:00 08/07/18 08:59 07/11/18 08:59 Magnesium Hydroxide (Mom) 30 ml DAILYPRN PRN ORAL Constipation 07/10/18 12:00 08/09/18 08:59 Metoprolol Tartrate (Lopressor) 25 mg Q12HR ORAL 07/10/18 09:00 08/07/18 20:59 07/11/18 08:53 Ondansetron HCl (Zofran ODT) 4 mg Q6H PRN ORAL Nausea & Vomiting 07/10/18 06:00 08/07/18 05:59 Pantoprazole (Protonix) 40 mg DAILY ORAL 07/10/18 09:00 08/08/18 08:59 07/11/18 08:53 Phenytoin (Dilantin) 200 mg Q12HR ORAL 07/10/18 21:00 08/09/18 08:59 07/11/18 08:53 Polyethylene Glycol (Miralax) 17 gm BEDTIME ORAL 07/10/18 21:00 08/09/18 20:59 07/10/18 20:42 Polyethylene Glycol (Miralax) 17 gm DAILY PRN ORAL Constipation 07/10/18 12:00 08/07/18 04:29 Quetiapine Fumarate (SEROquel) 250 mg TWICE A DAY ORAL 07/10/18 09:00 08/07/18 08:59 07/11/18 08:54 Temazepam (Restoril) 15 mg BEDTIME PRN ORAL Insomnia 07/10/18 21:00 07/15/18 04:29 07/11/18 00:21 Vancomycin HCl (Vanco rx to dose) 1 ea DAILY PRN MISC Per rx protocol 07/10/18 09:00 08/08/18 06:44 Vancomycin HCl 1 gm/Dextrose 275 ml @ 183.708 mls/hr Q12HR IVPB 07/11/18 09:00 07/16/18 08:59 07/11/18 08:53 Sherlyn Sheffield MD July 11, 2018 13:08
--- NOTE | 2018-07-11 13:39 | General Progress Note ---
Assessment/Plan Problem List: (1) Cholelithiases ICD Codes: K80.20 - Calculus of gallbladder without cholecystitis without obstruction SNOMED: 223184522 (2) Asthma ICD Codes: J45.909 - Unspecified asthma, uncomplicated SNOMED: 847324932 (3) Seizure ICD Codes: R56.9 - Unspecified convulsions SNOMED: 43772645 (4) Diabetes ICD Codes: E11.9 - Type 2 diabetes mellitus without complications SNOMED: 55131905 (5) Intractable nausea and vomiting ICD Codes: R11.2 - Nausea with vomiting, unspecified SNOMED: 877141039 (6) HTN (hypertension) ICD Codes: I10 - Essential (primary) hypertension SNOMED: 37265000 Status: stable, progressing Assessment/Plan: pt diet bp bs seizure pain control cbc bmp am dc plan if clear Subjective Constitutional: Reports: weakness Allergies: Coded Allergies: No Known Allergies (Unverified , 04/16/16) All Systems: reviewed and negative except above Subjective sleepy calm Objective Last 24 Hour Vital Signs Date Time Temp Pulse Resp B/P (MAP) Pulse Ox O2 Delivery O2 Flow Rate FiO2 07/11/18 09:00 Room Air 07/11/18 08:53 111 125/82 07/11/18 08:14 94 16 Room Air 07/11/18 08:00 98.3 111 20 125/82 (96) 95 07/11/18 04:00 98.7 78 18 138/88 (105) 96 07/11/18 00:00 98.8 85 17 140/98 (112) 95 07/11/18 00:00 Room Air 07/10/18 20:42 80 140/98 07/10/18 20:23 95 20 Room Air 21 07/10/18 20:00 99.0 80 19 134/84 (101) 95 07/10/18 20:00 Room Air 07/10/18 16:00 Room Air 07/10/18 16:00 97.4 81 20 118/72 (87) 97 Intake and Output 07/10/18 07/11/18 19:00 07:00 Intake Total 930 ml Output Total 1400 ml 2500 ml Balance -470 ml -2500 ml Intake Oral 930 ml Output Urine Total 1400 ml 2500 ml # Voids 2 Laboratory Tests 07/10/18 20:15: Vancomycin Level Trough 10.1 07/11/18 06:00: White Blood Count 6.2, Red Blood Count 4.10L, Hemoglobin 12.9L, Hematocrit 37.8L , Mean Corpuscular Volume 92, Mean Corpuscular Hemoglobin 31.4H, Mean Corpuscular Hemoglobin Concent 34.1, Red Cell Distribution Width 12.4, Platelet Count 176, Mean Platelet Volume 7.5, Neutrophils (%) (Auto) 35.0L, Lymphocytes ( %) (Auto) 45.7H, Monocytes (%) (Auto) 10.7H, Eosinophils (%) (Auto) 7.5H, Basophils (%) (Auto) 1.1, Sodium Level 145, Potassium Level 3.9, Chloride Level 110H, Carbon Dioxide Level 29, Anion Gap 6, Blood Urea Nitrogen 8, Creatinine 0.7, Estimat Glomerular Filtration Rate > 60, Glucose Level 99, Calcium Level 8.5 Height (Feet): 5 Height (Inches): 6.00 Weight (Pounds): 184 General Appearance: lethargic EENT: normal ENT inspection Neck: normal alignment Cardiovascular: normal peripheral pulses, normal rate, regular rhythm Respiratory/Chest: chest wall non-tender, lungs clear, normal breath sounds Abdomen: normal bowel sounds, non tender, soft Extremities: normal inspection Edema: no edema noted Arm (L), no edema noted Arm (R), no edema noted Leg (L), no edema noted Leg (R), no edema noted Pedal (L), no edema noted Pedal (R), no edema noted Generalized Neurologic: motor weakness Skin: normal pigmentation, warm/dry Ady Kerr DO July 11, 2018 13:39
--- NOTE | 2018-07-11 14:50 | NUR ---
[employer] SI:GASTRITIS . CHOLELITHIASIS VS: BP 140/98, P 111, T 98.8, RR 20, SpO2 96 RBC 4.10, Hgb 12.9, Hct 37.8 CXR: Cardiomegaly with mild central pulmonary vascular congestion/interstitial edema IS:HEPARIN SUBQ SEROQUEL 250mG LOPRESSOR 25mG DILANTIN 200mg VANCOMYCIN 275ml IVPB D5/NS x1L IV RESTORIL 15mg MED/SURG STATUS
--- NOTE | 2018-07-11 15:01 | Cardiology Report ---
APPROVED REPORT EKG Measurement Heart [id number] [id number] Sinus tachycardia Nonspecific ST and T wave abnormality Abnormal ECG
--- NOTE | 2018-07-11 15:14 | NUR ---
RD ASSESSMENT & RECOMMENDATIONS SEE CARE ACTIVITY FOR COMPLETE ASSESSMENT DAILY ESTIMATED NEEDS: Needs based on Cardiac, 73.4kg abw 25-30 kcals/kg [id number] total kcals 1-1.3 g protein/kg 73-95 g total protein 25-30 mL/kg 1979-4526 total fluid mLs NUTRITION DIAGNOSIS: * Swallowing difficulty R/T dysphagia, h/o CVA and craniotomy as evidenced by pt on mech soft ground texture per [employer] rec. pending VSS. CURRENT DIET:No added salt/ mech soft ground PO DIET RECOMMENDATIONS: LOW NA, LOW FAT/ Texture per [employer] ADDITIONAL RECOMMENDATIONS: * Calibrated bedscale wt for accurate CBW * Monitor BGs closely, need for carb controlled diet. * Monitor BMs- not recorded since adm * Monitor PO tolerance- admitted w/ c/o N/V resolved at this time
--- NOTE | 2018-07-11 15:44 | Surgery Progress Note ---
Surgery Progress Note Subjective Additional Comments no acute events. doing well. improving. labs okay. exam stable. Objective Last 24 Hour Vital Signs Date Time Temp Pulse Resp B/P (MAP) Pulse Ox O2 Delivery O2 Flow Rate FiO2 07/11/18 09:00 Room Air 07/11/18 08:53 111 125/82 07/11/18 08:14 94 16 Room Air 21 07/11/18 08:00 98.3 111 20 125/82 (96) 95 07/11/18 04:00 98.7 78 18 138/88 (105) 96 07/11/18 00:00 98.8 85 17 140/98 (112) 95 07/11/18 00:00 Room Air 07/10/18 20:42 80 140/98 07/10/18 20:23 95 20 Room Air 21 07/10/18 20:00 99.0 80 19 134/84 (101) 95 07/10/18 20:00 Room Air 07/10/18 16:00 Room Air 07/10/18 16:00 97.4 81 20 118/72 (87) 97 I&O Intake and Output 07/10/18 07/11/18 19:00 07:00 Intake Total 930 ml Output Total 1400 ml 2500 ml Balance -470 ml -2500 ml Intake Oral 930 ml Output Urine Total 1400 ml 2500 ml # Voids 2 Dressing: dry Wound: clean Cardiovascular: RSR Respiratory: clear Abdomen: soft, non-tender, present bowel sounds, non-distended Extremities: no tenderness, no cyanosis Laboratory Tests Test 07/10/18 20:15 07/11/18 06:00 Vancomycin Level Trough 10.1 ug/mL (5.0-12.0) White Blood Count 6.2 K/UL (4.8-10.8) Red Blood Count 4.10 M/UL (4.70-6.10) L Hemoglobin 12.9 G/DL (14.2-18.0) L Hematocrit 37.8 % (42.0-52.0) L Mean Corpuscular Volume 92 FL (80-99) Mean Corpuscular Hemoglobin 31.4 PG (27.0-31.0) H Mean Corpuscular Hemoglobin Concent 34.1 G/DL (32.0-36.0) Red Cell Distribution Width 12.4 % (11.6-14.8) Platelet Count 176 K/UL (150-450) Mean Platelet Volume 7.5 FL (6.5-10.1) Neutrophils (%) (Auto) 35.0 % (45.0-75.0) L Lymphocytes (%) (Auto) 45.7 % (20.0-45.0) H Monocytes (%) (Auto) 10.7 % (1.0-10.0) H Eosinophils (%) (Auto) 7.5 % (0.0-3.0) H Basophils (%) (Auto) 1.1 % (0.0-2.0) Sodium Level 145 MMOL/L (136-145) Potassium Level 3.9 MMOL/L (3.5-5.1) Chloride Level 110 MMOL/L (98-107) H Carbon Dioxide Level 29 MMOL/L (21-32) Anion Gap 6 mmol/L (5-15) Blood Urea Nitrogen 8 mg/dL (7-18) Creatinine 0.7 MG/DL (0.55-1.30) Estimat Glomerular Filtration Rate > 60 mL/min (>60) Glucose Level 99 MG/DL (74-106) Calcium Level 8.5 MG/DL (8.5-10.1) Plan Problems: (1) Intractable nausea and vomiting (2) Cholelithiases (3) Diabetes (4) Seizure (5) Asthma (6) [id number] (7) Upper GI bleeding (8) Nosocomial pneumonia (9) Diabetes (10) HCAP (healthcare-associated pneumonia) (11) Gastritis (12) Hepatitis C (13) Seizure (14) UTI (urinary tract infection) (15) HTN (hypertension) (16) s/p Large R Craniotomy with spastic hemiparesis (17) Hypokalemia (18) Sepsis (19) Tachycardia (20) Abdominal pain Assessment & Plan: 58 year old male with abdominal pain, nausea, emesis. afebrile, HD stable, leukocytosis resolving, labs okay lft's okay, t bili okay, amylase/lipase okay CT with no acute process and cholelithiasis US with cholelithiasis -Abd US: Cholelithiasis. Fatty liver -CT a/p: No acute or inflammatory disease or bowel obstruction. Cholelithiasis. -no acute surgical intervention planned -okay for diet -PPI -abx as per ID -appreciate GI input -will follow with recs okay to d/c from surgical standpoint thank you Edgardo Tatum July 11, 2018 15:44
[2018-07-11 15:54] VITALS: BP 116/76
--- NOTE | 2018-07-11 19:36 | Infectious Diseases Prog Note ---
Assessment/Plan Assessment/Plan Assessment: Sepsis -07/11 CXR: Cardiomegaly with mild central pulmonary vascular congestion/ interstitial edema. Streaky bibasilar opacities thought to be related to subsegmental atelectasis. -07/09 CXR: Accentuation of the pulmonary markings. Presumed area of scar or atelectasis in the right lung base rather than air under the diaphragm. -07/07 CXR: Reduced lung volumes and accentuation of markings. No confluent consolidation or confluent edema. u.a neg Gram positive bacteremia- r/o endocarditis (R IJ placed around the same time Bcx were collected)- likely true bacteremia given sepsis upn admission and no obvious other source of infection- r/o hardware infection ( L ileum ORIF) -07/07/ CONS; 07/09 Bcx p -2d Echo: no obvious vegetation Nausea/vomiting/Abd pain -Abd US: Cholelithiasis. Fatty liver -CT abd/p w/ No acute or inflammatory disease or bowel obstruction. Cholelithiasis. Status post remote open reduction and internal fixation of a prior left ileum fracture also. Fever, improving Leukocytosis, SP Lactic acidosis, SP seizure disorder asthma HTN CVA with L hemiparesis MDD cholelithiasis hiatal hernia Hypertension Hepatitis C Gastritis residential resident Plan: -Continue empiric IV Vancomycin #3 for Gram positive bacteremia -07/09 SP Doxycycline #2 -07/07 SP LEvaquin x1, Zosyn x1 -f/u repeat Bcx x2 -WBC scan -f/u cx -Monitor CBC/CMP, temperatures -GI, cards f/u -aspiration precautions Thank you for this consultation. Will continue to follow along with you. Discussed with RN. Subjective Allergies: Coded Allergies: No Known Allergies (Unverified , 04/16/16) Subjective afebrile >72 hrs repeat bx p no leukocytosis Objective Vital Signs Last 24 Hour Vital Signs Date Time Temp Pulse Resp B/P (MAP) Pulse Ox O2 Delivery O2 Flow Rate FiO2 07/11/18 15:54 98.0 90 20 116/76 (89) 98 07/11/18 12:00 98.2 87 20 143/86 (105) 96 07/11/18 09:00 Room Air 07/11/18 08:53 111 125/82 07/11/18 08:14 94 16 Room Air 21 07/11/18 08:00 98.3 111 20 125/82 (96) 95 07/11/18 04:00 98.7 78 18 138/88 (105) 96 07/11/18 00:00 98.8 85 17 140/98 (112) 95 07/11/18 00:00 Room Air 07/10/18 20:42 80 140/98 07/10/18 20:23 95 20 Room Air 21 07/10/18 20:00 99.0 80 19 134/84 (101) 95 07/10/18 20:00 Room Air Height (Feet): 5 Height (Inches): 6.00 Weight (Pounds): 184 Objective GENERAL: Calm in bed, oriented x2, in no acute distress. CARDIOVASCULAR: No murmur. LUNGS: Poor air exchange. ABDOMEN: Bowel sounds distant. Soft. No guarding. No rigidity. Slightly tender. No rebound. EXTREMITIES: Show no cyanosis or edema. NEUROLOGIC: The patient moves all extremities, slightly weak. Laboratory Tests Test 07/10/18 20:15 07/11/18 06:00 Vancomycin Level Trough 10.1 ug/mL (5.0-12.0) White Blood Count 6.2 K/UL (4.8-10.8) Red Blood Count 4.10 M/UL (4.70-6.10) L Hemoglobin 12.9 G/DL (14.2-18.0) L Hematocrit 37.8 % (42.0-52.0) L Mean Corpuscular Volume 92 FL (80-99) Mean Corpuscular Hemoglobin 31.4 PG (27.0-31.0) H Mean Corpuscular Hemoglobin Concent 34.1 G/DL (32.0-36.0) Red Cell Distribution Width 12.4 % (11.6-14.8) Platelet Count 176 K/UL (150-450) Mean Platelet Volume 7.5 FL (6.5-10.1) Neutrophils (%) (Auto) 35.0 % (45.0-75.0) L Lymphocytes (%) (Auto) 45.7 % (20.0-45.0) H Monocytes (%) (Auto) 10.7 % (1.0-10.0) H Eosinophils (%) (Auto) 7.5 % (0.0-3.0) H Basophils (%) (Auto) 1.1 % (0.0-2.0) Sodium Level 145 MMOL/L (136-145) Potassium Level 3.9 MMOL/L (3.5-5.1) Chloride Level 110 MMOL/L (98-107) H Carbon Dioxide Level 29 MMOL/L (21-32) Anion Gap 6 mmol/L (5-15) Blood Urea Nitrogen 8 mg/dL (7-18) Creatinine 0.7 MG/DL (0.55-1.30) Estimat Glomerular Filtration Rate > 60 mL/min (>60) Glucose Level 99 MG/DL (74-106) Calcium Level 8.5 MG/DL (8.5-10.1) Current Medications Medications (Trade) Dose Ordered Sig/Netta Route PRN Reason Start Time Stop Time Status Last Admin Dose Admin Acetaminophen (Tylenol) 325 mg Q6H PRN ORAL Mild Pain/Temp > 100.5 07/10/18 09:45 08/07/18 04:29 Al Hydroxide/Mg Hydroxide (Mylanta) 30 ml Q6HR PRN ORAL gastric discomfort 07/10/18 06:00 08/07/18 05:59 Albuterol/ Ipratropium (Albuterol/ Ipratropium) 3 ml Q4HR PRN HHN For Cough 07/10/18 09:00 07/13/18 04:29 Chlorhexidine Gluconate (Shaniqua-Hex 2%) 1 applic DAILY@2000 TOPIC 07/10/18 20:00 08/07/18 19:59 07/10/18 20:41 Dextrose/Sodium Chloride 1,000 ml @ 60 mls/hr [id number] IV 07/10/18 06:15 08/07/18 04:29 07/11/18 17:46 Divalproex Sodium (Depakote) 1,000 mg BEDTIME ORAL 07/10/18 21:00 08/07/18 20:59 07/10/18 20:41 Docusate Sodium (Colace) 100 mg THREE TIMES A DAY ORAL 07/10/18 13:00 08/09/18 12:59 07/11/18 17:46 Heparin Sodium (Porcine) (Heparin 5000 units/ml) 5,000 units EVERY 12 HOURS SUBQ 07/10/18 09:00 08/07/18 08:59 07/11/18 08:59 Magnesium Hydroxide (Mom) 30 ml DAILYPRN PRN ORAL Constipation 07/10/18 12:00 08/09/18 08:59 Metoprolol Tartrate (Lopressor) 25 mg Q12HR ORAL 07/10/18 09:00 08/07/18 20:59 07/11/18 08:53 Ondansetron HCl (Zofran ODT) 4 mg Q6H PRN ORAL Nausea & Vomiting 07/10/18 06:00 08/07/18 05:59 Pantoprazole (Protonix) 40 mg DAILY ORAL 07/10/18 09:00 08/08/18 08:59 07/11/18 08:53 Phenytoin (Dilantin) 200 mg Q12HR ORAL 07/10/18 21:00 08/09/18 08:59 07/11/18 08:53 Polyethylene Glycol (Miralax) 17 gm BEDTIME ORAL 07/10/18 21:00 08/09/18 20:59 07/10/18 20:42 Polyethylene Glycol (Miralax) 17 gm DAILY PRN ORAL Constipation 07/10/18 12:00 08/07/18 04:29 Quetiapine Fumarate (SEROquel) 250 mg TWICE A DAY ORAL 07/10/18 09:00 08/07/18 08:59 07/11/18 17:46 Temazepam (Restoril) 15 mg BEDTIME PRN ORAL Insomnia 07/10/18 21:00 07/15/18 04:29 07/11/18 00:21 Vancomycin HCl (Vanco rx to dose) 1 ea DAILY PRN MISC Per rx protocol 07/10/18 09:00 08/08/18 06:44 Vancomycin HCl 1 gm/Dextrose 275 ml @ 183.708 mls/hr Q12HR IVPB 07/11/18 09:00 07/16/18 08:59 07/11/18 08:53 Santa Treviño M.D. July 11, 2018 19:36
--- NOTE | 2018-07-11 19:42 | NUR ---
NURSE NOTES: Received report from JULIO Blake. Patient A&OX1 to name. On room air, no signs of distress or labored breathing. Central line right internal jugular triple lumen intact, 2 lumens patent, and infusing IV fluids. Bed in lowest position with call light in reach. Will continue with plan of care.
[2018-07-11 20:00] VITALS: BP 140/80
[2018-07-11] MEDS: Miralax 17gm pkt ORAL SCH (20:33)
[2018-07-11] MEDS: Dyna-Hex 2% Top Sol 2oz TOPIC SCH (20:33)
--- NOTE | 2018-07-11 20:42 | NUR ---
Was not able to assess patient due to inappropriate behavior. RN is at bedside during this time. Patient is on room air.
[2018-07-12] VITALS: BP 125/74
[2018-07-12 04:00] VITALS: BP 140/88
[2018-07-12 07:10] LABS: EOSINOPHILS % (AUTO) 8.3 % (0.0-3.0); HEMATOCRIT 37.9 % (42.0-52.0); HEMOGLOBIN 12.7 G/DL (14.2-18.0); LYMPHOCYTES % (AUTO) 43.3 % (20.0-45.0); MEAN CORPUSCULAR VOLUME 93 FL (80-99); MONOCYTES % (AUTO) 9.8 % (1.0-10.0); NEUTROPHILS % (AUTO) 37.7 % (45.0-75.0); PLATELET COUNT 163 K/UL (150-450); RED BLOOD COUNT 4.09 M/UL (4.70-6.10); RED CELL DISTRIBUTION WIDTH 12.9 % (11.6-14.8); WHITE BLOOD COUNT 6.9 K/UL (4.8-10.8)
[2018-07-12 07:11] LABS: ANION GAP 8 mmol/L (5-15); BLOOD UREA NITROGEN 7 mg/dL (7-18); CALCIUM 8.7 MG/DL (8.5-10.1); CARBON DIOXIDE 28 MMOL/L (21-32); CHLORIDE 105 MMOL/L (98-107); CREATININE 0.7 MG/DL (0.55-1.30); POTASSIUM 3.9 MMOL/L (3.5-5.1); SODIUM 141 MMOL/L (136-145)
--- NOTE | 2018-07-12 07:29 | NUR ---
HAND-OFF: Report given to JULIO Bedoya.
--- NOTE | 2018-07-12 07:46 | NUR ---
NURSE NOTES: Patient is on room air. No s/s of discomfort at the moment. Bed is locked, in lowest position, and call light is within reach. Will continue to monitor.
[2018-07-12 08:00] VITALS: BP 133/84
[2018-07-12] MEDS: Vancomycin 1gm in D5W 275ml IVPB SCH (08:08)
[2018-07-12] MEDS: QUEtiapine 200mg tab ORAL SCH (08:10)
[2018-07-12] MEDS: D5 1/2NS 1,000 ML IV SCH (08:10)
[2018-07-12] MEDS: Phenytoin 100mg cap ORAL SCH (08:11)
[2018-07-12 08:12] VITALS: BP 133/84
[2018-07-12] MEDS: Docusate 100mg cap ORAL SCH ×2 (08:12→14:07)
[2018-07-12] MEDS: Metoprolol 25mg tab ORAL SCH (08:12)
[2018-07-12] MEDS: Heparin 5000 units/ml inj SUBQ SCH (08:19)
--- NOTE | 2018-07-12 09:51 | GI Progress Note ---
Assessment/Plan Problems: (1) Hepatitis C ICD Codes: B19.20 - Unspecified viral hepatitis C without hepatic coma SNOMED: 00290440 (2) Gastritis ICD Codes: K29.70 - Gastritis, unspecified, without bleeding SNOMED: 2305935 (3) Diabetes ICD Codes: E11.9 - Type 2 diabetes mellitus without complications SNOMED: 19915564 (4) Intractable nausea and vomiting ICD Codes: R11.2 - Nausea with vomiting, unspecified SNOMED: 726840780 (5) Abdominal pain ICD Codes: R10.9 - Unspecified abdominal pain SNOMED: 19947969 Status: stable Status Narrative Discussed with Dr. Mcclain. Assessment/Plan 1. History of seizure disorder. 2. Gallstones. 3. Gastritis. 4. Hiatal hernia. 5. Hypertension. 6. Diabetes. 7. Positive hepatitis C serologies Abdominal ultrasound reviewed, noted with fatty liver and presence of cholelithiasis. ADA/Cardiac diet Hep C RNA ordered, >>> needs out patient fu for treatment repeat labs in am CT reviewed dc planning The patient was seen and examined at bedside and all new and available data was reviewed in the patients chart. I agree with the above findings, impression and plan. (Patient seen earlier today. Signature stamp does not reflect patient encounter time.). - Carlito Mcclain MD Subjective Gastrointestinal/Abdominal: Reports: no symptoms Objective Last 24 Hour Vital Signs Date Time Temp Pulse Resp B/P (MAP) Pulse Ox O2 Delivery O2 Flow Rate FiO2 07/12/18 08:15 Room Air 07/12/18 08:12 91 133/84 07/12/18 08:00 90 16 Room Air 21 07/12/18 08:00 98.6 91 17 133/84 (100) 94 07/12/18 04:00 98.1 92 16 140/88 (105) 94 07/12/18 00:00 98.4 88 20 125/74 (91) 95 07/11/18 21:00 Room Air 07/11/18 20:41 18 Room Air 21 07/11/18 20:33 93 140/80 07/11/18 20:00 98.1 93 20 140/80 (100) 95 07/11/18 15:54 98.0 90 20 116/76 (89) 98 07/11/18 12:00 98.2 87 20 143/86 (105) 96 Intake and Output 07/11/18 07/12/18 18:59 06:59 Intake Total 480 ml 935 ml Output Total 1300 ml 2375 ml Balance -820 ml -1440 ml Intake Oral 480 ml IV Total 935 ml Output Urine Total 1300 ml 2375 ml Laboratory Tests Test 07/12/18 06:30 White Blood Count 6.9 K/UL (4.8-10.8) Red Blood Count 4.09 M/UL (4.70-6.10) L Hemoglobin 12.7 G/DL (14.2-18.0) L Hematocrit 37.9 % (42.0-52.0) L Mean Corpuscular Volume 93 FL (80-99) Mean Corpuscular Hemoglobin 31.1 PG (27.0-31.0) H Mean Corpuscular Hemoglobin Concent 33.5 G/DL (32.0-36.0) Red Cell Distribution Width 12.9 % (11.6-14.8) Platelet Count 163 K/UL (150-450) Mean Platelet Volume 7.7 FL (6.5-10.1) Neutrophils (%) (Auto) 37.7 % (45.0-75.0) L Lymphocytes (%) (Auto) 43.3 % (20.0-45.0) Monocytes (%) (Auto) 9.8 % (1.0-10.0) Eosinophils (%) (Auto) 8.3 % (0.0-3.0) H Basophils (%) (Auto) 1.0 % (0.0-2.0) Sodium Level 141 MMOL/L (136-145) Potassium Level 3.9 MMOL/L (3.5-5.1) Chloride Level 105 MMOL/L (98-107) Carbon Dioxide Level 28 MMOL/L (21-32) Anion Gap 8 mmol/L (5-15) Blood Urea Nitrogen 7 mg/dL (7-18) Creatinine 0.7 MG/DL (0.55-1.30) Estimat Glomerular Filtration Rate > 60 mL/min (>60) Glucose Level 104 MG/DL (74-106) Calcium Level 8.7 MG/DL (8.5-10.1) Height (Feet): 5 Height (Inches): 6.00 Weight (Pounds): 184 General Appearance: WD/WN, no apparent distress, alert Cardiovascular: normal rate Respiratory/Chest: normal breath sounds, no respiratory distress Abdominal Exam: normal bowel sounds, non tender, soft Extremities: normal range of motion, non-tender Jevon Logan NP July 12, 2018 09:51
--- NOTE | 2018-07-12 10:40 | Cardiac Electrophysiology PN ---
Assessment/Plan Assessment/Plan 1. Sinus tachycardia secondary to anxiety and sepsis. Better on metoprolol 25 mg bid. Echo Nl EF 2. Abdominal pain and vomiting. CT did not show any acute abdominal process. FU per Dr. Thomas. Stool OB pending 3. Hepatitis C. 4. Diabetes. 5. Hiatal hernia. 6. Seizure disorder. 7. Gastritis DW RN Subjective Subjective Echo EF 55%. No CP or SOB. Stool OB and swallow eval pending Objective Last 24 Hour Vital Signs Date Time Temp Pulse Resp B/P (MAP) Pulse Ox O2 Delivery O2 Flow Rate FiO2 07/12/18 08:15 Room Air 07/12/18 08:12 91 133/84 07/12/18 08:00 90 16 Room Air 21 07/12/18 08:00 98.6 91 17 133/84 (100) 94 07/12/18 04:00 98.1 92 16 140/88 (105) 94 07/12/18 00:00 98.4 88 20 125/74 (91) 95 07/11/18 21:00 Room Air 07/11/18 20:41 18 Room Air 21 07/11/18 20:33 93 140/80 07/11/18 20:00 98.1 93 20 140/80 (100) 95 07/11/18 15:54 98.0 90 20 116/76 (89) 98 07/11/18 12:00 98.2 87 20 143/86 (105) 96 Intake and Output 07/11/18 07/12/18 18:59 06:59 Intake Total 480 ml 935 ml Output Total 1300 ml 2375 ml Balance -820 ml -1440 ml Intake Oral 480 ml IV Total 935 ml Output Urine Total 1300 ml 2375 ml Laboratory Tests Test 07/12/18 06:30 White Blood Count 6.9 K/UL (4.8-10.8) Red Blood Count 4.09 M/UL (4.70-6.10) L Hemoglobin 12.7 G/DL (14.2-18.0) L Hematocrit 37.9 % (42.0-52.0) L Mean Corpuscular Volume 93 FL (80-99) Mean Corpuscular Hemoglobin 31.1 PG (27.0-31.0) H Mean Corpuscular Hemoglobin Concent 33.5 G/DL (32.0-36.0) Red Cell Distribution Width 12.9 % (11.6-14.8) Platelet Count 163 K/UL (150-450) Mean Platelet Volume 7.7 FL (6.5-10.1) Neutrophils (%) (Auto) 37.7 % (45.0-75.0) L Lymphocytes (%) (Auto) 43.3 % (20.0-45.0) Monocytes (%) (Auto) 9.8 % (1.0-10.0) Eosinophils (%) (Auto) 8.3 % (0.0-3.0) H Basophils (%) (Auto) 1.0 % (0.0-2.0) Sodium Level 141 MMOL/L (136-145) Potassium Level 3.9 MMOL/L (3.5-5.1) Chloride Level 105 MMOL/L (98-107) Carbon Dioxide Level 28 MMOL/L (21-32) Anion Gap 8 mmol/L (5-15) Blood Urea Nitrogen 7 mg/dL (7-18) Creatinine 0.7 MG/DL (0.55-1.30) Estimat Glomerular Filtration Rate > 60 mL/min (>60) Glucose Level 104 MG/DL (74-106) Calcium Level 8.7 MG/DL (8.5-10.1) Microbiology Date/Time Source Procedure Growth Status 07/09/18 15:31 Blood Blood Culture - Preliminary NO GROWTH AFTER 48 HOURS Resulted 07/09/18 15:31 Blood Blood Culture - Preliminary NO GROWTH AFTER 48 HOURS Resulted Objective HEAD AND NECK: No JVD. S/P craniotomy LUNGS: Coarse rhonchi. CARDIOVASCULAR: Regular S1 and S2 with no gallop or murmur. ABDOMEN: Soft EXTREMITIES: 1+ pitting edema. Karel Honeycutt MD July 12, 2018 10:40
--- NOTE | 2018-07-12 10:43 | NUR ---
NURSE NOTES: GI TUTOR COORDINATOR rounded on patient. New orders received.
--- NOTE | 2018-07-12 12:12 | General Progress Note ---
Assessment/Plan Problem List: (1) Cholelithiases ICD Codes: K80.20 - Calculus of gallbladder without cholecystitis without obstruction SNOMED: 241165095 (2) Asthma ICD Codes: J45.909 - Unspecified asthma, uncomplicated SNOMED: 948411690 (3) Seizure ICD Codes: R56.9 - Unspecified convulsions SNOMED: 49893088 (4) Diabetes ICD Codes: E11.9 - Type 2 diabetes mellitus without complications SNOMED: 95766525 (5) Intractable nausea and vomiting ICD Codes: R11.2 - Nausea with vomiting, unspecified SNOMED: 074427380 (6) HTN (hypertension) ICD Codes: I10 - Essential (primary) hypertension SNOMED: 81056609 Status: stable, progressing Assessment/Plan: pt diet bp bs seizure pain control dc if clear Subjective Constitutional: Reports: weakness Allergies: Coded Allergies: No Known Allergies (Unverified , 04/16/16) All Systems: reviewed and negative except above Subjective sleepy calm Objective Last 24 Hour Vital Signs Date Time Temp Pulse Resp B/P (MAP) Pulse Ox O2 Delivery O2 Flow Rate FiO2 07/12/18 08:15 Room Air 07/12/18 08:12 91 133/84 07/12/18 08:00 90 16 Room Air 21 07/12/18 08:00 98.6 91 17 133/84 (100) 94 07/12/18 04:00 98.1 92 16 140/88 (105) 94 07/12/18 00:00 98.4 88 20 125/74 (91) 95 07/11/18 21:00 Room Air 07/11/18 20:41 18 Room Air 21 07/11/18 20:33 93 140/80 07/11/18 20:00 98.1 93 20 140/80 (100) 95 07/11/18 15:54 98.0 90 20 116/76 (89) 98 Intake and Output 07/11/18 07/12/18 18:59 06:59 Intake Total 480 ml 935 ml Output Total 1300 ml 2375 ml Balance -820 ml -1440 ml Intake Oral 480 ml IV Total 935 ml Output Urine Total 1300 ml 2375 ml Laboratory Tests 07/12/18 06:30: White Blood Count 6.9, Red Blood Count 4.09L, Hemoglobin 12.7L, Hematocrit 37.9L , Mean Corpuscular Volume 93, Mean Corpuscular Hemoglobin 31.1H, Mean Corpuscular Hemoglobin Concent 33.5, Red Cell Distribution Width 12.9, Platelet Count 163, Mean Platelet Volume 7.7, Neutrophils (%) (Auto) 37.7L, Lymphocytes ( %) (Auto) 43.3, Monocytes (%) (Auto) 9.8, Eosinophils (%) (Auto) 8.3H, Basophils (%) (Auto) 1.0, Sodium Level 141, Potassium Level 3.9, Chloride Level 105, Carbon Dioxide Level 28, Anion Gap 8, Blood Urea Nitrogen 7, Creatinine 0.7 , Estimat Glomerular Filtration Rate > 60, Glucose Level 104, Calcium Level 8.7 Height (Feet): 5 Height (Inches): 6.00 Weight (Pounds): 184 General Appearance: lethargic EENT: normal ENT inspection Neck: normal alignment Cardiovascular: normal peripheral pulses, normal rate, regular rhythm Respiratory/Chest: chest wall non-tender, lungs clear, normal breath sounds Abdomen: normal bowel sounds, non tender, soft Extremities: normal inspection Edema: no edema noted Arm (L), no edema noted Arm (R), no edema noted Leg (L), no edema noted Leg (R), no edema noted Pedal (L), no edema noted Pedal (R), no edema noted Generalized Neurologic: motor weakness Skin: normal pigmentation, warm/dry Ady Kerr DO July 12, 2018 12:12
[2018-07-12] MEDS ORDERED: Dronabinol 2.5mg Cap ORAL SCH (13:00)
--- NOTE | 2018-07-12 13:02 | NUR ---
*-* INSURANCE *-* UPDATED CLINICALS AND REVIEWS HAVE BEEN FAXED TO: [facility] MEM: [facility] P- [phone] F- [phone]....REVIEW/CLINICAL
--- NOTE | 2018-07-12 13:14 | Pulmonology Progress Note ---
Assessment/Plan Problems: (1) Intractable nausea and vomiting (2) HTN (hypertension) (3) Seizure (4) Hepatitis C (5) Gastritis (6) s/p Large R Craniotomy with spastic hemiparesis Assessment/Plan advance diet ok to dc to [facility] evaluation appreciated ID evaluation and f/u dvt prophylaxis. Subjective ROS Limited/Unobtainable: No Constitutional: Reports: no symptoms HEENT: Repors: no symptoms Respiratory: Reports: no symptoms Allergies: Coded Allergies: No Known Allergies (Unverified , 04/16/16) Objective Last 24 Hour Vital Signs Date Time Temp Pulse Resp B/P (MAP) Pulse Ox O2 Delivery O2 Flow Rate FiO2 07/12/18 08:15 Room Air 07/12/18 08:12 91 133/84 07/12/18 08:00 90 16 Room Air 21 07/12/18 08:00 98.6 91 17 133/84 (100) 94 07/12/18 04:00 98.1 92 16 140/88 (105) 94 07/12/18 00:00 98.4 88 20 125/74 (91) 95 07/11/18 21:00 Room Air 07/11/18 20:41 18 Room Air 21 07/11/18 20:33 93 140/80 07/11/18 20:00 98.1 93 20 140/80 (100) 95 07/11/18 15:54 98.0 90 20 116/76 (89) 98 Intake and Output 07/11/18 07/12/18 18:59 06:59 Intake Total 480 ml 935 ml Output Total 1300 ml 2375 ml Balance -820 ml -1440 ml Intake Oral 480 ml IV Total 935 ml Output Urine Total 1300 ml 2375 ml General Appearance: WD/WN HEENT: atraumatic Respiratory/Chest: chest wall non-tender, normal breath sounds Cardiovascular: normal peripheral pulses, regularly irregular Abdomen: soft, non tender, no scars Extremities: no clubbing Microbiology Date/Time Source Procedure Growth Status 07/09/18 15:31 Blood Blood Culture - Preliminary NO GROWTH AFTER 48 HOURS Resulted 07/09/18 15:31 Blood Blood Culture - Preliminary NO GROWTH AFTER 48 HOURS Resulted Laboratory Tests 07/12/18 06:30: White Blood Count 6.9, Red Blood Count 4.09L, Hemoglobin 12.7L, Hematocrit 37.9L , Mean Corpuscular Volume 93, Mean Corpuscular Hemoglobin 31.1H, Mean Corpuscular Hemoglobin Concent 33.5, Red Cell Distribution Width 12.9, Platelet Count 163, Mean Platelet Volume 7.7, Neutrophils (%) (Auto) 37.7L, Lymphocytes ( %) (Auto) 43.3, Monocytes (%) (Auto) 9.8, Eosinophils (%) (Auto) 8.3H, Basophils (%) (Auto) 1.0, Sodium Level 141, Potassium Level 3.9, Chloride Level 105, Carbon Dioxide Level 28, Anion Gap 8, Blood Urea Nitrogen 7, Creatinine 0.7 , Estimat Glomerular Filtration Rate > 60, Glucose Level 104, Calcium Level 8.7 Current Medications Medications (Trade) Dose Ordered Sig/Netta Route PRN Reason Start Time Stop Time Status Last Admin Dose Admin Acetaminophen (Tylenol) 325 mg Q6H PRN ORAL Mild Pain/Temp > 100.5 07/10/18 09:45 08/07/18 04:29 Al Hydroxide/Mg Hydroxide (Mylanta) 30 ml Q6HR PRN ORAL gastric discomfort 07/10/18 06:00 08/07/18 05:59 Albuterol/ Ipratropium (Albuterol/ Ipratropium) 3 ml Q4HR PRN HHN For Cough 07/10/18 09:00 07/13/18 04:29 Chlorhexidine Gluconate (Shaniqua-Hex 2%) 1 applic DAILY@2000 TOPIC 07/10/18 20:00 08/07/18 19:59 07/11/18 20:33 Dextrose/Sodium Chloride 1,000 ml @ 60 mls/hr [id number] IV 07/10/18 06:15 08/07/18 04:29 07/12/18 08:10 Divalproex Sodium (Depakote) 1,000 mg BEDTIME ORAL 07/10/18 21:00 08/07/18 20:59 07/11/18 20:34 Docusate Sodium (Colace) 100 mg THREE TIMES A DAY ORAL 07/10/18 13:00 08/09/18 12:59 07/12/18 08:12 Dronabinol (Marinol) 5 mg TID ORAL 07/12/18 13:00 08/11/18 12:59 Heparin Sodium (Porcine) (Heparin 5000 units/ml) 5,000 units EVERY 12 HOURS SUBQ 07/10/18 09:00 08/07/18 08:59 07/11/18 08:59 Magnesium Hydroxide (Mom) 30 ml DAILYPRN PRN ORAL Constipation 07/10/18 12:00 08/09/18 08:59 Metoprolol Tartrate (Lopressor) 25 mg Q12HR ORAL 07/10/18 09:00 08/07/18 20:59 07/12/18 08:12 Ondansetron HCl (Zofran ODT) 4 mg Q6H PRN ORAL Nausea & Vomiting 07/10/18 06:00 08/07/18 05:59 Pantoprazole (Protonix) 40 mg DAILY ORAL 07/10/18 09:00 08/08/18 08:59 07/12/18 08:10 Phenytoin (Dilantin) 200 mg Q12HR ORAL 07/10/18 21:00 08/09/18 08:59 07/12/18 08:11 Polyethylene Glycol (Miralax) 17 gm BEDTIME ORAL 07/10/18 21:00 08/09/18 20:59 07/11/18 20:33 Polyethylene Glycol (Miralax) 17 gm DAILY PRN ORAL Constipation 07/10/18 12:00 08/07/18 04:29 Quetiapine Fumarate (SEROquel) 250 mg TWICE A DAY ORAL 07/10/18 09:00 08/07/18 08:59 07/12/18 08:10 Temazepam (Restoril) 15 mg BEDTIME PRN ORAL Insomnia 07/10/18 21:00 07/15/18 04:29 07/11/18 00:21 Vancomycin HCl (Vanco rx to dose) 1 ea DAILY PRN MISC Per rx protocol 07/10/18 09:00 08/08/18 06:44 Vancomycin HCl 1 gm/Dextrose 275 ml @ 183.708 mls/hr Q12HR IVPB 07/11/18 09:00 07/16/18 08:59 07/12/18 08:08 Sherlyn Sheffield MD July 12, 2018 13:14
--- NOTE | 2018-07-12 14:52 | Infectious Diseases Prog Note ---
Assessment/Plan Assessment/Plan Assessment: Sepsis, SP -07/11 CXR: Cardiomegaly with mild central pulmonary vascular congestion/ interstitial edema. Streaky bibasilar opacities thought to be related to subsegmental atelectasis. -07/09 CXR: Accentuation of the pulmonary markings. Presumed area of scar or atelectasis in the right lung base rather than air under the diaphragm. -07/07 CXR: Reduced lung volumes and accentuation of markings. No confluent consolidation or confluent edema. u.a neg Gram positive bacteremia- r/o endocarditis (R IJ placed around the same time Bcx were collected)- likely true bacteremia given sepsis upn admission and no obvious other source of infection- r/o hardware infection ( L ileum ORIF) -07/07/ CONS; 07/09 Bcx NTD -2d Echo: no obvious vegetation Nausea/vomiting/Abd pain -Abd US: Cholelithiasis. Fatty liver -CT abd/p w/ No acute or inflammatory disease or bowel obstruction. Cholelithiasis. Status post remote open reduction and internal fixation of a prior left ileum fracture also. Fever, improving Leukocytosis, SP Lactic acidosis, SP seizure disorder asthma HTN CVA with L hemiparesis MDD cholelithiasis hiatal hernia Hypertension Hepatitis C Gastritis [facility] Plan: -Continue empiric IV Vancomycin #06/17 for Gram positive bacteremia- will true for true bacteremia given sepsis on presentation. -07/09 SP Doxycycline #2 -07/07 SP LEvaquin x1, Zosyn x1 -f/u repeat Bcx x2 -WBC scan -f/u cx -Monitor CBC/CMP, temperatures -GI, cards f/u -aspiration precautions Thank you for this consultation. Will continue to follow along with you. Discussed with RN. Subjective Allergies: Coded Allergies: No Known Allergies (Unverified , 04/16/16) Subjective afebrile repeat bx NTD no leukocytosis Objective Vital Signs Last 24 Hour Vital Signs Date Time Temp Pulse Resp B/P (MAP) Pulse Ox O2 Delivery O2 Flow Rate FiO2 07/12/18 08:15 Room Air 07/12/18 08:12 91 133/84 07/12/18 08:00 90 16 Room Air 21 07/12/18 08:00 98.6 91 17 133/84 (100) 94 07/12/18 04:00 98.1 92 16 140/88 (105) 94 07/12/18 00:00 98.4 88 20 125/74 (91) 95 07/11/18 21:00 Room Air 07/11/18 20:41 18 Room Air 21 07/11/18 20:33 93 140/80 07/11/18 20:00 98.1 93 20 140/80 (100) 95 07/11/18 15:54 98.0 90 20 116/76 (89) 98 Height (Feet): 5 Height (Inches): 6.00 Weight (Pounds): 184 Objective GENERAL: Calm in bed, oriented x2, in no acute distress. CARDIOVASCULAR: No murmur. LUNGS: Poor air exchange. ABDOMEN: Bowel sounds distant. Soft. No guarding. No rigidity. Slightly tender. No rebound. EXTREMITIES: Show no cyanosis or edema. NEUROLOGIC: The patient moves all extremities, slightly weak. Microbiology Date/Time Source Procedure Growth Status 07/09/18 15:31 Blood Blood Culture - Preliminary NO GROWTH AFTER 48 HOURS Resulted 07/09/18 15:31 Blood Blood Culture - Preliminary NO GROWTH AFTER 48 HOURS Resulted Laboratory Tests Test 07/12/18 06:30 White Blood Count 6.9 K/UL (4.8-10.8) Red Blood Count 4.09 M/UL (4.70-6.10) L Hemoglobin 12.7 G/DL (14.2-18.0) L Hematocrit 37.9 % (42.0-52.0) L Mean Corpuscular Volume 93 FL (80-99) Mean Corpuscular Hemoglobin 31.1 PG (27.0-31.0) H Mean Corpuscular Hemoglobin Concent 33.5 G/DL (32.0-36.0) Red Cell Distribution Width 12.9 % (11.6-14.8) Platelet Count 163 K/UL (150-450) Mean Platelet Volume 7.7 FL (6.5-10.1) Neutrophils (%) (Auto) 37.7 % (45.0-75.0) L Lymphocytes (%) (Auto) 43.3 % (20.0-45.0) Monocytes (%) (Auto) 9.8 % (1.0-10.0) Eosinophils (%) (Auto) 8.3 % (0.0-3.0) H Basophils (%) (Auto) 1.0 % (0.0-2.0) Sodium Level 141 MMOL/L (136-145) Potassium Level 3.9 MMOL/L (3.5-5.1) Chloride Level 105 MMOL/L (98-107) Carbon Dioxide Level 28 MMOL/L (21-32) Anion Gap 8 mmol/L (5-15) Blood Urea Nitrogen 7 mg/dL (7-18) Creatinine 0.7 MG/DL (0.55-1.30) Estimat Glomerular Filtration Rate > 60 mL/min (>60) Glucose Level 104 MG/DL (74-106) Calcium Level 8.7 MG/DL (8.5-10.1) Current Medications Medications (Trade) Dose Ordered Sig/Netta Route PRN Reason Start Time Stop Time Status Last Admin Dose Admin Acetaminophen (Tylenol) 325 mg Q6H PRN ORAL Mild Pain/Temp > 100.5 07/10/18 09:45 08/07/18 04:29 Al Hydroxide/Mg Hydroxide (Mylanta) 30 ml Q6HR PRN ORAL gastric discomfort 07/10/18 06:00 08/07/18 05:59 Albuterol/ Ipratropium (Albuterol/ Ipratropium) 3 ml Q4HR PRN HHN For Cough 07/10/18 09:00 07/13/18 04:29 Chlorhexidine Gluconate (Shaniqua-Hex 2%) 1 applic DAILY@2000 TOPIC 07/10/18 20:00 08/07/18 19:59 07/11/18 20:33 Dextrose/Sodium Chloride 1,000 ml @ 60 mls/hr [id number] IV 07/10/18 06:15 08/07/18 04:29 07/12/18 08:10 Divalproex Sodium (Depakote) 1,000 mg BEDTIME ORAL 07/10/18 21:00 08/07/18 20:59 07/11/18 20:34 Docusate Sodium (Colace) 100 mg THREE TIMES A DAY ORAL 07/10/18 13:00 08/09/18 12:59 07/12/18 14:07 Dronabinol (Marinol) 5 mg TID ORAL 07/12/18 13:00 08/11/18 12:59 07/12/18 14:07 Heparin Sodium (Porcine) (Heparin 5000 units/ml) 5,000 units EVERY 12 HOURS SUBQ 07/10/18 09:00 08/07/18 08:59 07/11/18 08:59 Magnesium Hydroxide (Mom) 30 ml DAILYPRN PRN ORAL Constipation 07/10/18 12:00 08/09/18 08:59 07/12/18 14:07 Metoprolol Tartrate (Lopressor) 25 mg Q12HR ORAL 07/10/18 09:00 08/07/18 20:59 07/12/18 08:12 Ondansetron HCl (Zofran ODT) 4 mg Q6H PRN ORAL Nausea & Vomiting 07/10/18 06:00 08/07/18 05:59 Pantoprazole (Protonix) 40 mg DAILY ORAL 07/10/18 09:00 08/08/18 08:59 07/12/18 08:10 Phenytoin (Dilantin) 200 mg Q12HR ORAL 07/10/18 21:00 08/09/18 08:59 07/12/18 08:11 Polyethylene Glycol (Miralax) 17 gm BEDTIME ORAL 07/10/18 21:00 08/09/18 20:59 07/11/18 20:33 Polyethylene Glycol (Miralax) 17 gm DAILY PRN ORAL Constipation 07/10/18 12:00 08/07/18 04:29 Quetiapine Fumarate (SEROquel) 250 mg TWICE A DAY ORAL 07/10/18 09:00 08/07/18 08:59 07/12/18 08:10 Temazepam (Restoril) 15 mg BEDTIME PRN ORAL Insomnia 07/10/18 21:00 07/15/18 04:29 07/11/18 00:21 Vancomycin HCl (Vanco rx to dose) 1 ea DAILY PRN MISC Per rx protocol 07/10/18 09:00 08/08/18 06:44 Vancomycin HCl 1 gm/Dextrose 275 ml @ 183.708 mls/hr Q12HR IVPB 07/11/18 09:00 07/16/18 08:59 07/12/18 08:08 Santa Treviño M.D. July 12, 2018 14:52
--- NOTE | 2018-07-12 16:04 | Surgery Progress Note ---
Surgery Progress Note Subjective Symptoms: improved, pain absent, tolerating diet, passing flatus, BM Objective Last 24 Hour Vital Signs Date Time Temp Pulse Resp B/P (MAP) Pulse Ox O2 Delivery O2 Flow Rate FiO2 07/12/18 08:15 Room Air 07/12/18 08:12 91 133/84 07/12/18 08:00 90 16 Room Air 21 07/12/18 08:00 98.6 91 17 133/84 (100) 94 07/12/18 04:00 98.1 92 16 140/88 (105) 94 07/12/18 00:00 98.4 88 20 125/74 (91) 95 07/11/18 21:00 Room Air 07/11/18 20:41 18 Room Air 21 07/11/18 20:33 93 140/80 07/11/18 20:00 98.1 93 20 140/80 (100) 95 I&O Intake and Output 07/11/18 07/12/18 18:59 06:59 Intake Total 480 ml 935 ml Output Total 1300 ml 2375 ml Balance -820 ml -1440 ml Intake Oral 480 ml IV Total 935 ml Output Urine Total 1300 ml 2375 ml Dressing: saturated Wound: clean Cardiovascular: RSR Respiratory: clear Abdomen: soft, non-tender, present bowel sounds Extremities: no tenderness, no cyanosis Laboratory Tests Test 07/12/18 06:30 White Blood Count 6.9 K/UL (4.8-10.8) Red Blood Count 4.09 M/UL (4.70-6.10) L Hemoglobin 12.7 G/DL (14.2-18.0) L Hematocrit 37.9 % (42.0-52.0) L Mean Corpuscular Volume 93 FL (80-99) Mean Corpuscular Hemoglobin 31.1 PG (27.0-31.0) H Mean Corpuscular Hemoglobin Concent 33.5 G/DL (32.0-36.0) Red Cell Distribution Width 12.9 % (11.6-14.8) Platelet Count 163 K/UL (150-450) Mean Platelet Volume 7.7 FL (6.5-10.1) Neutrophils (%) (Auto) 37.7 % (45.0-75.0) L Lymphocytes (%) (Auto) 43.3 % (20.0-45.0) Monocytes (%) (Auto) 9.8 % (1.0-10.0) Eosinophils (%) (Auto) 8.3 % (0.0-3.0) H Basophils (%) (Auto) 1.0 % (0.0-2.0) Sodium Level 141 MMOL/L (136-145) Potassium Level 3.9 MMOL/L (3.5-5.1) Chloride Level 105 MMOL/L (98-107) Carbon Dioxide Level 28 MMOL/L (21-32) Anion Gap 8 mmol/L (5-15) Blood Urea Nitrogen 7 mg/dL (7-18) Creatinine 0.7 MG/DL (0.55-1.30) Estimat Glomerular Filtration Rate > 60 mL/min (>60) Glucose Level 104 MG/DL (74-106) Calcium Level 8.7 MG/DL (8.5-10.1) Plan Problems: (1) Intractable nausea and vomiting (2) Cholelithiases (3) Diabetes (4) Seizure (5) Asthma (6) [id number] (7) Upper GI bleeding (8) Nosocomial pneumonia (9) Diabetes (10) HCAP (healthcare-associated pneumonia) (11) Gastritis (12) Hepatitis C (13) Seizure (14) UTI (urinary tract infection) (15) HTN (hypertension) (16) s/p Large R Craniotomy with spastic hemiparesis (17) Hypokalemia (18) Sepsis (19) Tachycardia (20) Abdominal pain Assessment & Plan: 58 year old male with abdominal pain, nausea, emesis. afebrile, HD stable, leukocytosis resolving, labs okay lft's okay, t bili okay, amylase/lipase okay CT with no acute process and cholelithiasis US with cholelithiasis -Abd US: Cholelithiasis. Fatty liver -CT a/p: No acute or inflammatory disease or bowel obstruction. Cholelithiasis. -no acute surgical intervention planned -okay for diet -PPI -abx as per ID -appreciate GI input -will follow with recs okay to d/c from surgical standpoint thank you Edgardo Tatum July 12, 2018 16:04
[2018-07-12] MEDS ORDERED: VANCOMYCIN1 GM IV (16:12)
[2018-07-12] MEDS ORDERED: D5 1/2NS 1000ml IV ONE (16:47)
[2018-07-12] MEDS ORDERED: Tubing IV Secondary IV ONE (16:47)
[2018-07-12] MEDS ORDERED: NS 275ml ONE (16:47)
--- NOTE | 2018-07-12 16:48 | NUR ---
NURSE NOTES: Patient discharged to [facility] via ambulance. Discharge instructions given to ambulance personnel. Report given to JULIO Noble at facility. Patient stable upon discharge.
--- NOTE | 2018-07-13 15:15 | Discharge Summary ---
Discharge Summary Discharge Summary _ DATE OF ADMISSION: 07/07/2018 DATE OF DISCHARGE: 07/12/2018 DISCHARGED BY: Dr. Ady Kerr CONSULTANTS: Dr. Edgardo Mcclain [facility] COURSE: Patient is a 58-year-old male, from [facility], presented with 2 days of increased abdominal pain, nausea and vomiting. He has medical history significant for asthma, diabetes, hypertension and seizure. On evaluation at the ED, he was found to be febrile with temperature of 103. Blood work showed elevated WBC. Hemoglobin and hematocrit were stable. Electrolytes were normal. Lactic acid was elevated to 2.6. Troponin was negative. LFTs were normal. Lipase normal. Dilantin level was 1.4. Valproic acid 22. Urinalysis showed 1+ protein, 2-4 RBC, 0-2 WBC, negative leukocyte esterase, negative nitrite. EKG showed normal sinus rhythm with no acute changes. Chest x-ray showed reduced lung volumes with accentuation of markings. No consolidation or edema. KUB showed nonspecific bowel gas pattern. CT of the abdomen and pelvis did not show any acute inflammatory disease or bowel obstruction but with gallstones. He had poor IV access. A right IJ central line was inserted. Patient was then admitted for elevation of abdominal pain, nausea and vomiting with cholelithiasis. Patient was initially placed on n.p.o. He was given IV hydration. GI was consulted. Patient had abdominal pain with nausea and vomiting, leukocytosis and gallstones, concern for cholecystitis although CT did not show pericholecystic fluid or any obvious abnormal liver function tests and blood work. He was started empirically on doxycycline. Patient was tachycardic, heart rate went up to 140s. Degreaser Operator was consulted. Tachycardia possibly secondary to anxiety and sepsis. Amlodipine was discontinued. He was started on metoprolol 25 mg twice daily. Blood culture showed growth of gram-positive cocci in clusters. ID was consulted. Patient was given empiric IV vancomycin for gram-positive bacteremia. Blood culture was obtained around the same time right IJ was placed. Likely true bacteremia given sepsis presentation upon admission and no other source of infection. A repeat blood culture was obtained. Abdominal ultrasound showed cholelithiasis and fatty liver. Hepatitis serology C was positive. He was recommended outpatient follow-up. Surgeon was consulted for evaluation of abdominal pain. Leukocytosis were improving. There was no acute surgical intervention planned. Patient was started on diet. Echocardiogram done showed EF 55%, with normal left ventricular size, function and wall motion. There was no obvious vegetation on 2D echo. Repeat blood culture did not isolate any growth. Leukocytosis resolved and patient was afebrile. [facility] was [facility] To continue vancomycin every 12 hours for 10 more days. Patient was discharged with a right IJ for antibiotic [facility], to be removed post antibiotic course. FINAL DIAGNOSES: Sepsis Gram-positive bacteremia Nausea, vomiting and abdominal pain with cholelithiasis Lactic acidosis Asthma Hypertension Old CVA with left hemiparesis Hiatal hernia Major depressive disorder Hepatitis C Gastritis Seizure disorder Type 2 diabetes mellitus Sinus tachycardia secondary to anxiety and sepsis longterm resident DISPOSITION: Patient was discharged to a SNF. DISCHARGE MEDICATIONS: Refer to Discharge Medication List. I have been assigned to complete a discharge summary on this account, I was not involved with the patient's management. Kiana Mckoy NP July 13, 2018 15:15
== END 2018-07-12 16:45 | DRG 720 ==
LOC: EDBD 20:05 → EMR 20:42 → EDBEDREQTM 22:01 → EDBEDREQ 22:01 → EDBEDREQSVC 22:01 → EDBEDREQ 22:06 → 2W 22:20 → EDBEDREQ 22:45 → 4E 07-10 05:49
DX: A41.9 Sepsis, unspecified organism (principal); I69.354 Hemiplegia and hemiparesis following cerebral infarction affecting left non-dominant side; E11.9 Type 2 diabetes mellitus without complications; K80.20 Calculus of gallbladder without cholecystitis without obstruction; J45.909 Unspecified asthma, uncomplicated; I10 Essential (primary) hypertension; K44.9 Diaphragmatic hernia without obstruction or gangrene; F32.9 Major depressive disorder, single episode, unspecified; B19.20 Unspecified viral hepatitis C without hepatic coma; G40.909 Epilepsy, unspecified, not intractable, without status epilepticus; K29.70 Gastritis, unspecified, without bleeding; F41.9 Anxiety disorder, unspecified; K92.2 Gastrointestinal hemorrhage, unspecified
CPT/HCPCS: 36415; 71045; 74018; 74177; 76700; 80048; 80053; 80061; 80164; 80185; 80202; 81003; 82150; 82550; 83036; 83605; 83690; 83735; 84100; 84484; 85025; 85610; 85651; 85730; 86140; 87040; 87081; 87181; 87522; 93005; 93306; 94664; 96361; 96365; 96368; 96375; 99285; J2765